=== PATIENT | female | born 1955 | race Caucasian/White ===

== ENCOUNTER → 2017-08-30 | Outpatient (CLI) | payer BC ==
--- NOTE | 2017-08-30 19:54 | CT ---
EXAMINATION TYPE: CT chest w con DATE OF EXAM: 08/30/2017 COMPARISON: NONE HISTORY: Lung mass CT DLP: 600 mGycm Automated exposure control for dose reduction was used. CONTRAST: CT scan of the chest is performed with IV Contrast, patient injected with 100 mL of Isovue 300. FINDINGS: There is a lobulated noncalcified 6 cm mass at the left perihilum. There is some encasement of the le ft upper lobe bronchus. There is encasement of the left lower lobe pulmonary artery. Thoracic aorta i s intact. There is no evidence of aneurysm or dissection. There is diffuse pulmonary emphysema. There is a low-density 1.2 cm infiltrate in the anterior right upper lobe. There is a similar infiltrate i n the lateral aspect of the right middle lobe. There is no pleural effusion. Heart size is normal. Th ere is no pericardial effusion. I see no mediastinal adenopathy. The bony thorax is intact. I see no bony destructive process. IMPRESSION: Large left hilar mass consistent with primary malignancy. Nonspecific peripheral right u pper lobe and right middle lobe small infiltrates.
== END | disposition home or self-care (01) ==
LOC: RADCTMAIN 18:40
PROVIDERS: ATTEND Internal Medicine
DX: R91.8 Other nonspecific abnormal finding of lung field (principal)
CPT/HCPCS: 71260; Q9967

== ENCOUNTER 2017-09-08 09:45 | Day surgery (SDC) | payer BC ==
[2017-09-07 12:07] VITALS: BMI 24.7
[~2017-09-08 09:45] MED LIST: LACTATED RINGERS 1,000 ML IV SCH; Pre Op ABX Message 1 EACH MISC MISCELLANE ONE
[2017-09-08 10:17] VITALS: TEMP 98.9
[2017-09-08] MEDS ORDERED: LIDOCAINE 1% 20 ML VIAL (10MG/ML) FOR IV START INTRADERMA ONE (10:28)
[2017-09-08] MEDS ORDERED: MIDAZOLAM 2 MG/2 ML VIAL IV ONE (10:30)
[2017-09-08] MEDS ORDERED: PROPOFOL 10 MG/ML 20 ML VIAL IV ONE (11:40)
[2017-09-08] MEDS ORDERED: LIDOCAINE 1% INJ 10MG/ML (20 ML MDV) ONE (11:40)
--- NOTE | 2017-09-08 12:41 | P.PCN ---
Date of Procedure: 09/08/17 Preoperative Diagnosis: Left sided Hilar mass Postoperative Diagnosis: Left-sided hilar mass Procedure(s) Performed: Bronchoscopy, flexible along with transbronchial needle aspirate, endobronchial biopsies and bronchial alveolar lavage of the left hilar mass. Anesthesia: MAC Surgeon: Michael Hatch Ground Host/Hostess #1: Yennifer Adams Estimated Blood Loss (ml): 25 Pathology: other Condition: stable Disposition: same day Operative Findings: It is a flexible bronchoscope that was done on this patient. A preop timeout was obtained and a consent was signed. The procedure including the potential complications was explained to the patient at length. This procedure was done under conscious sedation with sedative agents being administered by anesthesia the bedside. The patient was premedicated with a combination of propofol and lidocaine. After achieving adequate sedation, the flexible bronchoscope was inserted to the right nostril and was moved into the upper airway. Examination the posterior oropharynx, larynx, epiglottis, vallecula, arytenoids and the vocal cords was done. All of these upper airway structures were within normal limits and there was no abnormalities within the upper airway and vocal cords function /mobility was within normal limits. A total of 2 mL of 1% lidocaine was applied to the vocal cords and following that the bronchoscope was advanced into the upper trachea. Examination of the [id number] tree was done. There was copious amount of losing secretions throughout the patient's airways were suctioned out. The patient had a normal trachea. Examination of the right mainstem bronchus and the right upper lobe and right middle lobe and right lower lobe was within normal limits. The bronchoscope was then moved to the left lung and the left mainstem bronchus was within normal. The joe the left upper lobe and the left lower lobe bronchus was seen and was within normal limits. The bronchoscope was moved to the left upper lobe and the secondary joe the to the lingular segment and the left upper lobe segments was considerably irregular, granular looking, with several bulges endobronchially causing significant narrowing of the orifice leading into the lingular segment and the left upper lobe segment. I estimated the caliber of the airway was reduced by around 50%. As for the secondary joe itself was irregular rather than being swollen and I suspect that this area was essentially involved with cancer, endobronchially. At this point, I introduced a 21-gauge histology needle and transbronchial needle aspirate of the secondary joe was done. The pass was taken without any complications ,however, this led into some endobronchial bleeding from the puncture site. The blood was suctioned out. Following that, a forceps was introduced and endobronchial biopsies of the lingular segment and the left upper lobe segment leading into the left hilar mass was done. A total of 5-6 biopsies were obtained. After these biopsies, there was further bleeding and estimated amount of bleeding was around 20 mL. The bleeding stopped spontaneously without any intervention. At the end of the procedure a bronchioloalveolar lavage of the left upper lobe was done. A total of 60 mL of fluid was infused and 25 mL of bloody aspirate was obtained. The end of the procedure, the bronchoscope was removed after suctioning any residual blood and mucus. The patient's pulse ox remained above 85% throughout the procedure. No hemodynamic instability. No other complications. Chest x-rays to follow. Further recommended is to follow based on the results of the biopsies. Suspect malignancy/lung cancer.
[2017-09-08] MEDS ORDERED: ACETAMINOPHEN TAB 325 MG TAB PO ONE (13:04)
--- NOTE | 2017-09-08 13:19 | XR ---
EXAMINATION TYPE: XR chest 1V portable DATE OF EXAM: 09/08/2017 COMPARISON: 12/03/2013 INDICATION: Post Bronchoscopy TECHNIQUE: Single frontal view of the chest is obtained. FINDINGS: The heart size is normal. The pulmonary vasculature is normal. There is a left suprahilar mass with spiculated margins. No pneumothorax is evident post bronchoscopy . IMPRESSION: 1. Left suprahilar mass. 2. No pneumothorax post bronchoscopy.
[2017-09-08 13:44] VITALS: BP 125/81; PULSE 113; RESP 18
--- NOTE | 2017-09-08 14:29 | FL ---
EXAMINATION TYPE: FL bronchoscopy DATE OF EXAM: 09/08/2017 COMPARISON: CT chest 08/30/2017 HISTORY: Left upper lobe lung mass Fluoroscopy support supplied to the referring clinician. See dictated report from pulmonary, 32 seco nds fluoroscopy time, single intraoperative exam documents the procedure
== END 2017-09-08 13:50 | disposition home or self-care (01) ==
LOC: ORWHC2ENDO 09:45
PROVIDERS: ATTEND Internal Medicine Critical Care Medicine
DX: C34.02 Malignant neoplasm of left main bronchus (principal); J42 Unspecified chronic bronchitis; E78.00 Pure hypercholesterolemia, unspecified; M47.812 Spondylosis without myelopathy or radiculopathy, cervical region; M50.30 Other cervical disc degeneration, unspecified cervical region; J45.909 Unspecified asthma, uncomplicated; F41.1 Generalized anxiety disorder; F32.9 Major depressive disorder, single episode, unspecified; E03.9 Hypothyroidism, unspecified; I10 Essential (primary) hypertension; G43.909 Migraine, unspecified, not intractable, without status migrainosus; F17.200 Nicotine dependence, unspecified, uncomplicated; Z87.442 Personal history of urinary calculi; Z79.82 Long term (current) use of aspirin; Z79.890 Hormone replacement therapy; Z79.899 Other long term (current) drug therapy; Z79.891 Long term (current) use of opiate analgesic; Z88.1 Allergy status to other antibiotic agents; Z88.8 Allergy status to other drugs, medicaments and biological substances; Z91.012 Allergy to eggs; Z91.040 Latex allergy status
CPT/HCPCS: 88108; 88305; 88173; 88342; 88341; 71045; 31629; 31625; 31624; J2250; J2001; J2704; 31628; 31633

== ENCOUNTER → 2017-09-18 | Outpatient (CLI) | payer BC ==
--- NOTE | 2017-09-20 09:13 | PE ---
EXAMINATION TYPE: PET CT fusion skull to thigh DATE OF EXAM: 09/18/2017 COMPARISON: Chest CT August 30, 2017. HISTORY: Lung Mass. Initial staging study. Positive biopsy September 08, 2017. TECHNIQUE: Following the intravenous administration of 14.798 mCi of F-18 FDG, whole body images are performed from the skull base to the midthigh. Images are reviewed on the computer in the coronal, axial, and sagittal planes. Reconstructed rotating images are created on independent workstation and reviewed on the computer. A noncontrast CT is performed in conjunction with the PET scan. SCAN: Initial scan FINDINGS: SKULL BASE AND NECK: No suspicious hypermetabolic uptake is seen CHEST, MEDIASTINUM, AND HILAR REGION: Moderate underlying emphysematous change is redemonstrated. There is redemonstration of spiculated left suprahilar mass measuring approximately 7.0 x 5.5 cm axia l image 76, this mass abuts the fissure and appears to invade the mediastinum encroaching upon left p ulmonary artery and significantly narrowing left upper lobe bronchus, max SUV is 23.06. Inferior to this there is triangular shaped area of abnormal hypermetabolic uptake in the anterior in ferior aspect left upper lobe abutting fissure measuring 4.5 x 2.8 cm, max SUV is 7.14. There is redemonstration of spiculated nodules or nodular consolidations in the right lung measuring 1.2 x 0.9 cm axial image 78 and more irregular nodular consolidation measuring roughly 9 x 5 mm right middle lobe axial image 95 without abnormal hypermetabolic uptake ABDOMEN AND PELVIS: No suspicious hypermetabolic uptake is present. No adrenal masses are seen. Some right-sided bowel uptake is believed within normal limits OSSEOUS STRUCTURES: No suspicious hypermetabolic uptake is seen. OTHER CT: Anterior fusion plate lower cervical spine is noted. Coronary artery calcification is present which is noted marker for coronary artery disease. Slightly elevated left hemidiaphragm is seen. Gallbladder has distended margins. Moderate atherosclerotic change of aorta. There are some diverticula in the sigmoid colon. There is facet arthropathy lower lumbar spine. IMPRESSION: Multifocal left hypermetabolic uptake without mediastinal or right-sided hypermetabolic o r metastatic malignancy. TNM STAGING T3 or T4(media invasion?), N0, M0 AJCC STAGING IIB or IIIA
== END | disposition home or self-care (01) ==
LOC: RADPETMAIN 11:49
PROVIDERS: ATTEND Internal Medicine
DX: R91.8 Other nonspecific abnormal finding of lung field (principal)
CPT/HCPCS: 78815; A9552

== ENCOUNTER 2017-09-30 09:40 | Day surgery (SDC) | payer BC ==
[2017-09-27 16:01] VITALS: BMI 24.1
--- NOTE | 2017-09-30 07:49 | P.GSHP ---
History of Present Illness H&P Date: 09/30/17 CHIEF COMPLAINT: Lung cancer HISTORY OF PRESENT ILLNESS: The patient is a 61-year-old female diagnosed with lung cancer. She needs a Mediport placement for chemotherapy. PAST MEDICAL HISTORY: See list PAST SURGICAL HISTORY: See list CURRENT MEDICATIONS: See list. ALLERGIES: See list. SOCIAL HISTORY: See list. FAMILY HISTORY: Noncontributory. REVIEW OF ORGAN SYSTEMS: CONSTITUTIONAL: No fevers or chills PHYSICAL EXAMINATION: Vital signs: Stable GENERAL: Well developed and in no acute distress. Pleasant. HEENT: No sclera icterus. Extraocular movements grossly intact. Moist buccal mucosa. Head is atraumatic, normocephalic. Hears conversational speech. No nasal drainage. NECK: Supple without lymphadenopathy. CHEST: Non-labored respirations and equal bilateral excursions. CARDIOVASCULAR: Regular rate and rhythm. Palpable 2+ radial pulses. ABDOMEN: Nontender. MUSCULOSKELETAL: No clubbing, cyanosis or edema. NEUROLOGIC: No focal or lateralizing signs. PSYCH: Appropriate affect. Alert and oriented to person, place and time. ASSESSMENT: 1. Lung cancer. 2. Need for chemotherapeutic access. PLAN: 1. Agree with Port-A-Cath placement. Past Medical History Past Medical History: Asthma, Cancer, Hyperlipidemia, Hypertension, Neurologic Disorder, Thyroid Disorder Additional Past Medical History / Comment(s): HX MIGRAINE, HX KIDNEY STONES, newly dx. lung cancer History of Any Multi-Drug Resistant Organisms: None Reported Past Surgical History: Adenoidectomy, Hysterectomy, Orthopedic Surgery, Tonsillectomy Additional Past Surgical History / Comment(s): LEFT ELBOW, LEFT CARPAL TUNNEL, EPIDURAL PAIN SHOTS, Anterior Cervical Decomp. and fusion c5-6,c6-7 Past Anesthesia/Blood Transfusion Reactions: No Reported Reaction Smoking Status: Current every day smoker - Past Family History Mother Family Medical History: Hyperlipidemia Father Additional Family Medical History / Comment(s): of ALS Medications and Allergies Home Medications Medication Instructions Recorded Confirmed Type ALPRAZolam [ALPRAZolam] 0.25 mg PO HS 12/20/13 09/27/17 History Albuterol Inhaler [Ventolin Hfa 2 puff INHALATION Q6H PRN 12/20/13 09/27/17 History Inhaler] Aspirin 81 mg PO DAILY 12/20/13 09/27/17 History Atenolol [Atenolol] 50 mg PO HS 12/20/13 09/27/17 History DULoxetine HCL [Cymbalta] 30 mg PO QAM 12/20/13 09/27/17 History Fenofibric Acid (Choline) 135 mg PO DAILY 12/20/13 09/27/17 History [Fenofibric Acid] Levothyroxine Sodium [Synthroid] 50 mcg PO DAILY 12/20/13 09/27/17 History Rosuvastatin Calcium [Crestor] 60 mg PO DAILY 12/20/13 09/27/17 History Varenicline [Chantix Starter Pack] 0.5 mg PO DAILY 09/27/17 09/27/17 History Allergies Allergy/AdvReac Type Severity Reaction Status Date / Time cephalexin monohydrate Allergy Rash/Hives Verified 09/27/17 15:47 [From Keflex] Egg Derived Allergy Anaphylaxis Verified 09/27/17 15:47 latex Allergy Rash/Hives Verified 09/27/17 15:47 simvastatin AdvReac Unknown Verified 09/27/17 15:47
[~2017-09-30 09:40] MED LIST changes: +DEXAMETHASONE SOD PHOSPHATE 10 MG/ML 1 ML VIAL IV ONE; +HYDROmorphone 0.5 MG/0.5 ML SYRINGE IVP PRN; +ONDANSETRON 4 MG/2 ML VIAL IVP ONE; -Pre Op ABX Message 1 EACH MISC MISCELLANE ONE; +ceFAZolin IN SWFI 2 GM/20 ML SYRINGE IVP STA
[2017-09-30 10:07] VITALS: RESP 16; TEMP 98
[2017-09-30] MEDS ORDERED: SCOPOLAMINE 1.5MG/72HR PATCH TRANSDERM ONE (10:28)
[2017-09-30] MEDS ORDERED: ceFAZolin IN SWFI 2 GM/20 ML SYRINGE IVP ONE (10:29)
[2017-09-30] MEDS ORDERED: BUPIVACAIN-EPI 0.25%-1:200,000 30 ML VIAL SQ ONE ×2 (11:00→11:42)
[2017-09-30] MEDS ORDERED: HEPARIN SODIUM,PORCINE 100 UNIT/ML 5 ML VIAL IV ONE ×3 (11:01→13:04)
[2017-09-30] MEDS ORDERED: SODIUM CHLORIDE 0.9% 500 ML with HEPARIN SODIUM,PORCINE 5,000 UNIT IV ONE ×6 (11:02)
[2017-09-30] MEDS ORDERED: MIDAZOLAM 2 MG/2 ML VIAL ONE (12:21)
[2017-09-30] MEDS ORDERED: fentaNYL (PF) 50 MCG/ML 2 ML AMP ONE (12:21)
[2017-09-30] MEDS ORDERED: PROPOFOL 10 MG/ML 20 ML VIAL IV ONE (12:21)
--- NOTE | 2017-09-30 13:13 | P.PCN ---
Date of Procedure: 09/30/17 Description of Procedure: SURGEON: ARAM ISIDRO MD SHEET WRITER: None. PREOPERATIVE DIAGNOSES: 1. Lung cancer 2. Need for chemotherapeutic access. 3. Chronic obstructive pulmonary disease 4. Tobacco abuse 5. Hyperlipidemia. 6. Hypertensive heart disease 7. Hypothyroidism. 8. Anxiety POSTOPERATIVE DIAGNOSES: 1. Lung cancer 2. Need for chemotherapeutic access. 3. Chronic obstructive pulmonary disease 4. Tobacco abuse 5. Hyperlipidemia. 6. Hypertensive heart disease 7. Hypothyroidism. 8. Anxiety PROCEDURES PERFORMED: 1. Ultrasound guided central venous access of the right internal jugular venous vein. 2. Fluoroscopic guidance for central venous access right internal jugular vein 1 seconds. 3. Placement of right internal jugular power port 6 [place] by [employer]. ANESTHESIA: IV sedation with local. ESTIMATED BLOOD LOSS: 5 mL. SPECIMENS REMOVED: None. COMPLICATIONS: None. INDICATIONS: The patient is a 61-year-old female recently diagnosed with lung cancer. She presents for chemotherapeutic access. Benefits and risks of surgical intervention were described including bleeding, infection, mechanical problems with the port. Informed consent was obtained. DESCRIPTION OR PROCEDURE: Patient was brought into the operating room, laid in supine position. After adequate IV sedation, the chest and right neck were prepped and draped in a standard sterile fashion including the shoulder with ChloraPrep. Timeout protocol was confirmed with the surgical team regarding the patient's name, procedure to be performed including preoperative medications for which she received IV antibiotics. Bilateral SCDs were placed. An ultrasound was used to capture views of the right internal jugular vein including right carotid artery, which was patent and without thrombus along its course. The right IJ was then localized using anesthetic for the skin. A 16 [place] needle was used to access the IJ. A guidewire was advanced into the IJ with dark nonpulsatile venous blood. Two fingerbreadths distal to the clavicle, on the lateral third, a transverse 1.5 to 2 cm incision was deepened into the skin after localizing the skin. A pocket was created for the port. The port on the back table was flushed with heparinized saline and then attached to the catheter tubing. An adapter was fastened to the actual port site over the tubing. The port easily had fit snug into the pocket. A subcutaneous tunneler was placed along the open end of the tubing and brought out through the separate stab incision. Fluoroscopic guidance confirmed no kinking along the tubing and the port site. Next, the J-wire was exchanged for a catheter sheath for which the tubing was cut to 20 cm and then advanced through the catheter sheath. The Peel-away sheath was then removed and the tubing was secured at the junction of the superior vena cava as well as the right atrium. The tubing was found to be crossed however functional. This was all done under fluoroscopic guidance under 1 seconds. Easy pullback as well as return and aspiration was obtained of the port site. The skin incision was closed using layers using 3-0 Vicryl for the subcu followed by 4-0 Monocryl in a running subcuticular fashion. At the stick site this was also reapproximated using 4-0 Monocryl. The incisions were covered with Optifoam, The skin was cleansed and Exofin liquid glu was applied. A total of 20 mL of local anesthetic was placed. At the end of the procedure, needle, sponge, and instrument count was verified correct by surgical sales representative. Heparin lock of 5 mL was placed. The patient was awoken and pain free and taken to the second stage postanesthesia care unit. The patient tolerated the procedure well. FINDINGS: 1. No thrombus encountered along the right carotid artery or internal jugular vein. 2. Access of the right internal jugular vein under ultrasound guidance. 3. Fluoroscopy of 1 seconds. Plan - Discharge Summary New Discharge Prescriptions: No Action Fenofibric Acid (Choline) [Fenofibric Acid] 135 mg PO DAILY Rosuvastatin Calcium [Crestor] 60 mg PO DAILY Levothyroxine Sodium [Synthroid] 50 mcg PO DAILY Atenolol [Atenolol] 50 mg PO HS ALPRAZolam [ALPRAZolam] 0.25 mg PO HS DULoxetine HCL [Cymbalta] 30 mg PO QAM Aspirin 81 mg PO DAILY Albuterol Inhaler [Ventolin Hfa Inhaler] 2 puff INHALATION Q6H PRN PRN Reason: asthma Varenicline [Chantix Starter Pack] 0.5 mg PO DAILY Discharge Medication List ALPRAZolam [ALPRAZolam] 0.25 mg PO HS 12/20/13 [History] Albuterol Inhaler [Ventolin Hfa Inhaler] 2 puff INHALATION Q6H PRN 12/20/13 [ History] Aspirin 81 mg PO DAILY 12/20/13 [History] Atenolol [Atenolol] 50 mg PO HS 12/20/13 [History] DULoxetine HCL [Cymbalta] 30 mg PO QAM 12/20/13 [History] Fenofibric Acid (Choline) [Fenofibric Acid] 135 mg PO DAILY 12/20/13 [History] Levothyroxine Sodium [Synthroid] 50 mcg PO DAILY 12/20/13 [History] Rosuvastatin Calcium [Crestor] 60 mg PO DAILY 12/20/13 [History] Varenicline [Chantix Starter Pack] 0.5 mg PO DAILY 09/27/17 [History] Patient Instructions/Handouts: Scopolamine (Absorbed through the skin)
--- NOTE | 2017-09-30 13:27 | FL ---
EXAMINATION TYPE: FL guided central line placemt DATE OF EXAM: 09/30/2017 CLINICAL HISTORY: Right-sided Mediport placement. TECHNIQUE: Fluoroscopy. COMPARISON: None. FINDINGS/IMPRESSION: Fluoroscopic guidance was provided during procedure performed by Dr. Rivera. A total of 1 seconds of fluoroscopic time was utilized during the procedure and 1 spot images was a cquired during intraoperative placement of a right-sided Mediport. There is also partial visualizatio n of a cervical fusion device.
[2017-09-30 14:04] VITALS: BP 113/72; PULSE 100
--- NOTE | 2017-09-30 14:17 | XR ---
EXAMINATION TYPE: XR chest 1V confirm line [facility] DATE OF EXAM: 09/30/2017 COMPARISON: 09/08/2017 HISTORY: Line placement TECHNIQUE: Single frontal view of the chest is obtained. FINDINGS: The heart size is normal. The pulmonary vasculature is normal. There is a left suprahilar mass with spiculated margins. No pneumothorax. Mediport catheter seen with the tip overlying the SVC. IMPRESSION: 1. No pneumothorax post-Mediport insertion.
== END 2017-09-30 14:29 | disposition home or self-care (01) ==
LOC: OR 09:40
PROVIDERS: ATTEND Surgery Plastic and Reconstructive Surgery
DX: C34.12 Malignant neoplasm of upper lobe, left bronchus or lung (principal); I10 Essential (primary) hypertension; E78.5 Hyperlipidemia, unspecified; E03.9 Hypothyroidism, unspecified; J44.9 Chronic obstructive pulmonary disease, unspecified; F41.9 Anxiety disorder, unspecified; I11.9 Hypertensive heart disease without heart failure; F17.210 Nicotine dependence, cigarettes, uncomplicated; Z79.899 Other long term (current) drug therapy; Z88.8 Allergy status to other drugs, medicaments and biological substances; Z91.012 Allergy to eggs; Z91.040 Latex allergy status
CPT/HCPCS: 77001; 36561; 76937; C1788; J2250; J1644; J1642; J1100; J2405; J3010; J2704

== ENCOUNTER → 2017-10-15 | Outpatient (CLI) | payer BC ==
--- NOTE | 2017-10-15 13:11 | XR ---
EXAMINATION TYPE: XR chest 2V DATE OF EXAM: 10/15/2017 COMPARISON: Prior chest x-ray 09/30/2017 HISTORY: Lung carcinoma TECHNIQUE: Frontal and lateral views of the chest are obtained. FINDINGS: Findings are similar to previous exam. Left upper lobe lung mass, lingula consolidation ag ain noted. Distal tip of the MediPort in the region of the confluence of the innominate and right sub clavian veins. Right-sided lung nodules not well seen possibly due to rotation. IMPRESSION: Findings compatible with patient's history of lung carcinoma, possible postobstructive a telectasis..
== END | disposition home or self-care (01) ==
LOC: RADXRMAIN 11:05
PROVIDERS: ATTEND Nurse Practitioner Adult Health
DX: C34.12 Malignant neoplasm of upper lobe, left bronchus or lung (principal); I10 Essential (primary) hypertension; E78.5 Hyperlipidemia, unspecified; E03.9 Hypothyroidism, unspecified
CPT/HCPCS: 71046

== ENCOUNTER → 2017-10-15 | Outpatient (CLI) | payer BC ==
--- NOTE | 2017-10-17 21:57 | MR ---
EXAMINATION TYPE: MR brain wo/w con DATE OF EXAM: 10/15/2017 COMPARISON: Correlation PET/CT 09/18/2017 and MRI brain 05/14/2015 HISTORY: 61-year-old female Lung cancer TECHNIQUE: Multiplanar, multisequence images of the brain and brainstem were acquired before and aft er administration of 6 mL IV Gadavist. Diffusion weighted imaging is performed. FINDINGS: No evidence for acute infarction, hemorrhage, mass, mass effect, midline shift, herniation, effacemen t of basal cisterns, or extra-axial fluid collection. The ventricles and sulci are age-appropriate. Major intracranial flow voids are intact. T2/FLAIR weighted sequences show mild scattered burden of bright white matter change in the subcortic al regions of both cerebral hemispheres, left greater than right, unchanged from 2016. Midline structures demonstrate normal morphology. The craniocervical junction is normal. Post contrast images demonstrate no evidence of pathologic enhancement. Dural venous sinuses are pat ent. Mild mucosal thickening ethmoid air cells. Globes are intact. Small mucosal retention cyst left sphen oid sinus. IMPRESSION: No acute intracranial abnormally seen. No evidence for brain metastases. Similar mild scattered burde n of chronic small vessel ischemic disease.
== END | disposition home or self-care (01) ==
LOC: RADMRIMAIN 12:53
PROVIDERS: ATTEND Radiology Radiation Oncology
DX: I67.82 Cerebral ischemia (principal); C34.12 Malignant neoplasm of upper lobe, left bronchus or lung
CPT/HCPCS: 70553; A9581

== ENCOUNTER → 2017-12-18 | Outpatient (CLI) | payer BC ==
--- NOTE | 2017-12-19 13:19 | PE ---
EXAMINATION TYPE: PET CT fusion skull to thigh DATE OF EXAM: 12/18/2017 COMPARISON: CT chest 08/30/2017 Prior PET/CT: 09/18/2017 HISTORY: Lung cancer TECHNIQUE: Following the intravenous administration of 13.94 mCi of F-18 FDG, whole body images are performed from the skull base to the midthigh. Images are reviewed on the computer in the coronal, a xial, and sagittal planes. Reconstructed rotating images are created on independent workstation and reviewed on the computer. A localization and attenuation correction CT is performed in conjunction with the PET scan. DLP: 340.19 mGycm SCAN: Subsequent Blood glucose: 129 mg/dL Average Mediastinum SUV: 1.22 Average Liver SUV: 2.0 cm FINDINGS: NECK: No abnormal uptake THORAX: Left perihilar mass has an SUV value of 10-12 compatible with neoplasm. PET image 86. No susp icious uptake within the mediastinum is evident. Left infrahilar region, such as series 3 image 95, h as milder uptake measuring 4.3 SUV. Remainder of the chest appears clear. ABDOMEN: No abnormal uptake PELVIS: No abnormal uptake. There appears to be normal radiotracer within the distal right ureter OSSEOUS STRUCTURES: No abnormal uptake LOCALIZATION CT: Left suprahilar mass measures 3.6 x 3.6 cm. Series 3 image 84. No suspicious hilar a denopathy is evident. The ascending thoracic aorta at the level of the main pulmonary artery is 3.4 c m. Main pulmonary artery indications 2.7 cm. Mild coronary artery calcification is present. COMPARISON: Previous mass was larger measuring 5.6 x 4.4 cm right a previous area of pneumonitis with in the right middle lobe at 2 separate locations is again evident. Metastatic disease is not excluded abnormal uptake on PET scan is not identified. (SUV values 0.3 and 0.4) IMPRESSION: 1. Diminished size and diminished SUV value of the left hilar neoplasm. 2. No suspicious metabolic activity to suggest metastatic disease. 3. Right middle lobe pneumonitis changes appears similar without hypermetabolic activity to previous exam.
== END ==
LOC: RADPETMAIN 07:57
PROVIDERS: ATTEND Internal Medicine Hematology & Oncology
DX: C34.12 Malignant neoplasm of upper lobe, left bronchus or lung (principal); J18.9 Pneumonia, unspecified organism
CPT/HCPCS: 78815; A9552

== ENCOUNTER → 2018-01-13 | Outpatient (CLI) | payer BC ==
--- NOTE | 2018-01-13 11:36 | CT ---
EXAMINATION TYPE: CT chest wo con DATE OF EXAM: 01/13/2018 COMPARISON: Chest CT 08/30/2017 HISTORY: Cough, lung CA CT DLP: 509.7 mGycm. Automated Exposure Control for Dose Reduction was Utilized. TECHNIQUE: CT scan of the thorax is performed without IV contrast. Limited scanning performed in sup ine and prone positions through the lungs with high-resolution algorithm. FINDINGS: Lack of contrast, limited exam could limit sensitivity. LUNGS: Centrilobular emphysematous changes predominate in the upper lobes. Scattered groundglass subc entimeter nodularity noted within the lungs. Large left hilar mass measures approximately 5.2 cm in A P dimension on limited scanning slightly diminished compared to previous exam. No pleural or pericard ial effusion. MEDIASTINUM: Lack of IV contrast is noted to limit evaluation for mediastinal and especially hilar ad enopathy. There are no definitive greater than 1 cm hilar or mediastinal lymph nodes. Coronary arter y calcification present. No cardiomegaly or pericardial effusion is seen. OTHER: Postop changes noted to the cervical spine. Bones otherwise within normal limits. No evident a drenal mass. There is a port in the right pectoral region, the catheter extends into the jugular vein is not seen within the superior vena cava. IMPRESSION: Findings compatible with bronchogenic carcinoma. Emphysema. Indeterminate scattered nodul arity is less conspicuous than on prior CT. Additional findings above.
== END | disposition home or self-care (01) ==
LOC: RADCTMAIN 09:32
PROVIDERS: ATTEND Internal Medicine Hematology & Oncology
DX: J43.2 Centrilobular emphysema (principal); R91.8 Other nonspecific abnormal finding of lung field; I25.10 Atherosclerotic heart disease of native coronary artery without angina pectoris; R59.0 Localized enlarged lymph nodes; C34.12 Malignant neoplasm of upper lobe, left bronchus or lung
CPT/HCPCS: 71250

== ENCOUNTER → 2018-02-07 | Outpatient (CLI) | payer BC ==
--- NOTE | 2018-02-08 08:04 | XR ---
EXAMINATION TYPE: XR chest 2V DATE OF EXAM: 02/07/2018 COMPARISON: 10/15/2017 HISTORY: Left lung cancer. Mediport placement. TECHNIQUE: Frontal and lateral views of the chest are obtained. FINDINGS: There is radiographic improvement in the density and size of the left perihilar known pulm onary neoplasm. Left lower lung atelectasis and slight left hemidiaphragm elevation are unchanged. Re mainder the lungs are clear. No pneumothorax or pleural effusion. Right-sided Mediport is unchanged i n position terminating in the superior vena cava. Cervical fusion device is noted. IMPRESSION: Decrease density in size of the known left perihilar neoplasm. Subsegmental left basilar atelectasis. No new focal consolidation.
== END | disposition home or self-care (01) ==
LOC: RADXRMAIN 17:32
PROVIDERS: ATTEND Nurse Practitioner Adult Health
DX: C34.12 Malignant neoplasm of upper lobe, left bronchus or lung (principal); J98.11 Atelectasis; I10 Essential (primary) hypertension; E78.5 Hyperlipidemia, unspecified; E03.9 Hypothyroidism, unspecified
CPT/HCPCS: 71046

== ENCOUNTER → 2018-04-08 | Outpatient (CLI) | payer BC ==
[2018-04-08 11:27] LABS: Blood Urea Nitrogen 19 mg/dL (7-17)
--- NOTE | 2018-04-08 14:01 | CT ---
EXAMINATION TYPE: CT chest w con DATE OF EXAM: 04/08/2018 COMPARISON: PET CT December 18, [address] September 18, 2017 HISTORY: Lung cancer follow up. CT DLP: 583 mGycm. Automated Exposure Control for Dose Reduction was Utilized. TECHNIQUE: CT scan of the thorax is performed following with IV Contrast, patient injected with 100 mL of Isovue M300. FINDINGS: LUNGS: Spiculated mass left suprahilar region is difficult to accurately measure due to irregular mar gins and close proximity to adjacent left pulmonary artery. It is felt diminished in size from most r ecent PET/CT measuring 2.8 x 2.2 cm axial image 18 there is surrounding groundglass opacity with reti cular opacity also extending to the periphery of the lung likely reflecting edema and/or less likely infiltrate. There is new small left pleural effusion identified. Small amount of pleural fluid latera l left lung is also seen coronal image 49. There is background mild to moderate underlying emphysemat ous change most prominent in the upper lungs. Right lung remains clear. Slightly elevated left hemidi aphragm is redemonstrated. MEDIASTINUM: There are no greater than 1 cm hilar or mediastinal lymph nodes. New small to moderate-s ized pericardial effusion is seen measuring up to 13 mm in thickness. No cardiomegaly is present. OTHER: There is redemonstration of right internal jugular Mediport catheter terminating near junction of internal jugular and brachiocephalic veins short of the SVC similar to prior. IMPRESSION: 1. Improving left suprahilar neoplasm. New small left pleural effusion and surrounding left lung niall a and/or less likely infiltrate noted. No new masses or adenopathy. 2. Note is made of stable appearing right internal jugular Mediport catheter with tip short of SVC.
== END | disposition home or self-care (01) ==
LOC: RADPROMAIN 10:25
PROVIDERS: ATTEND Internal Medicine Hematology & Oncology
DX: C34.12 Malignant neoplasm of upper lobe, left bronchus or lung (principal); J90 Pleural effusion, not elsewhere classified; J81.1 Chronic pulmonary edema; Z95.828 Presence of other vascular implants and grafts
CPT/HCPCS: 82565; 84520; 71260; 36415; Q9967

== ENCOUNTER → 2018-07-26 | Outpatient (CLI) | payer BC ==
[2018-07-26 08:46] LABS: Blood Urea Nitrogen 24 mg/dL (7-17)
--- NOTE | 2018-07-26 10:31 | CT ---
EXAMINATION TYPE: CT chest w con DATE OF EXAM: 07/26/2018 COMPARISON: 04/08/2018 and PET/CT dated 12/18/2017 HISTORY: Follow up to lung CA CT DLP: 404.7 mGycm. Automated Exposure Control for Dose Reduction was Utilized. TECHNIQUE: CT scan of the thorax is performed following with IV Contrast, patient injected with 100 mL of Isovue 300. FINDINGS: LUNGS/MEDIASTINUM: There is marked decrease in size of the left-sided pleural effusion with only a sm all loculated component persisting along the posterior left upper lobe. This is contiguous with pleur al parenchymal scarring and surrounding atelectasis. The primary left hilar neoplasm when measured in a similar location appears decrease in size measuring approximately 2.2 x 1.7 cm and previously cole uring approximately 2.8 x 2.2 cm. There remains left hilar peribronchial soft tissue thickening. The pericardial effusion has markedly decreased in size with only trace anterior right sided component re maining. The coronary calcifications are seen. No discrete mediastinal adenopathy as evident by size criteria. Very small hiatal hernia seen in the inferior mediastinum. There is moderate underlying pulmonary emphysema and bandlike scarring along the left interlobar fiss ure. Bilateral pulmonary nodules (3 in the left and 7 on the right) are stable from the prior and sub sequent 4 mm. OTHER: There is mild degree hepatic steatosis, limiting evaluation for hepatic masses. However there are subtle areas of enhancement and the inferior margin of segment 8 and segment 5 in a subcapsular l ocation as well as more subtle hypoattenuation in segment IVb as marked on the images. Mild multileve l degenerative changes of the spine are present. Right-sided Mediport is again seen. IMPRESSION: 1. Continued response to treatment with decrease in size of the primary left hilar mass, nearly resol paulino left pleural effusion, nearly resolved pericardial effusion, stable sub-4 mm bilateral pulmonary nodules, stable left post radiation change, and no new mediastinal adenopathy. 2. There is mild degree hepatic steatosis that somewhat limits evaluation for underlying hepatic mass es. Small foci of arterial enhancement may represent portal venous shunt and more hypoattenuated adalid on near the gallbladder fossa could represent more focal fatty infiltration however these findings co uld be further evaluated with MRI liver to exclude early metastasis.
== END | disposition home or self-care (01) ==
LOC: RADCTMAIN 08:10
PROVIDERS: ATTEND Internal Medicine Hematology & Oncology
DX: Z03.89 Encounter for observation for other suspected diseases and conditions ruled out (principal); J90 Pleural effusion, not elsewhere classified; I31.3 Pericardial effusion (noninflammatory); R91.8 Other nonspecific abnormal finding of lung field; K76.0 Fatty (change of) liver, not elsewhere classified; C34.12 Malignant neoplasm of upper lobe, left bronchus or lung; Z88.1 Allergy status to other antibiotic agents
CPT/HCPCS: 82565; 84520; 71260; 36415; Q9967

== ENCOUNTER → 2018-08-08 | Outpatient (CLI) | payer BC ==
--- NOTE | 2018-08-08 16:50 | NM ---
EXAMINATION TYPE: NM bone scan whole body DATE OF EXAM: 08/08/2018 COMPARISON: Correlation PET/CT 12/30/2017 HISTORY: 62-year-old female with bone pain, history of lung cancer. Technique: Delayed whole-body scanning was performed following the injection of 23.9 mCi Tc 99m MDP. Anterior and posterior whole body Images acquired 3 hours post injection. FINDINGS: No suspicious accumulation of tracer activity within the axial or appendicular skeleton to suggest os seous metastatic disease. There are some degenerative tracer activity at the right knee. IMPRESSION: No scintigraphic evidence for osseous metastatic disease.
== END | disposition home or self-care (01) ==
LOC: RADNMMAIN 09:52
PROVIDERS: ATTEND Internal Medicine Hematology & Oncology
DX: M84.88 Other disorders of continuity of bone, other site (principal); C34.12 Malignant neoplasm of upper lobe, left bronchus or lung
CPT/HCPCS: 78306; A9503

== ENCOUNTER → 2018-10-11 | Outpatient (CLI) | payer BC ==
--- NOTE | 2018-10-11 21:49 | CT ---
EXAMINATION TYPE: CT chest w con DATE OF EXAM: 10/11/2018 COMPARISON: 07/26/2018 and 04/08/2018 HISTORY: 62-year-old female f/u lung ca TECHNIQUE: Contiguous axial scanning of the chest after the administration of 100 mL of Isovue 300. Coronal/sagittal reconstructions performed. CT DLP: 765mGycm. Automatic exposure control utilized for a dose reduction. FINDINGS: Heart normal size with stable mild pericardial effusion. Aorta normal caliber with mild atherosclerotic arch calcifications and conventional arch vessel branc gwendolyn anatomy. Right anterior chest wall injection port with stable catheter tip in the right brachiocephalic vein. No thoracic lymphadenopathy by CT size criteria. There is moderate centrilobular emphysema. Scattered 4 mm and smaller pulmonary nodules are unchanged . Left suprahilar soft tissue is unchanged from recent prior and decreased from 04/08/2018. Patchy grou ndglass extends throughout the left upper mid lung at this level. Bandlike atelectasis or scarring al dario the major fissure. The interval is patchy peribronchovascular and subpleural groundglass posterior left lower lobe, refe rred to axial images 22, 28, and 29. No pleural effusion. Stable focal hypodensity along the gallbladder fossa and some areas along the buck hepatis likely fo everardo fatty infiltration. Hilar splenules. Bones: Mild endplate spondylosis mid to lower thoracic spine. ACDF hardware. IMPRESSION: 1. Stable mild left suprahilar soft tissue at the site of treated disease. Groundglass throughout the left lung limited to this level compatible with post radiation therapy change also unchanged from and overall decreased from 04/08/2018. 2. New patchy peribronchovascular subpleural groundglass extending posteriorly in the left lower lobe . Correlate for interstitial pneumonitis such TOOLROOM CLERK, additional evolving post radiation therapy change, or pneumonia. Attention on follow-up. 3. COPD with moderate emphysema. Scattered 4 mm and smaller pulmonary nodules are unchanged. 4. Stable right anterior chest wall injection port tip in the right brachiocephalic vein.
== END | disposition home or self-care (01) ==
LOC: RADCTMAIN 14:06
PROVIDERS: ATTEND Internal Medicine Critical Care Medicine
DX: J43.9 Emphysema, unspecified (principal); R91.8 Other nonspecific abnormal finding of lung field; C34.90 Malignant neoplasm of unspecified part of unspecified bronchus or lung; Z88.1 Allergy status to other antibiotic agents; Z88.8 Allergy status to other drugs, medicaments and biological substances
CPT/HCPCS: 71260; Q9967

== ENCOUNTER 2019-02-26 08:45 | Inpatient (IN) | payer BC ==
[2019-02-26] MEDS ORDERED: SODIUM CHLORIDE 0.9% 1,000 ML IV STA (09:11)
[2019-02-26] MEDS ORDERED: IPRATROPIUM-ALBUTEROL 3 ML NEB INHALATION STA ×2 (09:11→11:09)
[2019-02-26] MEDS ORDERED: methylPREDNISolone SOD SUCCI 125 MG/2 ML VIAL IV STA (09:11)
[2019-02-26] MEDS: SODIUM CHLORIDE 0.9% 1,000 ML IV STA ×2 (09:13→11:00)
--- NOTE | 2019-02-26 09:15 | ED ---
SOB HPI - General Source: patient, RN notes reviewed, old records reviewed Mode of arrival: ambulatory Limitations: no limitations <Francisca Forde - Last Filed: 02/26/19 12:46> <Izaiah Escobar - Last Filed: 02/26/19 13:14> - General Chief Complaint: Shortness of Breath Stated Complaint: SOB Time Seen by Provider: 02/26/19 08:55 - History of Present Illness Initial Comments: Patient is a 63-year-old female with history of lung cancer, with a senior product marketing manager Dr. Hatch and her oncologist is Dr. Sales. She presents today with worsening cough congestion and shortness of breath over the past 3 days. She does report some blood-tinged mucus and yellow-green sputum. She reports that she's been having night sweats, low-grade fevers. She's been taking Motrin Tylenol for pain. She reports that she has persistent pain length substernal pain with coughing lately has been more brought her entire chest. Patient states that she's had no nausea or vomiting or abdominal pain. (Francisca Forde) - Related Data Home Medications Medication Instructions Recorded Confirmed ALPRAZolam 0.25 mg PO HS 12/20/13 11/17/17 Albuterol Inhaler [Ventolin Hfa 2 puff INHALATION Q6H PRN 12/20/13 11/17/17 Inhaler] Aspirin 81 mg PO DAILY 12/20/13 11/17/17 Atenolol 50 mg PO HS 12/20/13 11/17/17 DULoxetine HCL [Cymbalta] 30 mg PO QAM 12/20/13 11/17/17 Fenofibric Acid (Choline) 135 mg PO DAILY 12/20/13 11/17/17 [Fenofibric Acid] Levothyroxine Sodium [Synthroid] 50 mcg PO DAILY 12/20/13 11/17/17 Rosuvastatin Calcium [Crestor] 60 mg PO DAILY 12/20/13 11/17/17 Varenicline [Chantix Starter Pack] 0.5 mg PO DAILY 09/27/17 11/17/17 Famotidine [Pepcid] 20 mg PO DAILY 10/20/17 11/17/17 HYDROcodone/APAP 5-325MG [[place] 1 tab PO Q6HR PRN 11/17/17 11/17/17 5-325] Allergies Allergy/AdvReac Type Severity Reaction Status Date / Time cephalexin monohydrate Allergy Rash/Hives Verified 02/26/19 08:52 [From Keflex] Egg Derived Allergy Anaphylaxis Verified 02/26/19 08:52 latex Allergy Rash/Hives Verified 02/26/19 08:52 simvastatin AdvReac Unknown Verified 02/26/19 08:52 Review of Systems ROS Other: All systems not noted in ROS Statement are negative. <Lorrie Fordeily - Last Filed: 02/26/19 12:46> ROS Other: All systems not noted in ROS Statement are negative. <Izaiah Escobar - Last Filed: 02/26/19 13:14> ROS Statement: Those systems with pertinent positive or pertinent negative responses have been documented in the HPI. Past Medical History Past Medical History: Asthma, Cancer, Hyperlipidemia, Hypertension, Neurologic Disorder, Thyroid Disorder Additional Past Medical History / Comment(s): HX MIGRAINE, HX KIDNEY STONES, newly dx. lung cancer History of Any Multi-Drug Resistant Organisms: None Reported Past Surgical History: Adenoidectomy, Hysterectomy, Orthopedic Surgery, Tonsillectomy Additional Past Surgical History / Comment(s): LEFT ELBOW, LEFT CARPAL TUNNEL, EPIDURAL PAIN SHOTS, Anterior Cervical Decomp. and fusion c5-6,c6-7 Past Anesthesia/Blood Transfusion Reactions: No Reported Reaction Past Psychological History: Anxiety, Depression Smoking Status: Former smoker Past Alcohol Use History: None Reported Past Drug Use History: None Reported - Past Family History Mother Family Medical History: Hyperlipidemia Father Additional Family Medical History / Comment(s): of ALS <Lorrie Fordeily - Last Filed: 02/26/19 12:46> General Exam Limitations: no limitations General appearance: alert, in no apparent distress Head exam: Present: atraumatic, normocephalic, normal inspection Eye exam: Present: normal appearance, PERRL, EOMI. Absent: scleral icterus, co njunctival injection, periorbital swelling ENT exam: Present: normal exam Neck exam: Present: normal inspection. Absent: tenderness, meningismus, lym phadenopathy Respiratory exam: Present: wheezes (Patient has some wheezing noted bilaterally.). Absent: normal lung sounds bilaterally, respiratory distress, rales, rhonchi, stridor Cardiovascular Exam: Present: regular rate, normal rhythm, normal heart sounds. Absent: systolic murmur, diastolic murmur, rubs, gallop, clicks GI/Abdominal exam: Present: soft, normal bowel sounds. Absent: distended, tenderness, guarding, rebound, rigid Extremities exam: Present: normal inspection, full ROM, normal capillary refill. Absent: tenderness, pedal edema, joint swelling, calf tenderness Back exam: Present: normal inspection Neurological exam: Present: alert, oriented X3, CN II-XII intact <Francisca Forde - Last Filed: 02/26/19 12:46> - General Exam Comments Initial Comments: 63-year-old female. Alert and oriented 3. No significant distress. (Francisca Forde) Course <Izaiah Escobar - Last Filed: 02/26/19 13:14> Vital Signs 02/26/19 02/26/19 02/26/19 08:46 09:22 09:28 Temperature 97.8 F Pulse Rate 102 H 100 Respiratory 18 20 Rate Blood Pressure 137/65 O2 Sat by Pulse 97 Oximetry 02/26/19 02/26/19 02/26/19 09:33 11:05 11:19 Temperature Pulse Rate 100 81 85 Respiratory 16 Rate Blood Pressure 120/80 O2 Sat by Pulse 97 Oximetry 02/26/19 11:41 Temperature Pulse Rate 86 Respiratory Rate Blood Pressure O2 Sat by Pulse Oximetry - Reevaluation(s) Reevaluation #1: 02/26/19 13:13 PA supervision: I proceeded [id number] evaluation the patient she presents with 3 days of shortness of breath he progressively worse with exertional dyspnea low-grade fevers and exertional dyspnea. She was also noted have relatively low magnesium levels. I did discuss case with her and her family as well as with Dr. Alvarez the patient will be admitted with consultation to Dr. Hatch, Dr. Blanton is covering today. (Izaiah Escobar) Medical Decision Making - Lab Data Result diagrams: 02/26/19 09:15 02/26/19 09:15 - Radiology Data Radiology results: report reviewed <Francisca Forde - Last Filed: 02/26/19 12:46> - Lab Data Result diagrams: 02/26/19 09:15 02/26/19 09:15 <Izaiah Escobar - Last Filed: 02/26/19 13:14> - Medical Decision Making Patient is a 63-year-old female with history of lung cancer. She presents with worsening shortness of breath cough congestion worsening over the past 3 days. Vital signs have been stable. She did have wheezing noted on exam. Given breathing treatments continued to have wheezing and given subsequent treatments. Blood work was reviewed rectally unremarkable. Troponin and BNP are normal. Due to history of lung cancer proceeded with a computed tomography scan to rule out PE. There is no evidence of pulmonary embolism, there is concern for patchy infiltrate in the lung which could be early pneumonia. Patient was given IV Levaquin with history of ALLERGY to Keflex. Patient had blood culture obtained. We'll admit the Patient this time with consults the patient's senior product marketing manager. (Francisca Forde) - Lab Data Lab Results 02/26/19 02/26/19 02/26/19 Range/Units 09:15 09:15 09:15 WBC 6.5 (3.8-10.6) k/uL RBC 4.59 (3.80-5.40) m/uL Hgb 14.2 (11.4-16.0) gm/dL Hct 41.9 (34.0-46.0) % MCV 91.4 (80.0-100.0) fL MCH 30.9 (25.0-35.0) pg MCHC 33.8 (31.0-37.0) g/dL RDW 13.1 (11.5-15.5) % Plt Count 279 (150-450) k/uL Neutrophils % 77 % Lymphocytes % 8 % Monocytes % 6 % Eosinophils % 3 % Basophils % 3 % Neutrophils # 5.0 (1.3-7.7) k/uL Lymphocytes # 0.5 L (1.0-4.8) k/uL Monocytes # 0.4 (0-1.0) k/uL Eosinophils # 0.2 (0-0.7) k/uL Basophils # 0.2 (0-0.2) k/uL PT (9.0-12.0) sec INR (<1.2) APTT (22.0-30.0) sec Sodium 139 (137-145) mmol/L Potassium 4.7 (3.5-5.1) mmol/L Chloride 104 (98-107) mmol/L Carbon Dioxide 22 (22-30) mmol/L Anion Gap 13 mmol/L BUN 17 (7-17) mg/dL Creatinine 0.46 L (0.52-1.04) mg/dL Est GFR (CKD-EPI)AfAm >90 (>60 ml/min/1.73 sqM) Est GFR (CKD-EPI)NonAf >90 (>60 ml/min/1.73 sqM) Glucose 311 H (74-99) mg/dL Plasma Lactic Acid Joel (0.7-2.0) mmol/L Calcium 10.2 (8.4-10.2) mg/dL Magnesium 1.6 (1.6-2.3) mg/dL Total Bilirubin 0.6 (0.2-1.3) mg/dL AST 32 (14-36) U/L ALT 26 (9-52) U/L Alkaline Phosphatase 47 (38-126) U/L Troponin I (0.000-0.034) ng/mL NT-Pro-B Natriuret Pep 185 pg/mL Total Protein 8.5 H (6.3-8.2) g/dL Albumin 4.6 (3.5-5.0) g/dL 02/26/19 02/26/19 02/26/19 Range/Units 09:15 09:15 09:15 WBC (3.8-10.6) k/uL RBC (3.80-5.40) m/uL Hgb (11.4-16.0) gm/dL Hct (34.0-46.0) % MCV (80.0-100.0) fL MCH (25.0-35.0) pg MCHC (31.0-37.0) g/dL RDW (11.5-15.5) % Plt Count (150-450) k/uL Neutrophils % % Lymphocytes % % Monocytes % % Eosinophils % % Basophils % % Neutrophils # (1.3-7.7) k/uL Lymphocytes # (1.0-4.8) k/uL Monocytes # (0-1.0) k/uL Eosinophils # (0-0.7) k/uL Basophils # (0-0.2) k/uL PT 10.2 (9.0-12.0) sec INR 0.9 (<1.2) APTT 22.5 (22.0-30.0) sec Sodium (137-145) mmol/L Potassium (3.5-5.1) mmol/L Chloride (98-107) mmol/L Carbon Dioxide (22-30) mmol/L Anion Gap mmol/L BUN (7-17) mg/dL Creatinine (0.52-1.04) mg/dL Est GFR (CKD-EPI)AfAm (>60 ml/min/1.73 sqM) Est GFR (CKD-EPI)NonAf (>60 ml/min/1.73 sqM) Glucose (74-99) mg/dL Plasma Lactic Acid Joel 1.8 (0.7-2.0) mmol/L Calcium (8.4-10.2) mg/dL Magnesium (1.6-2.3) mg/dL Total Bilirubin (0.2-1.3) mg/dL AST (14-36) U/L ALT (9-52) U/L Alkaline Phosphatase (38-126) U/L Troponin I <0.012 (0.000-0.034) ng/mL NT-Pro-B Natriuret Pep pg/mL Total Protein (6.3-8.2) g/dL Albumin (3.5-5.0) g/dL - Radiology Data EKG shows normal sinus rhythm normal EKG noted. Ventricular rate 92 bpm. Intervals 144 ms. She jewish is 72 ms. QT QTc is 360/445 ms. No evidence of ST elevation or T-wave inversions. S x-ray shows cardiomegaly. Decreased prominence of the patient's left perihilar neoplasm. Computed tomography scan is negative for PE. Is positive for small pericardial effusion. She diffuse ground glass opacity in upper lobes bilaterally may represent alveolitis or early consolidation. Cannot exclude heart failure. Read by Dr. Boone. (Francisca Forde) Disposition Is patient prescribed a controlled substance at d/c from ED?: No Time of Disposition: 12:48 <Francisca Forde - Last Filed: 02/26/19 12:46> <Izaiah Escobar - Last Filed: 02/26/19 13:14> Clinical Impression: COPD exacerbation, Hilar mass Disposition: ADMITTED IP TO THIS HOSP Condition: Stable
[2019-02-26 09:44] LABS: Basophils # (A) 0.2 k/uL (0-0.2); Basophils % (A) 3 %; Eosinophils # (A) 0.2 k/uL (0-0.7); Eosinophils % (A) 3 %; HCT 41.9 % (34.0-46.0); HGB 14.2 gm/dL (11.4-16.0); Lymphocytes # (A) 0.5 k/uL (1.0-4.8); Lymphocytes % (A) 8 %; MCH 30.9 pg (25.0-35.0); MCHC 33.8 g/dL (31.0-37.0); MCV 91.4 fL (80.0-100.0); Mean Platelet Volume 7.5; Monocytes # (A) 0.4 k/uL (0-1.0); Monocytes % (A) 6 %; Neutrophils % (A) 77 %; Platelet Count 279 k/uL (150-450); RBC 4.59 m/uL (3.80-5.40); RDW 13.1 % (11.5-15.5); WBC 6.5 k/uL (3.8-10.6)
[2019-02-26 10:15] LABS: African American GFR (CKD) >90 (>60 ml/min/1.73 sqM); Albumin 4.6 g/dL (3.5-5.0); Anion Gap 13 mmol/L; Blood Urea Nitrogen 17 mg/dL (7-17); Calcium 10.2 mg/dL (8.4-10.2); Carbon Dioxide 22 mmol/L (22-30); Chloride 104 mmol/L (98-107); Glucose 311 mg/dL (74-99); Non-African American GFR(CKD) >90 (>60 ml/min/1.73 sqM); Sodium 139 mmol/L (137-145); Total Bilirubin 0.6 mg/dL (0.2-1.3); Total Protein 8.5 g/dL (6.3-8.2)
[2019-02-26 10:19] LABS: ALT 26 U/L (9-52); AST 32 U/L (14-36); Alkaline Phosphatase 47 U/L (38-126); Potassium 4.7 mmol/L (3.5-5.1)
[2019-02-26 10:20] LABS: Magnesium 1.6 mg/dL (1.6-2.3)
--- NOTE | 2019-02-26 10:28 | XR ---
EXAMINATION TYPE: XR chest 2V DATE OF EXAM: 02/26/2019 HISTORY: difficulty breathing. REFERENCE: Previous study dated 02/07/2018. FINDINGS: There has been a previous ACDF of the lower cervical spine. There is a MediPort in place vi a a right internal jugular approach. Its tip is in the superior vena cava. The heart is enlarged. The patient's left perihilar neoplasm is less clearly evident at this time. Pl eural spaces are clear. IMPRESSION: 1. CARDIOMEGALY. 2. DECREASED PROMINENCE OF THE PATIENT'S LEFT PERIHILAR NEOPLASM.
[2019-02-26 10:39] LABS: INR 0.9 (<1.2); Partial Thromboplastin Time 22.5 sec (22.0-30.0); Prothrombin Time 10.2 sec (9.0-12.0)
--- NOTE | 2019-02-26 12:09 | CT ---
EXAMINATION TYPE: CT chest angio for PE DATE OF EXAM: 02/26/2019 COMPARISON: None. HISTORY: Lung CA, cough, SOB CT DLP: 347.9 mGycm Automated exposure control for dose reduction was used. CONTRAST: CT Chest for pulmonary embolism performed with with IV Contrast, patient injected with 74 mL of Isovu e 370. FINDINGS: There is a MediPort implanted in the right side of the chest. There is diffuse and patchy g roundglass opacity in the upper lobes bilaterally worse in the superior segment of the left lower lob e. This may represent alveolitis or early consolidation. Congestive heart failure could look similar. There is no significant axillary internal mammary, mediastinal or hilar adenopathy. There is no evidence of pulmonary embolus. The aorta is normal in caliber without evidence of dissection. The heart is not enlarged. There is a 7.8 mm pericardial effusion. No pleural fluid is seen. Visualized portions of the upper abdomen are normal. There is mild hypertrophic spondylosis in the dorsal spine. There is been a previous ACDF in the lowe r cervical spine. IMPRESSION: 1. THIS EXAMINATION IS NEGATIVE FOR PULMONARY EMBOLUS. 2. THIS EXAMINATION IS POSITIVE FOR A SMALL PERICARDIAL EFFUSION. 3. PATCHY, DIFFUSE GROUNDGLASS OPACITY IN THE UPPER LOBES BILATERALLY MAY REPRESENT ALVEOLITIS OR EAR LY CONSOLIDATION. I COULD NOT EXCLUDE MILD HEART FAILURE.
[2019-02-26] MEDS ORDERED: LEVOFLOXACIN 750MG-D5W PMX 750 MG in DEXTROSE/WATER 1 150ML.BAG IVPB STA (12:12)
[2019-02-26] MEDS ORDERED: IPRATROPIUM-ALBUTEROL 3 ML NEB INHALATION PRN (12:49)
[2019-02-26] MEDS ORDERED: ACETAMINOPHEN TAB 325 MG TAB PO PRN (14:50)
[2019-02-26] MEDS ORDERED: IBUPROFEN 800 MG TAB PO PRN (15:39)
[2019-02-26] MEDS ORDERED: ACETAMINOPHEN TAB 500 MG TAB PO PRN (15:39)
[2019-02-26] MEDS ORDERED: ALBUTEROL NEBULIZED 2.5 MG/3 ML INHALATION PRN (15:39)
[2019-02-26] MEDS ORDERED: ALPRAZolam 0.25 MG TAB PO PRN (15:39)
[2019-02-26 17:11] LABS: Glucose,Whole Blood 362 mg/dL (75-99)
[2019-02-26] MEDS: INSULIN ASPART (NovoLOG) 100 UNIT/ML VIAL SQ SCH ×2 (17:16→20:38)
[2019-02-26] MEDS: methylPREDNISolone SOD SUCCI 125 MG/2 ML VIAL IV SCH (17:16)
[2019-02-26] MEDS ORDERED: LEVOTHYROXINE 100 MCG TAB PO SCH (17:30)
[2019-02-26] MEDS ORDERED: PROPRANOLOL LA 60 MG CAP.SA.24H PO SCH (17:30)
[2019-02-26] MEDS ORDERED: FENOFIBRATE 160 MG TAB PO SCH (17:30)
[2019-02-26] MEDS ORDERED: INSULIN ASPART (NovoLOG) 100 UNIT/ML VIAL SQ ONE ×2 (17:47→20:00)
[2019-02-26] MEDS: HEPARIN SODIUM,PORCINE 5,000 UNIT/ML 1 ML VIAL SQ SCH (20:20)
[2019-02-26 20:40] LABS: Glucose,Whole Blood 393 mg/dL (75-99)
[2019-02-26] MEDS ORDERED: traZODone HCL 50 MG TAB PO SCH (21:00)
[2019-02-27] MEDS: guaiFENesin-Coden 100-10MG/5ML 10 ML CUP PO PRN ×2 (00:14→10:22)
[2019-02-27] MEDS: methylPREDNISolone SOD SUCCI 125 MG/2 ML VIAL IV SCH ×3 (00:15→12:28)
[2019-02-27 01:49] VITALS: RESP 18
[2019-02-27 07:03] LABS: Glucose,Whole Blood 318 mg/dL (75-99)
[2019-02-27] MEDS ORDERED: INSULIN ASPART (NovoLOG) 100 UNIT/ML VIAL SQ ONE ×2 (07:55→12:08)
[2019-02-27] MEDS: INSULIN ASPART (NovoLOG) 100 UNIT/ML VIAL SQ SCH ×2 (07:58→12:29)
[2019-02-27] MEDS: HEPARIN SODIUM,PORCINE 5,000 UNIT/ML 1 ML VIAL SQ SCH (07:59)
[2019-02-27 08:26] VITALS: BP 137/73; TEMP 98
[2019-02-27] MEDS ORDERED: ASPIRIN 81 MG PO SCH (09:00)
[2019-02-27] MEDS ORDERED: FAMOTIDINE 20 MG TAB PO SCH (09:00)
[2019-02-27] MEDS ORDERED: DULoxetine HCL 60 MG CAPSULE.DR PO SCH (09:00)
[2019-02-27] MEDS ORDERED: ATORVASTATIN 80 MG TAB PO SCH (09:00)
[2019-02-27 09:16] VITALS: PULSE 80
--- NOTE | 2019-02-27 10:58 | CONS ---
CONSULTATION PULMONARY/CRITICAL CARE CONSULTATION: DATE OF CONSULTATION: February 27, 2019 This is a 63-year-old female who presented to the emergency room on February 26. She came in with complaints of shortness of breath and cough. She does have history of non- small cell lung cancer. She was treated medically with chemotherapy and then radiation therapy. She had 7 rounds of chemotherapy and 34 radiation treatments. Subsequent to that, she underwent immunotherapy with Keytruda. She sees Dr. Hatch, my partner, for her lungs and also Dr. Sales as the oncologist. Her radiation therapist is Dr. Perkins. Anyway, she comes into the hospital complaining of increasing cough, congestion and shortness of breath 3 days prior to admission. She was coughing up some blood tinged mucus and yellow green phlegm. She also had been having some night sweats and low-grade fevers. She took Motrin and Tylenol. She also was using her nebulizer machine more frequently. She was evaluated in the emergency room and admitted with the diagnosis of COPD exacerbation and possible pneumonia. Currently, she is feeling much better. She feels like her lungs have improved dramatically. She asked whether or not she could go home. I told it was up to the primary, but from the pulmonary standpoint, if she was feeling better, she could be discharged home. She should be discharged home on some prednisone and some antibiotics. The prednisone could be 40 mg of prednisone a day for 4 days, reducing the dose by 10 mg every 4th day. A short course of antibiotics would be reasonable as well. HOME MEDICATIONS: Her home medications are reviewed. She is on Xanax, albuterol inhaler, aspirin, atenolol, Cymbalta, fenofibric acid, Synthroid, Crestor, and Chantix starter pack, Pepcid, and [place]. ALLERGIES: Allergies include KEFLEX, EGGS, LATEX, and SIMVASTATIN. MEDICAL HISTORY: Her medical history includes COPD/asthma, non-small cell lung cancer, status post chemoradiation as mentioned above, as well as immunotherapy, hyperlipidemia, hypertension and hypothyroidism. Other medical problems include kidney stones and migraine cephalgia. SURGICAL HISTORY: Surgical history includes adenoidectomy, hysterectomy, orthopedic surgery, tonsillectomy, surgery on her left elbow, left carpal tunnel release, epidural pain shots, anterior cervical decompression and fusion as well as bronchoscopy and biopsy. SOCIAL HISTORY: Positive for previous tobacco use. She denies any alcohol or illicit drug use. FAMILY HISTORY: Positive for a mother with hyperlipidemia and a father who is from Dee Dee Gehrig disease. REVIEW OF SYSTEMS: CONSTITUTIONAL: Fever, night sweats. NEUROLOGIC: Negative. HEENT: Negative. CARDIOVASCULAR: Negative. PULMONARY: Shortness of breath, chest congestion, cough, wheezing, phlegm production. GI: Negative. : Negative. RHEUMATOLOGIC: Negative. IMMUNOLOGIC: Negative. ENDOCRINOLOGIC: Negative. DERMATOLOGIC: Negative. PHYSICAL EXAMINATION: VITAL SIGNS: Current vital signs are reviewed. Temperature is 98, heart rate 80, respiratory rate 18, blood pressure 137/73, mean 94, room air saturation 94%. GENERAL: Appears in no acute distress. HEENT: Examination is grossly unremarkable. Mucous membranes are moist. No supplemental oxygen noted. NECK: Supple. Full range of motion. No adenopathy, thyromegaly or neck vein distention. CARDIOVASCULAR: Examination reveals regular rhythm and rate. Heart rate 80 beats per minute. S1, S2 normal. No S3, S4, or murmur. LUNGS: Reveal some expiratory rhonchi and wheezes. Breath sounds are diminished throughout. There is prolongation on forced maneuver. No crackles. ABDOMEN: Soft. Bowel sounds are heard. EXTREMITIES: Are intact. No cyanosis, clubbing, or significant edema. SKIN: Without rash. NEUROLOGIC: Examination is brief but nonfocal. Chest x-ray shows cardiomegaly and decreased prominence of the patient's left perihilar mass/cancer. A CT scan of the chest shows some patchy upper lobe ground-glass opacities consistent with pneumonitis/alveolitis. There is no evidence of pulmonary embolism. LAB DATA: Lab data is reviewed. White count 6.5, hemoglobin 14.2, hematocrit 41.9, platelet count 279,000. PT, INR, PTT were all normal. Sodium, potassium, chloride, CO2 normal. Anion gap normal. BUN and creatinine were 17 and 0.46. The rest of the labs look pretty good. MEDICATIONS: Current medications are reviewed. They appear to be appropriate. ASSESSMENT: 1. Chronic obstructive pulmonary disease exacerbation complicated by purulent tracheobronchitis and possible upper lobe bronchopneumonia/pneumonitis/alveolitis. 2. Non-small cell lung cancer, status post 7 rounds of chemotherapy, 34 rounds of radiation therapy and subsequent immunotherapy with Keytruda. 3. History of chronic obstructive pulmonary disease with chronic obstructive pulmonary disease exacerbation. 4. History of hyperlipidemia. 5. History of hypertension. 6. Hypothyroidism. 7. Migraine cephalgia. 8. History of kidney stones. 9. Previous history of tobacco use. PLAN: The patient is doing well. Actually she would like to be discharged home. From our perspective, she could be discharged home. She should be discharged home on a prednisone burst and taper as noted above, as well as a short course of oral antibiotics. She should follow up with her primary doctor as well as with my partner. Additional recommendations and suggestions are forthcoming. Prognosis is guarded. She should resume her normal home medications. We will continue to follow. MMODL / IJN: [id number] /
[2019-02-27 11:40] LABS: Glucose,Whole Blood 324 mg/dL (75-99)
[2019-02-27] MEDS ORDERED: metFORMIN 500 MG TAB PO STA (12:07)
--- NOTE | 2019-02-27 13:30 | P.HPIM ---
History of Present Illness H&P Date: 02/27/19 Chief Complaint: Difficulty breathing HISTORY AND PHYSICAL AND DISCHARGE SUMMARY: This is a 63-year-old female patient of Drs. Corrales, Mamie and Henrry with past medical history significant for non-small cell lung cancer diagnosed in August 2016 status post chemotherapy and radiation therapy as well as immunotherapy, COPD, hypertension, hyperlipidemia, hypothyroidism, kidney stones, migraine headaches. Patient complains of a cough for the past 3-4 days. She denies any sick contacts, no fevers. She does not use oxygen or CPAP at home. She quit smoking 1-1/2 years ago. Patient came into [facility] emergency center for evaluation and found to be afebrile, pulse ox 97% on room air. CBC was unremarkable, electrolytes within normal limits, creatinine 0.46, blood sugar 311. Patient denies history of diabetes. ProBNP 185, lactic acid 1.8, troponin negative. Chest x-ray revealed cardiomegaly, decreased prominence of the patient's left perihilar neoplasm. CAT scan of the chest was negative for pulmonary embolism with concern for small pericardial effusion, patchy opacities. Upper lobes bilaterally may represent alveolitis or early consolidation. Patient was started on IV Levaquin and [facility] Patient has been seen in consultation by Dr. Pulido and cleared for discharge home with plan for tapering steroid and antibiotic. Patient is anxious to be discharged home today. Patient was given a prescription for Robitussin with codeine and patient completed opioid start talking form. Map score was 080. Review of Systems Constitutional: Denies anorexia, Denies chills, Denies fatigue, Denies fever, Denies lethargy, Denies malaise, Denies poor appetite, Denies weakness, Denies weight loss Eyes: denies blurred vision, denies pain Ears, nose, mouth and throat: Denies dysphagia, Denies headache, Denies nasal congestion, Denies nasal discharge, Denies sore throat, Denies vertigo Cardiovascular: Denies chest pain (Right lateral lower ribs), Denies decreased e xercise tolerance, Denies dyspnea on exertion, Denies edema, Denies leg edema, Denies lightheadedness, Denies shortness of breath, Denies syncope Respiratory: Reports cough, Reports dyspnea, Reports respiratory infections, Reports wheezing, Denies excessive sputum, Denies hemoptysis Gastrointestinal: Denies abdominal pain, Denies diarrhea, Denies loss of appetite, Denies nausea, Denies vomiting Genitourinary: Denies dysuria, Denies hematuria, Denies urgency, Denies urinary frequency Musculoskeletal: Denies frequent falls, Denies gait dysfunction, Denies muscle weakness, Denies myalgias Integumentary: Denies pruritus, Denies rash, Denies unusual bruising, Denies wounds Neurological: Denies change in mentation, Denies change in speech, Denies numbness, Denies weakness Psychiatric: Denies anxiety, Denies depression Endocrine: Denies fatigue, Denies weight change Past Medical History Past Medical History: Asthma, Cancer, Hyperlipidemia, Hypertension, Neurologic Disorder, Thyroid Disorder Additional Past Medical History / Comment(s): HX MIGRAINE, HX KIDNEY STONES, non-small cell lung cancer diagnosed in August 2016 status post chemotherapy and radiation therapy as well as immunotherapy History of Any Multi-Drug Resistant Organisms: None Reported Past Surgical History: Adenoidectomy, Hysterectomy, Orthopedic Surgery, Tonsillectomy Additional Past Surgical History / Comment(s): LEFT ELBOW, LEFT CARPAL TUNNEL, EPIDURAL PAIN SHOTS, Anterior Cervical Decomp. and fusion c5-6,c6-7 Past Anesthesia/Blood Transfusion Reactions: No Reported Reaction Past Psychological History: Anxiety, Depression Smoking Status: Former smoker Past Alcohol Use History: None Reported Additional Past Alcohol Use History / Comment(s): Patient quit smoking 1-1/2 years ago, no illicit drug use, no alcohol use. Patient lives at home with her . Past Drug Use History: None Reported - Past Family History Mother Family Medical History: Hyperlipidemia Additional Family Medical History / Comment(s): Mother is alive with history of Alzheimer's disease and hyperlipidemia. Father Additional Family Medical History / Comment(s): Father at age 68 from ALS. Brother(s) Additional Family Medical History / Comment(s): Patient has 1 brother and 1 sister with no major medical problems. Patient has 3 daughters and one has history of asthma. Patient does not have any sons. Medications and Allergies Home Medications Medication Instructions Recorded Confirmed Type ALPRAZolam 0.25 mg PO BID PRN 12/20/13 02/26/19 History Albuterol Inhaler [Ventolin Hfa 2 puff INHALATION RT-Q6H PRN 12/20/13 02/26/19 History Inhaler] Aspirin 81 mg PO DAILY 12/20/13 02/26/19 History Fenofibric Acid (Choline) 135 mg PO AC-SUPPER 12/20/13 02/26/19 History [Fenofibric Acid] Rosuvastatin Calcium [Crestor] 40 mg PO DAILY 12/20/13 02/26/19 History Acetaminophen Tab [Tylenol] 1,000 mg PO Q6HR PRN 02/26/19 02/26/19 History DULoxetine HCL [Cymbalta] 60 mg PO DAILY 02/26/19 02/26/19 History Levothyroxine Sodium [Synthroid] 100 mcg PO AC-SUPPER 02/26/19 02/26/19 History Propranolol HCl [Inderal LA] 60 mg PO AC-SUPPER 02/26/19 02/26/19 History traZODone HCL 50 mg PO HS 02/26/19 02/26/19 History Famotidine [Pepcid] 20 mg PO DAILY tab 02/27/19 Rx Levofloxacin [Levaquin] 500 mg PO DAILY #7 tab 02/27/19 Rx guaiFENesin-Coden 100-10MG/5ML 10 ml PO Q6H PRN #120 ml 02/27/19 Rx [Robitussin AC] metFORMIN HCL [Glucophage] 500 mg PO BID #60 tab 02/27/19 Rx predniSONE 0 mg PO DIRECTED #30 tab 02/27/19 Rx Allergies Allergy/AdvReac Type Severity Reaction Status Date / Time cephalexin monohydrate Allergy Rash/Hives Verified 02/26/19 13:25 [From Keflex] Egg Derived Allergy Anaphylaxis Verified 02/26/19 13:25 latex Allergy Rash/Hives Verified 02/26/19 13:25 simvastatin AdvReac Unknown Verified 02/26/19 13:25 Physical Exam Vitals: Vital Signs Temp Pulse Pulse Resp BP BP Pulse Ox 02/27/19 09:24 80 02/27/19 09:14 80 02/27/19 07:25 18 02/27/19 07:00 98.0 F 96 18 137/73 94 L 02/27/19 01:46 97.6 F 90 18 124/76 94 L 02/26/19 18:58 98.2 F 112 H 15 107/71 95 02/26/19 16:00 20 02/26/19 14:39 98.0 F 116 H 20 144/87 95 02/26/19 14:33 20 02/26/19 13:34 81 16 125/76 97 02/26/19 11:41 86 02/26/19 11:19 85 Intake and Output 02/26/19 02/27/19 02/27/19 22:59 06:59 14:59 Intake Total 1160 580 Balance 1160 580 Intake: Oral 1160 580 Other: Voiding Method Toilet # Voids 1 2 Gen: This is a 63-year-old female. Patient is sitting on the edge of the bed and appears to be comfortable and in no acute distress. HEENT: Head is atraumatic, normocephalic. Pupils equal, round. Sclerae is anicteric. NECK: Supple. No JVD. No lymphadenopathy. No thyromegaly. LUNGS: Few scattered expiratory wheeze. No intercostal retractions. HEART: Regular rate and rhythm. No murmur. ABDOMEN: Soft. Bowel sounds are present. No masses. No tenderness. EXTREMITIES: No pedal edema. No calf tenderness. NEUROLOGICAL: Patient is awake, alert and oriented x3. Cranial nerves 2 through 12 are grossly intact. Results CBC & Chem 7: 02/26/19 09:15 02/26/19 09:15 Labs: Abnormal Lab Results - Last 24 Hours (Table) 02/26/19 02/26/19 02/27/19 Range/Units 17:03 20:29 06:55 POC Glucose (mg/dL) 362 H 393 H 318 H (75-99) mg/dL Thrombosis Risk Factor Assmnt - Choose All That Apply Each Factor Represents 1 point: Obesity (BMI >25) Each Risk Factor Represents 2 Points: Age 61-74 years, Malignancy Thrombosis Risk Factor Assessment Total Risk Factor Score: 5 Thrombosis Risk Factor Assessment Level: High Risk Assessment and Plan Plan: 1. Mild acute exacerbation of COPD with acute purulent tracheobronchitis and possible upper lobe bronchopneumonia or alveolitis. Patient has been seen by Dr. Us and cleared for discharge home. Patient started on oral prednisone for home and antibiotic. 2. History of non-small cell lung cancer status post chemotherapy, radiation and immunotherapy, stable. 3. Hypertension. 4. Hyperlipidemia. 5. Hypothyroidism. 6. New diagnosis of diabetes mellitus type 2. Patient started on metformin. 7. Migraine headache. Patient will be admitted to the hospital for a minimum of 1 night stay. Discharge plan: Home Discharge Medication List ALPRAZolam 0.25 mg PO BID PRN 12/20/13 [History] Albuterol Inhaler [Ventolin Hfa Inhaler] 2 puff INHALATION RT-Q6H PRN 12/20/13 [History] Aspirin 81 mg PO DAILY 12/20/13 [History] Fenofibric Acid (Choline) [Fenofibric Acid] 135 mg PO AC-SUPPER 12/20/13 [History] Rosuvastatin Calcium [Crestor] 40 mg PO DAILY 12/20/13 [History] Acetaminophen Tab [Tylenol] 1,000 mg PO Q6HR PRN 02/26/19 [History] DULoxetine HCL [Cymbalta] 60 mg PO DAILY 02/26/19 [History] Levothyroxine Sodium [Synthroid] 100 mcg PO AC-SUPPER 02/26/19 [History] Propranolol HCl [Inderal LA] 60 mg PO AC-SUPPER 02/26/19 [History] traZODone HCL 50 mg PO HS 02/26/19 [History] Famotidine [Pepcid] 20 mg PO DAILY tab 02/27/19 [Rx] Levofloxacin [Levaquin] 500 mg PO DAILY #7 tab 02/27/19 [Rx] guaiFENesin-Coden 100-10MG/5ML [Robitussin AC] 10 ml PO Q6H PRN #120 ml 02/27/19 [Rx] metFORMIN HCL [Glucophage] 500 mg PO BID #60 tab 02/27/19 [Rx] predniSONE 0 mg PO DIRECTED #30 tab 02/27/19 [Rx] Impression and plan of care have been directed as dictated by the signing physician. Maggie Fierro nurse practitioner acting as scribe for signing physician.
== END 2019-02-27 14:00 | disposition home or self-care (01) | DRG 190 ==
LOC: EC 08:45 → 4SSUR 12:50
PROVIDERS: ADMIT Internal Medicine Geriatric Medicine; ATTEND Internal Medicine Geriatric Medicine
DX: J44.0 Chronic obstructive pulmonary disease with (acute) lower respiratory infection (principal); J18.0 Bronchopneumonia, unspecified organism; J44.1 Chronic obstructive pulmonary disease with (acute) exacerbation; J20.9 Acute bronchitis, unspecified; E11.9 Type 2 diabetes mellitus without complications; I11.9 Hypertensive heart disease without heart failure; F32.9 Major depressive disorder, single episode, unspecified; F41.9 Anxiety disorder, unspecified; E78.5 Hyperlipidemia, unspecified; E03.9 Hypothyroidism, unspecified; G43.909 Migraine, unspecified, not intractable, without status migrainosus; Z85.118 Personal history of other malignant neoplasm of bronchus and lung; Z92.21 Personal history of antineoplastic chemotherapy; Z92.3 Personal history of irradiation; Z79.82 Long term (current) use of aspirin; Z79.890 Hormone replacement therapy; Z79.899 Other long term (current) drug therapy; Z87.442 Personal history of urinary calculi; Z87.891 Personal history of nicotine dependence; Z90.710 Acquired absence of both cervix and uterus; Z98.890 Other specified postprocedural states; Z98.1 Arthrodesis status; Z88.8 Allergy status to other drugs, medicaments and biological substances; Z88.1 Allergy status to other antibiotic agents; Z91.012 Allergy to eggs; Z91.040 Latex allergy status; Z83.49 Family history of other endocrine, nutritional and metabolic diseases; Z82.0 Family history of epilepsy and other diseases of the nervous system; Z82.5 Family history of asthma and other chronic lower respiratory diseases
CPT/HCPCS: 36415; 71046; 71275; 80053; 83605; 83735; 83880; 84484; 85025; 85610; 85730; 87040; 93005; 94640; 96361; 96365; 96375; 99285

== ENCOUNTER → 2019-03-13 | Outpatient (CLI) | payer BC ==
--- NOTE | 2019-03-14 10:42 | ECHOF ---
Referral Reason:I31.3 Precardial effusion MEASUREMENTS -------- HEIGHT: 157.5 cm WEIGHT: 72.6 kg BP: RVIDd: 2.9 cm (< 3.3) IVSd: 1.2 cm (0.6 - 1.1) LVIDd: 3.0 cm (3.9 - 5.3) LVPWd: 1.5 cm (0.6 - 1.1) IVSs: 1.5 cm LVIDs: 2.6 cm LVPWs: 1.2 cm LA Diam: 3.6 cm (2.7 - 3.8) Ao Diam: 2.4 cm (2.0 - 3.7) LA Diam: 2.7 cm (2.7 - 3.8) MV EXCURSION: 12.685 mm (> 18.000) MV EF SLOPE: 45 mm/s (70 - 150) EPSS: 0.3 cm MV E Jenaro: 0.39 m/s MV DecT: 221 ms MV A Jenaro: 0.84 m/s MV E/A Ratio: 0.46 AR PHT: 310 ms RAP: 5.00 mmHg RVSP: 19.19 mmHg FINDINGS -------- Sinus rhythm. Pt has Lung CA: Radiation to chest area. The left ventricular size is normal. Overall left ventricular systolic function is normal with, an EF between 55 - 60 %. The right ventricle is normal in size. The left atrial size is normal. The right atrial size is normal. There is mild aortic valve sclerosis. There is [id number]-ng-shrnzphi aortic regurgitation. Mild mitral annular calcification present. Mild mitral regurgitation is present. Mild tricuspid regurgitation present. Right ventricular systolic pressure is normal at < 35 mmHg. There is no evidence of pulmonary hypertension. There is no pulmonic regurgitation present. The aortic root size is normal. There is no pericardial effusion. CONCLUSIONS -------- 1. Sinus rhythm. 2. Pt has Lung CA: Radiation to chest area. 3. The left ventricular size is normal. 4. Overall left ventricular systolic function is normal with, an EF between 55 - 60 %. 5. The right ventricle is normal in size. 6. The left atrial size is normal. 7. The right atrial size is normal. 8. There is mild aortic valve sclerosis. 9. There is tisg-so-cneyifpi aortic regurgitation. 10. Mild mitral annular calcification present. 11. Mild mitral regurgitation is present. 12. Mild tricuspid regurgitation present. 13. Right ventricular systolic pressure is normal at < 35 mmHg. 14. There is no evidence of pulmonary hypertension. 15. There is no pulmonic regurgitation present. 16. The aortic root size is normal. 17. There is no pericardial effusion. AMMONIA OPERATOR: Mary Sahu RDCS
== END ==
LOC: RADECHMAIN 10:58
PROVIDERS: ATTEND Internal Medicine Geriatric Medicine
DX: I08.3 Combined rheumatic disorders of mitral, aortic and tricuspid valves (principal); C34.90 Malignant neoplasm of unspecified part of unspecified bronchus or lung; Z92.3 Personal history of irradiation
CPT/HCPCS: 93306

== ENCOUNTER → 2019-05-06 | Outpatient (CLI) | payer BC | END | disposition home or self-care (01) | LOC: RADPETMAIN 08:51 | PROVIDERS: ATTEND Internal Medicine Hematology & Oncology | DX: Z53.9 Procedure and treatment not carried out, unspecified reason (principal) ==

== ENCOUNTER → 2019-05-12 | Outpatient (CLI) | payer BC ==
--- NOTE | 2019-05-15 01:13 | PE ---
EXAMINATION TYPE: PET CT fusion skull to thigh DATE OF EXAM: 05/12/2019 CLINICAL HISTORY: 63-year-old female restaging left lung cancer diagnosed in August 2017. Status post ch emoradiation in 2019. TECHNIQUE: Following the intravenous administration of 11.34 mCi of F-18 FDG, whole body images are performed from the skull base to the midthigh. Images are reviewed on the computer in the coronal, axial, and sagittal planes. Reconstructed rotating images are created on independent workstation and reviewed on the computer. A localization and attenuation correction CT is performed in conjunction with the PET scan. Glucose level: 157 mg/dL Injection site: Right hand COMPARISON: 02/26/2019, 10/11/2018, 07/26/2018, 12/18/2017 FINDINGS: PET: A prominent 1.0 cm right submandibular space lymph node shows no significant FDG uptake, likely react kael/post inflammatory. This can be followed clinically. Otherwise, no cervical lymphadenopathy. Small pericardial effusion shows no discrete FDG uptake and measures 7 mm thick, increased in size fr om 02/26/2019. Redemonstrated patchy and irregular left hilar opacity encasing left hilar vessels and bronchi. Addit ional areas of groundglass, stranding, and distortion within the left midlung parenchyma is unchanged . Subcarinal soft tissues seen on 02/26/2019 appears to have decreased in the interval. No discrete FDG uptake in these regions. Focus of intense uptake along the ventricular septum is indeterminate. 4 mm subpleural pulmonary nodule posterior right upper lung remains unchanged from recent prior but i s new from 12/18/2017 and can be monitored on future exams. No discrete FDG uptake. Area of hypodensity centrally along the liver measures up to 2.5 cm. This was present to varying degr ees on more recent prior exams and has a somewhat geographic appearance without FDG uptake, likely fo everardo fat. New from 12/18/2017. Physiologic FDG uptake within the abdomen and pelvis. ATTENUATION CORRECTION CT: Paranasal sinuses and mastoid air cells well pneumatized. There seems to be some periodontal disease left mandible. Retropharyngeal course right ICA. Right anterior chest wall injection port with catheter tip in the lower right internal jugular vein. Heart normal size. Aorta normal caliber with conventional branching anatomy. Mild to moderate atheros clerotic arch calcifications. Gallbladder mildly hydropic and 4.2 cm wide likely due to fasting state. No dilated small bowel, free fluid, or free air. Hilar splenules. Moderate atherosclerotic calcifications abdominal aorta with fu siform dilatation infrarenal portion and 2.4 cm. No aneurysm or significant ectasia. Scattered mild-t o-moderate stool. Sigmoid diverticulosis. No abnormal fluid collection seen in the pelvis. Bladder nondistended. Uterus surgically absent. No p elvic lymphadenopathy. Bones: ACDF hardware. Mild endplate spondylosis thoracic spine. No osseous destructive process seen. IMPRESSION: 1. Stable mild soft tissue encasement left hilar structures with irregular patchy density, groundglas s, and areas of parenchymal distortion left midlung compatible with site of treated disease and postt reatment change. Subcarinal soft tissue has decreased from 02/26/2019. No abnormal FDG uptake in thes e regions to suggest residual or recurrent disease. 2. A nonspecific small pericardial effusion measuring 7 mm thick has increased slightly from 02/27/20 19. This shows no FDG uptake. 3. A 4 mm posterior right midlung pulmonary nodule is stable from recent priors but still noted to be new from 12/18/2017. Continued surveillance recommended. 4. A prominent 1 cm right submandibular space lymph node is new from 12/18/2017 but shows no discrete F DG uptake, likely reactive/post inflammatory. This can be followed clinically. 5. A 2.5 cm lobulated area of hypodensity centrally in the liver was present to some degree on recent priors but is new from 12/18/2017. The lack of FDG uptake suggests a benign etiology such as focal fat or a cyst. Attention on follow-up. 6. Focus of intense uptake along the interventricular septum may be physiologic. A solitary intracard iac metastasis is considered highly unlikely. Attention on follow-up. 7. Sigmoid diverticulosis.
== END | disposition home or self-care (01) ==
LOC: RADPETMAIN 11:49
PROVIDERS: ATTEND Internal Medicine Hematology & Oncology
DX: K57.30 Diverticulosis of large intestine without perforation or abscess without bleeding (principal); I31.3 Pericardial effusion (noninflammatory); K76.89 Other specified diseases of liver; J98.4 Other disorders of lung; C34.12 Malignant neoplasm of upper lobe, left bronchus or lung
CPT/HCPCS: 78815; A9552

== ENCOUNTER → 2019-10-19 | Outpatient (CLI) | payer BC ==
--- NOTE | 2019-10-19 12:29 | CT ---
EXAMINATION TYPE: CT chest w con DATE OF EXAM: 10/19/2019 COMPARISON: 10/11/18 HISTORY: Follow up lung cancer. CT DLP: 616 mGycm Automated exposure control for dose reduction was used. CONTRAST: CT scan of the chest is performed with IV Contrast, patient injected with 100 mL of Isovue 300. FINDINGS: LUNGS: There is persistent patchy and irregular left hilar opacity with left hilar soft tissue measur ing 2 cm versus 2 cm previously. Fibrotic changes are seen within the left upper lung. Pleural-based nodule is stable right lower lobe posteriorly image 23 measures 4 mm versus 4 mm. Groundglass nodules left lower lobe have improved in the interval and may have reflected infiltrate previously. Small re sidual groundglass nodule is noted measuring 6 mm image 39. MEDIASTINUM: No evidence for mediastinal adenopathy. There is a chronic pericardial thickening and sm all pericardial effusion. The heart is not enlarged. Thoracic aorta is of normal caliber. UPPER ABDOMEN: Thyromegaly with underlying hepatic steatosis. OTHER: No additional significant abnormality is seen. IMPRESSION: 1. Persistent patchy and irregular left hilar opacity with underlying volume loss and fibrotic change s. A few scattered pleural-based nodules noted as well remaining stable. Findings are likely related to postsurgical change and/or radiation therapy changes. 2. Persistent noted groundglass areas of nodularity left lower lobe have improved.
== END | disposition home or self-care (01) ==
LOC: RADCTMAIN 09:28
PROVIDERS: ATTEND Internal Medicine Hematology & Oncology
DX: C34.12 Malignant neoplasm of upper lobe, left bronchus or lung (principal); Z91.012 Allergy to eggs; Z91.040 Latex allergy status; Z88.1 Allergy status to other antibiotic agents
CPT/HCPCS: 71260; Q9967

== ENCOUNTER 2019-11-10 05:43 | Day surgery (SDC) | payer BC ==
[2019-11-07 11:05] VITALS: BMI 29.2
--- NOTE | 2019-11-09 20:50 | P.GSHP ---
History of Present Illness H&P Date: 11/10/19 CHIEF COMPLAINT: Lung cancer. HISTORY OF PRESENT ILLNESS: The patient is a 64-year-old female diagnosed with lung cancer. She had a Mediport placement. She presents for Port-A-Cath removal upon completion of her chemotherapy. PAST MEDICAL HISTORY: See list and reviewed PAST SURGICAL HISTORY: See list and reviewed CURRENT MEDICATIONS: See list and reviewed ALLERGIES: See list and reviewed SOCIAL HISTORY: See list and reviewed FAMILY HISTORY: Noncontributory. REVIEW OF ORGAN SYSTEMS: CONSTITUTIONAL: Denies any fever or chills. Denies recent weight loss or weight gain. HEENT: Denies any trouble with vision, hearing or nosebleeds. No difficulty swallowing. BREASTS: Please see above. PHYSICAL EXAMINATION: Vital signs: Stable GENERAL: Well developed female and in no acute distress. Pleasant. HEENT: No sclera icterus. Extraocular movements grossly intact. Moist buccal mucosa. Head is atraumatic, normocephalic. Hears conversational speech. No nasal drainage. NECK: Supple without lymphadenopathy. No JV distention. CHEST: Non-labored respirations and equal bilateral excursions. CARDIOVASCULAR: Palpable 2+ radial pulses. ABDOMEN: Nontender. MUSCULOSKELETAL: No clubbing, cyanosis or edema. NEUROLOGIC: No focal or lateralizing signs. PSYCH: Appropriate affect. Alert and oriented to person, place and time. ASSESSMENT: 1. Lung cancer. 2. Need for chemotherapeutic access. PLAN: 1. Agree with Port-A-Cath removal Past Medical History Past Medical History: Asthma, Cancer, Hyperlipidemia, Hypertension, Neurologic Disorder, Pneumonia, Thyroid Disorder Additional Past Medical History / Comment(s): HX MIGRAINE, HX KIDNEY STONES, non-small cell lung cancer diagnosed in August 2016 status post chemotherapy and radiation therapy as well as immunotherapy, states "40% use of lungs" History of Any Multi-Drug Resistant Organisms: None Reported Past Surgical History: Adenoidectomy, Hysterectomy, Orthopedic Surgery, Tonsillectomy Additional Past Surgical History / Comment(s): LEFT ELBOW, LEFT CARPAL TUNNEL, EPIDURAL PAIN SHOTS, Anterior Cervical Decomp. and fusion c5-6,c6-7 Past Anesthesia/Blood Transfusion Reactions: No Reported Reaction Smoking Status: Former smoker - Past Family History Mother Family Medical History: Hyperlipidemia Additional Family Medical History / Comment(s): Mother is alive with history of Alzheimer's disease and hyperlipidemia. Father Additional Family Medical History / Comment(s): Father at age 68 from ALS. Brother(s) Additional Family Medical History / Comment(s): Patient has 1 brother and 1 sister with no major medical problems. Patient has 3 daughters and one has history of asthma. Patient does not have any sons. Medications and Allergies Home Medications Medication Instructions Recorded Confirmed Type ALPRAZolam 0.25 mg PO BID PRN 12/20/13 11/07/19 History Albuterol Inhaler (Mhu) [Ventolin 2 puff INHALATION RT-Q6H PRN 12/20/13 11/07/19 History Hfa Inhaler (Mhu)] Aspirin 81 mg PO DAILY 12/20/13 11/07/19 History Rosuvastatin Calcium [Crestor] 40 mg PO DAILY 12/20/13 11/07/19 History Acetaminophen Tab [Tylenol] 1,000 mg PO Q6HR PRN 02/26/19 11/07/19 History DULoxetine HCL [Cymbalta] 60 mg PO DAILY 02/26/19 11/07/19 History Levothyroxine Sodium [Synthroid] 100 mcg PO AC-SUPPER 02/26/19 11/07/19 History Propranolol HCl [Inderal LA] 60 mg PO AC-SUPPER 02/26/19 11/07/19 History traZODone HCL 50 mg PO HS 02/26/19 11/07/19 History Famotidine [Pepcid] 20 mg PO DAILY PRN 11/07/19 11/07/19 History Fenofibric Acid (Choline) 135 mg PO AC-SUPPER 11/07/19 11/07/19 History [Fenofibric Acid] Allergies Allergy/AdvReac Type Severity Reaction Status Date / Time cephalexin monohydrate Allergy Rash/Hives Verified 11/07/19 10:40 [From Keflex] Egg Derived Allergy Anaphylaxis Verified 11/07/19 10:40 latex Allergy Rash/Hives Verified 11/07/19 10:40 simvastatin AdvReac muscle Verified 11/07/19 10:40 cramps
[2019-11-10] MEDS ORDERED: LEVOFLOXACIN 750MG-D5W PMX 750 MG in DEXTROSE/WATER 1 150ML.BAG IVPB STA (05:51)
[2019-11-10] MEDS ORDERED: HYDROmorphone 0.5 MG/0.5 ML SYRINGE IVP PRN (05:51)
[2019-11-10] MEDS ORDERED: LIDOCAINE 1% (10MG/ML) FOR IV START INTRADERMA PRN (05:51)
[2019-11-10] MEDS ORDERED: LACTATED RINGERS 1,000 ML IV SCH (05:51)
[2019-11-10] MEDS ORDERED: CLINDAMYCIN 900 MG in DEXTROSE 5% IN WATER 50 ML IVPB ONE ×2 (06:00)
[2019-11-10 06:06] VITALS: TEMP 97.8
[2019-11-10] MEDS ORDERED: LACTATED RINGERS 1,000 ML IV ONE (06:15)
[2019-11-10] MEDS ORDERED: ONDANSETRON 4 MG/2 ML VIAL IVP ONE (06:16)
[2019-11-10] MEDS ORDERED: DEXAMETHASONE SOD PHOS (MDV) 100 MG/10 ML VIAL IVP ONE (06:16)
[2019-11-10] MEDS ORDERED: ONDANSETRON 4 MG/2 ML VIAL ONE (06:38)
[2019-11-10] MEDS ORDERED: MIDAZOLAM 2 MG/2 ML VIAL ONE (06:58)
[2019-11-10] MEDS ORDERED: fentaNYL (PF) 50 MCG/ML 2 ML AMP ONE (06:58)
[2019-11-10] MEDS ORDERED: KETAMINE 10 MG/ML 20 ML VIAL ONE (06:58)
[2019-11-10] MEDS ORDERED: LIDOCAINE 1% INJ 10MG/ML (20 ML MDV) ONE (06:58)
[2019-11-10] MEDS ORDERED: PROPOFOL 10 MG/ML 20 ML VIAL IV ONE (06:58)
[2019-11-10] MEDS ORDERED: BUPIVACAINE (PF) 0.5% 30 ML VIAL SQ ONE (07:00)
--- NOTE | 2019-11-10 07:40 | P.OP ---
Date of Procedure: 11/10/19 Description of Procedure: SURGEON: JESSI RIVERA MD ROOFING LABORER: None. PREOPERATIVE DIAGNOSIS: 1. Lung cancer 2. Chemotherapeutic venous access. POSTOPERATIVE DIAGNOSIS: 1. Lung cancer 2. Chemotherapeutic venous access. OPERATION: Removal of right internal jugular vein Port-A-Cath. ANESTHESIA: MAC with 30 mL local ESTIMATED BLOOD LOSS: 5 mL SPECIMENS REMOVED: Port-A-Cath COMPLICATIONS: None. INDICATIONS: The patient is a 64-year-old female who completed chemotherapy for lung cancer. She now has elected for removal. Benefits and risks were described. Informed consent was obtained. DESCRIPTION OF PROCEDURE: Patient was brought to the operating room, laid in supine position. After IV sedation the chest wall on the left side was prepped and draped in standard sterile fashion. Prior to incision, a timeout protocol was confirmed with surgical team regarding the patient's name including procedures to be performed. As this was a clean case, no further antibiotics were required. Additionally, early ambulation was encouraged for DVT prophylaxis. Attention was brought to the area of the port site, whereby a total of 30 mL of local was infiltrated into the skin for a field block. A #15 blade was used to incise along the previous cicatrix. Electro- Bovie cautery was used to control for hemostasis. Adhesions were lysed around the Mediport. The port was extracted without sequelae. Pressure for 2 minutes was placed along the internal jugular vein. Hemostasis was checked along the pocket of the Port-A-Cath site. The wound was closed in layers using 3-0 Vicryl for the deep subcutaneous tissues followed by 4-0 Monocryl in a running subcuticular fashion. Dermabond was applied to the skin. Once dried a 4 x 4 Optifoam was applied. At the end of the procedure needle, sponge and instrument counts were verified correct by the sheet metal technician. The patient had tolerated the procedure well and was taken to postanesthesia care in stable condition. FINDINGS: 1. Unremarkable Port-a-cath extraction. Plan - Discharge Summary Discharge Rx Participant: No New Discharge Prescriptions: New Acetaminophen Tab [Tylenol Tab] 1,000 mg PO Q6HR PRN #30 tablet PRN Reason: Pain Continue Rosuvastatin Calcium [Crestor] 40 mg PO DAILY ALPRAZolam 0.25 mg PO BID PRN PRN Reason: Anxiety Aspirin 81 mg PO DAILY Albuterol Inhaler (Mhu) [Ventolin Hfa Inhaler (Mhu)] 2 puff INHALATION RT-Q6H PRN PRN Reason: asthma traZODone HCL 50 mg PO HS Levothyroxine Sodium [Synthroid] 100 mcg PO AC-SUPPER Acetaminophen Tab [Tylenol] 1,000 mg PO Q6HR PRN PRN Reason: Pain DULoxetine HCL [Cymbalta] 60 mg PO DAILY Propranolol HCl [Inderal LA] 60 mg PO AC-SUPPER Famotidine [Pepcid] 20 mg PO DAILY PRN PRN Reason: Heartburn Fenofibric Acid (Choline) [Fenofibric Acid] 135 mg PO AC-SUPPER Discharge Medication List ALPRAZolam 0.25 mg PO BID PRN 12/20/13 [History] Albuterol Inhaler (Mhu) [Ventolin Hfa Inhaler (Mhu)] 2 puff INHALATION RT-Q6H PRN 12/20/13 [History] Aspirin 81 mg PO DAILY 12/20/13 [History] Rosuvastatin Calcium [Crestor] 40 mg PO DAILY 12/20/13 [History] Acetaminophen Tab [Tylenol] 1,000 mg PO Q6HR PRN 02/26/19 [History] DULoxetine HCL [Cymbalta] 60 mg PO DAILY 02/26/19 [History] Levothyroxine Sodium [Synthroid] 100 mcg PO AC-SUPPER 02/26/19 [History] Propranolol HCl [Inderal LA] 60 mg PO AC-SUPPER 02/26/19 [History] traZODone HCL 50 mg PO HS 02/26/19 [History] Famotidine [Pepcid] 20 mg PO DAILY PRN 11/07/19 [History] Fenofibric Acid (Choline) [Fenofibric Acid] 135 mg PO AC-SUPPER 11/07/19 [Hi story] Acetaminophen Tab [Tylenol Tab] 1,000 mg PO Q6HR PRN #30 tablet 11/10/19 [Rx] Follow up Appointment(s)/Referral(s): Jessi Rivera MD [STAFF PHYSICIAN] - As Needed Patient Instructions/Handouts: *Surgery [facility] - (Anesthesia) Endoscopy Discharge Instructions, Implanted Venous Access Port (GEN), Central Line Removal (DC) Activity/Diet/Wound Care/Special Instructions: May shower. No bathtub soaks for 2 weeks until Nov 23. Remove dressing Nov 12. Sleep on elevated pillows at least 3 for 3 days. Bruising is normal and subsides in 2 weeks. Take Tylenol or Motrin regularly for 24 hrs for pain, if needed. Use ice along incision to decrease swelling. Discharge Disposition: HOME SELF-CARE
[2019-11-10 07:47] VITALS: BP 111/67; PULSE 89; RESP 17
== END 2019-11-10 08:15 | disposition home or self-care (01) ==
LOC: OR 05:43
PROVIDERS: ATTEND Surgery Plastic and Reconstructive Surgery
DX: Z45.2 Encounter for adjustment and management of vascular access device (principal); C34.90 Malignant neoplasm of unspecified part of unspecified bronchus or lung; Z92.21 Personal history of antineoplastic chemotherapy; J45.909 Unspecified asthma, uncomplicated; E78.5 Hyperlipidemia, unspecified; I10 Essential (primary) hypertension; Z87.01 Personal history of pneumonia (recurrent); E07.9 Disorder of thyroid, unspecified; J43.9 Emphysema, unspecified; Z90.710 Acquired absence of both cervix and uterus; Z98.890 Other specified postprocedural states; G43.909 Migraine, unspecified, not intractable, without status migrainosus; Z87.442 Personal history of urinary calculi; Z92.3 Personal history of irradiation; Z98.1 Arthrodesis status; Z83.438 Family history of other disorder of lipoprotein metabolism and other lipidemia; Z82.0 Family history of epilepsy and other diseases of the nervous system; Z82.69 Family history of other diseases of the musculoskeletal system and connective tissue; Z87.891 Personal history of nicotine dependence; Z82.5 Family history of asthma and other chronic lower respiratory diseases; Z79.890 Hormone replacement therapy; Z79.899 Other long term (current) drug therapy; Z79.82 Long term (current) use of aspirin; Z88.8 Allergy status to other drugs, medicaments and biological substances; Z88.1 Allergy status to other antibiotic agents; Z91.012 Allergy to eggs; Z91.040 Latex allergy status
CPT/HCPCS: 36589; J2250; J2405; J2001; J3010; J1100; J2704

== ENCOUNTER → 2020-05-16 | Outpatient (CLI) | payer BC ==
--- NOTE | 2020-05-16 11:24 | CT ---
EXAMINATION TYPE: CT chest w con DATE OF EXAM: 05/16/2020 COMPARISON: Chest CT October 19, [address] older [address] PET CT May 12, 2019 and older studies. HISTORY: Lung cancer CT DLP: 484.6 mGycm. Automated Exposure Control for Dose Reduction was Utilized. TECHNIQUE: CT scan of the thorax is performed following with IV Contrast, patient injected with 100 mL of Isovue 300. FINDINGS: LUNGS: Background mild to moderate underlying emphysematous change redemonstrated. Persistent irregul ar left hilar soft tissue and bronchial narrowing felt to reflect treated neoplasm axial image 28 not significantly changed from most recent CT or PET/CT. There is however new worsening maintained retic ulated nodule or nodular consolidation superior to this measuring roughly 2.2 x 1.3 cm in the medial left upper lobe axial image 21. There is additional cyuk-fe-bkbrheeu linear scarring left upper lung redemonstrated and stable. There is enlarging 8 x 8 mm subpleural posterior right lower lobe nodule image 28. Of more concern is new 3.6 x 3.1 cm medial right upper lobe mass on axial image 22. No pleural effusion or pneumothorax seen bilaterally. MEDIASTINUM: There are no new greater than 1 cm mediastinal lymph nodes. Small pericardial effusion i s stable. Mild cardiomegaly redemonstrated. Enlarged right and left pulmonary arteries, CT findings consistent with underlying pulmonary artery hypertension. OTHER: Few small splenules redemonstrated. Liver remains low dense consistent with diffuse fatty infi ltration. There is postsurgical change in the lower cervical spine redemonstrated. IMPRESSION: Interval neoplastic progression with enlarging superior posterior right lower lobe subple ural nodule and new 3.6 cm right upper lobe mass. Possible recurrent malignancy left suprahilar regio n also. Consider repeat PET CT to confirm.
== END | disposition home or self-care (01) ==
LOC: RADCTMAIN 10:22
PROVIDERS: ATTEND Internal Medicine Hematology & Oncology
DX: R91.1 Solitary pulmonary nodule (principal); C34.12 Malignant neoplasm of upper lobe, left bronchus or lung; Z88.1 Allergy status to other antibiotic agents; Z91.040 Latex allergy status; Z91.012 Allergy to eggs
CPT/HCPCS: 71260; Q9967

== ENCOUNTER → 2020-05-21 | Outpatient (CLI) | payer BC ==
[~2020-05-21] MED LIST changes: -DEXAMETHASONE SOD PHOSPHATE 10 MG/ML 1 ML VIAL IV ONE; -HYDROmorphone 0.5 MG/0.5 ML SYRINGE IVP PRN; -LACTATED RINGERS 1,000 ML IV SCH; -ONDANSETRON 4 MG/2 ML VIAL IVP ONE; +REGADENOSON 0.4 MG/5 ML SYRINGE IV PRN; -ceFAZolin IN SWFI 2 GM/20 ML SYRINGE IVP STA
--- NOTE | 2020-05-21 11:27 | NM ---
EXAMINATION TYPE: NM stress lexiscan cardiolite DATE OF EXAM: 05/21/2020 COMPARISON: Chest CT from 5 days ago HISTORY: ST elevation. History of tobacco use and hypercholesterolemia along with hypertension. Famil y history of heart attack. History of COPD and asthma. TECHNIQUE: After the intravenous administration of 9.6 mCi Tc 99m Sestamibi - Cardiolite resting SPE CT images acquired 45 minutes post injection. The patient received 0.4mg Lexiscan, 24.7 mCi Tc 99m Sestamibi - Stress images obtained [address] injection FINDINGS: Review of stress and rest SPECT images demonstrates an area of diminished uptake on stress versus res t images involving the anterior wall greatest in the basilar to mid levels. Areas suspicious for old infarct. Along the anterolateral portion on short axis and horizontal long axis there is diminished uptake basilar to mid segment worrisome for areas of acute ischemia. Gated analysis shows overall est imated left ventricular ejection fraction of 74 %. IMPRESSION: Old infarct anterior wall suspected. Area of acute ischemia anterolateral aspect mid to b asilar segment cannot be excluded. Consider further investigation with direct catheter angiogram base d on clinical correlation. A Yellow level critical message alert has been initiated for Daniel Corrales MD via the [employer] Critical Results System on 05/21/2020 11:25 AM. This message alert has been sent to Daniel Corrales MD via the preferences provided by the clinician for the receipt of Radiology Critical Findings. Message ID [id number].
--- NOTE | 2020-05-21 14:39 | EST ---
EXERCISE STRESS AGE: 64 SEX: Female HT: 5'2" WT: 167 lbs. PROTOCOL: Lexiscan Cardiolite STAGE: N/A DURATION OF EXERCISE: N/A HEART RATE REST: 86 BLOOD PRESSURE REST: 119/72 MAXIMUM HEART RATE ACHIEVED: 111 MAXIMUM BLOOD PRESSURE: 125/65 85% MPHR: 134 100% MPHR: 158 METS: N/A INDICATIONS: ST elevation CLINICAL INFORMATION: Baseline rhythm is sinus mechanism, rate of 86, normal axis and intervals, early repolarization changes. Baseline blood pressure 119/72 mmHg. Patient received injection of Lexiscan. Electrocardiograph monitoring revealed no evidence of diagnostic ischemic ST deviation. Cardiolite was injected per protocol. CONCLUSION: 1. Nondiagnostic electrocardiograph stress testing. 2. Nuclear images will be reported separately. MMODL / IJN: [id number] /
== END | disposition home or self-care (01) ==
LOC: RADNMMAIN 07:53
PROVIDERS: ATTEND Internal Medicine
DX: R94.31 Abnormal electrocardiogram [ECG] [EKG] (principal)
CPT/HCPCS: 93017; 78452; A9500; J2785

== ENCOUNTER → 2020-05-31 | Outpatient (CLI) | payer BC ==
--- NOTE | 2020-06-04 06:40 | PE ---
EXAMINATION TYPE: PET CT fusion skull to thigh DATE OF EXAM: 05/31/2020 COMPARISON: Chest CT May 16, 2020 and older studies. PET/CT May 12, 2019 and older studies. HISTORY: Lung cancer progress study. Originally diagnosed in 2018 left lung, treated with chemother apy and radiation treatment through 2019. TECHNIQUE: Following the intravenous administration of 12.61 mCi of F-18 FDG, whole body images are performed from the skull base to the midthigh. Images are reviewed on the computer in the coronal, a xial, and sagittal planes. Reconstructed rotating images are created on independent workstation and reviewed on the computer. A localization and attenuation correction CT is performed in conjunction with the PET scan. Blood glucose level equals 200. SCAN: Subsequent Scan FINDINGS: SKULL BASE AND NECK: No new areas of abnormal hypermetabolic uptake. CHEST, MEDIASTINUM, AND HILAR REGION: Redemonstration of background moderate underlying emphysematous change. Corresponding to most recent CT there is suspicious 3.9 x 2.9 cm right upper lobe mass axial image 82 with hypermetabolic uptake inferiorly axial image 84, max SUV is 5.09. Stable irregular left hilar soft tissue and bronchial narrowing without hypermetabolic uptake consist ent with treated neoplasm. Superior to this irregular soft tissue centrally does not show abnormal hy permetabolic uptake to suggest active neoplastic recurrence near axial image 79. Stable 8 mm posterior right mid lung pulmonary nodule axial image 88 is a metabolic. ABDOMEN AND PELVIS: Normal excretion is present. No adrenal masses. No areas of abnormal hypermetabol ic uptake. OSSEOUS STRUCTURES: No areas of abnormal hypermetabolic uptake. OTHER CT: Stable prominent right submandibular lymph node ametabolic axial image 48. Stable small per icardial effusion. Redemonstration of enlarged pulmonary arteries consistent with underlying pulmonar y hypertension. Mild to moderate coronary artery calcification redemonstrated. Sigmoid colonic diverticula. Surgical change cervical thoracic spine redemonstrated. Uterus surgicall y absent. IMPRESSION: Recurrent or new hypermetabolic neoplasm right upper lung is strongly suspected with post obstructive atelectatic change.
== END | disposition home or self-care (01) ==
LOC: RADPETMAIN 14:49
PROVIDERS: ATTEND Internal Medicine Hematology & Oncology
DX: C34.12 Malignant neoplasm of upper lobe, left bronchus or lung (principal); Z92.21 Personal history of antineoplastic chemotherapy
CPT/HCPCS: 78815; A9552

== ENCOUNTER 2020-06-12 10:46 | Day surgery (SDC) | payer BC ==
[2020-06-07 13:32] VITALS: BMI 30.9
[~2020-06-12 10:46] MED LIST changes: +ALBUTEROL NEB (CONC) 2.5 MG/0.5 ML INHALATION ONE; +LACTATED RINGERS 1,000 ML IV SCH; +LIDOCAINE 1% (10MG/ML) FOR IV START INTRADERMA PRN; +LIDOCAINE 2% (PF) 20 MG/ML 5 ML VIAL INHALATION ONE; +LIDOCAINE VISCOUS 300 MG/15 ML CUP MUCOUS MEM ONE; -REGADENOSON 0.4 MG/5 ML SYRINGE IV PRN; +SODIUM CHLORIDE 0.9% 1,000 ML IV SCH
[2020-06-12] MEDS ORDERED: fentaNYL (PF) 50 MCG/ML 2 ML AMP ONE (13:41)
[2020-06-12] MEDS ORDERED: LIDOCAINE 1% INJ 10MG/ML (20 ML MDV) ONE (13:41)
[2020-06-12] MEDS ORDERED: NEOSTIGMINE 1 MG/ML 10 ML VIAL ONE (13:41)
[2020-06-12] MEDS ORDERED: GLYCOPYRROLATE 0.2 MG/ML 2 ML VIAL ONE (13:41)
[2020-06-12] MEDS ORDERED: PROPOFOL 10 MG/ML 20 ML VIAL IV ONE (13:41)
[2020-06-12] MEDS ORDERED: LACTATED RINGERS 1,000 ML IV ONE (13:49)
--- NOTE | 2020-06-12 14:25 | P.PCN ---
Date of Procedure: 06/12/20 Preoperative Diagnosis: Right upper lobe mass Postoperative Diagnosis: Right upper lobe mass Procedure(s) Performed: Flexible bronchoscopy navigational bronchoscopy Transbronchial biopsy of the right upper lobe mass on the navigational guidance Transbronchial needle aspirate of the right upper lobe mass under navigational guidance Transbronchial brushing of the right upper lobe mass under navigational guidance Anesthesia: SHRUTHI Surgeon: Michael Hatch Estimated Blood Loss (ml): 0 Pathology: other Condition: stable Disposition: same day Operative Findings: Patient is known to have a non-small cell lung cancer. The patient was treated with a combination of chemoradiation therapy and immunotherapy. Most recent PET scan showed a right upper lobe mass and the bronchoscopy was indicated. Navigational bronchoscopy was done on the medication guidance. The patient was brought in to the preop holding area where the appropriate V pads were applied to the chest and following that the patient was sent for a computed tomography scan of the chest for navigational and planning purposes. The CAT scan images uploaded into the system and left lower lobe pulmonary nodule was identified and was managed appropriately. All of this information was transferred into a [employer] a nd then uploaded into the [employer] navigational tower. The patient was intubated by the usual fashion by [employer] MECH[employer]IC. The patient was intubated by [employer] MECH[employer]IC with a #8 endotracheal tube. After securing the airway, the flexible bronchoscope was introduced into the lower trachea and airways inspection was done. The visualized airways including the trachea distally, joe, bilateral mainstem bronchi, right upper lobe bronchus, bronchus, right middle lobe bronchus, right lower lobe bronchus, left upper lobe bronchus and left lower lobe bronchus. The various segments and subsegments were identified. There was some atelectatic changes of a segment of the left lower lobe. No endobronchial tumors or lesions seen. Using an navigational Forceps, appropriate calibration was done using the main joe, and the secondary joe on the left as reference points. On the navigational guidance, the forceps was then directed to the left lower lobe. No endobronchial tumors was identified. The tumor was obviously external had not endobronchial. At that point, the forceps was was used to undergo a transbronchial biopsy of the right upper lobe with navigational guidance. We will also perform transbronchial needle aspirate of the right upper lobe under navigational guidance and transbronchial brushing of the right upper lobe mass was also done under navigational guidance. Appropriate samples were collected. Procedure was done without any complication. Total amount of blood loss was less than 5 mL. The patient was extubated successfully without any complications the patient was transferred recovery in stable condition.
[2020-06-12 14:44] VITALS: TEMP 97.7
[2020-06-12 15:02] VITALS: RESP 16
[2020-06-12 15:25] VITALS: BP 115/63; PULSE 74
--- NOTE | 2020-06-12 16:07 | CT ---
EXAMINATION TYPE: CT Chest yared Liu Protocol DATE OF EXAM: 06/12/2020 COMPARISON: None HISTORY: Lung nodules/mass. Navigational bronch CT DLP: 649 mGycm Automated exposure control for dose reduction was used. Contrast: None Technique: Axial images 5 mm thick sections. Reconstructed images in the coronal plane FINDINGS: There is a right suprahilar mass measuring 4.1 x 2.7 cm. Left suprahilar stranding is evident. Small spiculated density may be in the anterior left upper lung field measuring 0.5 cm. Left infrahilar air bronchograms. The present Limited CT sections are obtained through the upper abdomen which are unremarkable. The ascending thoracic aorta at the level of the main pulmonary artery is 3.6 cm. Main pulmonary bifu rcation is 2.6 cm. IMPRESSION: 1. RIGHT SUPRAHILAR MASS. 2. LEFT INFRAHILAR CONSOLIDATION WITH AIR BRONCHOGRAMS. MASS OR INFILTRATE COULD BE CONSIDERED.
--- NOTE | 2020-06-12 16:30 | XR ---
EXAMINATION TYPE: XR chest 1V portable DATE OF EXAM: 06/12/2020 Comparison: CT same day Clinical History: 64-year-old female post bronch with navigation Findings: ACDF hardware. Heart normal size atherosclerotic arch calcifications. Known right suprahilar mass and left hilar/suprahilar distortion/opacity. Some chronic appearing pleural-parenchymal opacity along t he left heart margin. No appreciable pneumothorax. Impression: 1. Known right suprahilar mass and left hilar/suprahilar volume loss and opacity. 2. No appreciable pneumothorax.
== END 2020-06-12 16:14 | disposition home health service (06) ==
LOC: ORWHC2ENDO 10:46
PROVIDERS: ATTEND Internal Medicine Critical Care Medicine
DX: R91.8 Other nonspecific abnormal finding of lung field (principal); C34.92 Malignant neoplasm of unspecified part of left bronchus or lung; E78.00 Pure hypercholesterolemia, unspecified; F41.9 Anxiety disorder, unspecified; F32.9 Major depressive disorder, single episode, unspecified; J30.9 Allergic rhinitis, unspecified; E78.5 Hyperlipidemia, unspecified; I10 Essential (primary) hypertension; K21.9 Gastro-esophageal reflux disease without esophagitis; Z87.01 Personal history of pneumonia (recurrent); Z87.09 Personal history of other diseases of the respiratory system; M47.812 Spondylosis without myelopathy or radiculopathy, cervical region; Z90.710 Acquired absence of both cervix and uterus; E03.9 Hypothyroidism, unspecified; J44.9 Chronic obstructive pulmonary disease, unspecified; Z92.21 Personal history of antineoplastic chemotherapy; Z92.3 Personal history of irradiation; Z87.891 Personal history of nicotine dependence; Z98.1 Arthrodesis status; Z98.890 Other specified postprocedural states; Z79.1 Long term (current) use of non-steroidal anti-inflammatories (NSAID); Z79.890 Hormone replacement therapy; Z79.899 Other long term (current) drug therapy; Z88.1 Allergy status to other antibiotic agents; Z88.8 Allergy status to other drugs, medicaments and biological substances; Z91.012 Allergy to eggs; Z91.040 Latex allergy status
CPT/HCPCS: 88104; 88305; 88173; 88342; 88341; 71045; 71250; 31628; 31627; J2710; J2001; J3010; J2704; 31625

== ENCOUNTER → 2020-09-02 | Outpatient (CLI) | payer BC ==
[2020-09-02 10:25] LABS: African American GFR (CKD) >90 (>60 ml/min/1.73 sqM); Blood Urea Nitrogen 22 mg/dL (7-17); Non-African American GFR(CKD) >90 (>60 ml/min/1.73 sqM)
--- NOTE | 2020-09-02 12:11 | CT ---
EXAMINATION TYPE: CT chest wo/w con DATE OF EXAM: 09/02/2020 COMPARISON: Chest CT May 16, 2020 and older CTs. Prior PET/CT May 31, 2020 and older PET CTs . HISTORY: Initially diagnosed left-sided lung cancer 2018 treated through 2019. Right-sided lung cance r diagnosed 2020 CT DLP: 763 mGycm. Automated Exposure Control for Dose Reduction was Utilized. TECHNIQUE: CT scan of the thorax is performed following without and with IV Contrast, patient inject ed with 100 mL of Isovue 300. FINDINGS: LUNGS: Background moderate underlying emphysematous change is redemonstrated. Persistent suspicious s piculated right upper lung mass measuring 4.7 x 2.3 cm axial image 16 slightly larger at least on stephanie g axis versus most recent CT. Mass fairly low-density without significant postcontrast enhancement ex tends and abuts the mediastinum adjacent to SVC similar to prior. Smaller focus of hypermetabolic upt muna was noted on most recent PET/CT posttreatment changes to the left along with medial scarlike opac ity and left-sided volume loss is redemonstrated. Slightly less prominent 6 mm posterior superior rig ht lower lung subpleural nodule image 24 noted ametabolic on most recent PET/CT. Smaller nodularity w ith linear scarring right middle lobe laterally near axial images 29 and 30 redemonstrated. Nodular o pacity medial left lung base subcentimeter side effects image 39 also stable. No new or enlarging gre ater than 5 mm nodules. Mild left basilar linear scarring redemonstrated. No pleural effusion or pneu mothorax. MEDIASTINUM: There are no new greater than 1 cm hilar or mediastinal lymph nodes. Stable soft tissue fullness left hilar region Stable small to tiny pericardial effusion is seen. No cardiomegaly. Coron rogelio artery calcification redemonstrated. OTHER: No new adrenal masses. Mild multilevel spurring. IMPRESSION: Right upper lung mass redemonstrated perhaps slightly larger in size but fairly low densi ty without suspicious enhancement. Stable posttreatment changes left lung. No new or enlarging nodule s or adenopathy noted.
== END | disposition home or self-care (01) ==
LOC: RADCTMAIN 09:41
PROVIDERS: ATTEND Radiology Radiation Oncology
DX: C34.11 Malignant neoplasm of upper lobe, right bronchus or lung (principal); C34.12 Malignant neoplasm of upper lobe, left bronchus or lung
CPT/HCPCS: 82565; 84520; 71270; 36415; Q9967

== ENCOUNTER → 2020-12-02 | Outpatient (CLI) | payer BC ==
--- NOTE | 2020-12-02 11:39 | CT ---
EXAMINATION TYPE: CT chest wo/w con DATE OF EXAM: 12/02/2020 COMPARISON: 09/02/2020, 05/16/2020, 10/19/2019 HISTORY: 65-year-old female C34.11, Malignant neoplasm of upper lobe TECHNIQUE: Contiguous axial scanning of the chest before and after the administration of 100 mL of Is ovue 300. Coronal/sagittal reconstructions performed. CT DLP: 832.8mGycm. Automatic exposure control utilized for a dose reduction. FINDINGS: The heart is normal size. Small pericardial effusion slightly increased now 9 mm thick versus 6 mm, p reviously. Mild atherosclerotic arch calcifications. Conventional arch vessel branching anatomy. No thoracic lymphadenopathy by CT size criteria. Stable distortion, volume loss, consolidation encasing the left hilum suggesting posttreatment change . Mild to moderate underlying emphysema. A few scattered pulmonary nodules are redemonstrated bilaterally. A 5 mm right midlung pulmonary nodu le, axial image 29 previously measured 4 mm. Otherwise, the other 6 mm and smaller bilateral pulmonar y nodules are unchanged. Right suprahilar mass has decreased in size currently 2.5 x 1.3 cm versus 4.5 x 2.4 cm, previously. Tiny hiatal hernia. Visualized upper abdomen shows a couple small hilar splenules. Centrally located hypodensity within the liver probably cystic change or focal fat, slightly more pronounced over the c ourse of a few prior studies. Bones: Stable scattered bone islands. IMPRESSION: 1. Stable left hilar volume loss and soft tissue encasement suggesting site of treated disease. 2. Right suprahilar mass decreased in size currently 2.5 x 1.3 cm versus 4.5 x 2.4 cm, previously. 3. Bilateral pulmonary nodules measuring up to 6 mm are unchanged. Only a single 5 mm right mid lung pulmonary nodule is minimally larger compared to 4 mm, previously. This may not be significant. Gilberto nued follow-up recommended to ensure stability.
== END | disposition home or self-care (01) ==
LOC: RADCTMAIN 10:20
PROVIDERS: ATTEND Radiology Radiation Oncology
DX: R91.1 Solitary pulmonary nodule (principal); J44.9 Chronic obstructive pulmonary disease, unspecified; C34.11 Malignant neoplasm of upper lobe, right bronchus or lung; Z92.3 Personal history of irradiation; Z90.710 Acquired absence of both cervix and uterus; F17.210 Nicotine dependence, cigarettes, uncomplicated; C34.12 Malignant neoplasm of upper lobe, left bronchus or lung
CPT/HCPCS: 71270; Q9967

== ENCOUNTER → 2021-03-10 | Outpatient (CLI) | payer BC ==
--- NOTE | 2021-03-10 12:05 | CT ---
EXAMINATION TYPE: CT chest wo/w con DATE OF EXAM: 03/10/2021 COMPARISON: 12/02/2020 HISTORY: malignant neoplasm of upper lobe, Rt bronchus or lung CT DLP: 794.10 mGycm, Automated exposure control for dose reduction was used. CONTRAST: Performed injected with 100 mL of Isovue 300. TECHNIQUE: Axial images were obtained at 5 mm thick sections. Reconstructed images are reviewed on [employer] computer in the coronal plane. FINDINGS: Perihilar increased spiculated density is present. There is peribronchial encasement of the left with narrowing of the bronchi. These findings were present previously There is a 0.9 cm nodule within the posterior right lung which has increased in size over the interva l. Previous measurement 0.6 cm. There is a 0.4 cm density within the right middle lobe, series 4 image 28. A 0.6 cm density is in the superior segment right lower lobe, series 4 image 29. There is a 0.8 cm nodule within the posterior medial left lung base. Series 4 image 39. Punctate 0.4 cm nodularity is in the posterior right lung. Series 8 image 34. These were present previously Small pericardial effusion is present. Enlarged mediastinal adenopathy is not identified. Hilar adeno viet is difficult to exclude. Some coronary artery calcification is present. The ascending aorta di ameter at the level of the main pulmonary artery is 3.5 cm. The main pulmonary artery diameter at th e bifurcation is 3.[address] sections are obtained through the upper abdomen. Abdomen is essentially unremarkable. IMPRESSIONS: 1. Perihilar lung masses on encasement of left hilar bronchi present previously. 2. Enlarging nodule posterior right mid lung. 3. Additional smaller stable appearing nodules bilateral lungs. 4. Small pericardial effusion
== END | disposition home or self-care (01) ==
LOC: RADCTMAIN 10:15
PROVIDERS: ATTEND Radiology Radiation Oncology
DX: C34.11 Malignant neoplasm of upper lobe, right bronchus or lung (principal); I31.3 Pericardial effusion (noninflammatory)
CPT/HCPCS: 71270; Q9967

== ENCOUNTER → 2021-04-10 | Outpatient (CLI) | payer BC | END | disposition home or self-care (01) | LOC: RADPETMAIN 08:34 | PROVIDERS: ATTEND Internal Medicine Hematology & Oncology | DX: Z53.9 Procedure and treatment not carried out, unspecified reason (principal) ==

== ENCOUNTER 2021-07-08 13:34 | Inpatient (IN) | payer BC ==
[2021-07-08] MEDS ORDERED: ASPIRIN 81 MG PO STA (14:05)
[2021-07-08] MEDS ORDERED: NITROGLYCERIN SL TABS 0.4 MG TAB SUBLINGUAL STA (14:12)
[2021-07-08] MEDS ORDERED: SODIUM CHLORIDE 0.9% 500 ML 500 ML IV STA (14:17)
[2021-07-08] MEDS ORDERED: MORPHINE SULFATE 4 MG/ML SYRINGE IVP STA (14:31)
[2021-07-08 14:45] LABS: Basophils % (A) 0 %; Eosinophils % (A) 0 %; HCT 48.1 % (34.0-46.0); HGB 15.7 gm/dL (11.4-16.0); Lymphocytes # (A) 0.6 k/uL (1.0-4.8); Lymphocytes % (A) 7 %; MCH 31.3 pg (25.0-35.0); MCHC 32.7 g/dL (31.0-37.0); MCV 95.8 fL (80.0-100.0); Mean Platelet Volume 8.3; Monocytes # (A) 0.2 k/uL (0-1.0); Monocytes % (A) 2 %; Neutrophils # (A) 8.1 k/uL (1.3-7.7); Neutrophils % (A) 89 %; Platelet Count 335 k/uL (150-450); RBC 5.02 m/uL (3.80-5.40); RDW 13.9 % (11.5-15.5)
[2021-07-08 15:11] LABS: ALT 34 U/L (4-34); AST 62 U/L (14-36); African American GFR (CKD) >90 (>60 ml/min/1.73 sqM); Alkaline Phosphatase 38 U/L (38-126); Anion Gap 11 mmol/L; Blood Urea Nitrogen 19 mg/dL (7-17); Calcium 9.2 mg/dL (8.4-10.2); Carbon Dioxide 19 mmol/L (22-30); Chloride 103 mmol/L (98-107); Glucose 459 mg/dL (74-99); Magnesium 1.5 mg/dL (1.6-2.3); Non-African American GFR(CKD) >90 (>60 ml/min/1.73 sqM); Sodium 133 mmol/L (137-145); Total Bilirubin 0.8 mg/dL (0.2-1.3); Total Protein 6.8 g/dL (6.3-8.2)
--- NOTE | 2021-07-08 15:23 | ED ---
General Adult HPI <Nataliya Mckeon Yahir - Last Filed: 07/08/21 23:34> - General Source: patient, family, RN notes reviewed, old records reviewed Mode of arrival: wheelchair Limitations: physical limitation <Lawrence Everett - Last Filed: 07/10/21 23:40> - General Chief complaint: Chest Pain Stated complaint: chest pain Time Seen by Provider: 07/08/21 13:44 - History of Present Illness Initial comments: Patient is a 65-year-old female who presents emergency Department complaining of shortness of breath. She is a history of cancer last underwent chemo radiation last year, COPD, fibromyalgia, hypertension, thyroid disease, asthma presents emergency Department complaining of substernal chest pain that started 2 hours ago. Was sudden in onset. She has a sharp, pressure sensation that is worse wi th movement of her upper extremities. This painful to touch as well. Denies any nausea, vomiting, abdominal pain. Denies any change in the pain. Drove herself to the hospital for evaluation. Denies any fevers, chills, cough. States she is having some mild shortness of breath on laying down. Does have history of pericardial effusion. His no other acute complaint at this time. Denies any history of blood clots. Is not on anticoagulation. (Lawrence Everett) - Related Data Home Medications Medication Instructions Recorded Confirmed Aspirin 81 mg PO DAILY 12/20/13 07/08/21 Rosuvastatin Calcium [Crestor] 40 mg PO DAILY 12/20/13 07/08/21 DULoxetine HCL [Cymbalta] 60 mg PO DAILY 02/26/19 07/08/21 Levothyroxine Sodium [Synthroid] 100 mcg PO DAILY 02/26/19 07/08/21 traZODone HCL 50 mg PO HS 02/26/19 07/08/21 Fenofibric Acid (Choline) 135 mg PO DAILY 11/07/19 07/08/21 [Fenofibric Acid] Ibuprofen [Motrin Ib] 800 mg PO Q8H PRN 06/07/20 07/08/21 Metoprolol Tartrate [Lopressor] 50 mg PO BID 06/07/20 07/08/21 ALPRAZolam [Xanax] 1 mg PO BID PRN 07/08/21 07/08/21 Acetaminophen [Tylenol] 1,000 mg PO Q4-6H PRN 07/08/21 07/08/21 Albuterol Inhaler [Ventolin Hfa 2 puff INHALATION RT-QID PRN 07/08/21 07/08/21 Inhaler] Ipratropium-Albuterol Nebulize 3 ml INHALATION RT-QID PRN 07/08/21 07/08/21 [Duoneb 0.5 mg-3 mg/3 ml Soln] Levofloxacin [Levaquin] 750 mg PO DAILY 07/08/21 07/08/21 Multivit-Min/Iron/Folic/Lutein 1 tab PO DAILY 07/08/21 07/08/21 [Centrum Silver Women Tablet] methocarbamoL [Methocarbamol] 500 mg PO BID 07/08/21 07/08/21 predniSONE See Taper PO DIRECTED 07/08/21 07/08/21 Previous Rx's Medication Instructions Recorded Ticagrelor [Brilinta] 90 mg PO BID #60 tab 07/09/21 Allergies Allergy/AdvReac Type Severity Reaction Status Date / Time cephalexin monohydrate Allergy Rash/Hives Verified 07/08/21 15:48 [From Keflex] Egg Derived Allergy Anaphylaxis Verified 07/08/21 15:48 latex Allergy Rash/Hives/throat Verified 07/08/21 15:48 swelling/diff breathing simvastatin AdvReac muscle Verified 07/08/21 15:48 cramps Review of Systems ROS Other: All systems not noted in ROS Statement are negative. <Nataliya Mckeon - Last Filed: 07/08/21 23:34> ROS Other: All systems not noted in ROS Statement are negative. <Lawrence Everett - Last Filed: 07/10/21 23:40> ROS Statement: Those systems with pertinent positive or pertinent negative responses have been documented in the HPI. Review of Systems: CONST: Denies fever EYES: Denies blurry vision ENT: Denies nasal congestion C/V: Endorses chest pain RESP: Endorses shortness of breath GI: Denies abdominal pain : Denies dysuria SKIN: Denies rash. MSK: Denies joint pain. NEURO: Denies headache (Lawrence Everett) Past Medical History Past Medical History: Asthma, Cancer, COPD, Fibromyalgia, GERD/Reflux, Hyper lipidemia, Hypertension, Pneumonia, Thyroid Disorder Additional Past Medical History / Comment(s): HX MIGRAINE, HX KIDNEY STONES, non-small cell lung cancer diagnosed in August 2016 status post chemotherapy and radiation therapy as well as immunotherapy, states "40% use of lungs", new dx cancer rt lung, "rapid heart rate" History of Any Multi-Drug Resistant Organisms: None Reported Past Surgical History: Adenoidectomy, Hysterectomy, Orthopedic Surgery, Tonsillectomy Additional Past Surgical History / Comment(s): LEFT ELBOW carpal tunnel, LEFT wrist CARPAL TUNNEL, EPIDURAL PAIN SHOTS, Anterior Cervical Decomp. and fusion c5-6,c6-7 Past Anesthesia/Blood Transfusion Reactions: Motion Sickness Past Psychological History: Anxiety, Depression Smoking Status: Former smoker Past Alcohol Use History: None Reported Past Drug Use History: None Reported - Past Family History Mother Family Medical History: No Reported History Additional Family Medical History / Comment(s): . Father Additional Family Medical History / Comment(s): Father at age 68 from ALS. Brother(s) Additional Family Medical History / Comment(s): Patient has 1 brother and 1 sister with no major medical problems. Patient has 3 daughters and one has history of asthma. Patient does not have any sons. <Lawrence Everett - Last Filed: 07/10/21 23:40> General Exam Limitations: physical limitation <Lawrence Everett - Last Filed: 07/10/21 23:40> - General Exam Comments Initial Comments: General: Appears in no acute distress. HEAD: Normal with no signs of head trauma. EYES: PERRLA, EOMI, conjunctiva normal, no discharge. ENT: Hearing grossly intact, normal oropharynx. RESPIRATORY: Clear breath sounds bilaterally. No wheezes, rales, or rhonchi. C/V: Patient is tachycardic with regular rhythm. S1 and S2 auscultated. Peripheral pulses are 2+ intact throughout. No peripheral edema. Chest pain is reproducible on palpation over the midline sternum. ABD: Abd is soft, nontender, nondistended EXT: Normal range of motion, no obvious deformity SKIN: No rashes or lesions observed on exposed skin. NEURO: Alert and Oriented 4. (Lawrence Everett) Course Vital Signs 07/08/21 07/08/21 07/08/21 13:40 14:45 15:58 Temperature 97.6 F Pulse Rate 106 H 124 H 125 H Respiratory 22 24 18 Rate Blood Pressure 178/99 137/91 148/88 O2 Sat by Pulse 96 98 97 Oximetry 07/08/21 16:09 Temperature Pulse Rate 120 H Respiratory Rate Blood Pressure 132/68 O2 Sat by Pulse Oximetry Medical Decision Making - Lab Data Result diagrams: 07/08/21 14:11 07/08/21 14:58 <Nataliya Mckeon - Last Filed: 07/08/21 23:34> - Lab Data Result diagrams: 07/10/21 08:46 07/10/21 08:46 - EKG Data -: EKG Interpreted by Me <Lawrence Everett - Last Filed: 07/10/21 23:40> - Medical Decision Making Patient care was signed out to me, patient had positive troponin and tachycardia, CTA was pending, patient chest pain free after morphine CTA with movement artifact, possible tiny PE, possible recurrence of cancer Patient with recurrent pain, repeat EKG again sinus tachycardia, no clear ST elevations, some lateral depressions, Dr Rees was paged, considering patient's ongoing pain and elevated troponin he recommended activation of the shop laborer Patient was updated on plan (Nataliya Mckeon) Based on the patient's presentation and physical exam, I'm concerned for cardiopulmonary etiology for her current symptoms. Cannot rule out PE, particularly with shortness of breath, sinus tachycardia, as well as history of cancer. We will obtain a cardiac workup including troponin, d-dimer, basic labs, chest x-ray. CT chest for PE will also be obtained. She'll be given aspirin. We will try a low dose of nitroglycerin. He'll receive a small fluid bolus. Patient was in agreement this plan. Nitroglycerin did nothing to affect the patient's chest pain. She was a given morphine which did improve the pain. Remainder the patient's laboratory studies and imaging are pending at this time. Patient was signed out to Dr. Mckeon pending workup. (Lawrence Everett) - Lab Data Lab Results 07/08/21 07/08/21 07/08/21 Range/Units 14:11 14:11 14:58 WBC 9.0 (3.8-10.6) k/uL RBC 5.02 (3.80-5.40) m/uL Hgb 15.7 (11.4-16.0) gm/dL Hct 48.1 H (34.0-46.0) % MCV 95.8 (80.0-100.0) fL MCH 31.3 (25.0-35.0) pg MCHC 32.7 (31.0-37.0) g/dL RDW 13.9 (11.5-15.5) % Plt Count 335 (150-450) k/uL MPV 8.3 Neutrophils % 89 % Lymphocytes % 7 % Monocytes % 2 % Eosinophils % 0 % Basophils % 0 % Neutrophils # 8.1 H (1.3-7.7) k/uL Lymphocytes # 0.6 L (1.0-4.8) k/uL Monocytes # 0.2 (0-1.0) k/uL Eosinophils # 0.0 (0-0.7) k/uL Basophils # 0.0 (0-0.2) k/uL PT (9.0-12.0) sec INR (<1.2) APTT (22.0-30.0) sec D-Dimer (<0.60) mg/L FEU Sodium (137-145) mmol/L Potassium (3.5-5.1) mmol/L Chloride (98-107) mmol/L Carbon Dioxide (22-30) mmol/L Anion Gap mmol/L BUN (7-17) mg/dL Creatinine (0.52-1.04) mg/dL Est GFR (CKD-EPI)AfAm (>60 ml/min/1.73 sqM) Est GFR (CKD-EPI)NonAf (>60 ml/min/1.73 sqM) Glucose (74-99) mg/dL Calcium (8.4-10.2) mg/dL Magnesium (1.6-2.3) mg/dL Total Bilirubin (0.2-1.3) mg/dL AST (14-36) U/L ALT (4-34) U/L Alkaline Phosphatase (38-126) U/L Troponin I 1.020 H* (0.000-0.034) ng/mL NT-Pro-B Natriuret Pep 138 pg/mL Total Protein (6.3-8.2) g/dL Albumin (3.5-5.0) g/dL 07/08/21 07/08/21 Range/Units 14:58 14:58 WBC (3.8-10.6) k/uL RBC (3.80-5.40) m/uL Hgb (11.4-16.0) gm/dL Hct (34.0-46.0) % MCV (80.0-100.0) fL MCH (25.0-35.0) pg MCHC (31.0-37.0) g/dL RDW (11.5-15.5) % Plt Count (150-450) k/uL MPV Neutrophils % % Lymphocytes % % Monocytes % % Eosinophils % % Basophils % % Neutrophils # (1.3-7.7) k/uL Lymphocytes # (1.0-4.8) k/uL Monocytes # (0-1.0) k/uL Eosinophils # (0-0.7) k/uL Basophils # (0-0.2) k/uL PT 11.7 (9.0-12.0) sec INR 1.1 (<1.2) APTT 21.5 L (22.0-30.0) sec D-Dimer 0.30 (<0.60) mg/L FEU Sodium 133 L (137-145) mmol/L Potassium 5.0 (3.5-5.1) mmol/L Chloride 103 (98-107) mmol/L Carbon Dioxide 19 L (22-30) mmol/L Anion Gap 11 mmol/L BUN 19 H (7-17) mg/dL Creatinine 0.51 L (0.52-1.04) mg/dL Est GFR (CKD-EPI)AfAm >90 (>60 ml/min/1.73 sqM) Est GFR (CKD-EPI)NonAf >90 (>60 ml/min/1.73 sqM) Glucose 459 H (74-99) mg/dL Calcium 9.2 (8.4-10.2) mg/dL Magnesium 1.5 L (1.6-2.3) mg/dL Total Bilirubin 0.8 (0.2-1.3) mg/dL AST 62 H (14-36) U/L ALT 34 (4-34) U/L Alkaline Phosphatase 38 (38-126) U/L Troponin I (0.000-0.034) ng/mL NT-Pro-B Natriuret Pep pg/mL Total Protein 6.8 (6.3-8.2) g/dL Albumin 4.0 (3.5-5.0) g/dL - EKG Data EKG Comments: 12-lead Electrocardiogram Interpretation Note EKG was reviewed and interpreted by myself. 12-lead ECG performed at 1348 is interpreted by me as revealing sinus tachycardia at a rate of 113 beats per minute. [place] is normal. NC interval is 136 ms, QRS duration is 65 ms, QTc is 351 ms.. There were no ST or T wave abnormalities to suggest myocardial ischemia or injury. R wave progression across the precordium was satisfactory. By my interpretation this EKG is non-diagnostic for acute ischemia. (Lawrence Everett) Disposition <Nataliya Mckeon - Last Filed: 07/08/21 23:34> <Lawrence Everett - Last Filed: 07/10/21 23:40> Clinical Impression: NSTEMI (non-ST elevated myocardial infarction), History of lung cancer Disposition: ADMITTED IP TO THIS HOSP Condition: Critical
[2021-07-08] MEDS ORDERED: HEPARIN SODIUM 1,000 UN/ML (10ML VL) IV ONE (15:26)
[2021-07-08] MEDS ORDERED: HEPARIN SODIUM 1,000 UN/ML (10ML VL) IV PRN (15:26)
[2021-07-08] MEDS ORDERED: HEPARIN SOD,PORK IN 0.45% NACL 25,000 UNIT in 0.45% NACL 1 250ML.BAG IV SCH (15:30)
--- NOTE | 2021-07-08 15:31 | XR ---
EXAMINATION TYPE: XR chest 2V DATE OF EXAM: 07/08/2021 COMPARISON: 06/12/2020 INDICATION: Chest pain TECHNIQUE: Single frontal view of the chest is obtained. FINDINGS: The heart size is normal. The pulmonary vasculature is normal. There is some nodularity in the left suprahilar region which can be compatible with patient's reporte d lung cancer. Previous left perihilar increased opacity in narrowing of bronchi is not as readily ap parent on the current exam. Mild perihilar increased lung markings are present. Some nodularity may b e at the right infrahilar region. Underlying neoplasm or metastasis are not excluded. Follow-up CTs c an be performed as clinically indicated. IMPRESSION: 1. Perihilar changes which can be compatible with neoplasm. There may be some improvement of the left perihilar region while there is mild worsening of the right perihilar region.
[2021-07-08 15:38] LABS: INR 1.1 (<1.2); Prothrombin Time 11.7 sec (9.0-12.0)
--- NOTE | 2021-07-08 15:42 | CT ---
EXAMINATION TYPE: CT chest angio for PE DATE OF EXAM: 07/08/2021 COMPARISON: CT dated 03/10/2021 HISTORY: SOB, Concern for PE. Hx COPD, asthma, lung ca. CT DLP: 470.6 mGy.cm. Automated Exposure Control for Dose Reduction was Utilized. TECHNIQUE AND CONTRAST: CTA scan of the thorax is performed with IV Contrast, patient injected with 100 mL of Isovue 370, pul monary embolism protocol. MIP Images are created on an independent workstation and reviewed. FINDINGS: Artifactual images. Tiny filling defects are seen in the left lower lobe segmental and subsegmental p ulmonary arteries, possibly artifactual however tiny pulmonary emboli cannot be excluded. Otherwise n o definite filling defect seen within the pulmonary trunk, main pulmonary arteries and remainder segm ental and proximal subsegmental arteries. Distal subsegmental arteries are suboptimally assessed. The pulmonary trunk measures 3.3 cm suggestiv e of pulmonary hypertension. No gross cardiomegaly. Scattered arterial atherosclerotic calcifications . Small pericardial fluid. No progressive lymphadenopathy by this CT scan. Severe COPD changes. 11 mm nodule in the right lower lobe superior segment compared to 7 mm previousl y. 7 mm newly seen nodule in the left lung apex, not well appreciated previously. Adjacent smaller ne wly seen pulmonary nodules. Soft tissue thickening with spiculated margin is seen in the left hilum demonstrating air bronchogram within, appreciated previously and could represent sequela of previous radiation, underlying residua l disease cannot be excluded. Similar yet milder changes are seen in the right upper lung lobe. Bilateral hilar up lifting. Expirat ory exposure. Patent trachea and main bronchi. No pleural effusions. Suspected hepatic steatosis. No aggressive bone lesion. IMPRESSION: Filling defects within the left lower lobe pulmonary arteries, possibly artifactual versus tiny embol i. No major or central pulmonary embolism. Enlarging right lower lobe superior segment nodule with newly seen left upper lobe nodules, suspiciou s for progressive disease. Other findings as detailed above.
[2021-07-08 15:45] LABS: Partial Thromboplastin Time 21.5 sec (22.0-30.0)
[2021-07-08] MEDS ORDERED: MORPHINE SULFATE 4 MG/ML SYRINGE IV PRN (16:21)
[2021-07-08] MEDS ORDERED: SODIUM CHLORIDE 0.9% 500 ML 500 ML IV ONE ×3 (16:30→17:58)
[2021-07-08] MEDS ORDERED: SODIUM CHLORIDE 0.9% 1,000 ML IV ONE (16:30)
[2021-07-08] MEDS ORDERED: LIDOCAINE 1% INJ 10MG/ML (20 ML MDV) ONE (16:31)
[2021-07-08] MEDS ORDERED: VERAPAMIL 2.5 MG/ML 2 ML AMP ONE (16:53)
[2021-07-08] MEDS ORDERED: fentaNYL (PF) 50 MCG/ML 2 ML AMP ONE (16:55)
[2021-07-08] MEDS: MIDAZOLAM 2 MG/2 ML VIAL IV ONE ×2 (16:56→17:31)
[2021-07-08] MEDS ORDERED: LIDOCAINE 1% INJ 10MG/ML (20 ML MDV) SQ ONE (16:58)
[2021-07-08] MEDS ORDERED: fentaNYL (PF) 50 MCG/ML 2 ML AMP IV ONE (16:58)
[2021-07-08] MEDS ORDERED: VERAPAMIL SYRINGE (5 MG/10 ML) INTRAARTER ONE (17:01)
[2021-07-08] MEDS ORDERED: HEPARIN SODIUM 1,000 UN/ML (10ML VL) ONE ×2 (17:04→18:23)
[2021-07-08 17:13] LABS: Glucose,Whole Blood 348 mg/dL (75-99)
[2021-07-08] MEDS ORDERED: TICAGRELOR 90 MG TAB ONE (17:18)
[2021-07-08] MEDS ORDERED: TICAGRELOR 90 MG TAB PO ONE (17:20)
[2021-07-08] MEDS ORDERED: IOPAMIDOL-370 125ML BTL INJ ONE (17:32)
[2021-07-08] MEDS: NITROGLYCERIN 1000MCG/10ML SYRINGE INTRACORON ONE ×2 (17:33→17:38)
[2021-07-08] MEDS ORDERED: IOPAMIDOL-370 100ML BTL INJ ONE (18:03)
[2021-07-08] MEDS ORDERED: ALPRAZolam 0.5 MG TAB PO PRN (18:15)
[2021-07-08 19:50] LABS: Glucose,Whole Blood 216 mg/dL (75-99)
[2021-07-08] MEDS ORDERED: RX INFO: IV CONTRAST WAS GIVEN 1 EACH MISC MISCELLANE PRN (20:05)
[2021-07-08] MEDS ORDERED: MAG HYDROX/AL HYDROX/SIMETH 30 ML CUP PO PRN (20:05)
[2021-07-08] MEDS ORDERED: ZOLPIDEM 5 MG TAB PO PRN (20:05)
[2021-07-08] MEDS ORDERED: NITROGLYCERIN SL TABS 0.4 MG TAB SUBLINGUAL PRN (20:05)
[2021-07-08] MEDS ORDERED: ATROPINE SULFATE 0.1 MG/ML 10ML SYRINGE IV PRN (20:05)
--- NOTE | 2021-07-08 20:05 | P.CRDCN ---
History of Present Illness History of present illness: HISTORY OF PRESENTING ILLNESS Patient is a pleasant 65-year-old female with history of COPD, fibromyalgia, history of pericardial effusion, hypertension, hypothyroidism, asthma, cancer with previous chemotherapy and radiation 1 year ago who presents with off and on chest pain over the prior few hours. Some of the pain was somewhat reproducible however other pain felt more like a pressure sensation and associated with some shortness breath. She was noted to be tachycardic at [address] depressions. Her chest pain was somewhat off and on however troponin resulted at 1 and was still having chest pain at the time and therefore catheterization lab was activated. CTA was performed which showed a possible filling defects within the left lower lobe pulmonary arteries however possibly artifactual with no central PE. There is also note of enlarging right lower lobe superior se gment nodule suspicious for progressive cancer. REVIEW OF SYSTEMS At the time of my exam: CONSTITUTIONAL: Denies fever or chills. CARDIOVASCULAR: +chest pain, +shortness of breath, no orthopnea, PND or palpitations. RESPIRATORY: Denies cough. GASTROINTESTINAL: Denies abdominal pain, diarrhea, constipation, nausea or vomiting. MUSCULOSKELETAL: Denies myalgias. NEUROLOGIC: Denies numbness, tingling or weakness. ENDOCRINE: Denies fatigue, weight change, polydipsia or polyurina. GENITOURINARY: Denies burning, hematuria or urgency with micturation. HEMATOLOGIC: Denies history of anemia or bleeding. PHYSICAL EXAMINATION Vital signs reviewed. CONSTITUTIONAL: No apparent distress. HEENT: Head is normocephalic. Pupils are equal, round. Sclerae anicteric. Mucous membranes of the mouth are moist. No JVD. No carotid bruit. CHEST EXAMINATION: Lungs are clear to auscultation. No chest wall tenderness is noted on palpation or with deep breathing. HEART EXAMINATION: Regular rate and rhythm. S1, S2 heard. No murmurs, gallops or rub. ABDOMEN: Soft, nontender. Positive bowel sounds. EXTREMITIES: 2+ peripheral pulses, no lower extremity edema and no calf tenderness. NEUROLOGIC EXAMINATION: Patient is awake, alert and oriented x3. ASSESSMENT 1. Non-STEMI concerning for type I mechanism 2. Hyperglycemia concerning for new onset diabetes mellitus 3. Hypertension 4. History of pericardial effusion 5. Questionable filling defects noted on CT versus artifact 6. History of cancer with concern of progressive disease noted on most recent CAT scan 7. Sinus tachycardia likely reactive PLAN Discussed with patient given ongoing chest pain and non-STEMI with EKG concerning for ischemic changes recommendations for more urgent heart catheterization and patient is agreeable. Continue aspirin, heparin, high intensity statin and heart catheterization to be performed. Check 2-D echo. Fu rther recommendations to follow. Past Medical History Past Medical History: Asthma, Cancer, COPD, Fibromyalgia, GERD/Reflux, Hyperlipidemia, Hypertension, Pneumonia, Thyroid Disorder Additional Past Medical History / Comment(s): HX MIGRAINE, HX KIDNEY STONES, non-small cell lung cancer diagnosed in August 2016 status post chemotherapy and radiation therapy as well as immunotherapy, states "40% use of lungs", new dx cancer rt lung, "rapid heart rate" History of Any Multi-Drug Resistant Organisms: None Reported Past Surgical History: Adenoidectomy, Hysterectomy, Orthopedic Surgery, Tonsillectomy Additional Past Surgical History / Comment(s): LEFT ELBOW carpal tunnel, LEFT wrist CARPAL TUNNEL, EPIDURAL PAIN SHOTS, Anterior Cervical Decomp. and fusion c5-6,c6-7 Past Anesthesia/Blood Transfusion Reactions: Motion Sickness Past Psychological History: Anxiety, Depression Smoking Status: Former smoker Past Alcohol Use History: None Reported Past Drug Use History: None Reported - Past Family History Mother Family Medical History: No Reported History Additional Family Medical History / Comment(s): . Father Additional Family Medical History / Comment(s): Father at age 68 from ALS. Brother(s) Additional Family Medical History / Comment(s): Patient has 1 brother and 1 sister with no major medical problems. Patient has 3 daughters and one has history of asthma. Patient does not have any sons. Medications and Allergies Home Medications Medication Instructions Recorded Confirmed Type Aspirin 81 mg PO DAILY 12/20/13 07/08/21 History Rosuvastatin Calcium [Crestor] 40 mg PO DAILY 12/20/13 07/08/21 History DULoxetine HCL [Cymbalta] 60 mg PO DAILY 02/26/19 07/08/21 History Levothyroxine Sodium [Synthroid] 100 mcg PO DAILY 02/26/19 07/08/21 History traZODone HCL 50 mg PO HS 02/26/19 07/08/21 History Fenofibric Acid (Choline) 135 mg PO DAILY 11/07/19 07/08/21 History [Fenofibric Acid] Ibuprofen [Motrin Ib] 800 mg PO Q8H PRN 06/07/20 07/08/21 History Metoprolol Tartrate [Lopressor] 50 mg PO BID 06/07/20 07/08/21 History ALPRAZolam [Xanax] 1 mg PO BID PRN 07/08/21 07/08/21 History Acetaminophen [Tylenol] 1,000 mg PO Q4-6H PRN 07/08/21 07/08/21 History Albuterol Inhaler [Ventolin Hfa 2 puff INHALATION RT-QID PRN 07/08/21 07/08/21 History Inhaler] Ipratropium-Albuterol Nebulize 3 ml INHALATION RT-QID PRN 07/08/21 07/08/21 History [Duoneb 0.5 mg-3 mg/3 ml Soln] Levofloxacin [Levaquin] 750 mg PO DAILY 07/08/21 07/08/21 History Multivit-Min/Iron/Folic/Lutein 1 tab PO DAILY 07/08/21 07/08/21 History [Centrum Silver Women Tablet] methocarbamoL [Methocarbamol] 500 mg PO BID 07/08/21 07/08/21 History predniSONE See Taper PO DIRECTED 07/08/21 07/08/21 History Allergies Allergy/AdvReac Type Severity Reaction Status Date / Time cephalexin monohydrate Allergy Rash/Hives Verified 07/08/21 15:48 [From Keflex] Egg Derived Allergy Anaphylaxis Verified 07/08/21 15:48 latex Allergy Rash/Hives/throat Verified 07/08/21 15:48 swelling/diff breathing simvastatin AdvReac muscle Verified 07/08/21 15:48 cramps Physical Exam Vitals: Vital Signs Temp Pulse Pulse Resp BP BP Pulse Ox 07/08/21 19:03 98.6 F 114 H 20 126/69 96 07/08/21 16:09 120 H 132/68 07/08/21 15:58 125 H 18 148/88 97 07/08/21 14:45 124 H 24 137/91 98 07/08/21 13:40 97.6 F 106 H 22 178/99 96 Intake and Output 07/08/21 07/08/21 07/08/21 06:59 14:59 22:59 Intake Total 1100 Balance 1100 Intake: IV 1100 Other: Weight 73.936 kg Results 07/08/21 14:11 07/08/21 14:58 Cardiac Enzymes 07/08/21 07/08/21 Range/Units 14:58 14:58 AST 62 H (14-36) U/L Troponin I 1.020 H* (0.000-0.034) ng/mL Coagulation 07/08/21 Range/Units 14:58 PT 11.7 (9.0-12.0) sec APTT 21.5 L (22.0-30.0) sec CBC 07/08/21 Range/Units 14:11 WBC 9.0 (3.8-10.6) k/uL RBC 5.02 (3.80-5.40) m/uL Hgb 15.7 (11.4-16.0) gm/dL Hct 48.1 H (34.0-46.0) % Plt Count 335 (150-450) k/uL Comprehensive Metabolic Panel 07/08/21 Range/Units 14:58 Sodium 133 L (137-145) mmol/L Potassium 5.0 (3.5-5.1) mmol/L Chloride 103 (98-107) mmol/L Carbon Dioxide 19 L (22-30) mmol/L BUN 19 H (7-17) mg/dL Creatinine 0.51 L (0.52-1.04) mg/dL Glucose 459 H (74-99) mg/dL Calcium 9.2 (8.4-10.2) mg/dL AST 62 H (14-36) U/L ALT 34 (4-34) U/L Alkaline Phosphatase 38 (38-126) U/L Total Protein 6.8 (6.3-8.2) g/dL Albumin 4.0 (3.5-5.0) g/dL Current Medications Generic Name Dose Route Start Last Admin Trade Name Freq PRN Reason Stop Dose Admin Albuterol/Ipratropium 3 ml 07/08/21 18:15 Ipratropium-Albuterol 3 Ml Neb INHALATION RT-QID PRN Shortness Of Breath Alprazolam 1 mg 07/08/21 19:33 Alprazolam 1 Mg Tab PO BID PRN Anxiety Aspirin 325 mg 07/09/21 09:00 Aspirin 325 Mg Tab PO DAILY [facility] Atorvastatin Calcium 80 mg 07/09/21 09:00 Atorvastatin 80 Mg Tab PO DAILY [facility] Duloxetine HCl 60 mg 07/09/21 09:00 Duloxetine Hcl 60 Mg Capsule.Dr PO DAILY [facility] Fenofibrate 160 mg 07/09/21 09:00 Fenofibrate 160 Mg Tab PO DAILY [facility] Heparin Sodium (Porcine) 0 unit 07/08/21 15:26 Heparin Sodium 1,000 Un/Ml (10ml Vl) IV PER PROTOCOL PRN Low PTT Protocol Heparin Sodium/Sodium Chloride 250 mls @ 8.872 mls/hr 07/08/21 15:30 07/08/21 19:35 25,000 unit/ Sodium Chloride IV Not Given .Q24H [facility] Protocol 12 UNITS/KG/HR Insulin Aspart 0 unit 07/08/21 21:00 Insulin Aspart (Novolog) 100 Unit/Ml Vial SQ ACHS [facility] Protocol Levofloxacin 750 mg 07/09/21 09:00 Levofloxacin 750 Mg Tab PO DAILY [facility] Protocol Levothyroxine Sodium 100 mcg 07/09/21 06:30 Levothyroxine 100 Mcg Tab PO DAILY@0630 [facility] Metoprolol Tartrate 50 mg 07/08/21 21:00 Metoprolol Tartrate 50 Mg Tab PO BID [facility] Morphine Sulfate 4 mg 07/08/21 16:21 Morphine Sulfate 4 Mg/Ml Syringe IV Q5M PRN Chest Pain Multivitamins 1 each 07/09/21 09:00 Multivitamins, Thera 1 Each Tab PO DAILY [facility] Trazodone HCl 50 mg 07/08/21 21:00 Trazodone Hcl 50 Mg Tab PO HS [facility] Intake and Output 07/08/21 07/08/21 07/08/21 06:59 14:59 22:59 Intake Total 1100 Balance 1100 Intake: IV 1100 Other: Weight 73.936 kg Patient Weight 07/09/21 06:59 Weight 73.936 kg 07/08/21 14:11 07/08/21 14:58
--- NOTE | 2021-07-08 20:16 | P.PRCINT ---
Percutaneous Coronary Int. - Percutaneous Coronary Intervention Percutaneous Coronary Intervention: PROCEDURES PERFORMED: Left heart catheterization, bilateral coronary angiography, PCI of mid LAD with a 2.75 x 12 mm Xience KATALINA, PCI of diagonal 1 with a 2.0 x 8 mm Minor KATALINA INDICATION: Non-STEMI HISTORY: Patient is a pleasant 65-year-old female with history of hypertension, hyperlipidemia, cancer who presented with chest pain and shortness breath. Patient was found to have non-STEMI and CT showed possible small PE versus artifact. EKG was concerning for ischemic changes and therefore recommendation was for urgent heart catheterization given non-STEMI and continued chest pain. By the time she presented to the catheterization lab she was actually chest pain-free. CONSENT:I have discussed the risks, benefits and alternative therapies for the above-mentioned procedure and for both sedation/analgesia as well as necessary blood product administration, if indicated, as they pertain to this patient. The patient has indicated understanding and acceptance of the risks and procedures discussed. PROCEDURE: After the risks, benefits and alternatives of the above mentioned procedure explained in detail with the patient, informed consent was obtained. Patient was taken to the catheterization lab and prepped and draped in usual fashion. 1% lidocaine was used to anesthetize the right radial artery. A 6- Chinese sheath was placed in the right radial artery using modified Seldinger technique. Left coronary angiography was performed with a 5-Chinese JL 3.5 catheter and right coronary angiography was performed with a 5-Chinese JR5 catheter in various views. A 5-Chinese FR5 catheter was inserted into the left ventricle and pressure measurements were obtained. The decision was made to perform PCI of the LAD and diagonal branch. A 6-Chinese CLS 3.5 guide was easily engage the left main. Heparin was given. A 0.014 BMW wire was advanced into the distal diagonal 1 branch as well as the distal LAD. Direct stenting was performed of the diagonal 1 branch with a 2.0 x 8 mm [place] KATALINA. Preintervention there was JAVIER 3 flow and 99% stenosis of the diagonal 1 branch and postintervention there was 0% stenosis and JAVIER-3 flow. Next a 2.5 x 8 mm balloon was used to predilate the mid LAD lesion. Next a 2.75 x 12 mm Xience KATALINA was placed in the mid LAD. This was at the trifurcation of diagonal 1 branch, a large septal branch which appeared to be a near dual LAD system. The wire was pulled and final angiograms were performed. Preintervention there was 99% mid LAD stenosis and JAVIER-3 flow and postintervention there is less than 10% stenosis with JAVIER 3 flow. There was a mild stepdown after the stents however no dissection noted and felt best treated medically. The right radial sheath was removed and a TR band was placed with hemostasis achieved. The patient tolerated the procedure well. Patient was transported back to the post catheterization holding area in stable condition. Conscious Sedation: Patient was monitored under the direct supervision of vision of myself for conscious sedation using Versed and fentanyl for a total duration of 57 minutes HEMODYNAMICS: Aorta: 144/78 LV: 142/0, LVEDP 3 SELECTIVE CORONARY ARTERIOGRAPHY: LEFT MAIN: The left main is a large caliber vessel which bifurcates into the LAD and circumflex. There is no significant stenosis. LEFT ANTERIOR DESCENDING CORONARY ARTERY: LAD is a moderate caliber vessel which stops short of the apex. There is a mid LAD 99% stenosis at the level of a small to moderate caliber diagonal 1 branch as well as a large septal branch. There is an additional 99% stenosis of a small caliber diagonal 1 branch. LEFT CIRCUMFLEX CORONARY ARTERY: Left circumflex is a moderate caliber vessel without significant stenosis. RIGHT CORONARY ARTERY: The right coronary artery is a large caliber vessel which gives off a PDA and PLV branch and is the dominant vessel. There is a proximal 60-70% RCA stenosis. The PDA and PLV are very large and appeared to supply territory to the apex. FINAL IMPRESSION: 1. CAD as described above including 99% mid LAD, 99% diagonal 1, 6070% RCA stenosis 2. S/p successful PCI of mid LAD with a 2.75 x 12 mm Xience KATALINA, PCI of diagonal 1 with a 2.0 x 8 mm [place] KATALINA 3. Low normal left sided filling pressures PLAN: 1. Aggressive risk factor modification per most recent ACC/AHA guidelines. 2. Continue dual antiplatelets with aspirin and Brillinta for 12 months. 3. Recommend ischemic evaluation of RCA with possible stress testing versus iFR/FFR.
[2021-07-08] MEDS: traZODone HCL 50 MG TAB PO SCH (20:47)
[2021-07-08] MEDS: METOPROLOL TARTRATE 50 MG TAB PO SCH (20:47)
[2021-07-08] MEDS: TICAGRELOR 90 MG TAB PO SCH (20:47)
[2021-07-08] MEDS: ALPRAZolam 1 MG TAB PO PRN (20:47)
[2021-07-08] MEDS: INSULIN DETEMIR (LEVEMIR) 100 UNIT/ML SYR SQ SCH (20:48)
[2021-07-08] MEDS: INSULIN ASPART (NovoLOG) 100 UNIT/ML VIAL SQ SCH (20:48)
[2021-07-08] MEDS: SODIUM CHLORIDE 0.9% 1,000 ML in EMPTY BAG 1 BAG IV SCH (20:49)
[2021-07-09 06:09] LABS: Glucose,Whole Blood 115 mg/dL (75-99)
[2021-07-09] MEDS: INSULIN ASPART (NovoLOG) 100 UNIT/ML VIAL SQ SCH ×4 (06:43→21:17)
[2021-07-09] MEDS: LEVOTHYROXINE 100 MCG TAB PO SCH (06:46)
[2021-07-09] MEDS ORDERED: ACETAMINOPHEN TAB 500 MG TAB PO PRN (07:38)
[2021-07-09] MEDS: IPRATROPIUM-ALBUTEROL 3 ML NEB INHALATION PRN ×4 (08:19→19:47)
[2021-07-09] MEDS: DULoxetine HCL 60 MG CAPSULE.DR PO SCH (08:46)
[2021-07-09] MEDS: MULTIVITAMINS, THERA 1 EACH TAB PO SCH (08:46)
[2021-07-09] MEDS: ALPRAZolam 1 MG TAB PO PRN ×2 (08:46→21:17)
[2021-07-09] MEDS: ASPIRIN 81 MG PO SCH (08:46)
[2021-07-09] MEDS: TICAGRELOR 90 MG TAB PO SCH ×2 (08:46→21:16)
[2021-07-09] MEDS: METOPROLOL TARTRATE 50 MG TAB PO SCH (08:46)
[2021-07-09] MEDS: FENOFIBRATE 160 MG TAB PO SCH (08:47)
[2021-07-09] MEDS: LEVOFLOXACIN 750 MG TAB PO SCH (08:47)
[2021-07-09] MEDS: ATORVASTATIN 80 MG TAB PO SCH (08:47)
[2021-07-09] MEDS ORDERED: ASPIRIN 325 MG TAB PO SCH (09:00)
[2021-07-09 10:17] LABS: Basophils % (A) 1 %; Eosinophils # (A) 0.1 k/uL (0-0.7); Eosinophils % (A) 1 %; HCT 43.8 % (34.0-46.0); HGB 14.6 gm/dL (11.4-16.0); Lymphocytes # (A) 0.8 k/uL (1.0-4.8); Lymphocytes % (A) 12 %; MCHC 33.3 g/dL (31.0-37.0); Mean Platelet Volume 7.6; Monocytes # (A) 0.3 k/uL (0-1.0); Monocytes % (A) 5 %; Neutrophils # (A) 5.2 k/uL (1.3-7.7); Neutrophils % (A) 79 %; Platelet Count 284 k/uL (150-450); RBC 4.56 m/uL (3.80-5.40); RDW 13.9 % (11.5-15.5); WBC 6.6 k/uL (3.8-10.6)
[2021-07-09 10:19] LABS: INR 1.1 (<1.2); Prothrombin Time 11.5 sec (9.0-12.0)
[2021-07-09 10:34] LABS: ALT 32 U/L (4-34); AST 66 U/L (14-36); African American GFR (CKD) >90 (>60 ml/min/1.73 sqM); Alkaline Phosphatase 38 U/L (38-126); Anion Gap 10 mmol/L; Blood Urea Nitrogen 11 mg/dL (7-17); Calcium 9.7 mg/dL (8.4-10.2); Carbon Dioxide 22 mmol/L (22-30); Chloride 102 mmol/L (98-107); Glucose 157 mg/dL (74-99); Non-African American GFR(CKD) >90 (>60 ml/min/1.73 sqM); Potassium 3.6 mmol/L (3.5-5.1); Sodium 134 mmol/L (137-145); Total Bilirubin 0.6 mg/dL (0.2-1.3); Total Protein 6.7 g/dL (6.3-8.2)
[2021-07-09 11:32] VITALS: BMI 29.8
[2021-07-09 11:55] LABS: Glucose,Whole Blood 158 mg/dL (75-99)
[2021-07-09] MEDS ORDERED: methocarbamoL 500 MG TAB PO PRN (12:18)
--- NOTE | 2021-07-09 14:18 | P.PN ---
Subjective Progress Note Date: 07/09/21 HISTORY OF PRESENT ILLNESS: Patient is a pleasant 65-year-old female with history of COPD, fibromyalgia, history of pericardial effusion, hypertension, hypothyroidism, asthma, cancer with previous chemotherapy and radiation 1 year ago who presents with off and on chest pain over the prior few hours. Some of the pain was somewhat reproducible however other pain felt more like a pressure sensation and associated with some shortness breath. She was noted to be tachycardic at [address] depressions. Her chest pain was somewhat off and on however troponin resulted at 1 and was still having chest pain at the time and therefore catheterization lab was activated. CTA was performed which showed a possible filling defects within the left lower lobe pulmonary arteries however possibly artifactual with no central PE. There is also note of enlarging right lower lobe superior segment nodule suspicious for progressive cancer. 07/09/2021 Patient is status post cardiac catheterization with PCI of the mid LAD and PCI of diagonal 1. Patient also has a 60-70% lesion of the RCA. Patient examined this morning at the bedside. Patient denies chest pain or pressure. She reports some mild shortness of breath but states it is chronic and at her baseline. Vital signs are stable. Heart rates in the low 100s. PHYSICAL EXAM: VITAL SIGNS: Reviewed. GENERAL: Well-developed in no acute distress. NECK: Supple. No JVD or thyromegaly LUNGS: Respirations even and unlabored. Lungs essentially clear to auscultation bilaterally. HEART: Regular rate and rhythm. S1 and S2 heard. EXTREMITIES: Normal range of motion. No clubbing or cyanosis. Peripheral pulses intact. No lower extremity edema. Right radial cath site with pulse present ASSESSMENT: 1. Non-STEMI, s/p cardiac cath with PCI as described above 2. Hyperglycemia concerning for new onset diabetes mellitus 3. Hypertension 4. History of pericardial effusion 5. Questionable filling defects noted on CT versus artifact 6. History of cancer with concern of progressive disease noted on most recent CAT scan 7. Sinus tachycardia likely reactive PLAN: Continue current cardiac medications Increase metoprolol to 75mg BID Continue telemetry monitoring Obtain 2-D echo to assess cardiac structure and function Further recommendations pending patient's course Nurse practitioner note has been reviewed by physician. Signing provider agrees with the documented findings, assessment, and plan of care. Objective - Vital Signs Vital signs: Vital Signs Temp 98.2 F 07/09/21 11:06 Pulse 102 H 07/09/21 12:06 Resp 20 07/09/21 11:06 BP 118/83 07/09/21 11:06 Pulse Ox 95 07/09/21 11:06 Intake & Output 07/08/21 07/09/21 07/09/21 18:59 06:59 18:59 Intake Total 1100 765 Balance 1100 765 Weight 73.936 kg 73.936 kg 73.936 kg Intake: IV 1100 Intake, IV Titration 250 Amount Sodium Chloride 0.9% 1, 250 000 ml In Empty Bag 1 bag @ 1 ML/KG/HR 73.936 mls/ hr IV .[id number] [facility] Rx#: [id number] Oral 515 Other: Voiding Method Toilet # Voids 2 - Labs CBC & Chem 7: 07/09/21 09:24 07/09/21 09:24 Labs: Abnormal Lab Results - Last 24 Hours (Table) 07/08/21 07/08/21 07/08/21 Range/Units 14:11 14:58 14:58 Hct 48.1 H (34.0-46.0) % Neutrophils # 8.1 H (1.3-7.7) k/uL Lymphocytes # 0.6 L (1.0-4.8) k/uL APTT (22.0-30.0) sec Sodium 133 L (137-145) mmol/L Carbon Dioxide 19 L (22-30) mmol/L BUN 19 H (7-17) mg/dL Creatinine 0.51 L (0.52-1.04) mg/dL Glucose 459 H (74-99) mg/dL POC Glucose (mg/dL) (75-99) mg/dL Magnesium 1.5 L (1.6-2.3) mg/dL AST 62 H (14-36) U/L Troponin I 1.020 H* (0.000-0.034) ng/mL 07/08/21 07/08/21 07/08/21 Range/Units 14:58 17:04 19:49 Hct (34.0-46.0) % Neutrophils # (1.3-7.7) k/uL Lymphocytes # (1.0-4.8) k/uL APTT 21.5 L (22.0-30.0) sec Sodium (137-145) mmol/L Carbon Dioxide (22-30) mmol/L BUN (7-17) mg/dL Creatinine (0.52-1.04) mg/dL Glucose (74-99) mg/dL POC Glucose (mg/dL) 348 H 216 H (75-99) mg/dL Magnesium (1.6-2.3) mg/dL AST (14-36) U/L Troponin I (0.000-0.034) ng/mL 07/09/21 07/09/21 07/09/21 Range/Units 06:08 09:24 09:24 Hct (34.0-46.0) % Neutrophils # (1.3-7.7) k/uL Lymphocytes # 0.8 L (1.0-4.8) k/uL APTT (22.0-30.0) sec Sodium 134 L (137-145) mmol/L Carbon Dioxide (22-30) mmol/L BUN (7-17) mg/dL Creatinine 0.47 L (0.52-1.04) mg/dL Glucose 157 H (74-99) mg/dL POC Glucose (mg/dL) 115 H (75-99) mg/dL Magnesium (1.6-2.3) mg/dL AST 66 H (14-36) U/L Troponin I (0.000-0.034) ng/mL 07/09/21 Range/Units 11:53 Hct (34.0-46.0) % Neutrophils # (1.3-7.7) k/uL Lymphocytes # (1.0-4.8) k/uL APTT (22.0-30.0) sec Sodium (137-145) mmol/L Carbon Dioxide (22-30) mmol/L BUN (7-17) mg/dL Creatinine (0.52-1.04) mg/dL Glucose (74-99) mg/dL POC Glucose (mg/dL) 158 H (75-99) mg/dL Magnesium (1.6-2.3) mg/dL AST (14-36) U/L Troponin I (0.000-0.034) ng/mL
--- NOTE | 2021-07-09 14:43 | P.PN ---
Subjective Progress Note Date: 07/09/21 HISTORY OF PRESENT ILLNESS: This is a 65-year-old white female with a previous medical history significant for hypertension and hypertensive cardio vascular disease, hyperlipidemia, history of chronic tobacco use and dependence she had smoked about a pack every day for 30 years and she quit in 2018, she was diagnosed as having left upper lobe non-small cell lung cancer after she was found to have a mass on the chest x-ray back in 2018 followed by a PET scan and bronchoscopy with biopsy that showed moderately differentiated adenocarcinoma, she was started chemoradiation therapy with Dr. Sales, and she was on Infinzi, followed by [facility] for a year and recently did have some radiation therapy, and had a PET scan that did show recurrence of her disease, patient was seen in the office about a week ago complaining of increased coughing and increased shortness of breath, she was placed on a Z-Ralph and Medrol Dosepak however she did not do well I saw in the office few days ago and she was complaining of increased pain in the back of her neck associated with bilateral arm pain associated with increased shortness of breath, at that time the patient was advised to go to the ER for e valuation if she is not better however she preferred to have an oral antibiotic as well as longer steroid and she was placed on prednisone burst and taper and she was placed on Levaquin 750 mg orally once every day for 5 days along with DuoNeb nebulization 4 times every day, patient went home, and today developed to have a significant left-sided chest pain radiating to the neck associated with significant shortness of breath and palpitation she ended up coming to the emergency department with her she was found to have a sinus tachycardia and an EKG with a heart rate is 140, her troponin came back positive at 1, her blood glucose level was about 440 suggestive of diabetes mellitus type 2 new onset her 12-lead EKG did show evidence of ST depression, because of her symptoms she was taken to the cardiac cath tech and the patient was found to have a significant coronary artery disease with the 99% stenosis of the LAD and the both diagonal 1 and diagonal 2 VESSELS were stented RCA was about 70% stenosis, it was thought that the patient will be admitted to the hospital and she will have another left heart catheterization and she will have an FFR for evaluation of the RCA. Patient was admitted to telemetry unit, she is sitting up in bed in no apparent distress, she is currently on Brilinta 90 mg orally twice every day along with baby aspirin 81 mg once every day, she was also restarted back on her simvastatin 40 mg orally once every day, echocardiogram was pending at the time of dictation. 07/09: Patient underwent heart catheterization yesterday with Dr. Rees finding 99% stenosis in the mid LAD, 99% in the diagonal one, 60-70% in the RCA. Patient subsequently underwent successful PCI of the mid LAD and PCI of the diagonal 1. She has been started on aspirin 81 mg, Lipitor 80 mg daily, Lopressor increased to 75 mg twice daily, Brilinta 90 mg twice daily. Echocardiogram is pending. Repeat CBC is unremarkable. Sodium 134, creatinine 0.47. Capillary blood glucose running between 115 and 216, 158 this morning. Hemoglobin A1c is 8.4. AST 66. Patient denies having any chest pain, no lightheadedness or dizziness, mild shortness of breath. REVIEW OF SYSTEMS: Constitutional: No documented fever, no chills, no night sweats. positive for weight change. Positive for weakness, fatigue no lethargy. No daytime sleepiness. HEENT: No headache. No blurred vision or double vision, no loss of vision. No loss of Hearing, no ringing in the ears, no dizziness. No nasal drainage or congestion. No epistaxis. No sore throat. Lungs: Positive for shortness of breath, positive for cough, minimal sputum production. positive for wheezing. Reports dyspnea with activity. Cardiovascular: positive for chest pain-improved, no lower extremity edema. positive for palpitations. positive for paroxysmal nocturnal dyspnea. positive for orthopnea. No lightheadedness or dizziness. No syncopal episodes. Abdominal: Reports abdominal pain. No nausea, vomiting. No diarrhea. No constipation. No bloody or tarry stools reports loss of appetite. Genitourinary: No dysuria, increased frequency, urgency. No urinary retention. Musculoskeletal: No myalgias. No muscle weakness, no gait dysfunction, no frequent falls. No back pain. No neck pain. Integumentary: No wounds, no lesions. No rash or pruritus. No unusual bruising. No change in hair or nails. Neurologic: No aphasia. No facial droop. No change in mentation. No head injury. No headache. No paralysis. No paresthesia. Psychiatric: No depression. positive for anxiety. No mood swings. Endocrine: No abnormal blood sugars. No weight change. PHYSICAL EXAMINATION: General: 65-year-old female sitting up in bed in no acute distress. HEENT: Head is atraumatic, normocephalic, pupils were equal round reactive to light and recommendation, extraocular muscle movement were intact, sclera nonicteric, conjunctivae were pale, mucous membranes of the mouth are somewhat dry. Neck: Supple, no JVP, normal carotid upstroke bilaterally, no lymphadenopathy. Chest: Decreased breath sounds at the bases, few rhonchi minimal expiratory wheezes , no chest wall tenderness, no intercostal retractions. Heart: First heart sound is normal, second heart sounds normal there is systolic ejection murmur 2/6 located in the left sternal border. Abdomen: Soft, nontender, nondistended, positive bowel sounds, no hepatosplenomegaly. Extremities: There is no edema no calf tenderness DP +2 bilaterally. Neurologic examination: Patient is awake alert and oriented X 3, cranial nerves II-12 appear grossly intact, muscle power were 5 out of 5 in upper extremities and 5 out of 5 in bilateral lower extremities, deep tendon reflexes normal bilaterally. ASSESSMENT AND PLAN: 1. Non-ST elevation [place]. Post left heart catheterization with PCI of the LAD, diagonal one, diagonal 2, and moderate disease of the RCA. Continue patient on aspirin 81 mg once every day, continue Brilinta 90 mg orally twice every day, continue atorvastatin 80 mg orally once every day, echocardiogram report pending, continue to monitor the patient very closely, cardiology consultation appreciated. 2. Sinus tachycardia likely related to significant coronary artery disease. Continue patient on metoprolol 75 mg orally twice every day. 3. New onset diabetes mellitus type 2. Start the patient on Levemir 14 units a t bedtime along with a sliding scale insulin, patient will need to be started on Jardiance 10 mg orally once every day. 4. Hypertension and hypertensive cardiovascular disease. Continue metoprolol 75 mg orally twice every day. 5. Hyperlipidemia. Continue patient on atorvastatin 80 mg orally once every day. 6. Hypothyroidism. Continue Synthroid 100 g orally once every day. 7. History of degenerative disc disease of the cervical spine status post fusion. Continue patient on Robaxin 500 mg orally twice every day. Continue patient on morphine as needed. 8. Anxiety disorder. Continue patient on Xanax 1 mg orally twice every day. 9. Fibromyalgia/depressive disorder. Continue patient on Cymbalta 60 minute gram orally twice every day per 10. COPD. Start the patient on DuoNeb 3 mg nebulization 4 times every day, continue Levaquin 750 mg orally once every day. 11. Non-small cell lung cancer with moderately differentiated adenocarcinoma status post chemoradiation therapy. under the care of Dr. Sales 12. DVT prophylaxis. Patient will be placed on heparin 5000 units subcutaneously every 12 hours for 13. GI prophylaxis. Start the patient on PPI . 14. Admit to inpatient. Estimated length of stay 2 midnights for 15. Patient's full code per DISCHARGE PLAN Home without home care in the next 24-48 hours. Impression and plan of care have been directed as dictated by the signing physician. Maggie Fierro nurse practitioner acting as scribe for signing phys ician. Objective - Vital Signs Vital signs: Vital Signs Temp 98.2 F 07/09/21 11:06 Pulse 102 H 07/09/21 12:06 Resp 20 07/09/21 11:06 BP 118/83 07/09/21 11:06 Pulse Ox 95 07/09/21 11:06 Intake & Output 07/08/21 07/09/21 07/09/21 18:59 06:59 18:59 Intake Total 1100 765 Balance 1100 765 Weight 73.936 kg 73.936 kg 73.936 kg Intake: IV 1100 Intake, IV Titration 250 Amount Sodium Chloride 0.9% 1, 250 000 ml In Empty Bag 1 bag @ 1 ML/KG/HR 73.936 mls/ hr IV .[id number] [facility] Rx#: [id number] Oral 515 Other: Voiding Method Toilet # Voids 2 - Labs CBC & Chem 7: 07/10/21 08:46 07/10/21 08:46 Labs: Abnormal Lab Results - Last 24 Hours (Table) 07/08/21 07/08/21 07/08/21 Range/Units 14:11 14:58 14:58 Hct 48.1 H (34.0-46.0) % Neutrophils # 8.1 H (1.3-7.7) k/uL Lymphocytes # 0.6 L (1.0-4.8) k/uL APTT (22.0-30.0) sec Sodium 133 L (137-145) mmol/L Carbon Dioxide 19 L (22-30) mmol/L BUN 19 H (7-17) mg/dL Creatinine 0.51 L (0.52-1.04) mg/dL Glucose 459 H (74-99) mg/dL POC Glucose (mg/dL) (75-99) mg/dL Hemoglobin A1c (0.0-6.0) % Magnesium 1.5 L (1.6-2.3) mg/dL AST 62 H (14-36) U/L Troponin I 1.020 H* (0.000-0.034) ng/mL 07/08/21 07/08/21 07/08/21 Range/Units 14:58 17:04 19:49 Hct (34.0-46.0) % Neutrophils # (1.3-7.7) k/uL Lymphocytes # (1.0-4.8) k/uL APTT 21.5 L (22.0-30.0) sec Sodium (137-145) mmol/L Carbon Dioxide (22-30) mmol/L BUN (7-17) mg/dL Creatinine (0.52-1.04) mg/dL Glucose (74-99) mg/dL POC Glucose (mg/dL) 348 H 216 H (75-99) mg/dL Hemoglobin A1c (0.0-6.0) % Magnesium (1.6-2.3) mg/dL AST (14-36) U/L Troponin I (0.000-0.034) ng/mL 07/09/21 07/09/21 07/09/21 Range/Units 06:08 09:24 09:24 Hct (34.0-46.0) % Neutrophils # (1.3-7.7) k/uL Lymphocytes # 0.8 L (1.0-4.8) k/uL APTT (22.0-30.0) sec Sodium 134 L (137-145) mmol/L Carbon Dioxide (22-30) mmol/L BUN (7-17) mg/dL Creatinine 0.47 L (0.52-1.04) mg/dL Glucose 157 H (74-99) mg/dL POC Glucose (mg/dL) 115 H (75-99) mg/dL Hemoglobin A1c (0.0-6.0) % Magnesium (1.6-2.3) mg/dL AST 66 H (14-36) U/L Troponin I (0.000-0.034) ng/mL 07/09/21 07/09/21 Range/Units 09:24 11:53 Hct (34.0-46.0) % Neutrophils # (1.3-7.7) k/uL Lymphocytes # (1.0-4.8) k/uL APTT (22.0-30.0) sec Sodium (137-145) mmol/L Carbon Dioxide (22-30) mmol/L BUN (7-17) mg/dL Creatinine (0.52-1.04) mg/dL Glucose (74-99) mg/dL POC Glucose (mg/dL) 158 H (75-99) mg/dL Hemoglobin A1c 8.4 H (0.0-6.0) % Magnesium (1.6-2.3) mg/dL AST (14-36) U/L Troponin I (0.000-0.034) ng/mL
[2021-07-09] MEDS: SODIUM CHLORIDE 0.9% 1,000 ML in EMPTY BAG 1 BAG IV SCH (16:16)
[2021-07-09 16:48] LABS: Glucose,Whole Blood 213 mg/dL (75-99)
--- NOTE | 2021-07-09 18:31 | P.HPIM ---
History of Present Illness H&P Date: 07/08/21 Chief Complaint: NSTEMI HISTORY OF PRESENT ILLNESS: This is a 65-year-old white female with a previous medical history significant for hypertension and hypertensive cardio vascular disease, hyperlipidemia, history of chronic tobacco use and dependence she had smoked about a pack every day for 30 years and she quit in 2018, she was diagnosed as having left upper lobe non-small cell lung cancer after she was found to have a mass on the chest x-ray back in 2018 followed by a PET scan and bronchoscopy with biopsy that showed moderately differentiated adenocarcinoma, she was started chemoradiation therapy with Dr. Sales, and she was on Infinzi, followed by [facility] for a year and recently did have some radiation therapy, and had a PET scan that did show recurrence of her disease, patient was seen in the office about a week ago complaining of increased coughing and increased shortness of breath, she was placed on a Z-Ralph and Medrol Dosepak however she did not do well I saw in the office few days ago and she was complaining of increased pain in the back of her neck associated with bilateral arm pain associated with increased shortness of breath, at that time the patient was advised to go to the ER for evaluation if she is not better however she preferred to have an oral antibiotic as well as longer steroid and she was placed on prednisone burst and taper and she was placed on Levaquin 750 mg orally once every day for 5 days along with DuoNeb nebulization 4 times every day, patient went home, and today developed to have a significant left-sided chest pain radiating to the neck associated with significant shortness of breath and palpitation she ended up coming to the emergency department with her she was found to have a sinus tachycardia and an EKG with a heart rate is 140, her troponin came back positive at 1, her blood glucose level was about 440 suggestive of diabetes mellitus type 2 new onset her 12-lead EKG did show evidence of ST depression, because of her symptoms she was taken to the cardiac cath rn and the patient was found to have a significant coronary artery disease with the 99% stenosis of the LAD and the both diagonal 1 and diagonal 2 VESSELS were stented RCA was about 70% stenosis, it was thought that the patient will be admitted to the hospital and she will have another left heart catheterization and she will have an FFR for evaluation of the RCA. Patient was admitted to telemetry unit, she is sitting up in bed in no apparent distress, she is currently on Brilinta 90 mg orally twice every day along with baby aspirin 81 mg once every day, she was also restarted back on her simvastatin 40 mg orally once every day, echocardiogram was pending at the time of dictation. REVIEW OF SYSTEMS: Constitutional: No documented fever, no chills, no night sweats. positive for weight change. Positive for weakness, fatigue no lethargy. No daytime sleepiness. HEENT: No headache. No blurred vision or double vision, no loss of vision. No loss of Hearing, no ringing in the ears, no dizziness. No nasal drainage or congestion. No epistaxis. No sore throat. Lungs: Positive for shortness of breath, positive for cough, minimal sputum production. positive for wheezing. Reports dyspnea with activity. Cardiovascular: positive for chest pain, no lower extremity edema. positive for palpitations. positive for paroxysmal nocturnal dyspnea. positive for orthopnea. No lightheadedness or dizziness. No syncopal episodes. Abdominal: Reports abdominal pain. No nausea, vomiting. No diarrhea. No con stipation. No bloody or tarry stools reports loss of appetite. Genitourinary: No dysuria, increased frequency, urgency. No urinary retention. Musculoskeletal: No myalgias. No muscle weakness, no gait dysfunction, no frequent falls. No back pain. No neck pain. Integumentary: No wounds, no lesions. No rash or pruritus. No unusual bruising. No change in hair or nails. Neurologic: No aphasia. No facial droop. No change in mentation. No head injury. No headache. No paralysis. No paresthesia. Psychiatric: No depression. positive for anxiety. No mood swings. Endocrine: No abnormal blood sugars. No weight change. PAST MEDICAL HISTORY: Hypertension and hypertensive cardiovascular disease. Hyperlipidemia. New-onset diabetes mellitus type 2. Non-small cell lung cancer status post chemo relation therapy. Anxiety disorder. Depressive disorder. Degenerative disc disease of the cervical spine. Hypothyroidism COPD. PAST SURGICAL HISTORY: Partial hysterectomy 1983. Left carpal tunnel release 2009 Cervical spine fusion 2013 Tennis elbow 2009. Port a catheter placement Bronchoscopy with biopsy. SOCIAL HISTORY: patient smoked about a pack every day for about 30 years and that she quit in 2018 , she denies any alcohol ingestion, no drug use or abuse. FAMILY HISTORY: father at age 72 from [place] Gehrig disease mother is alive patient has one brother one sister and she has 3 daughters one of them with hypogammaglobulinemia. PHYSICAL EXAMINATION: General: 65-year-old female sitting up in bed in minimal distress. HEENT: Head is atraumatic, normocephalic, pupils were equal round reactive to light and recommendation, extraocular muscle movement were intact, sclera nonicteric, conjunctivae were pale, mucous membranes of the mouth are somewhat dry. Neck: Supple, no JVP, normal carotid upstroke bilaterally, no lymphadenopathy. Chest: Decreased breath sounds at the bases, few rhonchi minimal expiratory wheezes , no chest wall tenderness, no intercostal retractions. Heart: First heart sound is normal, second heart sounds normal there is systolic ejection murmur 2/6 located in the left sternal border. Abdomen: Soft, nontender, nondistended, positive bowel sounds, no hepatosplenomegaly. Extremities: There is no edema no calf tenderness DP +2 bilaterally. Neurologic examination: Patient is awake alert and oriented X 3, cranial nerves II-12 appear grossly intact, muscle power were 5 out of 5 in upper extremities and 5 out of 5 in bilateral lower extremities, deep tendon reflexes normal bilaterally. ASSESSMENT AND PLAN: 1. Non-ST elevation [place]. Post left heart catheterization with PCI of the LAD, diagonal one, diagonal 2, and moderate disease of the RCA. Continue patient on aspirin 81 mg once every day, continue Brilinta 90 mg orally twice every day, continue atorvastatin 80 mg orally once every day, echocardiogram was done still pending at the time of dictation, continue to monitor the patient very closely, repeat EKG the next 24 hours, cardiology consultation appreciated. 2. Sinus tachycardia likely related to significant coronary artery disease. Continue patient on metoprolol 75 mg orally twice every day. 3. New onset diabetes mellitus type 2. Start the patient on Levemir 14 units at bedtime along with a sliding scale insulin, patient will need to be started on Jardiance 10 mg orally once every day. 4. Hypertension and hypertensive cardiovascular disease. Continue metoprolol 75 mg orally twice every day. 5. Hyperlipidemia. Continue patient on atorvastatin 80 mg orally once every day. 6. Hypothyroidism. Continue Synthroid 100 g orally once every day. 7. History of degenerative disc disease of the cervical spine status post fusion. Continue patient on Robaxin 500 mg orally twice every day. Continue patient on morphine as needed. 8. Anxiety disorder. Continue patient on Xanax 1 mg orally twice every day. 9. Fibromyalgia/depressive disorder. Continue patient on Cymbalta 60 minute gram orally twice every day per 10. COPD. Start the patient on DuoNeb 3 mg nebulization 4 times every day, continue Levaquin 750 mg orally once every day. 11. Non-small cell lung cancer with moderately differentiated adenocarcinoma status post chemoradiation therapy. under the care of Dr. Sales 12. DVT prophylaxis. Patient will be placed on heparin 5000 units subcutaneously every 12 hours for 13. GI prophylaxis. Start the patient on PPI . 14. Admit to inpatient. Estimated length of stay 2 midnights for 15. Patient's full code per Past Medical History Past Medical History: Asthma, Cancer, COPD, Fibromyalgia, GERD/Reflux, Hyperlipi demia, Hypertension, Pneumonia, Thyroid Disorder Additional Past Medical History / Comment(s): HX MIGRAINE, HX KIDNEY STONES, non-small cell lung cancer diagnosed in August 2016 status post chemotherapy and radiation therapy as well as immunotherapy, states "40% use of lungs", new dx cancer rt lung, "rapid heart rate" History of Any Multi-Drug Resistant Organisms: None Reported Past Surgical History: Adenoidectomy, Hysterectomy, Orthopedic Surgery, Tonsillectomy Additional Past Surgical History / Comment(s): LEFT ELBOW carpal tunnel, LEFT wrist CARPAL TUNNEL, EPIDURAL PAIN SHOTS, Anterior Cervical Decomp. and fusion c5-6,c6-7 Past Anesthesia/Blood Transfusion Reactions: Motion Sickness Past Psychological History: Anxiety, Depression Smoking Status: Former smoker Past Alcohol Use History: None Reported Past Drug Use History: None Reported - Past Family History Mother Family Medical History: No Reported History Additional Family Medical History / Comment(s): . Father Additional Family Medical History / Comment(s): Father at age 68 from ALS. Brother(s) Additional Family Medical History / Comment(s): Patient has 1 brother and 1 sister with no major medical problems. Patient has 3 daughters and one has history of asthma. Patient does not have any sons. Medications and Allergies Home Medications Medication Instructions Recorded Confirmed Type Aspirin 81 mg PO DAILY 12/20/13 07/08/21 History Rosuvastatin Calcium [Crestor] 40 mg PO DAILY 12/20/13 07/08/21 History DULoxetine HCL [Cymbalta] 60 mg PO DAILY 02/26/19 07/08/21 History Levothyroxine Sodium [Synthroid] 100 mcg PO DAILY 02/26/19 07/08/21 History traZODone HCL 50 mg PO HS 02/26/19 07/08/21 History Fenofibric Acid (Choline) 135 mg PO DAILY 11/07/19 07/08/21 History [Fenofibric Acid] Ibuprofen [Motrin Ib] 800 mg PO Q8H PRN 06/07/20 07/08/21 History Metoprolol Tartrate [Lopressor] 50 mg PO BID 06/07/20 07/08/21 History ALPRAZolam [Xanax] 1 mg PO BID PRN 07/08/21 07/08/21 History Acetaminophen [Tylenol] 1,000 mg PO Q4-6H PRN 07/08/21 07/08/21 History Albuterol Inhaler [Ventolin Hfa 2 puff INHALATION RT-QID PRN 07/08/21 07/08/21 History Inhaler] Ipratropium-Albuterol Nebulize 3 ml INHALATION RT-QID PRN 07/08/21 07/08/21 History [Duoneb 0.5 mg-3 mg/3 ml Soln] Levofloxacin [Levaquin] 750 mg PO DAILY 07/08/21 07/08/21 History Multivit-Min/Iron/Folic/Lutein 1 tab PO DAILY 07/08/21 07/08/21 History [Centrum Silver Women Tablet] methocarbamoL [Methocarbamol] 500 mg PO BID 07/08/21 07/08/21 History predniSONE See Taper PO DIRECTED 07/08/21 07/08/21 History Ticagrelor [Brilinta] 90 mg PO BID #60 tab 07/09/21 Rx Allergies Allergy/AdvReac Type Severity Reaction Status Date / Time cephalexin monohydrate Allergy Rash/Hives Verified 07/08/21 15:48 [From Keflex] Egg Derived Allergy Anaphylaxis Verified 07/08/21 15:48 latex Allergy Rash/Hives/throat Verified 07/08/21 15:48 swelling/diff breathing simvastatin AdvReac muscle Verified 07/08/21 15:48 cramps Physical Exam Vitals: Vital Signs Temp Pulse Pulse Resp BP BP Pulse Ox 07/08/21 19:03 98.6 F 114 H 20 126/69 96 07/08/21 16:09 120 H 132/68 07/08/21 15:58 125 H 18 148/88 97 07/08/21 14:45 124 H 24 137/91 98 07/08/21 13:40 97.6 F 106 H 22 178/99 96 Intake and Output 07/08/21 07/08/21 07/08/21 06:59 14:59 22:59 Intake Total 1100 Balance 1100 Intake: IV 1100 Other: Weight 73.936 kg Results CBC & Chem 7: 07/09/21 09:24 07/09/21 09:24 Labs: Abnormal Lab Results - Last 24 Hours (Table) 07/08/21 07/08/21 07/08/21 Range/Units 14:11 14:58 14:58 Hct 48.1 H (34.0-46.0) % Neutrophils # 8.1 H (1.3-7.7) k/uL Lymphocytes # 0.6 L (1.0-4.8) k/uL APTT (22.0-30.0) sec Sodium 133 L (137-145) mmol/L Carbon Dioxide 19 L (22-30) mmol/L BUN 19 H (7-17) mg/dL Creatinine 0.51 L (0.52-1.04) mg/dL Glucose 459 H (74-99) mg/dL POC Glucose (mg/dL) (75-99) mg/dL Magnesium 1.5 L (1.6-2.3) mg/dL AST 62 H (14-36) U/L Troponin I 1.020 H* (0.000-0.034) ng/mL 07/08/21 07/08/21 07/08/21 Range/Units 14:58 17:04 19:49 Hct (34.0-46.0) % Neutrophils # (1.3-7.7) k/uL Lymphocytes # (1.0-4.8) k/uL APTT 21.5 L (22.0-30.0) sec Sodium (137-145) mmol/L Carbon Dioxide (22-30) mmol/L BUN (7-17) mg/dL Creatinine (0.52-1.04) mg/dL Glucose (74-99) mg/dL POC Glucose (mg/dL) 348 H 216 H (75-99) mg/dL Magnesium (1.6-2.3) mg/dL AST (14-36) U/L Troponin I (0.000-0.034) ng/mL
--- NOTE | 2021-07-09 19:39 | ECHOF ---
Referral Reason:LV function MEASUREMENTS -------- HEIGHT: 157.5 cm WEIGHT: 73.9 kg BP: RVIDd: 2.3 cm (< 3.3) IVSd: 1.0 cm (0.6 - 1.1) LVIDd: 3.9 cm (3.9 - 5.3) LVPWd: 1.5 cm (0.6 - 1.1) IVSs: 1.3 cm LVIDs: 3.4 cm LVPWs: 1.3 cm LA Diam: 2.9 cm (2.7 - 3.8) Ao Diam: 3.1 cm (2.0 - 3.7) AV Cusp: 1.9 cm (1.5 - 2.6) MV EXCURSION: 12.148 mm (> 18.000) MV EF SLOPE: 117 mm/s (70 - 150) EPSS: 0.3 cm MV E Jenaro: 0.56 m/s MV DecT: 243 ms MV A Jenaro: 1.03 m/s MV E/A Ratio: 0.54 AR PHT: 301 ms FINDINGS -------- Resting tachycardia (HR>100bpm). This was a technically adequate study. The left ventricular size is normal. There is mild concentric left ventricular hypertrophy. Overa ll left ventricular systolic function is low-normal with, an EF between 50 - 55 %. The right ventricle is normal in size. The left atrial size is normal. The right atrial size is normal. There is mild aortic valve sclerosis. There is mild aortic regurgitation. Mild mitral regurgitation is present. Mild tricuspid regurgitation present. Right ventricular systolic pressure is normal at < 35 mmHg. The pulmonic valve was not well visualized. There is a small, generalized pericardial effusion present. CONCLUSIONS -------- 1. The left ventricular size is normal. 2. There is mild concentric left ventricular hypertrophy. 3. Overall left ventricular systolic function is low-normal with, an EF between 50 - 55 %. 4. The right ventricle is normal in size. 5. The left atrial size is normal. 6. The right atrial size is normal. 7. There is mild aortic valve sclerosis. 8. There is mild aortic regurgitation. 9. Mild mitral regurgitation is present. 10. Mild tricuspid regurgitation present. 11. The pulmonic valve was not well visualized. 12. There is a small, generalized pericardial effusion present. SHOPFITTER: Mary Sahu RDCS
[2021-07-09 20:23] LABS: Glucose,Whole Blood 212 mg/dL (75-99)
[2021-07-09] MEDS: HEPARIN SODIUM,PORCINE/PF 5,000 UNIT/0.5 ML SYRINGE SQ SCH (21:06)
[2021-07-09] MEDS: METOPROLOL TARTRATE 25 MG TAB PO SCH (21:16)
[2021-07-09] MEDS: traZODone HCL 50 MG TAB PO SCH (21:16)
[2021-07-09] MEDS: INSULIN DETEMIR (LEVEMIR) 100 UNIT/ML SYR SQ SCH (21:17)
[2021-07-09] MEDS: MORPHINE SULFATE 2 MG/ML SYRINGE IVP PRN (21:17)
[2021-07-09 21:18] LABS: Chol/HDL Ratio 3.84 Ratio
[2021-07-10] MEDS: SODIUM CHLORIDE 0.9% 1,000 ML in EMPTY BAG 1 BAG IV SCH ×3 (00:30→23:11)
[2021-07-10 06:05] LABS: Glucose,Whole Blood 162 mg/dL (75-99)
[2021-07-10] MEDS: INSULIN ASPART (NovoLOG) 100 UNIT/ML VIAL SQ SCH ×4 (06:34→20:38)
[2021-07-10] MEDS: LEVOTHYROXINE 100 MCG TAB PO SCH (06:34)
[2021-07-10] MEDS: IPRATROPIUM-ALBUTEROL 3 ML NEB INHALATION PRN ×3 (08:30→16:42)
[2021-07-10] MEDS: LEVOFLOXACIN 750 MG TAB PO SCH (09:03)
[2021-07-10] MEDS: METOPROLOL TARTRATE 25 MG TAB PO SCH ×2 (09:03→20:37)
[2021-07-10] MEDS: ASPIRIN 81 MG PO SCH (09:03)
[2021-07-10] MEDS: DULoxetine HCL 60 MG CAPSULE.DR PO SCH (09:03)
[2021-07-10] MEDS: TICAGRELOR 90 MG TAB PO SCH ×2 (09:03→20:37)
[2021-07-10] MEDS: ATORVASTATIN 80 MG TAB PO SCH (09:03)
[2021-07-10] MEDS: MULTIVITAMINS, THERA 1 EACH TAB PO SCH (09:04)
[2021-07-10] MEDS: HEPARIN SODIUM,PORCINE/PF 5,000 UNIT/0.5 ML SYRINGE SQ SCH ×3 (09:04→22:55)
[2021-07-10] MEDS: FENOFIBRATE 160 MG TAB PO SCH (09:04)
[2021-07-10] MEDS: ALPRAZolam 1 MG TAB PO PRN (09:06)
[2021-07-10 09:28] LABS: Basophils # (A) 0.1 k/uL (0-0.2); Basophils % (A) 1 %; Eosinophils # (A) 0.1 k/uL (0-0.7); Eosinophils % (A) 2 %; Lymphocytes # (A) 0.9 k/uL (1.0-4.8); Lymphocytes % (A) 11 %; MCH 30.7 pg (25.0-35.0); MCHC 32.6 g/dL (31.0-37.0); MCV 94.2 fL (80.0-100.0); Monocytes # (A) 0.5 k/uL (0-1.0); Monocytes % (A) 5 %; Neutrophils # (A) 6.8 k/uL (1.3-7.7); Neutrophils % (A) 81 %; Platelet Count 266 k/uL (150-450); RBC 4.56 m/uL (3.80-5.40); RDW 13.4 % (11.5-15.5); WBC 8.5 k/uL (3.8-10.6)
[2021-07-10 09:58] LABS: ALT 30 U/L (4-34); AST 42 U/L (14-36); African American GFR (CKD) >90 (>60 ml/min/1.73 sqM); Albumin 3.9 g/dL (3.5-5.0); Alkaline Phosphatase 31 U/L (38-126); Anion Gap 10 mmol/L; Blood Urea Nitrogen 15 mg/dL (7-17); Calcium 9.5 mg/dL (8.4-10.2); Carbon Dioxide 20 mmol/L (22-30); Chloride 103 mmol/L (98-107); Glucose 237 mg/dL (74-99); Non-African American GFR(CKD) >90 (>60 ml/min/1.73 sqM); Potassium 4.1 mmol/L (3.5-5.1); Sodium 133 mmol/L (137-145); Total Bilirubin 0.6 mg/dL (0.2-1.3); Total Protein 6.5 g/dL (6.3-8.2)
[2021-07-10 12:07] LABS: Glucose,Whole Blood 186 mg/dL (75-99)
[2021-07-10] MEDS ORDERED: ALPRAZolam 0.25 MG TAB PO PRN (13:30)
[2021-07-10] MEDS ORDERED: NITROGLYCERIN SL TABS 0.4 MG TAB SUBLINGUAL PRN (13:30)
--- NOTE | 2021-07-10 13:32 | P.PN ---
Subjective Progress Note Date: 07/10/21 HISTORY OF PRESENT ILLNESS: Patient is a pleasant 65-year-old female with history of COPD, fibromyalgia, history of pericardial effusion, hypertension, hypothyroidism, asthma, cancer with previous chemotherapy and radiation 1 year ago who presents with off and on chest pain over the prior few hours. Some of the pain was somewhat reproducible however other pain felt more like a pressure sensation and associated with some shortness breath. She was noted to be tachycardic at [address] depressions. Her chest pain was somewhat off and on however troponin resulted at 1 and was still having chest pain at the time and therefore catheterization lab was activated. CTA was performed which showed a possible filling defects within the left lower lobe pulmonary arteries however possibly artifactual with no central PE. There is also note of enlarging right lower lobe superior segment nodule suspicious for progressive cancer. 07/09/2021 Patient is status post cardiac catheterization with PCI of the mid LAD and PCI of diagonal 1. Patient also has a 60-70% lesion of the RCA. Patient examined this morning at the bedside. Patient denies chest pain or pressure. She reports some mild shortness of breath but states it is chronic and at her baseline. Vital signs are stable. Heart rates in the low 100s. 07/10/2021 Patient examined this morning at the bedside. She denies chest pain or pressure. Denies SOB. Vital signs are stable. Echocardiogram completed revealed ejection fraction 50-55%, mild aortic regurgitation, mild mitral regurgitation, mild tricuspid regurgitation. PHYSICAL EXAM: VITAL SIGNS: Reviewed. GENERAL: Well-developed in no acute distress. NECK: Supple. No JVD or thyromegaly LUNGS: Respirations even and unlabored. Lungs essentially clear to auscultation bilaterally. HEART: Regular rate and rhythm. S1 and S2 heard. EXTREMITIES: Normal range of motion. No clubbing or cyanosis. Peripheral pulses intact. No lower extremity edema. Right radial cath site with pulse present ASSESSMENT: 1. Non-STEMI, s/p cardiac cath with PCI as described above 2. Hyperglycemia concerning for new onset diabetes mellitus 3. Hypertension 4. History of pericardial effusion 5. Questionable filling defects noted on CT versus artifact 6. History of cancer with concern of progressive disease noted on most recent CAT scan 7. Sinus tachycardia likely reactive PLAN: Continue current cardiac medications Continue telemetry monitoring Patient to undergo heart cath tomorrow with IFr of RCA NPO at midnight Further recommendations pending patient's course Nurse practitioner note has been reviewed by physician. Signing provider agrees with the documented findings, assessment, and plan of care. Objective - Vital Signs Vital signs: Vital Signs Temp 98.1 F 07/10/21 08:58 Pulse 99 07/10/21 12:24 Resp 18 07/10/21 12:24 BP 103/70 07/10/21 12:24 Pulse Ox 94 L 07/10/21 12:24 Intake & Output 07/09/21 07/10/21 07/10/21 18:59 06:59 18:59 Intake Total 1645 118 Balance 1645 118 Weight 73.936 kg Intake: Intake, IV Titration 250 Amount Sodium Chloride 0.9% 1, 250 000 ml In Empty Bag 1 bag @ 1 ML/KG/HR 73.936 mls/ hr IV .[id number] [facility] Rx#: [id number] Oral 1395 118 Other: Voiding Method Toilet Toilet # Voids 1 - Labs CBC & Chem 7: 07/10/21 08:46 07/10/21 08:46 Labs: Abnormal Lab Results - Last 24 Hours (Table) 07/09/21 07/09/21 07/09/21 Range/Units 09:24 09:24 16:45 Lymphocytes # (1.0-4.8) k/uL Sodium (137-145) mmol/L Carbon Dioxide (22-30) mmol/L Creatinine (0.52-1.04) mg/dL Glucose (74-99) mg/dL POC Glucose (mg/dL) 213 H (75-99) mg/dL Hemoglobin A1c 8.4 H (0.0-6.0) % AST (14-36) U/L Alkaline Phosphatase (38-126) U/L Triglycerides 494.00 H (0.00-149.00) mg/dL 07/09/21 07/10/21 07/10/21 Range/Units 20:22 06:03 08:46 Lymphocytes # 0.9 L (1.0-4.8) k/uL Sodium (137-145) mmol/L Carbon Dioxide (22-30) mmol/L Creatinine (0.52-1.04) mg/dL Glucose (74-99) mg/dL POC Glucose (mg/dL) 212 H 162 H (75-99) mg/dL Hemoglobin A1c (0.0-6.0) % AST (14-36) U/L Alkaline Phosphatase (38-126) U/L Triglycerides (0.00-149.00) mg/dL 07/10/21 07/10/21 Range/Units 08:46 11:58 Lymphocytes # (1.0-4.8) k/uL Sodium 133 L (137-145) mmol/L Carbon Dioxide 20 L (22-30) mmol/L Creatinine 0.46 L (0.52-1.04) mg/dL Glucose 237 H (74-99) mg/dL POC Glucose (mg/dL) 186 H (75-99) mg/dL Hemoglobin A1c (0.0-6.0) % AST 42 H (14-36) U/L Alkaline Phosphatase 31 L (38-126) U/L Triglycerides (0.00-149.00) mg/dL
--- NOTE | 2021-07-10 13:53 | P.PN ---
Subjective Progress Note Date: 07/10/21 HISTORY OF PRESENT ILLNESS: This is a 65-year-old white female with a previous medical history significant for hypertension and hypertensive cardio vascular disease, hyperlipidemia, history of chronic tobacco use and dependence she had smoked about a pack every day for 30 years and she quit in 2018, she was diagnosed as having left upper lobe non-small cell lung cancer after she was found to have a mass on the chest x-ray back in 2018 followed by a PET scan and bronchoscopy with biopsy that showed moderately differentiated adenocarcinoma, she was started chemoradiation therapy with Dr. Sales, and she was on Infinzi, followed by [facility] for a year and recently did have some radiation therapy, and had a PET scan that did show recurrence of her disease, patient was seen in the office about a week ago complaining of increased coughing and increased shortness of breath, she was placed on a Z-Ralph and Medrol Dosepak however she did not do well I saw in the office few days ago and she was complaining of increased pain in the back of her neck associated with bilateral arm pain associated with increased shortness of breath, at that time the patient was advised to go to the ER for e valuation if she is not better however she preferred to have an oral antibiotic as well as longer steroid and she was placed on prednisone burst and taper and she was placed on Levaquin 750 mg orally once every day for 5 days along with DuoNeb nebulization 4 times every day, patient went home, and today developed to have a significant left-sided chest pain radiating to the neck associated with significant shortness of breath and palpitation she ended up coming to the emergency department with her she was found to have a sinus tachycardia and an EKG with a heart rate is 140, her troponin came back positive at 1, her blood glucose level was about 440 suggestive of diabetes mellitus type 2 new onset her 12-lead EKG did show evidence of ST depression, because of her symptoms she was taken to the salvage laborer and the patient was found to have a significant coronary artery disease with the 99% stenosis of the LAD and the both diagonal 1 and diagonal 2 VESSELS were stented RCA was about 70% stenosis, it was thought that the patient will be admitted to the hospital and she will have another left heart catheterization and she will have an FFR for evaluation of the RCA. Patient was admitted to telemetry unit, she is sitting up in bed in no apparent distress, she is currently on Brilinta 90 mg orally twice every day along with baby aspirin 81 mg once every day, she was also restarted back on her simvastatin 40 mg orally once every day, echocardiogram was pending at the time of dictation. 07/09: Patient underwent heart catheterization yesterday with Dr. Rees finding 99% stenosis in the mid LAD, 99% in the diagonal one, 60-70% in the RCA. Patient subsequently underwent successful PCI of the mid LAD and PCI of the diagonal 1. She has been started on aspirin 81 mg, Lipitor 80 mg daily, Lopressor increased to 75 mg twice daily, Brilinta 90 mg twice daily. Echocardiogram is pending. Repeat CBC is unremarkable. Sodium 134, creatinine 0.47. Capillary blood glucose running between 115 and 216, 158 this morning. Hemoglobin A1c is 8.4. AST 66. Patient denies having any chest pain, no lightheadedness or dizziness, mild shortness of breath. 07/10: Patient is seen today on the cardiac stepdown unit. She denies having any chest pain. She states she does have some shortness of breath with activity. She has been afebrile, heart rate 99, blood pressure 103/70, pulse ox 94% on room air. Repeat blood work reveals CBC within normal limits. Creatinine 0.46. Capillary blood glucose running between 162 and 212. Cardiology is following and planning for iFR of RCA tomorrow. Echocardiogram reveals EF of 50-55% with mild concentric left hypertrophy, mild aortic valve sclerosis, mild aortic regurgitation, mild mitral regurgitation, mild tricuspid regurgitation. REVIEW OF SYSTEMS: Constitutional: No documented fever, no chills, no night sweats. positive for weight change. Positive for weakness, fatigue no lethargy. No daytime sleepiness. HEENT: No headache. No blurred vision or double vision, no loss of vision. No loss of Hearing, no ringing in the ears, no dizziness. No nasal drainage or congestion. No epistaxis. No sore throat. Lungs: Positive for shortness of breath, positive for cough, minimal sputum production. positive for wheezing. Reports dyspnea with activity. Cardiovascular: no chest pain-improved, no lower extremity edema. positive for palpitations. positive for paroxysmal nocturnal dyspnea. positive for orthopnea. No lightheadedness or dizziness. No syncopal episodes. Abdominal: Denies abdominal pain. No nausea, vomiting. No diarrhea. No constipation. No bloody or tarry stools reports loss of appetite. Genitourinary: No dysuria, increased frequency, urgency. No urinary retention. Musculoskeletal: No myalgias. No muscle weakness, no gait dysfunction, no frequent falls. No back pain. No neck pain. Integumentary: No wounds, no lesions. No rash or pruritus. No unusual bruising. No change in hair or nails. Neurologic: No aphasia. No facial droop. No change in mentation. No head injury. No headache. No paralysis. No paresthesia. Psychiatric: No depression. positive for anxiety. No mood swings. Endocrine: No abnormal blood sugars. No weight change. PHYSICAL EXAMINATION: General: 65-year-old female sitting up in bed in no acute distress. HEENT: Head is atraumatic, normocephalic, pupils were equal round, sclera nonicteric, conjunctivae were pale, mucous membranes of the mouth are somewhat dry. Neck: Supple, no JVP, normal carotid upstroke bilaterally, no lymphadenopathy. Chest: Decreased breath sounds at the bases, few rhonchi minimal expiratory wheezes , no chest wall tenderness, no intercostal retractions. Heart: First heart sound is normal, second heart sounds normal there is systolic ejection murmur 2/6 located in the left sternal border. Abdomen: Soft, nontender, nondistended, positive bowel sounds, no hepatosplenomegaly. Extremities: There is no edema no calf tenderness DP +2 bilaterally. Neurologic examination: Patient is awake alert and oriented X 3, cranial nerves II-12 appear grossly intact, muscle power were 5 out of 5 in upper extremities and 5 out of 5 in bilateral lower extremities, deep tendon reflexes normal bilaterally. ASSESSMENT AND PLAN: 1. Non-ST elevation VT. Post left heart catheterization with PCI of the LAD, diagonal one, diagonal 2, and moderate disease of the RCA. Continue patient on aspirin 81 mg once every day, continue Brilinta 90 mg orally twice every day, continue atorvastatin 80 mg orally once every day, echocardiogram report pending, continue to monitor the patient very closely, cardiology consultation appreciated. iFR of the RCA tomorrow. 2. Sinus tachycardia likely related to significant coronary artery disease. Continue patient on metoprolol 75 mg orally twice every day. 3. New onset diabetes mellitus type 2. Start the patient on Levemir 14 units at bedtime along with a sliding scale insulin, patient will need to be started on Jardiance 10 mg orally once every day. 4. Hypertension and hypertensive cardiovascular disease. Continue metoprolol 75 mg orally twice every day. 5. Hyperlipidemia. Continue patient on atorvastatin 80 mg orally once every day. 6. Hypothyroidism. Continue Synthroid 100 g orally once every day. 7. History of degenerative disc disease of the cervical spine status post fusion. Continue patient on Robaxin 500 mg orally twice every day. Continue patient on morphine as needed. 8. Anxiety disorder. Continue patient on Xanax 1 mg orally twice every day. 9. Fibromyalgia/depressive disorder. Continue patient on Cymbalta 60 minute gram orally twice every day per 10. COPD. Start the patient on DuoNeb 3 mg nebulization 4 times every day, c ontinue Levaquin 750 mg orally once every day. 11. Non-small cell lung cancer with moderately differentiated adenocarcinoma status post chemoradiation therapy. under the care of Dr. Sales 12. DVT prophylaxis. Patient will be placed on heparin 5000 units subcutaneously every 12 hours for 13. GI prophylaxis. Start the patient on PPI . 14. Admit to inpatient. Estimated length of stay 2 midnights for 15. Patient's full code per DISCHARGE PLAN Home without home care in the next 24-48 hours. Impression and plan of care have been directed as dictated by the signing physician. Maggie Fierro nurse practitioner acting as scribe for signing physician. Objective - Vital Signs Vital signs: Vital Signs Temp 98.1 F 07/10/21 08:58 Pulse 99 07/10/21 12:24 Resp 18 07/10/21 12:24 BP 103/70 07/10/21 12:24 Pulse Ox 94 L 07/10/21 12:24 Intake & Output 07/09/21 07/10/21 07/10/21 18:59 06:59 18:59 Intake Total 1645 118 Balance 1645 118 Weight 73.936 kg Intake: Intake, IV Titration 250 Amount Sodium Chloride 0.9% 1, 250 000 ml In Empty Bag 1 bag @ 1 ML/KG/HR 73.936 mls/ hr IV .[id number] [facility] Rx#: [id number] Oral 1395 118 Other: Voiding Method Toilet Toilet # Voids 1 - Labs CBC & Chem 7: 07/10/21 08:46 07/10/21 08:46 Labs: Abnormal Lab Results - Last 24 Hours (Table) 07/09/21 07/09/21 07/09/21 Range/Units 09:24 09:24 16:45 Lymphocytes # (1.0-4.8) k/uL Sodium (137-145) mmol/L Carbon Dioxide (22-30) mmol/L Creatinine (0.52-1.04) mg/dL Glucose (74-99) mg/dL POC Glucose (mg/dL) 213 H (75-99) mg/dL Hemoglobin A1c 8.4 H (0.0-6.0) % AST (14-36) U/L Alkaline Phosphatase (38-126) U/L Triglycerides 494.00 H (0.00-149.00) mg/dL 07/09/21 07/10/21 07/10/21 Range/Units 20:22 06:03 08:46 Lymphocytes # 0.9 L (1.0-4.8) k/uL Sodium (137-145) mmol/L Carbon Dioxide (22-30) mmol/L Creatinine (0.52-1.04) mg/dL Glucose (74-99) mg/dL POC Glucose (mg/dL) 212 H 162 H (75-99) mg/dL Hemoglobin A1c (0.0-6.0) % AST (14-36) U/L Alkaline Phosphatase (38-126) U/L Triglycerides (0.00-149.00) mg/dL 07/10/21 07/10/21 Range/Units 08:46 11:58 Lymphocytes # (1.0-4.8) k/uL Sodium 133 L (137-145) mmol/L Carbon Dioxide 20 L (22-30) mmol/L Creatinine 0.46 L (0.52-1.04) mg/dL Glucose 237 H (74-99) mg/dL POC Glucose (mg/dL) 186 H (75-99) mg/dL Hemoglobin A1c (0.0-6.0) % AST 42 H (14-36) U/L Alkaline Phosphatase 31 L (38-126) U/L Triglycerides (0.00-149.00) mg/dL
[2021-07-10] MEDS: HYDROcodone/APAP 5-325MG 1 EACH TAB PO PRN (14:36)
[2021-07-10 17:09] LABS: Glucose,Whole Blood 213 mg/dL (75-99)
[2021-07-10 19:59] LABS: Glucose,Whole Blood 291 mg/dL (75-99)
[2021-07-10] MEDS ORDERED: INSULIN ASPART (NovoLOG) 100 UNIT/ML VIAL SQ ONE (20:29)
[2021-07-10] MEDS: traZODone HCL 50 MG TAB PO SCH (20:37)
[2021-07-10] MEDS: INSULIN DETEMIR (LEVEMIR) 100 UNIT/ML SYR SQ SCH (20:38)
[2021-07-10] MEDS: ALPRAZolam 0.5 MG TAB PO PRN (20:42)
[2021-07-10] MEDS: MORPHINE SULFATE 2 MG/ML SYRINGE IVP PRN (21:02)
[2021-07-11] MEDS: SODIUM CHLORIDE 0.9% 1,000 ML in EMPTY BAG 1 BAG IV SCH (04:12)
[2021-07-11] MEDS ORDERED: ATORVASTATIN 80 MG TAB PO ONE (05:00)
[2021-07-11] MEDS ORDERED: ASPIRIN 325 MG TAB PO ONE (05:00)
[2021-07-11 05:32] LABS: Glucose,Whole Blood 217 mg/dL (75-99)
[2021-07-11] MEDS: DULoxetine HCL 60 MG CAPSULE.DR PO SCH (05:53)
[2021-07-11] MEDS: TICAGRELOR 90 MG TAB PO SCH ×2 (05:53→20:39)
[2021-07-11] MEDS: FENOFIBRATE 160 MG TAB PO SCH (05:53)
[2021-07-11] MEDS: MULTIVITAMINS, THERA 1 EACH TAB PO SCH (05:53)
[2021-07-11] MEDS: ALPRAZolam 0.5 MG TAB PO PRN (05:53)
[2021-07-11] MEDS: LEVOTHYROXINE 100 MCG TAB PO SCH (05:53)
[2021-07-11] MEDS: METOPROLOL TARTRATE 25 MG TAB PO SCH ×2 (05:53→20:39)
[2021-07-11] MEDS: LEVOFLOXACIN 750 MG TAB PO SCH (05:53)
[2021-07-11 06:06] LABS: Glucose,Whole Blood 230 mg/dL (75-99)
[2021-07-11] MEDS: INSULIN ASPART (NovoLOG) 100 UNIT/ML VIAL SQ SCH ×6 (06:27→20:40)
[2021-07-11] MEDS ORDERED: HEPARIN SODIUM,PORCINE 10,000 UNIT in SODIUM CHLORIDE 0.9% 1,000 ML IRRIGATION PRN (07:00)
[2021-07-11] MEDS ORDERED: HEPARIN SODIUM,PORCINE 2,500 UNIT in SODIUM CHLORIDE 0.9% 250 ML IRRIGATION PRN (07:00)
[2021-07-11] MEDS ORDERED: LIDOCAINE 1% INJ 10MG/ML (20 ML MDV) ONE (07:18)
[2021-07-11] MEDS ORDERED: VERAPAMIL 2.5 MG/ML 2 ML AMP ONE (07:18)
[2021-07-11] MEDS ORDERED: HEPARIN SODIUM 1,000 UN/ML (10ML VL) ONE (07:47)
[2021-07-11] MEDS ORDERED: fentaNYL (PF) 50 MCG/ML 2 ML AMP ONE (07:47)
[2021-07-11] MEDS ORDERED: IV FLUID CONTINUATION 400 ML IV ONE ×2 (07:57)
[2021-07-11] MEDS ORDERED: MIDAZOLAM 2 MG/2 ML VIAL IV ONE ×2 (08:03→08:04)
[2021-07-11] MEDS ORDERED: fentaNYL (PF) 50 MCG/ML 2 ML AMP IV ONE (08:03)
[2021-07-11] MEDS ORDERED: LIDOCAINE 1% INJ 10MG/ML (20 ML MDV) SQ ONE (08:04)
[2021-07-11] MEDS ORDERED: VERAPAMIL SYRINGE (5 MG/10 ML) INTRAARTER ONE (08:05)
[2021-07-11] MEDS: HEPARIN SODIUM 1,000 UN/ML (10ML VL) IV ONE ×3 (08:06→08:19)
[2021-07-11] MEDS ORDERED: IOPAMIDOL-370 125ML BTL INJ ONE (08:20)
[2021-07-11] MEDS: ASPIRIN 81 MG PO SCH (08:57)
[2021-07-11] MEDS: ATORVASTATIN 80 MG TAB PO SCH (08:57)
[2021-07-11] MEDS: HEPARIN SODIUM,PORCINE/PF 5,000 UNIT/0.5 ML SYRINGE SQ SCH ×2 (08:57→20:42)
[2021-07-11] MEDS: IPRATROPIUM-ALBUTEROL 3 ML NEB INHALATION PRN ×3 (09:48→15:37)
[2021-07-11] MEDS: HYDROcodone/APAP 5-325MG 1 EACH TAB PO PRN (10:28)
[2021-07-11 11:59] LABS: Glucose,Whole Blood 181 mg/dL (75-99)
[2021-07-11 16:14] LABS: Glucose,Whole Blood 234 mg/dL (75-99)
--- NOTE | 2021-07-11 17:38 | P.CARDCATH ---
Description of Procedure: PROCEDURES PERFORMED: Left heart catheterization, bilateral coronary angiography, iFR RCA INDICATION: Non-STEMI HISTORY: Patient is a pleasant 65-year-old female with history of hypertension, hyperlipidemia, cancer who presented with chest pain and shortness breath. Patient was found to have non-STEMI and therefore underwent PCI to LAD and diagonal branch earlier in admission. There was a 60-70% RCA lesion with recommendations for iFR RCA. CONSENT:I have discussed the risks, benefits and alternative therapies for the above-mentioned procedure and for both sedation/analgesia as well as necessary blood product administration, if indicated, as they pertain to this patient. The patient has indicated understanding and acceptance of the risks and procedures discussed. PROCEDURE: After the risks, benefits and alternatives of the above mentioned procedure explained in detail with the patient, informed consent was obtained. Patient was taken to the catheterization lab and prepped and draped in usual fashion. 1% lidocaine was used to anesthetize the right radial artery. A 6- Ukrainian sheath was placed in the right radial artery using modified Seldinger technique. Left coronary angiography was performed with a 5-Ukrainian JL 3.5 catheter. A 5-Ukrainian FL3.5 catheter was inserted into the left ventricle and pressure measurements were obtained. The decision was made to perform iFR of the RCA. A 6-Ukrainian AL 0.75 guide was easily engaged the RCA. Heparin was given. A 0.014 pressure wire was advanced into the proximal RCA and normalized. The iFR wire was then positioned approximately 2cm distal to the proximal RCA lesion and iFR was performed which was normal at 0.97. The right radial sheath was removed and a TR band was placed with hemostasis achieved. The patient tolerated the procedure well. Patient was transported back to the post catheterization holding area in stable condition. Conscious Sedation: Patient was monitored under the direct supervision of vision of myself for conscious sedation using Versed and fentanyl for a total duration of 19 minutes HEMODYNAMICS: Aorta: 141/72 LV: 142/2, LVEDP 11 SELECTIVE CORONARY ARTERIOGRAPHY: LEFT MAIN: The left main is a large caliber vessel which bifurcates into the LAD and circumflex. There is no significant stenosis. LEFT ANTERIOR DESCENDING CORONARY ARTERY: LAD is a moderate caliber vessel which stops short of the apex. There is a mid LAD stent at the level of a small to moderate caliber diagonal 1 branch as well as a large septal branch which is patent. There is a small caliber diagonal 1 branch stent which is patent and otherwise mild luminal irregularities. LEFT CIRCUMFLEX CORONARY ARTERY: Left circumflex is a moderate caliber vessel without significant stenosis. RIGHT CORONARY ARTERY: The right coronary artery is a large caliber vessel which gives off a PDA and PLV branch and is the dominant vessel. There is a proximal 60-70% RCA stenosis. The PDA and PLV are very large and appeared to supply territory to the apex. FINAL IMPRESSION: 1. CAD as described above including 60-70% RCA stenosis, iFR normal at 0.97 and patent LAD and diagonal stents 2. Normal left sided filling pressures PLAN: 1. Aggressive risk factor modification per most recent ACC/AHA guidelines. 2. Continue medical therapy for RCA lesion given normal iFR.
[2021-07-11 19:56] LABS: Glucose,Whole Blood 171 mg/dL (75-99)
[2021-07-11] MEDS: traZODone HCL 50 MG TAB PO SCH (20:39)
[2021-07-11] MEDS ORDERED: INSULIN DETEMIR (LEVEMIR) 100 UNIT/ML SYR SQ SCH (21:00)
[2021-07-12 06:05] LABS: Glucose,Whole Blood 178 mg/dL (75-99)
[2021-07-12 06:21] VITALS: RESP 18
[2021-07-12] MEDS: LEVOTHYROXINE 100 MCG TAB PO SCH (06:57)
[2021-07-12] MEDS: INSULIN ASPART (NovoLOG) 100 UNIT/ML VIAL SQ SCH ×6 (06:57→18:25)
[2021-07-12] MEDS: SODIUM CHLORIDE 0.9% 1,000 ML in EMPTY BAG 1 BAG IV SCH ×3 (08:10→08:18)
[2021-07-12] MEDS: ASPIRIN 81 MG PO SCH (08:13)
[2021-07-12] MEDS: METOPROLOL TARTRATE 25 MG TAB PO SCH (08:13)
[2021-07-12] MEDS: MULTIVITAMINS, THERA 1 EACH TAB PO SCH (08:13)
[2021-07-12] MEDS: TICAGRELOR 90 MG TAB PO SCH (08:13)
[2021-07-12] MEDS: LEVOFLOXACIN 750 MG TAB PO SCH (08:14)
[2021-07-12] MEDS: DULoxetine HCL 60 MG CAPSULE.DR PO SCH (08:14)
[2021-07-12] MEDS: ATORVASTATIN 80 MG TAB PO SCH (08:14)
[2021-07-12] MEDS: FENOFIBRATE 160 MG TAB PO SCH (08:14)
[2021-07-12] MEDS: HEPARIN SODIUM,PORCINE/PF 5,000 UNIT/0.5 ML SYRINGE SQ SCH (08:14)
[2021-07-12] MEDS: IPRATROPIUM-ALBUTEROL 3 ML NEB INHALATION PRN ×2 (08:15→11:00)
[2021-07-12 09:18] LABS: ALT 35 U/L (4-34); AST 46 U/L (14-36); African American GFR (CKD) >90 (>60 ml/min/1.73 sqM); Albumin 4.4 g/dL (3.5-5.0); Alkaline Phosphatase 37 U/L (38-126); Anion Gap 11 mmol/L; Blood Urea Nitrogen 13 mg/dL (7-17); Calcium 10.3 mg/dL (8.4-10.2); Carbon Dioxide 19 mmol/L (22-30); Chloride 105 mmol/L (98-107); Glucose 154 mg/dL (74-99); HCT 45.6 % (34.0-46.0); HGB 14.8 gm/dL (11.4-16.0); MCH 31.1 pg (25.0-35.0); MCHC 32.4 g/dL (31.0-37.0); Non-African American GFR(CKD) >90 (>60 ml/min/1.73 sqM); Platelet Count 337 k/uL (150-450); Potassium 4.5 mmol/L (3.5-5.1); RBC 4.75 m/uL (3.80-5.40); RDW 13.9 % (11.5-15.5); Sodium 135 mmol/L (137-145); Total Bilirubin 0.9 mg/dL (0.2-1.3); Total Protein 7.5 g/dL (6.3-8.2); WBC 8.7 k/uL (3.8-10.6)
[2021-07-12 11:40] LABS: Glucose,Whole Blood 134 mg/dL (75-99)
[2021-07-12 13:07] VITALS: TEMP 98.2
[2021-07-12] MEDS: IPRATROPIUM-ALBUTEROL 3 ML NEB INHALATION SCH ×2 (16:03)
[2021-07-12 16:18] VITALS: BP 110/72; PULSE 110
[2021-07-12 16:41] LABS: Glucose,Whole Blood 169 mg/dL (75-99)
--- NOTE | 2021-07-12 17:02 | P.PN ---
Subjective HISTORY OF PRESENT ILLNESS: Patient is a pleasant 65-year-old female with history of COPD, fibromyalgia, history of pericardial effusion, hypertension, hypothyroidism, asthma, cancer with previous chemotherapy and radiation 1 year ago who presents with off and on chest pain over the prior few hours. Some of the pain was somewhat reproducible however other pain felt more like a pressure sensation and associated with some shortness breath. She was noted to be tachycardic at [address] depressions. Her chest pain was somewhat off and on however troponin resulted at 1 and was still having chest pain at the time and therefore catheterization lab was activated. CTA was performed which showed a possible filling defects within the left lower lobe pulmonary arteries however possibly artifactual with no central PE. There is also note of enlarging right lower lobe superior segment nodule suspicious for progressive cancer. 07/09/2021 Patient is status post cardiac catheterization with PCI of the mid LAD and PCI of diagonal 1. Patient also has a 60-70% lesion of the RCA. Patient examined this morning at the bedside. Patient denies chest pain or pressure. She reports some mild shortness of breath but states it is chronic and at her baseline. Vital signs are stable. Heart rates in the low 100s. 07/10/2021 Patient examined this morning at the bedside. She denies chest pain or pressure. Denies SOB. Vital signs are stable. Echocardiogram completed revealed ejection fraction 50-55%, mild aortic regurgitation, mild mitral regurgitation, mild tricuspid regurgitation. 07/12 Patient seen and examined. Patient underwent left heart catheterization yesterday with patent stents and iFR of the RCA was noted to be normal. Patient did have some numbness and tingling of her right hand after the procedure however this has slowly improved. Appears related to TR band and patient with normal right radial pulse and normal capillary refill. PHYSICAL EXAM: VITAL SIGNS: Reviewed. GENERAL: Well-developed in no acute distress. NECK: Supple. No JVD or thyromegaly LUNGS: Respirations even and unlabored. Lungs essentially clear to auscultation bilaterally. HEART: Regular rate and rhythm. S1 and S2 heard. EXTREMITIES: Normal range of motion. No clubbing or cyanosis. Peripheral pulses intact. No lower extremity edema. Right radial cath site with pulse present ASSESSMENT: 1. Non-STEMI, s/p cardiac cath with PCI as described above 2. Hyperglycemia concerning for new onset diabetes mellitus 3. Hypertension 4. History of pericardial effusion 5. Questionable filling defects noted on CT versus artifact 6. History of cancer with concern of progressive disease noted on most recent CAT scan 7. Sinus tachycardia likely reactive PLAN: Stable for discharge home from a cardiology standpoint on dual antiplatelets and current medical regimen. Follow-up in office in 1 week. Objective - Vital Signs Vital signs: Vital Signs Temp 98.2 F 07/12/21 16:00 Pulse 100 07/12/21 16:14 Resp 18 07/12/21 16:00 BP 110/72 07/12/21 16:00 Pulse Ox 92 L 07/12/21 16:00 Intake & Output 07/11/21 07/12/21 07/12/21 18:59 06:59 18:59 Intake Total 740 1120 Output Total 0 Balance 740 1120 Intake: IV 200 20 Invasive Line 2 20 Oral 540 1100 Output: Urine 0 Stool 0 Urine/Stool Mix 0 Emesis 0 Other: Voiding Method Toilet Toilet # Voids 3 0 # Bowel Movements 0 - Labs CBC & Chem 7: 07/12/21 08:39 07/12/21 08:39 Labs: Abnormal Lab Results - Last 24 Hours (Table) 07/11/21 07/12/21 07/12/21 Range/Units 19:55 06:01 08:39 Sodium 135 L (137-145) mmol/L Carbon Dioxide 19 L (22-30) mmol/L Creatinine 0.51 L (0.52-1.04) mg/dL Glucose 154 H (74-99) mg/dL POC Glucose (mg/dL) 171 H 178 H (75-99) mg/dL Calcium 10.3 H (8.4-10.2) mg/dL AST 46 H (14-36) U/L ALT 35 H (4-34) U/L Alkaline Phosphatase 37 L (38-126) U/L 07/12/21 07/12/21 Range/Units 11:38 16:39 Sodium (137-145) mmol/L Carbon Dioxide (22-30) mmol/L Creatinine (0.52-1.04) mg/dL Glucose (74-99) mg/dL POC Glucose (mg/dL) 134 H 169 H (75-99) mg/dL Calcium (8.4-10.2) mg/dL AST (14-36) U/L ALT (4-34) U/L Alkaline Phosphatase (38-126) U/L
--- NOTE | 2021-07-14 14:49 | P.PN ---
Subjective Progress Note Date: 07/11/21 HISTORY OF PRESENT ILLNESS: This is a 65-year-old white female with a previous medical history significant for hypertension and hypertensive cardio vascular disease, hyperlipidemia, history of chronic tobacco use and dependence she had smoked about a pack every day for 30 years and she quit in 2018, she was diagnosed as having left upper lobe non-small cell lung cancer after she was found to have a mass on the chest x-ray back in 2018 followed by a PET scan and bronchoscopy with biopsy that showed moderately differentiated adenocarcinoma, she was started chemoradiation therapy with Dr. Sales, and she was on Infinzi, followed by [facility] for a year and recently did have some radiation therapy, and had a PET scan that did show recurrence of her disease, patient was seen in the office about a week ago complaining of increased coughing and increased shortness of breath, she was placed on a Z-Raplh and Medrol Dosepak however she did not do well I saw in the office few days ago and she was complaining of increased pain in the back of her neck associated with bilateral arm pain associated with increased shortness of breath, at that time the patient was advised to go to the ER for e valuation if she is not better however she preferred to have an oral antibiotic as well as longer steroid and she was placed on prednisone burst and taper and she was placed on Levaquin 750 mg orally once every day for 5 days along with DuoNeb nebulization 4 times every day, patient went home, and today developed to have a significant left-sided chest pain radiating to the neck associated with significant shortness of breath and palpitation she ended up coming to the emergency department with her she was found to have a sinus tachycardia and an EKG with a heart rate is 140, her troponin came back positive at 1, her blood glucose level was about 440 suggestive of diabetes mellitus type 2 new onset her 12-lead EKG did show evidence of ST depression, because of her symptoms she was taken to the cath lab manager and the patient was found to have a significant coronary artery disease with the 99% stenosis of the LAD and the both diagonal 1 and diagonal 2 VESSELS were stented RCA was about 70% stenosis, it was thought that the patient will be admitted to the hospital and she will have another left heart catheterization and she will have an FFR for evaluation of the RCA. Patient was admitted to telemetry unit, she is sitting up in bed in no apparent distress, she is currently on Brilinta 90 mg orally twice every day along with baby aspirin 81 mg once every day, she was also restarted back on her simvastatin 40 mg orally once every day, echocardiogram was pending at the time of dictation. 07/09: Patient underwent heart catheterization yesterday with Dr. Rees finding 99% stenosis in the mid LAD, 99% in the diagonal one, 60-70% in the RCA. Patient subsequently underwent successful PCI of the mid LAD and PCI of the diagonal 1. She has been started on aspirin 81 mg, Lipitor 80 mg daily, Lopressor increased to 75 mg twice daily, Brilinta 90 mg twice daily. Echocardiogram is pending. Repeat CBC is unremarkable. Sodium 134, creatinine 0.47. Capillary blood glucose running between 115 and 216, 158 this morning. Hemoglobin A1c is 8.4. AST 66. Patient denies having any chest pain, no lightheadedness or dizziness, mild shortness of breath. 07/10: Patient is seen today on the cardiac stepdown unit. She denies having any chest pain. She states she does have some shortness of breath with activity. She has been afebrile, heart rate 99, blood pressure 103/70, pulse ox 94% on room air. Repeat blood work reveals CBC within normal limits. Creatinine 0.46. Capillary blood glucose running between 162 and 212. Cardiology is following and planning for iFR of RCA tomorrow. Echocardiogram reveals EF of 50-55% with mild concentric left hypertrophy, mild aortic valve sclerosis, mild aortic regurgitation, mild mitral regurgitation, mild tricuspid regurgitation. 07/11: Patient has been afebrile, heart rate in the 70s to 90s, blood pressure 91/54, pulse ox 96% on room air. Capillary blood glucose running between 181 and 230. Discussed diabetes management with the patient. She is very resistant to doing insulin herself. Eventually she agreed to try over the next 24 hours Levemir and Humalog with a 10 and nursing will teach her how to administer and manage. Plan to monitor overnight and plan for discharge tomorrow. REVIEW OF SYSTEMS: Constitutional: No documented fever, no chills, no night sweats. positive for weight change. Positive for weakness, fatigue no lethargy. No daytime sleepiness. HEENT: No headache. No blurred vision or double vision, no loss of vision. No loss of Hearing, no ringing in the ears, no dizziness. No nasal drainage or congestion. No epistaxis. No sore throat. Lungs: Positive for shortness of breath, positive for cough, minimal sputum production. positive for wheezing. Reports dyspnea with activity. Cardiovascular: no chest pain-improved, no lower extremity edema. positive for palpitations. positive for paroxysmal nocturnal dyspnea. positive for orthopnea. No lightheadedness or dizziness. No syncopal episodes. Abdominal: Denies abdominal pain. No nausea, vomiting. No diarrhea. No consti pation. No bloody or tarry stools reports loss of appetite. Genitourinary: No dysuria, increased frequency, urgency. No urinary retention. Musculoskeletal: No myalgias. No muscle weakness, no gait dysfunction, no frequent falls. No back pain. No neck pain. Integumentary: No wounds, no lesions. No rash or pruritus. No unusual bruising. No change in hair or nails. Neurologic: No aphasia. No facial droop. No change in mentation. No head injury. No headache. No paralysis. No paresthesia. Psychiatric: No depression. positive for anxiety. No mood swings. Endocrine: No abnormal blood sugars. No weight change. PHYSICAL EXAMINATION: General: 65-year-old female sitting up in bed in no acute distress. HEENT: Head is atraumatic, normocephalic, pupils were equal round, sclera nonicteric, conjunctivae were pale, mucous membranes of the mouth are somewhat dry. Neck: Supple, no JVP, normal carotid upstroke bilaterally, no lymphadenopathy. Chest: Decreased breath sounds at the bases, few rhonchi minimal expiratory wheezes , no chest wall tenderness, no intercostal retractions. Heart: First heart sound is normal, second heart sounds normal there is systolic ejection murmur 2/6 located in the left sternal border. Abdomen: Soft, nontender, nondistended, positive bowel sounds, no hepatosplenomegaly. Extremities: There is no edema no calf tenderness DP +2 bilaterally. Neurologic examination: Patient is awake alert and oriented X 3, cranial nerves II-12 appear grossly intact, muscle power were 5 out of 5 in upper extremities and 5 out of 5 in bilateral lower extremities, deep tendon reflexes normal bilaterally. ASSESSMENT AND PLAN: 1. Non-ST elevation [place]. Post left heart catheterization with PCI of the LAD, diagonal one, diagonal 2, and moderate disease of the RCA. Continue patient on aspirin 81 mg once every day, continue Brilinta 90 mg orally twice every day, continue atorvastatin 80 mg orally once every day, echocardiogram report pending, continue to monitor the patient very closely, cardiology consultation appreciated. iFR of the RCA tomorrow. 2. Sinus tachycardia likely related to significant coronary artery disease. Continue patient on metoprolol 75 mg orally twice every day. 3. New onset diabetes mellitus type 2. Start the patient on Levemir 14 units at bedtime along with a sliding scale insulin, patient will need to be started on Jardiance 10 mg orally once every day. Nursing will educate patient on insulin administration. 4. Hypertension and hypertensive cardiovascular disease. Continue metoprolol 75 mg orally twice every day. 5. Hyperlipidemia. Continue patient on atorvastatin 80 mg orally once every day. 6. Hypothyroidism. Continue Synthroid 100 g orally once every day. 7. History of degenerative disc disease of the cervical spine status post fusion. Continue patient on Robaxin 500 mg orally twice every day. Continue patient on morphine as needed. 8. Anxiety disorder. Continue patient on Xanax 1 mg orally twice every day. 9. Fibromyalgia/depressive disorder. Continue patient on Cymbalta 60 minute gram orally twice every day per 10. COPD. Start the patient on DuoNeb 3 mg nebulization 4 times every day, continue Levaquin 750 mg orally once every day. 11. Non-small cell lung cancer with moderately differentiated adenocarcinoma status post chemoradiation therapy. under the care of Dr. Sales 12. DVT prophylaxis. Patient will be placed on heparin 5000 units subcutaneously every 12 hours for 13. GI prophylaxis. Start the patient on PPI . Patient's full code DISCHARGE PLAN Home without home care in the next 24 hours. Impression and plan of care have been directed as dictated by the signing physician. Maggie Fierro nurse practitioner acting as scribe for signing ph ysician. Objective - Vital Signs Vital signs: Vital Signs Temp 97.9 F 07/11/21 08:47 Pulse 99 07/11/21 12:23 Resp 18 07/11/21 12:23 BP 91/54 07/11/21 12:23 Pulse Ox 96 07/11/21 12:23 Intake & Output 07/10/21 07/11/21 07/11/21 18:59 06:59 18:59 Intake Total 596 200 Balance 596 200 Weight 74.9 kg Intake: IV 200 Oral 596 Other: Voiding Method Toilet Toilet # Voids 2 1 - Labs CBC & Chem 7: 07/12/21 08:39 07/12/21 08:39 Labs: Abnormal Lab Results - Last 24 Hours (Table) 07/10/21 07/10/21 07/11/21 Range/Units 16:41 19:58 05:23 POC Glucose (mg/dL) 213 H 291 H 217 H (75-99) mg/dL 07/11/21 07/11/21 Range/Units 06:05 11:49 POC Glucose (mg/dL) 230 H 181 H (75-99) mg/dL
--- NOTE | 2021-07-14 14:53 | P.DS ---
Providers Date of admission: 07/08/21 16:21 Expected date of discharge: 07/12/21 Attending physician: Daniel Corrales Consults: 07/08/21 16:21 Consult Physician Urgent Consulting Provider: Tevin Rees Consult Reason/Comments: ACS Do you want consulting provider notified?: Already Contacted 07/08/21 20:06 Consult Physician Routine Consulting Provider: [facility] Consult Reason/Comments: Post Interventional patient Do you want consulting provider notified?: Already Contacted Primary care physician: Daniel Corrales Hospital Course: HISTORY OF PRESENT ILLNESS: This is a 65-year-old white female with a previous medical history significant for hypertension and hypertensive cardio vascular disease, hyperlipidemia, history of chronic tobacco use and dependence she had smoked about a pack every day for 30 years and she quit in 2018, she was diagnosed as having left upper lobe non-small cell lung cancer after she was found to have a mass on the chest x-ray back in 2018 followed by a PET scan and bronchoscopy with biopsy that showed moderately differentiated adenocarcinoma, she was started chemoradiation therapy with Dr. Sales, and she was on Infinzi, followed by [facility] for a year and recently did have some radiation therapy, and had a PET scan that did show recurrence of her disease, patient was seen in the office about a week ago complaining of increased coughing and increased shortness of breath, she was placed on a Z-Ralph and Medrol Dosepak however she did not do well I saw in the office few days ago and she was complaining of increased pain in the back of her neck associated with bilateral arm pain associated with increased shortness of breath, at that time the patient was advised to go to the ER for evaluation if she is not better however she preferred to have an oral antibiotic as well as longer steroid and she was placed on prednisone burst and taper and she was placed on Levaquin 750 mg orally once every day for 5 days along with DuoNeb nebulization 4 times every day, patient went home, and today developed to have a significant left-sided chest pain radiating to the neck associated with significant shortness of breath and palpitation she ended up coming to the emergency department with her she was found to have a sinus tachycardia and an EKG with a heart rate is 140, her troponin came back positive at 1, her blood glucose level was about 440 suggestive of diabetes mellitus type 2 new onset her 12-lead EKG did show evidence of ST depression, because of her symptoms she was taken to the cardiac cath lab technologist and the patient was found to have a significant coronary artery disease with the 99% stenosis of the LAD and the both diagonal 1 and diagonal 2 VESSELS were stented RCA was about 70% stenosis, it was thought that the patient will be admitted to the hospital and she will have another left heart catheterization and she will have an FFR for evaluation of the RCA. Patient was admitted to telemetry unit, she is sitting up in bed in no apparent distress, she is currently on Brilinta 90 mg orally twice every day along with baby aspirin 81 mg once every day, she was also restarted back on her simvastatin 40 mg orally once every day, echocardiogram was pending at the time of dictation. 07/09: Patient underwent heart catheterization yesterday with Dr. Rees finding 99% stenosis in the mid LAD, 99% in the diagonal one, 60-70% in the RCA. Patient subsequently underwent successful PCI of the mid LAD and PCI of the diagonal 1. She has been started on aspirin 81 mg, Lipitor 80 mg daily, Lopressor increased to 75 mg twice daily, Brilinta 90 mg twice daily. Echocardiogram is pending. Repeat CBC is unremarkable. Sodium 134, creatinine 0.47. Capillary blood glucose running between 115 and 216, 158 this morning. Hemoglobin A1c is 8.4. AST 66. Patient denies having any chest pain, no lightheadedness or dizziness, mild shortness of breath. 07/10: Patient is seen today on the cardiac stepdown unit. She denies having any chest pain. She states she does have some shortness of breath with activity. She has been afebrile, heart rate 99, blood pressure 103/70, pulse ox 94% on room air. Repeat blood work reveals CBC within normal limits. Creatinine 0.46. Capillary blood glucose running between 162 and 212. Cardiology is following and planning for iFR of RCA tomorrow. Echocardiogram reveals EF of 50-55% with mild concentric left hypertrophy, mild aortic valve sclerosis, mild aortic regurgitation, mild mitral regurgitation, mild tricuspid regurgitation. 07/11: Patient has been afebrile, heart rate in the 70s to 90s, blood pressure 91/54, pulse ox 96% on room air. Capillary blood glucose running between 181 and 230. Discussed diabetes management with the patient. She is very resistant to doing insulin herself. Eventually she agreed to try over the next 24 hours Levemir and Humalog with a 10 and nursing will teach her how to administer and manage. Plan to monitor overnight and plan for discharge tomorrow. 07/12: Cardiology has cleared the patient for discharge with plan to follow-up in the office in one week. Blood sugars over the past 24 hours running between 130 478. Patient will be discharged home on Levemir pen and NovoLog pen with follow-up in the office in the next week. DISCHARGE DIAGNOSES 1. Non-ST elevation [place]. Post left heart catheterization with PCI of the LAD, diagonal one, diagonal 2, and moderate disease of the RCA. iFR of the RCA normal. 2. Sinus tachycardia likely related to significant coronary artery disease. 3. New onset diabetes mellitus type 2. A1C 8.4. 4. Hypertension and hypertensive cardiovascular disease. 5. Hyperlipidemia. 6. Hypothyroidism. 7. History of degenerative disc disease of the cervical spine status post fusion. 8. Generalized anxiety disorder. 9. Fibromyalgia/depressive disorder. 10. COPD. 11. Non-small cell lung cancer with moderately differentiated adenocarcinoma status post chemoradiation therapy under the care of Dr. Sales DISCHARGE PLAN Home without home care Greater than 35 minutes was utilized and coordinating patient's discharge. Impression and plan of care have been directed as dictated by the signing physician. Maggie Fierro nurse practitioner acting as scribe for signing physician. Patient Condition at Discharge: Good Plan - Discharge Summary Discharge Rx Participant: No New Discharge Prescriptions: New Ticagrelor [Brilinta] 90 mg PO BID #60 tab Insulin Detemir [Levemir Flextouch Pen] 18 units SQ HS #3 pen Pen Needle, Diabetic [Pen Needle] 1 needle SQ DIRECTED 30 Days #120 needle Metoprolol Tartrate [Lopressor] 75 mg PO BID #60 tab Insulin Lispro [humaLOG Kwikpen] 7 unit SQ AC-TID #5 pen Continue Rosuvastatin Calcium [Crestor] 40 mg PO DAILY Aspirin 81 mg PO DAILY traZODone HCL 50 mg PO HS Levothyroxine Sodium [Synthroid] 100 mcg PO DAILY DULoxetine HCL [Cymbalta] 60 mg PO DAILY Fenofibric Acid (Choline) [Fenofibric Acid] 135 mg PO DAILY Ibuprofen [Motrin Ib] 800 mg PO Q8H PRN PRN Reason: Pain Or Fever > 100.5 predniSONE See Taper PO DIRECTED Acetaminophen [Tylenol] 1,000 mg PO Q4-6H PRN PRN Reason: Pain Or Fever > 100.5 Ipratropium-Albuterol Nebulize [Duoneb 0.5 mg-3 mg/3 ml Soln] 3 ml INHALATION RT-QID PRN PRN Reason: Shortness Of Breath ALPRAZolam [Xanax] 1 mg PO BID PRN PRN Reason: Anxiety Multivit-Min/Iron/Folic/Lutein [Centrum Silver Women Tablet] 1 tab PO DAILY methocarbamoL [Methocarbamol] 500 mg PO BID Albuterol Inhaler [Ventolin Hfa Inhaler] 2 puff INHALATION RT-QID PRN PRN Reason: Shortness Of Breath Discontinued Metoprolol Tartrate [Lopressor] 50 mg PO BID Levofloxacin [Levaquin] 750 mg PO DAILY Discharge Medication List Aspirin 81 mg PO DAILY 12/20/13 [History] Rosuvastatin Calcium [Crestor] 40 mg PO DAILY 12/20/13 [History] DULoxetine HCL [Cymbalta] 60 mg PO DAILY 02/26/19 [History] Levothyroxine Sodium [Synthroid] 100 mcg PO DAILY 02/26/19 [History] traZODone HCL 50 mg PO HS 02/26/19 [History] Fenofibric Acid (Choline) [Fenofibric Acid] 135 mg PO DAILY 11/07/19 [History] Ibuprofen [Motrin Ib] 800 mg PO Q8H PRN 06/07/20 [History] ALPRAZolam [Xanax] 1 mg PO BID PRN 07/08/21 [History] Acetaminophen [Tylenol] 1,000 mg PO Q4-6H PRN 07/08/21 [History] Albuterol Inhaler [Ventolin Hfa Inhaler] 2 puff INHALATION RT-QID PRN 07/08/21 [History] Ipratropium-Albuterol Nebulize [Duoneb 0.5 mg-3 mg/3 ml Soln] 3 ml INHALATION RT-QID PRN 07/08/21 [History] Multivit-Min/Iron/Folic/Lutein [Centrum Silver Women Tablet] 1 tab PO DAILY 07/08/21 [History] methocarbamoL [Methocarbamol] 500 mg PO BID 07/08/21 [History] predniSONE See Taper PO DIRECTED 07/08/21 [History] Ticagrelor [Brilinta] 90 mg PO BID #60 tab 07/09/21 [Rx] Insulin Detemir [Levemir Flextouch Pen] 18 units SQ HS #3 pen 07/12/21 [Rx] Insulin Lispro [humaLOG Kwikpen] 7 unit SQ AC-TID #5 pen 07/12/21 [Rx] Metoprolol Tartrate [Lopressor] 75 mg PO BID #60 tab 07/12/21 [Rx] Pen Needle, Diabetic [Pen Needle] 1 needle SQ DIRECTED 30 Days #120 needle 07/12/21 [Rx] Follow up Appointment(s)/Referral(s): Daniel Corrales MD [Primary Care Provider] - 1-2 days Tevin Rees DO [STAFF PHYSICIAN] - 1 Week Patient Instructions/Handouts: Heart Attack (DC), Heart Healthy Diet (ED), Hypoglycemia in a Person with Diabetes (ED), Type 2 Diabetes in Adults: New Diagnosis (DC), How to Give an Insulin Injection (GEN), Basic Carbohydrate Counting (DC), Basic Carbohydrate Counting (GEN), Insulin Pens (ED), Diabetes and Your Mouth (GEN), Hypertension and Diabetes (ED), What to Do if Your Blood Sugar is Low (ED), Diabetes and Nutrition (ED), Diabetes and Exercise (ED), Type 2 Diabetes Management for Adults (ED) Discharge Disposition: HOME WITH HOME HEALTH SERVICES
== END 2021-07-12 19:10 | disposition home health service (06) | DRG 247 ==
LOC: EC 13:34 → 3SCARD 16:21
PROVIDERS: ADMIT Internal Medicine; ATTEND Internal Medicine
PROC: 027135Z Dilation of Coronary Artery, Two Arteries with Two Drug-eluting Intraluminal Devices, Percutaneous Approach (ICD-10-PCS; principal; 2021-07-08 16:27)
PROC: 4A023N7 Measurement of Cardiac Sampling and Pressure, Left Heart, Percutaneous Approach (ICD-10-PCS; 2021-07-08 16:27)
PROC: B2111ZZ Fluoroscopy of Multiple Coronary Arteries using Low Osmolar Contrast (ICD-10-PCS; 2021-07-08 16:27)
DX: I21.4 Non-ST elevation (NSTEMI) myocardial infarction (principal); C34.90 Malignant neoplasm of unspecified part of unspecified bronchus or lung; E03.9 Hypothyroidism, unspecified; E78.5 Hyperlipidemia, unspecified; F32.A Depression, unspecified; F41.1 Generalized anxiety disorder; I11.9 Hypertensive heart disease without heart failure; I25.10 Atherosclerotic heart disease of native coronary artery without angina pectoris; J44.9 Chronic obstructive pulmonary disease, unspecified; Z20.822 Contact with and (suspected) exposure to COVID-19; M79.7 Fibromyalgia; Z79.02 Long term (current) use of antithrombotics/antiplatelets; Z79.82 Long term (current) use of aspirin; Z79.890 Hormone replacement therapy; Z79.899 Other long term (current) drug therapy; Z82.5 Family history of asthma and other chronic lower respiratory diseases; Z92.21 Personal history of antineoplastic chemotherapy; Z92.3 Personal history of irradiation; Z87.442 Personal history of urinary calculi; Z87.891 Personal history of nicotine dependence; Z90.711 Acquired absence of uterus with remaining cervical stump; Z98.1 Arthrodesis status; E11.65 Type 2 diabetes mellitus with hyperglycemia; R00.0 Tachycardia, unspecified
CPT/HCPCS: 36415; 71046; 71275; 80053; 80061; 83036; 83721; 83735; 83880; 84484; 85025; 85027; 85379; 85610; 85730; 87635; 93005; 93306; 93458; 94640; 94760; 96374; 99285

== ENCOUNTER → 2021-08-05 | Outpatient (CLI) | payer BC ==
--- NOTE | 2021-08-05 19:49 | CT ---
EXAMINATION TYPE: CT brain wo con CT DLP: 980.8 mGycm, Automated exposure control for dose reduction was used. DATE OF EXAM: 08/05/2021 5:34 PM COMPARISON: Nuclear medicine PET scan 04/18/2021. MR brain 05/14/2015 CLINICAL INDICATION:Female, 65 years old with history of R29.898, Right arm numbness and weakness pos t heart catheterization. Patient states they went through her right arm for the cath. Hx of lung canc er. TECHNIQUE: Brain: Multiple axial CT images of the brain were obtained without IV contrast. FINDINGS: Brain: Extra-axial spaces: No abnormal extra-axial fluid collections. Ventricular system: Within normal limits Cerebral parenchyma: No acute intraparenchymal hemorrhage or mass effect. The haywood-white junction is well differentiated. Scattered hypoattenuating areas are seen within the white matter. Cerebellum: Unremarkable. Mass effect: No evidence of midline shift. Intracranial vasculature: Atherosclerotic calcifications of the intracranial vessels. Soft tissues: Normal. Calvarium/osseous structures: No depressed skull fracture. Paranasal sinuses and mastoid air cells: Mild scattered paranasal sinus disease. Visualized orbits: Orbital contents are intact. IMPRESSION: 1. No acute intracranial process. 2. Nonspecific white matter changes, likely secondary to chronic small vessel ischemic disease.
== END | disposition home or self-care (01) ==
LOC: RADCTMAIN 17:11
PROVIDERS: ATTEND Internal Medicine
DX: R29.898 Other symptoms and signs involving the musculoskeletal system (principal)
CPT/HCPCS: 70450

== ENCOUNTER → 2021-08-15 | Outpatient (CLI) | payer BC ==
--- NOTE | 2021-08-18 05:58 | PE ---
EXAMINATION TYPE: PET CT fusion skull to thigh DATE OF EXAM: 08/15/2021 COMPARISON: Prior PET/CT April 18, 2021 and older studies HISTORY: Lung cancer originally diagnosed 2018 TECHNIQUE: Following the intravenous administration of 10.55 mCi of F-18 FDG, whole body images are performed from the skull base to the midthigh. Images are reviewed on the computer in the coronal, a xial, and sagittal planes. Reconstructed rotating images are created on independent workstation and reviewed on the computer. A localization and attenuation correction CT is performed in conjunction with the PET scan. Blood glucose level equals 137 SCAN: Subsequent Scan FINDINGS: SKULL BASE AND NECK: No new areas of abnormal hypermetabolic uptake. CHEST, MEDIASTINUM, AND HILAR REGION: Redemonstration of background moderate underlying emphysematous change. Interval enlargement of the subcentimeter posterior superior right lower lobe nodule now harvey suring 1.2 x 0.9 cm series 3 image 68 with increasing hypermetabolic uptake, max SUV is 5.7 on curren t study. Persistent irregular consolidation right suprahilar level extending anteriorly and left hilar level w ith air bronchograms consistent with posttreatment change. No new abnormal hypermetabolic uptake. There is enlarging but ametabolic 8mm central right lower lobe nodule axial image 81 which should be followed. No additional new areas of abnormal hypermetabolic uptake. ABDOMEN AND PELVIS: Normal excretion is redemonstrated. No new adrenal masses. No new areas of abnorm al hypermetabolic uptake. OSSEOUS STRUCTURES: No new areas of abnormal hypermetabolic uptake. OTHER CT: Stable prominent but benign-appearing right submandibular lymph node . Small to borderline moderate size pericardial effusion is stable. Redemonstration of enlarged pulmonary arteries consiste nt with underlying pulmonary artery hypertension. Mild to moderate coronary artery calcification rede monstrated. Sigmoid colonic diverticula redemonstrated. Surgical change cervical thoracic spine redemonstrated. U terus surgically absent. IMPRESSION: Recurrent neoplasm suspected as there is enlarging more hypervascular right lung posterio r nodule identified on this study.
== END | disposition home or self-care (01) ==
LOC: RADXRMAIN 08:22
PROVIDERS: ATTEND Internal Medicine Hematology & Oncology
DX: C34.12 Malignant neoplasm of upper lobe, left bronchus or lung (principal)
CPT/HCPCS: 78815; A9552

== ENCOUNTER → 2021-11-21 | Outpatient (CLI) | payer BC ==
[2021-11-21 11:49] LABS: African American GFR (CKD) >90 (>60 ml/min/1.73 sqM); Blood Urea Nitrogen 22 mg/dL (7-17); Non-African American GFR(CKD) >90 (>60 ml/min/1.73 sqM)
--- NOTE | 2021-11-21 12:47 | CT ---
EXAMINATION TYPE: CT chest w con DATE OF EXAM: 11/21/2021 COMPARISON: 03/10/2021, PET/CT 08/15/2021 HISTORY: f/u lung ca CT DLP: 300.2 mGycm, Automated exposure control for dose reduction was used. CONTRAST: Performed injected with 70cc mL of Isovue 300. TECHNIQUE: Axial images were obtained at 5 mm thick sections. Reconstructed images are reviewed on [employer] computer in the coronal plane. FINDINGS: Portion of the thyroid visualized is normal. There is a 0.5 cm density with a central hypodensity is nonspecific. Metastatic disease and infiltrat e could be considered at the posterior left apex. Series 4 image 10. There is a 1.0 cm spiculated nodule in the posterior right lung. Series 4 image 13. There is a new 0.5 cm nodule in the posterior right lung, series 4 image 24. There is a irregular nodule within the anterior left upper lung field measuring 0.9 cm. Series 4 imag e 15. There is a 0.4 cm irregular nodule along the lateral right mid lung. Series 4 image 24. Perihilar consolidation with air bronchograms are present. Underlying neoplasm should be considered. There is less well-defined consolidation with the right infrahilar region. These areas were present p reviously. Previous 9 mm nodule posterior right mid lung not identified on the current study. No enlarged mediastinal or hilar adenopathy is evident. The ascending aorta diameter at the level o f the main pulmonary artery is 3.4 cm. The main pulmonary artery diameter at the bifurcation is 3.2 cm. Moderate pericardial effusion is present. Limited CT sections are obtained through the upper abdomen. Abdomen is essentially unremarkable. IMPRESSIONS: 1. Perihilar consolidations. Stable from comparison. 2. Moderate pericardial effusion, increased from prior exam. 3. There appear to be developing spiculated irregular subcentimeter nodules bilaterally.
== END | disposition home or self-care (01) ==
LOC: RADCTMAIN 10:46
PROVIDERS: ATTEND Radiology Radiation Oncology
DX: C34.31 Malignant neoplasm of lower lobe, right bronchus or lung (principal); C34.12 Malignant neoplasm of upper lobe, left bronchus or lung; C34.11 Malignant neoplasm of upper lobe, right bronchus or lung; J44.9 Chronic obstructive pulmonary disease, unspecified; F17.210 Nicotine dependence, cigarettes, uncomplicated; Z92.3 Personal history of irradiation
CPT/HCPCS: 82565; 84520; 71260; 36415; Q9967

== ENCOUNTER → 2021-12-26 | Outpatient (CLI) | payer BC ==
--- NOTE | 2021-12-29 14:43 | PE ---
Nuclear medicine PET CT HISTORY: C 34.12, left lung cancer, subsequent Patient received 8.2 mCi F-18 FDG intravenously and delayed scanning was performed from the skull bas e to the mid thighs. A localization and attenuation correction CT scan was performed. Correlation prior nuclear medicine PET CT 08/15/2021. Average mediastinal uptake SUV 2.5, average liver uptake SUV 3.2 Chest and neck: There is no cervical or supraclavicular adenopathy. No mediastinal or axillary uptake or adenopathy. There is a pericardial effusion. Abnormal soft tissue in the left hilar region with f ine loss again noted, there is right upper lobe strand-like soft tissue similar to prior exam. No ass ociated uptake however. There is a small nodule in the right upper lobe posteriorly similar to prior exam measuring only 8 mm in size but with associated mild uptake, SUV 2.6. ABDOMEN: There is no evident liver uptake. No retroperitoneal adenopathy or adrenal mass. There is no ascites. Uptake within the bowel is likely physiologic. No pelvic adenopathy. Diverticular change is noted especially in the sigmoid colon. Osseous structures show no suspicious uptake. IMPRESSION: Indeterminate pulmonary nodule right upper lobe, similar to prior exam but subcentimeter in size
== END | disposition home or self-care (01) ==
LOC: RADXRMAIN 10:18
PROVIDERS: ATTEND Internal Medicine Hematology & Oncology
DX: C34.12 Malignant neoplasm of upper lobe, left bronchus or lung (principal)
CPT/HCPCS: 78815; A9552

== ENCOUNTER → 2022-04-27 | Outpatient (CLI) | payer BC ==
[2022-04-27 10:27] LABS: African American GFR (CKD) >90 (>60 ml/min/1.73 sqM); Blood Urea Nitrogen 23 mg/dL (7-17); Non-African American GFR(CKD) >90 (>60 ml/min/1.73 sqM)
--- NOTE | 2022-04-27 16:03 | CT ---
EXAMINATION TYPE: CT chest w con DATE OF EXAM: 04/27/2022 COMPARISON: 11/21/2021 HISTORY: h/o lung CA CT DLP: 68.1 mGycm, Automated exposure control for dose reduction was used. CONTRAST: Performed injected with 70 mL of Isovue 300. TECHNIQUE: Axial images were obtained at 5 mm thick sections. Reconstructed images are reviewed on [employer] computer in the coronal plane. Some limitation is present due to beam hardening artifact FINDINGS: Portion of the thyroid visualized is normal. There is an irregular mass in the superior medial right apex measuring 3.1 x 2.9 cm on the current ex amination. Previous measurement 3.1 x 2.2 cm. Paralleling the aortic arch is irregular spiculated mas s measuring 4.7 x 2.3 cm. Previous measurement 4.5 x 2.2 cm. Additional nodularity is present including the anterior left upper lung field measuring 0.7 cm, previ ous measurement 0.9 cm. A 0.4 cm nodule in the posterior right mid lung, series 6 image 24 present pr eviously. There is a 0.4 cm density in the right mid lung. Series 6 image 28, present previously. New nodule is slight anterior this measuring 0.6 cm. Series 6 image 17. Some increased density is wit hin the anterior medial left lung measuring 1.9 x 2.5 cm. Atelectasis could be considered. Mass is wi thin the differential. This is new. No enlarged mediastinal or hilar adenopathy is evident. The ascending aorta diameter at the level o f the main pulmonary artery is 3.5 cm. The main pulmonary artery diameter at the bifurcation is 3.[address] sections are obtained through the upper abdomen. Abdomen is essentially unremarkable. IMPRESSIONS: 1. Slight enlargement of an irregular mass superior medial right apex. 2. Spiculated mass adjacent to the aortic arch appears similar to comparison. 3. Additional irregular nodularities discussed above are largely stable. A new nodule however is malcolm cent measuring 0.6 cm.
== END | disposition home or self-care (01) ==
LOC: RADCTMAIN 09:31
PROVIDERS: ATTEND Internal Medicine Hematology & Oncology
DX: C34.12 Malignant neoplasm of upper lobe, left bronchus or lung (principal); R91.8 Other nonspecific abnormal finding of lung field; Q25.49 Other congenital malformations of aorta; I25.10 Atherosclerotic heart disease of native coronary artery without angina pectoris; E03.9 Hypothyroidism, unspecified; Z71.3 Dietary counseling and surveillance
CPT/HCPCS: 82565; 84520; 71260; 36415; Q9967

== ENCOUNTER 2022-09-23 08:23 | Inpatient (IN) | payer BC ==
[2022-09-23] MEDS ORDERED: ASPIRIN 81 MG PO STA (08:36)
--- NOTE | 2022-09-23 08:46 | ED ---
General Adult HPI - General Chief complaint: Recheck/Abnormal Lab/Rx Stated complaint: Abnormal Labs sent by Dr Time Seen by Provider: 09/23/22 08:30 Source: patient, RN notes reviewed Mode of arrival: ambulatory Limitations: no limitations - History of Present Illness Initial comments: 66-year-old female presents emergency Department with chief complaint of abnormal labs. Patient states she went to her PCP yesterday for routine physical told PCP that she had some chest comfort 4 days ago and some arm pain bilaterally. Patient states his symptoms have resolved. - Related Data Home Medications Medication Instructions Recorded Confirmed Aspirin 81 mg PO DAILY 12/20/13 07/08/21 Rosuvastatin Calcium [Crestor] 40 mg PO DAILY 12/20/13 07/08/21 DULoxetine HCL [Cymbalta] 60 mg PO DAILY 02/26/19 07/08/21 Levothyroxine Sodium [Synthroid] 100 mcg PO DAILY 02/26/19 07/08/21 traZODone HCL 50 mg PO HS 02/26/19 07/08/21 Fenofibric Acid (Choline) 135 mg PO DAILY 11/07/19 07/08/21 [Fenofibric Acid] Albuterol Inhaler [Ventolin Hfa 2 puff INHALATION RT-QID PRN 07/08/21 07/08/21 Inhaler] ALPRAZolam [Xanax] 0.25 mg PO HS 09/23/22 09/23/22 Dapagliflozin Propanediol [Farxiga] 10 mg PO DAILY 09/23/22 09/23/22 Fluticasone/Umeclidin/Vilanter 1 puff INHALATION RT-DAILY 09/23/22 09/23/22 [Trelegy Ellipta 100-62.5-25] Metoprolol Tartrate [Lopressor] 75 mg PO BID 09/23/22 09/23/22 Allergies Allergy/AdvReac Type Severity Reaction Status Date / Time cephalexin monohydrate Allergy Rash/Hives Verified 09/23/22 10:32 [From Keflex] Egg Derived Allergy Anaphylaxis Verified 09/23/22 10:32 latex Allergy Rash/Hives/throat Verified 09/23/22 10:32 swelling/diff breathing simvastatin AdvReac muscle Verified 09/23/22 10:32 cramps Review of Systems ROS Statement: Those systems with pertinent positive or pertinent negative responses have been documented in the HPI. ROS Other: All systems not noted in ROS Statement are negative. Past Medical History Past Medical History: Asthma, Cancer, COPD, Fibromyalgia, GERD/Reflux, Hyperlipidemia, Hypertension, Pneumonia, Thyroid Disorder Additional Past Medical History / Comment(s): HX MIGRAINE, HX KIDNEY STONES, non-small cell lung cancer diagnosed in August 2016 status post chemotherapy and radiation therapy as well as immunotherapy, states "40% use of lungs", new dx cancer rt lung, "rapid heart rate" History of Any Multi-Drug Resistant Organisms: None Reported Past Surgical History: Adenoidectomy, Hysterectomy, Orthopedic Surgery, Tonsillectomy Additional Past Surgical History / Comment(s): LEFT ELBOW carpal tunnel, LEFT wrist CARPAL TUNNEL, EPIDURAL PAIN SHOTS, Anterior Cervical Decomp. and fusion c5-6,c6-7 Past Anesthesia/Blood Transfusion Reactions: Motion Sickness Past Psychological History: Anxiety, Depression Smoking Status: Former smoker Past Alcohol Use History: None Reported Past Drug Use History: None Reported - Past Family History Mother Family Medical History: No Reported History Additional Family Medical History / Comment(s): . Father Additional Family Medical History / Comment(s): Father at age 68 from ALS. Brother(s) Additional Family Medical History / Comment(s): Patient has 1 brother and 1 sister with no major medical problems. Patient has 3 daughters and one has hi story of asthma. Patient does not have any sons. General Exam Limitations: no limitations General appearance: alert, in no apparent distress Head exam: Present: atraumatic, normocephalic, normal inspection Eye exam: Present: normal appearance, PERRL, EOMI. Absent: scleral icterus, c onjunctival injection, periorbital swelling Neck exam: Present: normal inspection, full ROM. Absent: tenderness, meningismus, lymphadenopathy Respiratory exam: Present: normal lung sounds bilaterally. Absent: respiratory distress, wheezes, rales, rhonchi, stridor Cardiovascular Exam: Present: regular rate, normal rhythm, normal heart sounds. Absent: systolic murmur, diastolic murmur, rubs, gallop, clicks Neurological exam: Present: alert Course Vital Signs 09/23/22 09/23/22 08:25 10:52 Temperature 97.7 F Pulse Rate 65 71 Respiratory 20 18 Rate Blood Pressure 122/68 126/75 O2 Sat by Pulse 99 98 Oximetry - Reevaluation(s) Reevaluation #1: 09/23/22 09:[address] Watkins immediately after evaluation EKG Dr. Watkins did come down and evaluate the patient recommend the patient is to be started on heparin no immediate intervention. EKG Findings - EKG Comments: EKG Findings:: EKG performed at 8:38 rate of 65 NH 160 QRS 77 QT/QTC 384/[address] elevation in leads 2 and lead 3 there is mild reciprocal changes inverted T wave in aVL from prior EKG - EKG Results: EKG: interpreted by [facility]AND Medical Decision Making - Medical Decision Making Was pt. sent in by a medical professional or institution (, PA, PERSONAL DEVELOPMENT EDUCATOR, urgent care, hospital, or half-way...) When possible be specific @ -PCP Did you speak to anyone other than the patient for history (EMS, parent, family, police, friend...)? What history was obtained from this source @ -[No] Did you review nursing and triage notes (agree or disagree)? Why? @ -[I reviewed and agree with nursing and triage notes] Were old charts reviewed (outside hosp., previous admission, EMS record, old EKG, old radiological studies, urgent care reports/EKG's, half-way records)? Report findings @ -[No old charts were reviewed] Differential Diagnosis (chest pain, altered mental status, abdominal pain women, abdominal pain men, vaginal bleeding, weakness, fever, dyspnea, syncope, headache, dizziness, GI bleed, back pain, seizure, CVA, palpatations, mental health, musculoskeletal)? @ -[nDifferential Chest Pain: Stable Angina, Unstable Angina, STEMI, NSTEMI Aortic Dissection, Pneumothorax, Musculoskeletal, Esophageal Spasm GERD, Cholecystitis, Pancreatitis, Zoster, this is not meant to be an all-inclusive list. ble] EKG interpreted by me (3pts min.). @ -[As above] X-rays interpreted by me (1pt min.). @ -[Chest x-ray shows increasing perihilar mass] CT interpreted by me (1pt min.). @ -[None done] U/S interpreted by me (1pt. min.). @ -[None done] What testing was considered but not performed or refused? (CT, X-rays, U/S, labs)? Why? @ -[None] What meds were considered but not given or refused? Why? @ -[None] Did you discuss the management of the patient with other professionals (dillon alonzo i.e. , PA, PERSONAL DEVELOPMENT EDUCATOR, lab, RT, psych nurse, social welfare clerk, feather separator, teacher, armored vehicle officer, bilingual patient support caseworker)? Give summary @ -[I discussed the case with Dr. Watkins registered radiologic technologist who came and evaluated the patient recommend patient to be started on heparin, restart all her medications I did discuss case with her PCP Dr. Walker who accepted admission for cardiology evaluation and cardiac cath] Was smoking cessation discussed for >3mins.? @ -[No] Was critical care preformed (if so, how long)? @ -[35 minutes of critical care] Were there social determinants of health that impacted care today? How? (Homelessness, low income, unemployed, alcoholism, drug addiction, transportation, low edu. Level, literacy, decrease access to med. care, mcc, rehab)? @ -[No] Was there de-escalation of care discussed even if they declined (Discuss DNR or withdrawal of care, Hospice)? DNR status @ -[No] What co-morbidities impacted this encounter? (DM, HTN, Smoking, COPD, CAD, Cancer, CVA, ARF, Chemo, Hep., AIDS, mental health diagnosis, sleep apnea, morbid obesity)? @ -[CAD, lung cancer, COPD] Was patient admitted / discharged? Hospital course, mention meds given and route, prescriptions, significant lab abnormalities, going to OR and other pertinent info. @ -[Admitted patient has NSTEMI patient was started on heparin, aspirin, Proventil patient was evaluated by cardiology to have repeat troponins ordered,] Undiagnosed new problem with uncertain prognosis? @ -[No] Drug Therapy requiring intensive monitoring for toxicity (Heparin, Nitro, Insulin, Cardizem)? @ -[Upper and] Were any procedures done? @ -[No] Diagnosis/symptom? @ -[NSTEMI] Acute, or Chronic, or Acute on Chronic? @ -Acute Uncomplicated (without systemic symptoms) or Complicated (systemic symptoms)? @ -Complicated Side effects of treatment? @ -[No] Exacerbation, Progression, or Severe Exacerbation? @ -[No] Poses a threat to life or bodily function? How? (Chest pain, [place], [place], pneumonia, PE, COPD, DKA, ARF, appy, cholecystitis, CVA, Diverticulitis, Homicidal, Suicid al, threat to staff... and all critical care pts) @ -[Yes patient at risk for cardiac arrest] - Lab Data Result diagrams: 09/23/22 08:50 09/23/22 08:30 Lab Results 09/23/22 09/23/22 09/23/22 Range/Units 08:30 08:30 08:30 WBC (3.8-10.6) k/uL RBC (3.80-5.40) m/uL Hgb (11.4-16.0) gm/dL Hct (34.0-46.0) % MCV (80.0-100.0) fL MCH (25.0-35.0) pg MCHC (31.0-37.0) g/dL RDW (11.5-15.5) % Plt Count (150-450) k/uL MPV Neutrophils % % Lymphocytes % % Monocytes % % Eosinophils % % Basophils % % Neutrophils # (1.3-7.7) k/uL Lymphocytes # (1.0-4.8) k/uL Monocytes # (0-1.0) k/uL Eosinophils # (0-0.7) k/uL Basophils # (0-0.2) k/uL PT 11.0 (9.0-12.0) sec INR 1.1 (<1.2) APTT 19.4 L (22.0-30.0) sec Sodium 139 (137-145) mmol/L Potassium 4.9 (3.5-5.1) mmol/L Chloride 105 (98-107) mmol/L Carbon Dioxide 22 (22-30) mmol/L Anion Gap 12 mmol/L BUN 15 (7-17) mg/dL Creatinine 0.48 L (0.52-1.04) mg/dL Est GFR (CKD-EPI)AfAm >90 (>60 ml/min/1.73 sqM) Est GFR (CKD-EPI)NonAf >90 (>60 ml/min/1.73 sqM) Glucose 150 H (74-99) mg/dL Calcium 10.2 (8.4-10.2) mg/dL Magnesium 1.8 (1.6-2.3) mg/dL Total Bilirubin 0.6 (0.2-1.3) mg/dL AST 36 (14-36) U/L ALT 32 (4-34) U/L Alkaline Phosphatase 37 L (38-126) U/L Troponin I 0.060 H* (0.000-0.034) ng/mL NT-Pro-B Natriuret Pep pg/mL Total Protein 7.7 (6.3-8.2) g/dL Albumin 4.6 (3.5-5.0) g/dL 09/23/22 09/23/22 Range/Units 08:50 08:50 WBC 6.3 (3.8-10.6) k/uL RBC 5.48 H (3.80-5.40) m/uL Hgb 15.4 (11.4-16.0) gm/dL Hct 46.9 H (34.0-46.0) % MCV 85.6 (80.0-100.0) fL MCH 28.1 (25.0-35.0) pg MCHC 32.8 (31.0-37.0) g/dL RDW 15.1 (11.5-15.5) % Plt Count 211 (150-450) k/uL MPV 9.4 Neutrophils % 76 % Lymphocytes % 14 % Monocytes % 6 % Eosinophils % 3 % Basophils % 1 % Neutrophils # 4.8 (1.3-7.7) k/uL Lymphocytes # 0.9 L (1.0-4.8) k/uL Monocytes # 0.4 (0-1.0) k/uL Eosinophils # 0.2 (0-0.7) k/uL Basophils # 0.0 (0-0.2) k/uL PT (9.0-12.0) sec INR (<1.2) APTT (22.0-30.0) sec Sodium (137-145) mmol/L Potassium (3.5-5.1) mmol/L Chloride (98-107) mmol/L Carbon Dioxide (22-30) mmol/L Anion Gap mmol/L BUN (7-17) mg/dL Creatinine (0.52-1.04) mg/dL Est GFR (CKD-EPI)AfAm (>60 ml/min/1.73 sqM) Est GFR (CKD-EPI)NonAf (>60 ml/min/1.73 sqM) Glucose (74-99) mg/dL Calcium (8.4-10.2) mg/dL Magnesium (1.6-2.3) mg/dL Total Bilirubin (0.2-1.3) mg/dL AST (14-36) U/L ALT (4-34) U/L Alkaline Phosphatase (38-126) U/L Troponin I (0.000-0.034) ng/mL NT-Pro-B Natriuret Pep 135 pg/mL Total Protein (6.3-8.2) g/dL Albumin (3.5-5.0) g/dL Critical Care Time Critical Care Time: Yes Total Critical Care Time: 35 Disposition Clinical Impression: NSTEMI (non-ST elevated myocardial infarction) Disposition: ADMITTED IP TO THIS [facility] Condition: Fair Referrals: Daniel Corrales MD [Primary Care Provider] - 1-2 days Time of Disposition: 10:01
[2022-09-23] MEDS ORDERED: HEPARIN SODIUM 1,000 UN/ML (10ML VL) IV ONE (08:48)
[2022-09-23] MEDS ORDERED: HEPARIN SODIUM 1,000 UN/ML (10ML VL) IV PRN (08:49)
[2022-09-23] MEDS ORDERED: HEPARIN SOD,PORK IN 0.45% NACL 25,000 UNIT in 0.45% NACL 1 250ML.BAG IV SCH (09:00)
--- NOTE | 2022-09-23 09:04 | XR ---
EXAMINATION TYPE: XR chest 1V portable DATE OF EXAM: 09/23/2022 COMPARISON: 07/08/2021 INDICATION: Chest pain, history of lung cancer TECHNIQUE: Single frontal view of the chest is obtained. FINDINGS: The heart size is mildly prominent. The pulmonary vasculature is normal. Left suprahilar increased density is present. Configuration is changed somewhat from comparison. Stab le stranding in the right suprahilar region. IMPRESSION: 1. Increasing left perihilar density. 2. Stable right perihilar appearance
[2022-09-23 09:06] LABS: Basophils % (A) 1 %; Eosinophils # (A) 0.2 k/uL (0-0.7); Eosinophils % (A) 3 %; HCT 46.9 % (34.0-46.0); HGB 15.4 gm/dL (11.4-16.0); Lymphocytes # (A) 0.9 k/uL (1.0-4.8); Lymphocytes % (A) 14 %; MCH 28.1 pg (25.0-35.0); MCHC 32.8 g/dL (31.0-37.0); MCV 85.6 fL (80.0-100.0); Mean Platelet Volume 9.4; Monocytes # (A) 0.4 k/uL (0-1.0); Monocytes % (A) 6 %; Neutrophils # (A) 4.8 k/uL (1.3-7.7); Neutrophils % (A) 76 %; Platelet Count 211 k/uL (150-450); RBC 5.48 m/uL (3.80-5.40); RDW 15.1 % (11.5-15.5); WBC 6.3 k/uL (3.8-10.6)
[2022-09-23] MEDS ORDERED: ALBUTEROL NEBULIZED 2.5 MG/3 ML INHALATION PRN (09:15)
[2022-09-23] MEDS ORDERED: IPRATROPIUM-ALBUTEROL 3 ML NEB INHALATION PRN (09:15)
[2022-09-23] MEDS ORDERED: ALPRAZolam 0.5 MG TAB PO PRN ×2 (09:15→10:28)
[2022-09-23 09:19] LABS: INR 1.1 (<1.2)
[2022-09-23 09:25] LABS: Partial Thromboplastin Time 19.4 sec (22.0-30.0)
[2022-09-23 09:33] LABS: ALT 32 U/L (4-34); AST 36 U/L (14-36); African American GFR (CKD) >90 (>60 ml/min/1.73 sqM); Albumin 4.6 g/dL (3.5-5.0); Alkaline Phosphatase 37 U/L (38-126); Anion Gap 12 mmol/L; Blood Urea Nitrogen 15 mg/dL (7-17); Calcium 10.2 mg/dL (8.4-10.2); Carbon Dioxide 22 mmol/L (22-30); Chloride 105 mmol/L (98-107); Glucose 150 mg/dL (74-99); Magnesium 1.8 mg/dL (1.6-2.3); Non-African American GFR(CKD) >90 (>60 ml/min/1.73 sqM); Potassium 4.9 mmol/L (3.5-5.1); Sodium 139 mmol/L (137-145); Total Bilirubin 0.6 mg/dL (0.2-1.3); Total Protein 7.7 g/dL (6.3-8.2)
[2022-09-23] MEDS ORDERED: NITROGLYCERIN SL TABS 0.4 MG TAB SUBLINGUAL PRN ×2 (10:21→10:28)
[2022-09-23] MEDS ORDERED: ALPRAZolam 0.25 MG TAB PO PRN (10:28)
[2022-09-23] MEDS ORDERED: ATORVASTATIN 80 MG TAB PO STA (10:28)
[2022-09-23] MEDS ORDERED: ASPIRIN 325 MG TAB PO STA (10:28)
--- NOTE | 2022-09-23 11:53 | CONS ---
CONSULTATION HISTORY OF PRESENT ILLNESS: This is a 66-year-old lady, who has been admitted to the hospital through the emergency room. This lady apparently has known CAD, underwent stenting of LAD and diagonal performed in june 2021. Subsequently, a month later, because of a 60% to 70% RCA lesion, Dr. Rees performed a cardiac cath an IFR which was normal. She has been doing well. She went to see her primary care physician Dr. Corrales yesterday and mentioned that 4 days ago she had a bout of chest pain. The quality of the pain was atypical; however, he performed a blood test including troponin, which was elevated at 0.114 and then promptly asked her to come to the hospital. She has no chest pain. She is resting comfortably at the time of my evaluation; her last episode of chest pain was 4 days ago; troponin was elevated to 0.114. She has no symptoms, resting comfortably, hemodynamically stable. PAST MEDICAL HISTORY: 1. CAD with PCI of the diagonal with a 2.0 caliber Minor stent and PCI of mid LAD with a 2.75 caliber Xience stent. 2. Hypertension. 3. Hyperlipidemia. 4. Type 2 diabetes, under good control. MEDICATIONS: Medications at home include: 1. Metoprolol. 2. Albuterol inhaler. 3. Crestor 40 mg. 4. Aspirin 81 mg daily. 5. She also takes Brilinta 90 mg b.i.d. PHYSICAL EXAMINATION: VITAL SIGNS: Blood pressure is 128/70, pulse rate 70 per minute and regular. HEENT: Unremarkable. Fundus was not examined by me. NECK: Supple. No JVD. I do not hear a carotid bruit. HEART: Reveals S1 and S2 heard normally. No rub, murmur, or gallop. LUNGS: Clear. ABDOMEN: Soft, nontender. EXTREMITIES: Lower extremities reveal normal pulses. No edema. CENTRAL NERVOUS SYSTEM: Normal. EKG revealed sinus mechanism with a [address]-segment elevation in leads II, III, and aVF. Low voltage pattern is noted. IMPRESSION: 1. Subacute non-ST elevation myocardial infarction with elevated troponin. 2. History of coronary artery disease with prior PCI of LAD and diagonal. 3. Hypertension. 4. Diabetes. 5. Hyperlipidemia. RECOMMENDATIONS: I am recommending that we could resume her home medications and also put her on IV heparin. Dr. Rees will perform the cardiac cath. The patient is aware of the rationale, risks, benefits, and options and wishes to proceed. MMODL / IJN: [id number] /
[2022-09-23 11:57] LABS: Glucose,Whole Blood 142 mg/dL (70-110)
--- NOTE | 2022-09-23 12:15 | P.HPIM ---
History of Present Illness H&P Date: 09/23/22 HISTORY OF PRESENT ILLNESS This is a 66-year-old female with past medical history of diabetes mellitus insulin requiring hypertension with hypertensive cardiovascular disease, hyperlipidemia, hypothyroidism, COPD, generalized anxiety disorder, non-small cell lung cancer diagnosed in August 2016 status post chemotherapy, radiation and immunotherapy, history of non-ST elevated NE 06/2021, remote history of tobacco use and dependence. Patient had a cardiac catheterization in June 2021 in the setting of a non-ST NE with Dr. Rees that revealed CAD at 60-70% RCA stenosis,iFR normal at 0.97 and patent LAD and diagonal stents. At that time medical therapy was recommended. Patient was seen in the office on 09/22 and had complained of chest pain, lab work was done which revealed an elevated troponin of 0.114. Patient was contacted, and she was advised to go to the hospital for further evaluation. WBC 6.3, hemoglobin 15.4, platelet 211. INR 1. Electrolytes normal. Creatinine 0.48. Troponin 0.060. ProBNP 135. Liver function tests normal. Magnesium 1.8. Chest x-ray reveals increasing left perihilar density. Stable right perihilar appearance. Patient has been seen by cardiology and scheduled for cardiac catheterization today. REVIEW OF SYSTEMS Constitutional: No fever, no chills, no night sweats. No weight change. No weakness, fatigue or lethargy. No daytime sleepiness. EENT: No headache. No blurred vision or double vision, no loss of vision. No loss of Hearing, no ringing in the ears, no dizziness. No nasal drainage or congestion. No epistaxis. No sore throat. Lungs: No shortness of breath, cough, no sputum production. No wheezing. Cardiovascular: No chest pain, no lower extremity edema. No palpitations. No paroxysmal nocturnal dyspnea. No orthopnea. No lightheadedness or dizziness. No syncopal episodes. Abdominal: No abdominal pain. No nausea, vomiting. No diarrhea. No constipation. No bloody or tarry stools. No loss of appetite. Genitourinary: No dysuria, increased frequency, urgency. No urinary retention. Musculoskeletal: No myalgias. No muscle weakness, no gait dysfunction, no frequent falls. No back pain. No neck pain. Integumentary: No wounds, no lesions. No rash or pruritus. No unusual bruising. No change in hair or nails. Neurologic: No aphasia. No facial droop. No change in mentation. No head injury. No headache. No paralysis. No paresthesia. Psychiatric: No depression. No anxiety. No mood swings. Endocrine: No abnormal blood sugars. No weight change. No excessive sweating or thirst. No cold intolerance. MEDICAL HISTORY Diabetes mellitus insulin requiring Hypertension with hypertensive cardiovascular disease Hyperlipidemia Hypothyroidism COPD Generalized anxiety disorder Non-small cell lung cancer diagnosed in August 2016 status post chemotherapy and radiation therapy and immunotherapy Coronary arthrosclerosis SURGICAL HISTORY Hysterectomy partial in 1983 Left hand carpal tunnel 2010 Cervical spine fusion 2013 Tennis elbow 2009 [place] SOCIAL HISTORY Patient was a smoker of 1/2-1 packs per day starting at age 23 and quit at age 62. She utilizes CBD oil sublingual daily, no illicit drug use, no alcohol use. FAMILY HISTORY Father at 72 from Dee Dee Gehrig's disease. Mother is alive. Patient has one brother, one sister and 3 daughters with no major medical problems.. PHYSICAL EXAMINATION Gen: This is a 66-year-old female. Patient is resting on the ER stretcher and appears to be comfortable and in no acute distress. HEENT: Head is atraumatic, normocephalic, pupils were equal round reactive to light and recommendation, extraocular muscle movement were intact, sclera nonicteric, conjunctivae were pale, mucous membranes of the mouth are somewhat dry. Neck: Supple, no JVP, normal carotid upstroke bilaterally, no lymphadenopathy. Chest: Decreased breath sounds at the bases, few rhonchi minimal expiratory wheezes , no chest wall tenderness, no intercostal retractions. Heart: First heart sound is normal, second heart sounds normal there is systolic ejection murmur 2/6 located in the left sternal border. Abdomen: Soft, nontender, nondistended, positive bowel sounds, no hepatosplenomegaly. Extremities: There is no edema no calf tenderness DP +2 bilaterally. Neurologic examination: Patient is awake alert and oriented X 3, cranial nerves II-12 appear grossly intact, muscle power were 5 out of 5 in upper extremities and 5 out of 5 in bilateral lower extremities, deep tendon reflexes normal bilaterally. ASSESSMENT AND PLAN 1. Non-ST elevated NE. Consult with cardiology appreciated. Patient is scheduled for cardiac catheterization. Continue patient on aspirin 81 mg daily, atorvastatin 80 mg daily, heparin drip, Lopressor 75 mg twice daily, Nitrostat as needed, Brilinta 90 mg twice daily. 2. Diabetes mellitus2 insulin requiring. Continue patient on Levemir 18 units at bedtime, NovoLog 7 units with meals and NovoLog scale as needed, Farxiga 10 mg daily. 3. Hyperlipidemia. Continue atorvastatin 80 mg daily. 4. Hypothyroidism. Continue levothyroxine 100 g daily. 5. Hypertension with hypertensive cardiovascular disease. Continue Lopressor 75 mg twice daily 6. Hypothyroidism. Continue Synthroid 100 g orally once every day. 7. History of degenerative disc disease of the cervical spine status post fusion. Continue patient on Robaxin 500 mg orally twice every day. 8. Generalized anxiety disorder. Continue patient on Xanax 1 mg orally twice every day as needed. 9. Fibromyalgia/depressive disorder. Continue patient on Cymbalta 60 mg orally daily. 10. COPD. continue patient on DuoNeb 3 mg nebulization 4 times every day as needed. 11. Non-small cell lung cancer with moderately differentiated adenocarcinoma status post chemoradiation, radiation and immunotherapy under the care of Dr. Sales 12. DVT prophylaxis. Patient will be placed on heparin 5000 units subcutaneously every 12 hours for 13. GI prophylaxis. Start the patient on PPI . Patient will be admitted to the hospital for a minimum of 2 night stay. DISCHARGE PLAN Return home. Impression and plan of care have been directed as dictated by the signing physician. Maggie Fierro nurse practitioner acting as scribe for signing physician. Past Medical History Past Medical History: Asthma, Cancer, COPD, Fibromyalgia, GERD/Reflux, Hyperlipidemia, Hypertension, Pneumonia, Thyroid Disorder Additional Past Medical History / Comment(s): HX MIGRAINE, HX KIDNEY STONES, non-small cell lung cancer diagnosed in August 2016 status post chemotherapy and radiation therapy as well as immunotherapy, states "40% use of lungs", new dx cancer rt lung, "rapid heart rate" History of Any Multi-Drug Resistant Organisms: None Reported Past Surgical History: Adenoidectomy, Hysterectomy, Orthopedic Surgery, Tonsillectomy Additional Past Surgical History / Comment(s): LEFT ELBOW carpal tunnel, LEFT wrist CARPAL TUNNEL, EPIDURAL PAIN SHOTS, Anterior Cervical Decomp. and fusion c5-6,c6-7 Past Anesthesia/Blood Transfusion Reactions: Motion Sickness Past Psychological History: Anxiety, Depression Smoking Status: Former smoker Past Alcohol Use History: None Reported Past Drug Use History: None Reported - Past Family History Mother Family Medical History: No Reported History Additional Family Medical History / Comment(s): . Father Additional Family Medical History / Comment(s): Father at age 68 from ALS. Brother(s) Additional Family Medical History / Comment(s): Patient has 1 brother and 1 sister with no major medical problems. Patient has 3 daughters and one has history of asthma. Patient does not have any sons. Medications and Allergies Home Medications Medication Instructions Recorded Confirmed Type Aspirin 81 mg PO DAILY 12/20/13 09/23/22 History Rosuvastatin Calcium [Crestor] 40 mg PO HS 12/20/13 09/23/22 History DULoxetine HCL [Cymbalta] 60 mg PO DAILY 02/26/19 09/23/22 History Levothyroxine Sodium [Synthroid] 100 mcg PO DAILY 02/26/19 09/23/22 History traZODone HCL 50 mg PO HS 02/26/19 09/23/22 History Fenofibric Acid (Choline) 135 mg PO HS 11/07/19 09/23/22 History [Fenofibric Acid] Albuterol Inhaler [Ventolin Hfa 2 puff INHALATION RT-QID PRN 07/08/21 09/23/22 History Inhaler] ALPRAZolam [Xanax] 0.25 mg PO HS 09/23/22 09/23/22 History Dapagliflozin Propanediol [Farxiga] 10 mg PO DAILY 09/23/22 09/23/22 History Fluticasone/Umeclidin/Vilanter 1 puff INHALATION RT-DAILY 09/23/22 09/23/22 History [Trelegy Ellipta 100-62.5-25] Metoprolol Tartrate [Lopressor] 75 mg PO BID 09/23/22 09/23/22 History Allergies Allergy/AdvReac Type Severity Reaction Status Date / Time cephalexin monohydrate Allergy Rash/Hives Verified 09/23/22 10:32 [From Keflex] Egg Derived Allergy Anaphylaxis Verified 09/23/22 10:32 latex Allergy Rash/Hives/throat Verified 09/23/22 10:32 swelling/diff breathing simvastatin AdvReac muscle Verified 09/23/22 10:32 cramps Physical Exam Vitals: Vital Signs Temp Pulse Resp BP Pulse Ox 09/23/22 10:52 71 18 126/75 98 09/23/22 08:25 97.7 F 65 20 122/68 99 Intake and Output 09/22/22 09/23/22 09/23/22 22:59 06:59 14:59 Other: Weight 62.596 kg Results CBC & Chem 7: 09/23/22 08:50 09/23/22 08:30 Labs: Abnormal Lab Results - Last 24 Hours (Table) 09/23/22 09/23/22 09/23/22 Range/Units 08:30 08:30 08:30 RBC (3.80-5.40) m/uL Hct (34.0-46.0) % Lymphocytes # (1.0-4.8) k/uL APTT 19.4 L (22.0-30.0) sec Creatinine 0.48 L (0.52-1.04) mg/dL Glucose 150 H (74-99) mg/dL Alkaline Phosphatase 37 L (38-126) U/L Troponin I 0.060 H* (0.000-0.034) ng/mL 09/23/22 Range/Units 08:50 RBC 5.48 H (3.80-5.40) m/uL Hct 46.9 H (34.0-46.0) % Lymphocytes # 0.9 L (1.0-4.8) k/uL APTT (22.0-30.0) sec Creatinine (0.52-1.04) mg/dL Glucose (74-99) mg/dL Alkaline Phosphatase (38-126) U/L Troponin I (0.000-0.034) ng/mL
[2022-09-23] MEDS: INSULIN ASPART (NovoLOG) 100 UNIT/ML VIAL SQ SCH ×2 (13:46→18:03)
[2022-09-23] MEDS: SODIUM CHLORIDE 0.9% 1,000 ML in EMPTY BAG 1 BAG IV SCH (15:31)
[2022-09-23] MEDS ORDERED: VERAPAMIL 2.5 MG/ML 2 ML AMP ONE (16:05)
[2022-09-23] MEDS ORDERED: fentaNYL (PF) 50 MCG/ML 2 ML AMP ONE (16:14)
[2022-09-23] MEDS ORDERED: LIDOCAINE 1% INJ 10MG/ML (5 ML VIAL-PF) SQ ONE (16:25)
[2022-09-23] MEDS ORDERED: VERAPAMIL SYRINGE (5 MG/10 ML) INTRAARTER ONE (16:26)
[2022-09-23] MEDS ORDERED: IV FLUID CONTINUATION 1,000 ML IV ONE (16:28)
[2022-09-23] MEDS: HEPARIN SODIUM 1,000 UN/ML (10ML VL) IV ONE ×3 (16:28→16:53)
[2022-09-23] MEDS ORDERED: MIDAZOLAM 2 MG/2 ML VIAL IV ONE (16:28)
[2022-09-23] MEDS ORDERED: fentaNYL (PF) 50 MCG/1 ML VIAL IV ONE (16:28)
[2022-09-23] MEDS ORDERED: PRASUGREL 10 MG TAB ONE (16:37)
[2022-09-23] MEDS ORDERED: PRASUGREL 10 MG TAB PO ONE (16:39)
[2022-09-23] MEDS ORDERED: IOPAMIDOL-370 100ML BTL INJ ONE (16:54)
[2022-09-23] MEDS ORDERED: ZOLPIDEM 5 MG TAB PO PRN (16:56)
[2022-09-23] MEDS ORDERED: ATROPINE SULFATE 0.1 MG/ML 10ML SYRINGE IV PRN (16:56)
[2022-09-23] MEDS ORDERED: RX INFO: IV CONTRAST WAS GIVEN 1 EACH MISC MISCELLANE PRN (16:56)
[2022-09-23] MEDS ORDERED: MAG HYDROX/AL HYDROX/SIMETH 30 ML CUP PO PRN (16:56)
[2022-09-23] MEDS ORDERED: SODIUM CHLORIDE 0.9% 1,000 ML in EMPTY BAG 1 BAG IV SCH (17:00)
[2022-09-23 17:31] LABS: Glucose,Whole Blood 93 mg/dL (70-110)
[2022-09-23] MEDS ORDERED: ACETAMINOPHEN TAB 325 MG TAB PO PRN ×2 (17:43→17:47)
[2022-09-23 20:12] LABS: Glucose,Whole Blood 100 mg/dL (70-110)
[2022-09-23 21:00] VITALS: TEMP 97.9
[2022-09-23] MEDS ORDERED: traZODone HCL 50 MG TAB PO SCH (21:00)
[2022-09-23] MEDS ORDERED: INSULIN DETEMIR (LEVEMIR) 100 UNIT/ML SYR SQ SCH (21:00)
[2022-09-23] MEDS ORDERED: TICAGRELOR 90 MG TAB PO SCH (21:00)
--- NOTE | 2022-09-23 21:09 | P.PRCINT ---
Percutaneous Coronary Int. - Percutaneous Coronary Intervention Percutaneous Coronary Intervention: PROCEDURES PERFORMED: Left heart catheterization, bilateral coronary angiography, PCI proximal RCA with a 4.0 x 15 mm Xience KATALINA, post dilated with a 4.0 NC balloon, IVUS RCA INDICATION: Non-STEMI CONSENT:I have discussed the risks, benefits and alternative therapies for the above-mentioned procedure and for both sedation/analgesia as well as necessary blood product administration, if indicated, as they pertain to this patient. The patient has indicated understanding and acceptance of the risks and procedures discussed. PROCEDURE: After the risks, benefits and alternatives of the above mentioned procedure explained in detail with the patient, informed consent was obtained. Patient was taken to the catheterization lab and prepped and draped in usual fashion. 1% lidocaine was used to anesthetize the left radial artery given some previous pain from right radial approach. A 6-Micronesian sheath was placed in the left radial artery using modified Seldinger technique. Left coronary angiography was performed with a 5-Micronesian JL 3.5 catheter and right coronary angiography was performed with a 6-Micronesian AR2 catheter in various views. There was dampening of the catheter as it engaged the lesion. A 6-Micronesian AR2 catheter was inserted into the left ventricle and pressure measurements were obtained. The decision was made to perform PCI of the RCA. Heparin was given. A 6Fr AR2 guide was used to engage the RCA. A 0.014 BMW wire was placed in the distal RCA. Predilation was performed with a 3.0 NC balloon. IVUS was performed which showed reference vessel 4.0mm. Next a 4.0 x 15mm Xience KATALINA was deployed in the proximal RCA. The stent was post dilated with a 4.0 NC balloon. IVUS was performed which showed adequate expansion and < 10% stenosis. Final angiograms were performed. Preintervention there was 80% proximal RCA stenosis and JAVIER 3 flow and post intervention there was < 10% stenosis and JAVIER 3 flow. The right radial sheath was removed and a TR band was placed with hemostasis achieved. The patient tolerated the procedure well. Patient was transported back to the post catheterization holding area in stable condition. Conscious Sedation: Patient was monitored under the direct supervision of myself for conscious sedation using Versed and fentanyl for a total duration of 31 minutes HEMODYNAMICS: Ao: 144/91 LV: 139/5, LVEDP 13 SELECTIVE CORONARY ARTERIOGRAPHY: LEFT MAIN: The left main is a large caliber vessel which bifurcates into the LAD and circumflex. There is no significant stenosis. LEFT ANTERIOR DESCENDING CORONARY ARTERY: LAD is a large caliber vessel. There is a patent mid LAD stent and mild ostial diagonal 40% stenosis and otherwise mild luminal irregularities. The LAD does not reach the apex. There is a moderate caliber septal branch which has a branch which nearly reaches the apex. LEFT CIRCUMFLEX CORONARY ARTERY: Left circumflex is a moderate caliber vessel without significant stenosis. RIGHT CORONARY ARTERY: The right coronary artery is a large caliber vessel which gives off a PDA and PLV branch and is the dominant vessel. There is a proximal RCA 80% stenosis and otherwise mild luminal irregularities. FINAL IMPRESSION: 1. CAD as described above including 80% proximal RCA, patent mid LAD stent, 40% ostial diagonal stenosis 2. S/p PCI proximal RCA with a 4.0 x 15 mm Xience KATALINA, post dilated with a 4.0 NC balloon 3. Normal left sided filling pressures PLAN: 1. Aggressive risk factor modification per most recent ACC/AHA guidelines. 2. Continue dual antiplatelets with aspirin and Effient for 12 months.
[2022-09-23] MEDS: METOPROLOL TARTRATE 25 MG TAB PO SCH (21:16)
[2022-09-24] MEDS: methocarbamoL 500 MG TAB PO SCH ×2 (01:36→08:29)
[2022-09-24 06:10] LABS: Glucose,Whole Blood 135 mg/dL (70-110)
[2022-09-24] MEDS: SODIUM CHLORIDE 0.9% 1,000 ML in EMPTY BAG 1 BAG IV SCH (06:20)
[2022-09-24] MEDS: INSULIN ASPART (NovoLOG) 100 UNIT/ML VIAL SQ SCH ×2 (06:25→12:16)
[2022-09-24] MEDS ORDERED: LEVOTHYROXINE 100 MCG TAB PO SCH (06:30)
[2022-09-24] MEDS ORDERED: HEPARIN SODIUM,PORCINE 2,500 UNIT in SODIUM CHLORIDE 0.9% 250 ML IRRIGATION PRN (07:00)
[2022-09-24] MEDS ORDERED: HEPARIN SODIUM,PORCINE 10,000 UNIT in SODIUM CHLORIDE 0.9% 1,000 ML IRRIGATION PRN (07:00)
[2022-09-24] MEDS ORDERED: PANTOPRAZOLE 40 MG TABLET PO SCH (07:30)
[2022-09-24] MEDS: METOPROLOL TARTRATE 25 MG TAB PO SCH (08:28)
[2022-09-24 08:34] VITALS: PULSE 65; RESP 16
[2022-09-24] MEDS ORDERED: ASPIRIN 325 MG TAB PO SCH (09:00)
[2022-09-24] MEDS ORDERED: PRASUGREL 10 MG TAB PO SCH (09:00)
[2022-09-24] MEDS ORDERED: ASPIRIN 81 MG PO SCH (09:00)
[2022-09-24] MEDS ORDERED: ATORVASTATIN 80 MG TAB PO SCH (09:00)
[2022-09-24] MEDS ORDERED: DULoxetine HCL 60 MG CAPSULE.DR PO SCH (09:00)
[2022-09-24 10:54] LABS: Chol/HDL Ratio 3.54 Ratio; LDL Cholesterol,Calculated 83.6 mg/dL (0.0-131.0)
[2022-09-24 11:55] VITALS: BMI 25.2
[2022-09-24 11:58] LABS: Glucose,Whole Blood 138 mg/dL (70-110)
--- NOTE | 2022-09-24 13:01 | P.DS ---
Providers Date of admission: 09/23/22 10:33 Expected date of discharge: 09/24/22 Attending physician: Daniel Corrales Consults: 09/23/22 09:33 Consult Physician Urgent Consulting Provider: Michael Evans Consult Reason/Comments: elevated troponin Do you want consulting provider notified?: Already Contacted 09/23/22 16:56 Consult Physician Routine Consulting Provider: Michael Evans Consult Reason/Comments: Post Interventional Patient Do you want consulting provider notified?: Already Contacted Primary care physician: Daniel Corrales Hospital Course: HISTORY OF PRESENT ILLNESS This is a 66-year-old female with past medical history of diabetes mellitus insulin requiring hypertension with hypertensive cardiovascular disease, hyperlipidemia, hypothyroidism, COPD, generalized anxiety disorder, non-small cell lung cancer diagnosed in August 2016 status post chemotherapy, radiation and immunotherapy, history of non-ST elevated IN 06/2021, remote history of tobacco use and dependence. Patient had a cardiac catheterization in June 2021 in the setting of a non-ST IN with Dr. Rees that revealed CAD at 60-70% RCA stenosis,iFR normal at 0.97 and patent LAD and diagonal stents. At that time medical therapy was recommended. Patient was seen in the office on 09/22 and had complained of chest pain, lab work was done which revealed an elevated troponin of 0.114. Patient was contacted, and she was advised to go to the hospital for further evaluation. WBC 6.3, hemoglobin 15.4, platelet 211. INR 1. Electrolytes normal. Creatinine 0.48. Troponin 0.060. ProBNP 135. Liver function tests normal. Magnesium 1.8. Chest x-ray reveals increasing left perihilar density. Stable right perihilar appearance. Patient has been seen by cardiology and scheduled for cardiac catheterization today. 09/24: Yesterday, patient underwent cardiac catheterization with Dr. Rees which revealed 80% proximal RCA, patent mid LAD stent, 40% ostial diagonal stenosis. Patient underwent PCI of the proximal RCA with stent and balloon. She has been seen by cardiology this morning and is cleared for discharge home today. The blood glucose running between 93 and 135. Patient has been afebrile, heart rate in the 60s, blood pressure 112/68, pulse ox 97% on room air. Patient is unable to tolerate atorvastatin and will be discharged on Crestor. Also updated patient's home medication is metformin was not included in she can resume this on Wednesday. Patient will be discharged home today in stable condition. DISCHARGE DIAGNOSES 1. Non-ST elevated IN. 2. Diabetes mellitus2 insulin requiring. 3. Hyperlipidemia. 4. Hypothyroidism. 5. Hypertension with hypertensive cardiovascular disease. 6. Hypothyroidism. 7. History of degenerative disc disease of the cervical spine status post fusion. 8. Generalized anxiety disorder. 9. Fibromyalgia/depressive disorder. 10. COPD. 11. Non-small cell lung cancer with moderately differentiated adenocarcinoma status post chemoradiation, radiation and immunotherapy under the care of Dr. Sales DISCHARGE PLAN Return home. Greater than 35 minutes was utilized and coordinating patient's discharge. Impression and plan of care have been directed as dictated by the signing physician. Maggie Fierro nurse practitioner acting as scribe for signing physician. Patient Condition at Discharge: Good Plan - Discharge Summary Discharge Rx Participant: Yes New Discharge Prescriptions: New Prasugrel [Effient] 10 mg PO DAILY #90 tab Rosuvastatin Calcium [Crestor] 40 mg PO DAILY #1 tablet metFORMIN HCL ER [Glucophage XR] 500 mg PO DAILY #1 tab Semaglutide [Rybelsus] 3 mg PO DAILY #30 tab Ezetimibe [Zetia] 10 mg PO DAILY #30 tab Continue Aspirin 81 mg PO DAILY traZODone HCL 50 mg PO HS Levothyroxine Sodium [Synthroid] 100 mcg PO DAILY DULoxetine HCL [Cymbalta] 60 mg PO DAILY Fenofibric Acid (Choline) [Fenofibric Acid] 135 mg PO HS ALPRAZolam [Xanax] 0.25 mg PO HS Fluticasone/Umeclidin/Vilanter [Trelegy Ellipta 100-62.5-25] 1 puff INHALATION RT-DAILY Dapagliflozin Propanediol [Farxiga] 10 mg PO DAILY Albuterol Inhaler [Ventolin Hfa Inhaler] 2 puff INHALATION RT-QID PRN PRN Reason: Shortness Of Breath Metoprolol Tartrate [Lopressor] 75 mg PO BID Discontinued Rosuvastatin Calcium [Crestor] 40 mg PO HS Discharge Medication List Aspirin 81 mg PO DAILY 12/20/13 [History] DULoxetine HCL [Cymbalta] 60 mg PO DAILY 02/26/19 [History] Levothyroxine Sodium [Synthroid] 100 mcg PO DAILY 02/26/19 [History] traZODone HCL 50 mg PO HS 02/26/19 [History] Fenofibric Acid (Choline) [Fenofibric Acid] 135 mg PO HS 11/07/19 [History] Albuterol Inhaler [Ventolin Hfa Inhaler] 2 puff INHALATION RT-QID PRN 07/08/21 [History] ALPRAZolam [Xanax] 0.25 mg PO HS 09/23/22 [History] Dapagliflozin Propanediol [Farxiga] 10 mg PO DAILY 09/23/22 [History] Fluticasone/Umeclidin/Vilanter [Trelegy Ellipta 100-62.5-25] 1 puff INHALATION RT-DAILY 09/23/22 [History] Metoprolol Tartrate [Lopressor] 75 mg PO BID 09/23/22 [History] Ezetimibe [Zetia] 10 mg PO DAILY #30 tab 09/24/22 [Rx] Prasugrel [Effient] 10 mg PO DAILY #90 tab 09/24/22 [Rx] Rosuvastatin Calcium [Crestor] 40 mg PO DAILY #1 tablet 09/24/22 [Rx] Semaglutide [Rybelsus] 3 mg PO DAILY #30 tab 09/24/22 [Rx] metFORMIN HCL ER [Glucophage XR] 500 mg PO DAILY #1 tab 09/24/22 [Rx] Follow up Appointment(s)/Referral(s): Daniel Corrales MD [Primary Care Provider] - 1 Week Tevin Rees DO [STAFF PHYSICIAN] - 1 Week Discharge Disposition: HOME SELF-CARE
[2022-09-24 14:28] VITALS: BP 94/56
--- NOTE | 2022-09-24 21:52 | PN ---
PROGRESS NOTE SUBJECTIVE: Ms. Cristobal presented with [id number] TN yesterday, had a catheterization by Dr. Rees from left radial approach. Site is clean and dry with good pulse. Catheterization revealed a significant proximal RCA addressed by stenting, good result, doing well. No symptoms. Vital are stable. EKG is unremarkable. Laboratory data are good. The patient can be discharged today, and she will follow up with Dr. Rees in 1 week. OBJECTIVE: VITAL SIGNS: Stable. HEENT: No JVD. HEART: S1 and S2 heard normally. LUNGS: Clear. ABDOMEN: Unremarkable. LOWER EXTREMITIES: Unremarkable. UPPER EXTREMITIES: Left radial site is clean and dry with a good pulse. PLAN: The patient can be discharged today. MMODL / IJN: [id number] /
== END 2022-09-24 14:33 | disposition home or self-care (01) | DRG 247 ==
LOC: EC 08:23 → 3SCARD 10:33
PROVIDERS: ADMIT Internal Medicine; ATTEND Internal Medicine
PROC: B240ZZ3 Ultrasonography of Single Coronary Artery, Intravascular (ICD-10-PCS; 2022-09-23)
PROC: B2151ZZ Fluoroscopy of Left Heart using Low Osmolar Contrast (ICD-10-PCS; 2022-09-23)
PROC: 027034Z Dilation of Coronary Artery, One Artery with Drug-eluting Intraluminal Device, Percutaneous Approach (ICD-10-PCS; principal; 2022-09-23 12:10)
PROC: 4A023N7 Measurement of Cardiac Sampling and Pressure, Left Heart, Percutaneous Approach (ICD-10-PCS; 2022-09-23 12:10)
PROC: B2111ZZ Fluoroscopy of Multiple Coronary Arteries using Low Osmolar Contrast (ICD-10-PCS; 2022-09-23 12:10)
DX: I21.4 Non-ST elevation (NSTEMI) myocardial infarction (principal); C34.91 Malignant neoplasm of unspecified part of right bronchus or lung; I11.9 Hypertensive heart disease without heart failure; J44.9 Chronic obstructive pulmonary disease, unspecified; E03.9 Hypothyroidism, unspecified; F32.A Depression, unspecified; E78.5 Hyperlipidemia, unspecified; F41.1 Generalized anxiety disorder; M79.7 Fibromyalgia; I25.119 Atherosclerotic heart disease of native coronary artery with unspecified angina pectoris; I25.2 Old myocardial infarction; Z98.1 Arthrodesis status; Z79.899 Other long term (current) drug therapy; Z79.890 Hormone replacement therapy; Z79.82 Long term (current) use of aspirin; Z79.84 Long term (current) use of oral hypoglycemic drugs; Z79.51 Long term (current) use of inhaled steroids; Z91.040 Latex allergy status; Z88.8 Allergy status to other drugs, medicaments and biological substances; Z91.012 Allergy to eggs; Z88.1 Allergy status to other antibiotic agents; Z92.21 Personal history of antineoplastic chemotherapy; Z92.3 Personal history of irradiation; Z85.118 Personal history of other malignant neoplasm of bronchus and lung; Z87.891 Personal history of nicotine dependence
CPT/HCPCS: 36415; 71045; 80053; 80061; 83735; 83880; 84484; 85025; 85610; 85730; 92978; 93005; 93458; 94760; 96374; 99291

== ENCOUNTER → 2022-10-09 | Outpatient (CLI) | payer BC ==
--- NOTE | 2022-10-12 09:55 | PE ---
EXAMINATION TYPE: PET CT fusion skull to thigh DATE OF EXAM: 10/09/2022 COMPARISON: CT chest 04/27/2022 Prior PET/CT: 12/26/2021 HISTORY: Lung cancer TECHNIQUE: Following the intravenous administration of 12.14 mCi of F-18 FDG, whole body images are performed from the skull base to the midthigh. Images are reviewed on the computer in the coronal, a xial, and sagittal planes. Reconstructed rotating images are created on independent workstation and reviewed on the computer. A localization and attenuation correction CT is performed in conjunction with the PET scan. DLP: 400.53 mGycm SCAN: Subsequent Blood glucose: 106 mg/dL Average Mediastinum SUV: 1.49 Average Liver SUV: 2.32 FINDINGS: NECK: No abnormal uptake THORAX: There is mild uptake within the suprahilar densities bilaterally. SUV on the right is 1.36. SUV on the left is 1.7. There are several nodules present. 1. Right upper lobe. Series 3 image 57. SUV 0.49. 2. Right mid lung on 0.2 cm. Series 3 image 76. SUV 0.64 3. Posterior small nodule right mid lung. Series 3 image 79. 4. Anterolateral right lung density. Series 3 image 82. SUV 0.42 5. Posterior medial left lung base. Series 3 image 138 ABDOMEN: No abnormal uptake PELVIS: No abnormal uptake OSSEOUS STRUCTURES: No abnormal uptake LOCALIZATION CT: Several scattered lung nodules as well as suprahilar masses discussed above. There i s a moderate pericardial effusion COMPARISON: CT findings appear stable from comparison. IMPRESSION: 1. Intermediate uptake within areas of suprahilar density. Findings appears similar in comparison sug gesting a more nonaggressive process. Continue monitoring recommended 2. Additional lung nodules with low radiotracer uptake suggesting nonaggressive process. 3. Moderate pericardial effusion.
== END | disposition home or self-care (01) ==
LOC: RADPETMAIN 14:26
PROVIDERS: ATTEND Internal Medicine Hematology & Oncology
DX: C34.12 Malignant neoplasm of upper lobe, left bronchus or lung (principal); J90 Pleural effusion, not elsewhere classified; J98.4 Other disorders of lung
CPT/HCPCS: 78815; A9552

== ENCOUNTER → 2023-03-10 | Outpatient (CLI) | payer MEDICARE, BC ==
[2023-03-10 10:32] LABS: African American GFR (CKD) >90 (>60 ml/min/1.73 sqM); Blood Urea Nitrogen 16 mg/dL (7-17); Non-African American GFR(CKD) >90 (>60 ml/min/1.73 sqM)
--- NOTE | 2023-03-10 11:24 | CT ---
EXAMINATION TYPE: CT chest w con DATE OF EXAM: 03/10/2023 COMPARISON: 04/27/2022. HISTORY: lung cancer CT DLP: 685 mGycm Automated exposure control for dose reduction was used. TECHNIQUE: CT scan of the chest is performed with IV Contrast, patient injected with 100 mL of Isovue 300. MIP Images are created on CT scanner and reviewed. 3D reconstructed images are created on an independent workstation and reviewed. FINDINGS: Mediastinum and Nicole: Soft tissue density within the perihilar regions bilaterally likely corresponds to some posttreatment radiation changes and is unchanged since the previous examination. Pleural and Pericardial spaces: There is a small pericardial effusion. No pleural effusions are seen. Upper Abdomen: The visualized upper abdomen is unremarkable. Cardiovascular: There is moderate vascular calcification throughout the thoracic aorta without eviden ce of aneurysmal dilation or dissection. Pulmonary Artery: There are no central pulmonary arterial abnormalities. The examination was not per formed to evaluate for pulmonary embolism. Lung Parenchyma and Airways: Parenchyma changes in the right upper lobe appears similar to the previo us examination may relate to prior treatment changes. Nodular density within the left upper lobe curr ently measures 2.2 cm in diameter and previously measured 1.8 cm in diameter on the prior PET/CT for comparison. This complaints represent some evolution of treatment changes, however and be considered in this would be better evaluated with a PET CT. Scattered emphysematous changes are noted. There are nodular density within the right middle lobe is unchanged. Right lower lobe nodule measuring 1.1 cm in diameter is similar in size to the more recent examination from 10/09/2022, however increased since 04/27/2022. Bones: No fracture or aggressive osseous lesion. IMPRESSION: 1. Increased size of a nodular density within the left upper lobe described above. This could potenti ally represent enlarging malignancy or recurrent disease. 2. Additional nodule within the superior segment of the right lower lobe is very similar to the most recent previous examination, however increase in size over time and sent increasing disease. These fi ndings would be better evaluated with a PET/CT. 3. Additional findings compatible with treatment changes. 4. Small pericardial effusion.
== END | disposition home or self-care (01) ==
LOC: RADCTMAIN 09:52
PROVIDERS: ATTEND Internal Medicine Hematology & Oncology
DX: C34.12 Malignant neoplasm of upper lobe, left bronchus or lung (principal); I31.39 Other pericardial effusion (noninflammatory); J98.4 Other disorders of lung; I25.10 Atherosclerotic heart disease of native coronary artery without angina pectoris; E03.9 Hypothyroidism, unspecified; Z71.3 Dietary counseling and surveillance
CPT/HCPCS: 82565; 84520; 71260; 36415; Q9967

== ENCOUNTER → 2023-07-16 | Outpatient (CLI) | payer MEDICARE, BC ==
--- NOTE | 2023-07-17 08:22 | MR ---
EXAMINATION TYPE: MR brain wo/w con DATE OF EXAM: 07/16/2023 12:18 PM COMPARISON: NONE HISTORY: Lung cancer CONTRAST: Patient received 7 mL intravenous Gadobutrol gadolinium contrast. Multiplanar and multispin-echo imaging of the brain was performed . Pre and post contrast enhanced i mages are obtained. The ventricles, basal cisterns and sulci overlying the cerebral convexities are mildly enlarged. There is evidence of mild periventricular white matter ischemic demyelination. Remote deep white matter insults are also noted. No acute edema is seen on diffusion weighted imaging. There is no evidence for midline shift or mass effect. Acute intracranial hemorrhage or extra-axial collection is not evident. No enhancing lesions are seen. The paranasal sinuses and mastoid air cells are well-aerated. IMPRESSION: Age-related atrophic and chronic small vessel ischemic change. No acute intracranial process at this time. No enhancing lesions are seen.
== END | disposition home or self-care (01) ==
LOC: RADMRIMAIN 09:51
PROVIDERS: ATTEND Internal Medicine Hematology & Oncology
DX: I67.82 Cerebral ischemia (principal); C34.12 Malignant neoplasm of upper lobe, left bronchus or lung; G31.1 Senile degeneration of brain, not elsewhere classified
CPT/HCPCS: 70553; A9585

== ENCOUNTER → 2023-08-12 | Outpatient (CLI) | payer MEDICARE, BC ==
[2023-08-12 10:26] LABS: African American GFR (CKD) >90 (>60 ml/min/1.73 sqM); Blood Urea Nitrogen 20 mg/dL (7-17); Non-African American GFR(CKD) >90 (>60 ml/min/1.73 sqM)
--- NOTE | 2023-08-12 11:33 | CT ---
EXAMINATION TYPE: CT chest w con CT DLP: 626 mGycm, Automated exposure control for dose reduction was used. DATE OF EXAM: 08/12/2023 11:21 AM COMPARISON: CT 03/10/2023, PET 10/09/2022 CLINICAL INDICATION:Female, 67 years old with history of C34 .12 LUNG CA; PHH, lung ca TECHNIQUE: Multiple axial images were obtained through the chest. Sagittal and coronal reformats were created for review. Contrast used:100 mL of Isovue 300 with IV Contrast (None if empty) Oral contrast used: (None if empty) FINDINGS: LUNGS/ PLEURA: * Areas of abnormal parenchymal within the right upper lobe measuring up to 33 x 15 mm previously me asuring 25 x 16 mm on 03/10/2023 on axial imaging may be mildly increased in soft tissue density. * More superiorly above this region is a nodule that appears larger measuring 10 mm, previously 7 mm series 3 image 8. * Left upper lung nodule measuring slightly larger along the anterior aspect measuring 17 x 16 mm pr eviously 11 x 11 mm. Increased soft tissue along the left perihilar region is felt to be grossly vero lar. * Right lower lobe superior segment increasing size of pulmonary nodule now measuring 16 mm previous ly 12 mm on 10/09/2022 * Smaller pulmonary nodule right lower lobe measuring 5 mm they be fractionally larger. Series 4 sunil ge 22. AIRWAY: Patent and unremarkable. HEART: There is small pericardial effusion. The heart is within normal limits for size. Mild coronary artery atherosclerosis. MEDIASTINUM: No enlarged lymph nodes visualized in the mediastinum. VASCULATURE: No aortic aneurysm. MUSCULOSKELETAL: No acute osseous abnormalities partially visualized fixation hardware in the cervica l spine appears intact. SOFT TISSUES/LYMPH NODES: Right paratracheal lymph node isr thoracic Inlet measuring 7 mm in short ax is is unchanged. LOWER NECK: No significant findings. UPPER ABDOMEN: No significant findings. IMPRESSION: 1. Increasing size of right upper lung apex nodule and right lower lobe superior segment nodules con cerning for progression of disease. There remains abnormal parenchyma within the bilateral upper lung s which may be mildly increased in soft tissue compared to prior on 10/09/2022 and 03/10/2023. No enla rging lymph nodes in the mediastinum visualized. 2. Small pericardial effusion.
== END | disposition home or self-care (01) ==
LOC: RADCTMAIN 09:48
PROVIDERS: ATTEND Internal Medicine Hematology & Oncology
DX: I31.39 Other pericardial effusion (noninflammatory) (principal); R91.8 Other nonspecific abnormal finding of lung field; C34.12 Malignant neoplasm of upper lobe, left bronchus or lung; I25.10 Atherosclerotic heart disease of native coronary artery without angina pectoris; E03.9 Hypothyroidism, unspecified; Z71.3 Dietary counseling and surveillance
CPT/HCPCS: 82565; 84520; 71260; 36415; Q9967

== ENCOUNTER 2023-09-17 08:10 | Emergency (ER) | payer MEDICARE, BC ==
--- NOTE | 2023-09-17 08:57 | ED ---
General Adult HPI - General Chief complaint: Upper Respiratory Infection Stated complaint: SOB Source: patient, RN notes reviewed, old records reviewed Mode of arrival: ambulatory Limitations: no limitations - History of Present Illness Initial comments: This is a 67-year-old female who presents to the emergency department with a past medical history significant for lung cancer, coronary artery disease, high blood pressure, and diabetes. Patient comes in today because yesterday she started becoming more short of breath than normal and started feeling achy all over. Patient states she has felt warm and cold but has not taken her temperature. Patient denies any chest pain. Patient denies any back pain. Patient denies any abdominal pain patient has nausea vomit diarrhea. - Related Data Home Medications Medication Instructions Recorded Confirmed Aspirin 81 mg PO DAILY 12/20/13 09/17/23 DULoxetine HCL [Cymbalta] 60 mg PO DAILY 02/26/19 09/17/23 Levothyroxine Sodium [Synthroid] 100 mcg PO DAILY 02/26/19 09/17/23 traZODone HCL 50 mg PO HS 02/26/19 09/17/23 Fenofibric Acid (Choline) 135 mg PO HS 11/07/19 09/17/23 [Fenofibric Acid] Albuterol Inhaler [Ventolin Hfa 2 puff INHALATION RT-QID PRN 07/08/21 09/17/23 Inhaler] ALPRAZolam [Xanax] 0.25 mg PO HS 09/23/22 09/17/23 Dapagliflozin Propanediol [Farxiga] 10 mg PO DAILY 09/23/22 09/17/23 Fluticasone/Umeclidin/Vilanter 1 puff INHALATION RT-DAILY 09/23/22 09/17/23 [Trelegy Ellipta 100-62.5-25] atenoloL [Tenormin] 50 mg PO BID 09/17/23 09/17/23 metFORMIN HCL ER [Glucophage XR] 500 mg PO W/SUPPER 09/17/23 09/17/23 Previous Rx's Medication Instructions Recorded Ezetimibe [Zetia] 10 mg PO DAILY #30 tab 09/24/22 Prasugrel [Effient] 10 mg PO DAILY #90 tab 09/24/22 Rosuvastatin Calcium [Crestor] 40 mg PO DAILY #1 tablet 06/15/23 Semaglutide [Rybelsus] 3 mg PO DAILY #30 tab 09/24/22 Azithromycin [Zithromax Tri-Ralph (3 500 mg PO DAILY 3 Days #3 tab 09/17/23 tabs)] Allergies Allergy/AdvReac Type Severity Reaction Status Date / Time cephalexin monohydrate Allergy Rash/Hives Verified 09/17/23 09:46 [From Keflex] Egg Derived Allergy Anaphylaxis Verified 09/17/23 09:46 latex Allergy Rash/Hives/throat Verified 09/17/23 09:46 swelling/diff breathing simvastatin AdvReac muscle Verified 09/17/23 09:46 cramps Review of Systems ROS Statement: Those systems with pertinent positive or pertinent negative responses have been documented in the HPI. ROS Other: All systems not noted in ROS Statement are negative. Past Medical History Past Medical History: Asthma, Cancer, COPD, Fibromyalgia, GERD/Reflux, Hyperlipidemia, Hypertension, Pneumonia, Thyroid Disorder Additional Past Medical History / Comment(s): HX MIGRAINE, HX KIDNEY STONES, non-small cell lung cancer diagnosed in August 2016 status post chemotherapy and radiation therapy as well as immunotherapy, states "40% use of lungs", new dx cancer rt lung, "rapid heart rate" History of Any Multi-Drug Resistant Organisms: None Reported Past Surgical History: Adenoidectomy, Hysterectomy, Orthopedic Surgery, Tonsillectomy Additional Past Surgical History / Comment(s): LEFT ELBOW carpal tunnel, LEFT wrist CARPAL TUNNEL, EPIDURAL PAIN SHOTS, Anterior Cervical Decomp. and fusion c5-6,c6-7 Past Anesthesia/Blood Transfusion Reactions: Motion Sickness Past Psychological History: Anxiety, Depression Smoking Status: Former smoker Past Alcohol Use History: None Reported Past Drug Use History: None Reported - Past Family History Mother Family Medical History: No Reported History Additional Family Medical History / Comment(s): . Father Additional Family Medical History / Comment(s): Father at age 68 from ALS. Brother(s) Additional Family Medical History / Comment(s): Patient has 1 brother and 1 si ster with no major medical problems. Patient has 3 daughters and one has history of asthma. Patient does not have any sons. General Exam - General Exam Comments Initial Comments: GENERAL: Patient is well-developed and well-nourished. Patient is nontoxic and well- hydrated and is in mild distress. ENT: Neck is soft and supple. No significant lymphadenopathy is noted. Oropharynx is clear. Moist mucous membranes. Neck has full range of motion without eliciting any pain. EYES: The sclera were anicteric and conjunctiva were pink and moist. Extraocular movements were intact and pupils were equal round and reactive to light. Eyelids were unremarkable. PULMONARY: Unlabored respirations. Good breath sounds bilaterally. No audible rales rhonchi or wheezing was noted. CARDIOVASCULAR: There is a regular rate and rhythm without any murmurs gallops or rubs. ABDOMEN: Soft and nontender with normal bowel sounds. SKIN: Skin is clear with no lesions or rashes and otherwise unremarkable. NEUROLOGIC: Patient is alert and oriented x3. Cranial nerves II through XII are grossly intact. Motor and sensory are also intact. Normal speech, volume and content. Symmetrical smile. MUSCULOSKELETAL: Normal extremities with adequate strength and full range of motion. No lower extremity swelling or edema. No calf tenderness. LYMPHATICS: No significant lymphadenopathy is noted PSYCHIATRIC: Normal psychiatric evaluation. Limitations: no limitations Course Vital Signs 09/17/23 09/17/23 09/17/23 08:15 08:22 08:49 Temperature 100 F H Pulse Rate 92 Respiratory 20 18 Rate Blood Pressure 97/62 O2 Sat by Pulse 94 L 92 L Oximetry 09/17/23 09/17/23 09/17/23 08:50 08:54 09:00 Temperature Pulse Rate 90 Respiratory 22 Rate Blood Pressure 91/56 O2 Sat by Pulse 91 L 96 96 Oximetry 09/17/23 09:10 Temperature Pulse Rate Respiratory Rate Blood Pressure 101/62 O2 Sat by Pulse 96 Oximetry Medical Decision Making - Medical Decision Making EKG is interpreted by myself but EKG shows sinus rhythm at 90 bpm parable 169 QRS of 77 QT interval 337 QTc is 385. Patient's EKG shows no ST segment ovation or depression. Patient does have Q waves in inferior leads Was pt. sent in by a medical professional or institution (, PA, REEL REPAIRER, urgent care, hospital, or skilled nursing...) When possible be specific @ -No Did you speak to anyone other than the patient for history (EMS, parent, family, police, friend...)? What history was obtained from this source @ -No Did you review nursing and triage notes (agree or disagree)? Why? @ -I reviewed and agree with nursing and triage notes Were old charts reviewed (outside hosp., previous admission, EMS record, old EKG, old radiological studies, urgent care reports/EKG's, skilled nursing records)? Report findings @ -No old charts were reviewed Differential Diagnosis (chest pain, altered mental status, abdominal pain women, abdominal pain men, vaginal bleeding, weakness, fever, dyspnea, syncope, headache, dizziness, GI bleed, back pain, seizure, CVA, palpatations, mental health, musculoskeletal)? @ -Upper respiratory infection, bronchitis, pneumonia, PE, this is not an all- inclusive list EKG interpreted by me (3pts min.). @ -As above X-rays interpreted by me (1pt min.). @ -Chest x-ray shows a right upper lobe mass CT interpreted by me (1pt min.). @ -CT scan shows right upper lobe mass that is unchanged but there are some new nodules. U/S interpreted by me (1pt. min.). @ -None done What testing was considered but not performed or refused? (CT, X-rays, U/S, labs)? Why? @ -None What meds were considered but not given or refused? Why? @ -None Did you discuss the management of the patient with other professionals (professionals i.e. , PA, REEL REPAIRER, lab, RT, psych nurse, social media campaign manager, screedman/laborer, teacher, chief program officer, telephonic case manager)? Give summary @ -No Was smoking cessation discussed for >3mins.? @ -No Was critical care preformed (if so, how long)? @ -No Were there social determinants of health that impacted care today? How? (Homelessness, low income, unemployed, alcoholism, drug addiction, transportation, low edu. Level, literacy, decrease access to med. care, assisted, rehab)? @ -No Was there de-escalation of care discussed even if they declined (Discuss DNR or withdrawal of care, Hospice)? DNR status @ -No What co-morbidities impacted this encounter? (DM, HTN, Smoking, COPD, CAD, Cancer, CVA, ARF, Chemo, Hep., AIDS, mental health diagnosis, sleep apnea, morbid obesity)? @ -None Was patient admitted / discharged? Hospital course, mention meds given and route, prescriptions, significant lab abnormalities, going to OR and other pertinent info. @ -Patient has an elevated white count secondary to the cancer patient will get some antibiotics and will go home on antibiotics. Undiagnosed new problem with uncertain prognosis? @ -No Drug Therapy requiring intensive monitoring for toxicity (Heparin, Nitro, Insulin, Cardizem)? @ -No Were any procedures done? @ -No Diagnosis/symptom? @ -Pneumonia Acute, or Chronic, or Acute on Chronic? @ -Acute Uncomplicated (without systemic symptoms) or Complicated (systemic symptoms)? @ -Complicated Side effects of treatment? @ -No Exacerbation, Progression, or Severe Exacerbation? @ -No Poses a threat to life or bodily function? How? (Chest pain, [place], [place], pneumonia, PE, COPD, DKA, ARF, appy, cholecystitis, CVA, Diverticulitis, Homicidal, Suicidal, threat to staff... and all critical care pts) @ -No - Lab Data Result diagrams: 09/17/23 09:10 09/17/23 09:10 Lab Results 09/17/23 09/17/23 09/17/23 Range/Units 09:10 09:10 09:10 WBC 12.5 H (3.8-10.6) k/uL RBC 5.28 (3.80-5.40) m/uL Hgb 14.6 (11.4-16.0) gm/dL Hct 46.1 H (34.0-46.0) % MCV 87.4 (80.0-100.0) fL MCH 27.7 (25.0-35.0) pg MCHC 31.8 (31.0-37.0) g/dL RDW 14.8 (11.5-15.5) % Plt Count 172 (150-450) k/uL MPV 9.4 Neutrophils % 87 % Lymphocytes % 4 % Monocytes % 6 % Eosinophils % 1 % Basophils % 0 % Neutrophils # 10.9 H (1.3-7.7) k/uL Lymphocytes # 0.5 L (1.0-4.8) k/uL Monocytes # 0.8 (0-1.0) k/uL Eosinophils # 0.1 (0-0.7) k/uL Basophils # 0.1 (0-0.2) k/uL D-Dimer 0.93 H (<0.60) mg/L FEU Sodium 136 L (137-145) mmol/L Potassium 4.8 (3.5-5.1) mmol/L Chloride 108 H (98-107) mmol/L Carbon Dioxide 21 L (22-30) mmol/L Anion Gap 7 mmol/L BUN 11 (7-17) mg/dL Creatinine 0.41 L (0.52-1.04) mg/dL Est GFR (CKD-EPI)AfAm >90 (>60 ml/min/1.73 sqM) Est GFR (CKD-EPI)NonAf >90 (>60 ml/min/1.73 sqM) Glucose 160 H (74-99) mg/dL Calcium 9.3 (8.4-10.2) mg/dL Magnesium 1.7 (1.6-2.3) mg/dL Total Bilirubin 1.1 (0.2-1.3) mg/dL AST 46 H (14-36) U/L ALT 69 H (4-34) U/L Alkaline Phosphatase 42 (38-126) U/L Troponin I (0.000-0.034) ng/mL NT-Pro-B Natriuret Pep 486 pg/mL Total Protein 6.8 (6.3-8.2) g/dL Albumin 3.9 (3.5-5.0) g/dL Influenza Type A (PCR) (Not Detectd) Influenza Type B (PCR) (Not Detectd) RSV (PCR) (Not Detectd) SARS-CoV-2 (PCR) (Not Detectd) 09/17/23 09/17/23 Range/Units 09:10 09:10 WBC (3.8-10.6) k/uL RBC (3.80-5.40) m/uL Hgb (11.4-16.0) gm/dL Hct (34.0-46.0) % MCV (80.0-100.0) fL MCH (25.0-35.0) pg MCHC (31.0-37.0) g/dL RDW (11.5-15.5) % Plt Count (150-450) k/uL MPV Neutrophils % % Lymphocytes % % Monocytes % % Eosinophils % % Basophils % % Neutrophils # (1.3-7.7) k/uL Lymphocytes # (1.0-4.8) k/uL Monocytes # (0-1.0) k/uL Eosinophils # (0-0.7) k/uL Basophils # (0-0.2) k/uL D-Dimer (<0.60) mg/L FEU Sodium (137-145) mmol/L Potassium (3.5-5.1) mmol/L Chloride (98-107) mmol/L Carbon Dioxide (22-30) mmol/L Anion Gap mmol/L BUN (7-17) mg/dL Creatinine (0.52-1.04) mg/dL Est GFR (CKD-EPI)AfAm (>60 ml/min/1.73 sqM) Est GFR (CKD-EPI)NonAf (>60 ml/min/1.73 sqM) Glucose (74-99) mg/dL Calcium (8.4-10.2) mg/dL Magnesium (1.6-2.3) mg/dL Total Bilirubin (0.2-1.3) mg/dL AST (14-36) U/L ALT (4-34) U/L Alkaline Phosphatase (38-126) U/L Troponin I <0.012 (0.000-0.034) ng/mL NT-Pro-B Natriuret Pep pg/mL Total Protein (6.3-8.2) g/dL Albumin (3.5-5.0) g/dL Influenza Type A (PCR) Not Detected (Not Detectd) Influenza Type B (PCR) Not Detected (Not Detectd) RSV (PCR) Not Detected (Not Detectd) SARS-CoV-2 (PCR) Not Detected (Not Detectd) Disposition Clinical Impression: Pneumonia Disposition: HOME SELF-CARE Condition: Good Instructions (If sedation given, give patient instructions): Bacterial Pneumonia (ED) Prescriptions: Azithromycin [Zithromax Tri-Ralph (3 tabs)] 500 mg PO DAILY 3 Days #3 tab Is patient prescribed a controlled substance at d/c from ED?: No Referrals: Daniel Corrales MD [Primary Care Provider] - 1-2 days Time of Disposition: 12:15
[2023-09-17] MEDS: IBUPROFEN 600 MG TAB PO STA (09:17)
[2023-09-17] MEDS: ACETAMINOPHEN TAB 500 MG TAB PO STA (09:17)
[2023-09-17 09:35] LABS: ALT 69 U/L (4-34); African American GFR (CKD) >90 (>60 ml/min/1.73 sqM); Albumin 3.9 g/dL (3.5-5.0); Anion Gap 7 mmol/L; Blood Urea Nitrogen 11 mg/dL (7-17); Calcium 9.3 mg/dL (8.4-10.2); Carbon Dioxide 21 mmol/L (22-30); Chloride 108 mmol/L (98-107); Glucose 160 mg/dL (74-99); Non-African American GFR(CKD) >90 (>60 ml/min/1.73 sqM); Sodium 136 mmol/L (137-145); Total Bilirubin 1.1 mg/dL (0.2-1.3); Total Protein 6.8 g/dL (6.3-8.2)
[2023-09-17 09:44] LABS: NT-Pro-B-Type Natriuretic Pept 486 pg/mL
--- NOTE | 2023-09-17 09:49 | XR ---
EXAMINATION TYPE: XR chest 2V DATE OF EXAM: 09/17/2023 9:36 AM CLINICAL INDICATION:Female, 67 years old with history of Difficulty breathing ; [facility] COMPARISON: 09/23/2022, 08/12/2023. TECHNIQUE: XR chest 2V Frontal and lateral views of the chest. FINDINGS: Lungs/Pleura: Bilateral upper lung opacities as seen on prior CT There is no evidence of pleural effu nellie, focal or pneumothorax. Pulmonary vascularity: Unremarkable. Heart/mediastinum: Cardiomediastinal silhouette is unremarkable. Musculoskeletal: No acute osseous pathology. There is fixation hardware in the lower cervical spine. Other findings: None IMPRESSION: Similar bilateral upper lung consolidation changes. Findings correlate with masslike soft tissue on C T 08/12/2023.
[2023-09-17 09:51] LABS: Basophils # (A) 0.1 k/uL (0-0.2); Basophils % (A) 0 %; Eosinophils # (A) 0.1 k/uL (0-0.7); Eosinophils % (A) 1 %; HCT 46.1 % (34.0-46.0); HGB 14.6 gm/dL (11.4-16.0); Lymphocytes # (A) 0.5 k/uL (1.0-4.8); Lymphocytes % (A) 4 %; MCH 27.7 pg (25.0-35.0); MCHC 31.8 g/dL (31.0-37.0); MCV 87.4 fL (80.0-100.0); Mean Platelet Volume 9.4; Monocytes # (A) 0.8 k/uL (0-1.0); Monocytes % (A) 6 %; Neutrophils # (A) 10.9 k/uL (1.3-7.7); Neutrophils % (A) 87 %; Platelet Count 172 k/uL (150-450); RBC 5.28 m/uL (3.80-5.40); RDW 14.8 % (11.5-15.5); WBC 12.5 k/uL (3.8-10.6)
[2023-09-17 09:54] LABS: AST 46 U/L (14-36); Alkaline Phosphatase 42 U/L (38-126); Magnesium 1.7 mg/dL (1.6-2.3); Potassium 4.8 mmol/L (3.5-5.1)
--- NOTE | 2023-09-17 11:43 | CT ---
EXAMINATION TYPE: CT chest angio for PE CT DLP: 277.4 mGycm, Automated exposure control for dose reduction was used. DATE OF EXAM: 09/17/2023 11:04 AM COMPARISON: Chest radiograph from same day. Multiple CTs of the chest with most recent on . CLINICAL INDICATION:Female, 67 years old with history of Difficulty breathing; SOB, recent diagnosis of lung CA TECHNIQUE/CONTRAST: CTA scan of the thorax is performed with IV Contrast, patient injected with 100 mL of Isovue 370, MIP images are created and reviewed these are created on a separate workstation.. FINDINGS: Pulmonary Artery: There is no evidence for a filling defect within the pulmonary vasculature to sugge st acute pulmonary embolism. The pulmonary artery is of normal size. Lungs/Pleura: 3 cm right upper lobe nodule/mass. Additional 1 cm right upper lobe nodule. Additional 2 cm spiculated nodule right lower lobe. Additional other nodules. Airway: Large airways are patent. Heart: Heart is within normal limits for size. Vasculature: No evidence of aortic aneurysm. Mediastinum: Left hilar soft tissue density representing conglomerate left hilar metastatic adenopath y versus primary tumor. Upper lobe mass measures 3.5 scan. Musculoskeletal: No acute osseous abnormalities Soft Tissues: Unremarkable. Lower neck: No significant findings. Upper Abdomen: No significant findings. IMPRESSION: 1. No evidence of pulmonary embolism. 2. Right lung 3.5 cm mass and numerous nodules. Left hilar conglomerate adenopathy Follow up recommendations for incidental pulmonary nodules, if there are any, are per Fleischmarvin?lazara Nguyen [employer] or [employer]. [email or web address]/[email or web address]
[2023-09-17] MEDS: cefTRIAXone IN SWFI 1,000 MG/10 ML SYRINGE IVP STA (12:43)
[2023-09-17 12:54] VITALS: RESP 18
[2023-09-17] MEDS: SODIUM CHLORIDE 0.9% 1,000 ML BAG IV STA (13:09)
[2023-09-17 14:02] VITALS: PULSE 82
[2023-09-17 14:18] VITALS: BP 101/57
[2023-09-17 14:19] VITALS: TEMP 98.3
== END 2023-09-17 14:19 | disposition home or self-care (01) ==
LOC: EC 08:10
DX: J18.9 Pneumonia, unspecified organism (principal); E11.9 Type 2 diabetes mellitus without complications; I10 Essential (primary) hypertension; I25.10 Atherosclerotic heart disease of native coronary artery without angina pectoris; Z88.1 Allergy status to other antibiotic agents; Z88.8 Allergy status to other drugs, medicaments and biological substances; Z91.040 Latex allergy status; Z91.012 Allergy to eggs; Z87.891 Personal history of nicotine dependence; Z79.84 Long term (current) use of oral hypoglycemic drugs; Z79.82 Long term (current) use of aspirin; Z79.899 Other long term (current) drug therapy
CPT/HCPCS: 99285; 96374; 96361; 36415; 93005; 85379; 83880; 80053; 83735; 84484; 85025; 87636; 71046; 71275; J0696; Q9967

== ENCOUNTER 2023-10-22 06:06 | Day surgery (SDC) | payer MEDICARE, BC ==
[2023-10-20 09:17] VITALS: BMI 28.0
[~2023-10-22 06:06] MED LIST changes: -ALBUTEROL NEB (CONC) 2.5 MG/0.5 ML INHALATION ONE; -LACTATED RINGERS 1,000 ML IV SCH; -LIDOCAINE 1% (10MG/ML) FOR IV START INTRADERMA PRN; -LIDOCAINE 2% (PF) 20 MG/ML 5 ML VIAL INHALATION ONE; -LIDOCAINE VISCOUS 300 MG/15 ML CUP MUCOUS MEM ONE; +Pre Op ABX Message 1 EACH MISC MISCELLANE ONE; -SODIUM CHLORIDE 0.9% 1,000 ML IV SCH
[2023-10-22] MEDS ORDERED: HYDROmorphone 0.5 MG/0.5 ML SYRINGE IVP PRN (07:00)
[2023-10-22] MEDS ORDERED: MIDAZOLAM 2 MG/2 ML VIAL IV PRN (07:00)
--- NOTE | 2023-10-22 07:04 | P.GSHP ---
History of Present Illness H&P Date: 10/22/23 CHIEF COMPLAINT: Lung cancer HISTORY OF PRESENT ILLNESS: The patient is a 67-year-old female diagnosed with recurrent lung cancer. She needs a Mediport placement for chemotherapy. PAST MEDICAL HISTORY: See list and reviewed PAST SURGICAL HISTORY: See list and reviewed CURRENT MEDICATIONS: See list and reviewed ALLERGIES: See list and reviewed SOCIAL HISTORY: See list and reviewed FAMILY HISTORY: See list and reviewed REVIEW OF ORGAN SYSTEMS: CONSTITUTIONAL: No fevers or chills RESPIRATORY: No pneumonia. No dyspnea on exertion. CARDIOVASCULAR: No recent chest pain. No history of blood clots PHYSICAL EXAMINATION: Vital signs: Stable GENERAL: Well developed and in no acute distress. Pleasant. HEENT: No sclera icterus. Extraocular movements grossly intact. Moist buccal mucosa. Head is atraumatic, normocephalic. Hears conversational speech. No nasal drainage. NECK: Supple without lymphadenopathy. No JV distention. CHEST: Non-labored respirations and equal bilateral excursions. CARDIOVASCULAR: Regular rate and rhythm. Palpable 2+ radial pulses. ABDOMEN: Nontender. MUSCULOSKELETAL: No clubbing, cyanosis or edema. NEUROLOGIC: No focal or lateralizing signs. PSYCH: Appropriate affect. Alert and oriented to person, place and time. ASSESSMENT: 1. Lung cancer 2. Need for chemotherapeutic access. PLAN: 1. Port-A-Cath placement for chemotherapy access Past Medical History Past Medical History: Asthma, Cancer, COPD, Fibromyalgia, GERD/Reflux, Hyperlipidemia, Hypertension, Myocardial Infarction (NH), Pneumonia, Thyroid Disorder Additional Past Medical History / Comment(s): HX MIGRAINE, HX KIDNEY STONES, non-small cell lung cancer diagnosed in August 2016 status post chemotherapy and radiation therapy as well as immunotherapy, states "40% use of lungs", new dx cancer rt lung, "rapid heart rate" Last Myocardial Infarction Date:: 09/2022 History of Any Multi-Drug Resistant Organisms: None Reported Past Surgical History: Adenoidectomy, Heart Catheterization With Stent, Hysterectomy, Orthopedic Surgery, Tonsillectomy Additional Past Surgical History / Comment(s): LEFT ELBOW carpal tunnel, LEFT wrist CARPAL TUNNEL, EPIDURAL PAIN SHOTS, Anterior Cervical Decomp. and fusion c5-6,c6-7, cardiac stent x3 Past Anesthesia/Blood Transfusion Reactions: Motion Sickness Date of Last Stent Placement:: 09/2022 Past Psychological History: Anxiety, Depression Smoking Status: Former smoker Past Alcohol Use History: None Reported Additional Past Alcohol Use History / Comment(s): Patient quit smoking 4 yrs ago, started smoking age 23, 1/2 -1 PPD Past Drug Use History: None Reported Additional Drug Use History / Comment(s): CBD oil daily SL - Past Family History Mother Family Medical History: No Reported History Additional Family Medical History / Comment(s): . Father Additional Family Medical History / Comment(s): Father at age 68 from ALS. Brother(s) Additional Family Medical History / Comment(s): Patient has 1 brother and 1 sister with no major medical problems. Patient has 3 daughters and one has history of asthma. Patient does not have any sons. Medications and Allergies Home Medications Medication Instructions Recorded Confirmed Type Aspirin 81 mg PO BID 12/20/13 10/20/23 History DULoxetine HCL [Cymbalta] 60 mg PO DAILY 02/26/19 10/20/23 History Levothyroxine Sodium [Synthroid] 100 mcg PO DAILY 02/26/19 10/20/23 History traZODone HCL 50 mg PO HS 02/26/19 10/20/23 History Fenofibric Acid (Choline) 135 mg PO HS 11/07/19 10/20/23 History [Fenofibric Acid] Albuterol Inhaler [Ventolin Hfa 2 puff INHALATION RT-QID PRN 07/08/21 10/20/23 History Inhaler] ALPRAZolam [Xanax] 0.25 mg PO HS 09/23/22 10/20/23 History Dapagliflozin Propanediol [Farxiga] 10 mg PO DAILY 09/23/22 10/20/23 History Fluticasone/Umeclidin/Vilanter 1 puff INHALATION RT-DAILY 09/23/22 10/20/23 History [Trelegy Ellipta 100-62.5-25] Ezetimibe [Zetia] 10 mg PO DAILY #30 tab 09/24/22 10/20/23 Rx Rosuvastatin Calcium [Crestor] 40 mg PO DAILY #1 tablet 09/24/22 10/20/23 Rx Semaglutide [Rybelsus] 3 mg PO DAILY #30 tab 09/24/22 10/20/23 Rx atenoloL [Tenormin] 50 mg PO BID 09/17/23 10/20/23 History metFORMIN HCL ER [Glucophage XR] 500 mg PO W/SUPPER 09/17/23 10/20/23 History Allergies Allergy/AdvReac Type Severity Reaction Status Date / Time cephalexin monohydrate Allergy Rash/Hives Verified 10/22/23 06:42 [From Keflex] Egg Derived Allergy Anaphylaxis Verified 10/22/23 06:42 latex Allergy Rash/Hives/throat Verified 10/22/23 06:42 swelling/diff breathing simvastatin AdvReac muscle Verified 10/22/23 06:42 cramps
[2023-10-22 07:05] LABS: Glucose,Whole Blood 154 mg/dL (70-110)
[2023-10-22] MEDS: LACTATED RINGERS 1,000 ML IV SCH (07:09)
--- NOTE | 2023-10-22 07:10 | P.HPADDEND ---
H&P Addendum H&P Addendum Date: 10/22/23 Labs reviewed with past CBC, white blood cell count abnormal. Repeat CBC pending.
[2023-10-22] MEDS: ACETAMINOPHEN TAB 500 MG TAB PO PRN (07:12)
[2023-10-22] MEDS: HEPARIN SODIUM,PORCINE 5,000 UNIT/ML 1 ML VIAL SQ PRN (07:13)
[2023-10-22] MEDS: ONDANSETRON 4 MG/2 ML VIAL IVP PRN (07:13)
[2023-10-22 07:21] LABS: Basophils # (A) 0.1 k/uL (0-0.2); Basophils % (A) 1 %; Eosinophils # (A) 0.1 k/uL (0-0.7); Eosinophils % (A) 1 %; HCT 43.1 % (34.0-46.0); HGB 13.9 gm/dL (11.4-16.0); Lymphocytes # (A) 0.6 k/uL (1.0-4.8); Lymphocytes % (A) 7 %; MCHC 32.3 g/dL (31.0-37.0); MCV 86.9 fL (80.0-100.0); Mean Platelet Volume 8.3; Monocytes # (A) 0.4 k/uL (0-1.0); Monocytes % (A) 5 %; Neutrophils % (A) 85 %; Platelet Count 237 k/uL (150-450); RBC 4.96 m/uL (3.80-5.40); RDW 15.1 % (11.5-15.5); WBC 8.3 k/uL (3.8-10.6)
[2023-10-22] MEDS ORDERED: fentaNYL (PF) 50 MCG/ML 2 ML AMP ONE (07:34)
[2023-10-22] MEDS ORDERED: MIDAZOLAM 2 MG/2 ML VIAL ONE (07:34)
[2023-10-22] MEDS ORDERED: ePHEDrine 50 MG/ML 1 ML VIAL ONE (07:34)
[2023-10-22] MEDS ORDERED: LIDOCAINE 1% INJ 10MG/ML (20 ML MDV) ONE (07:34)
[2023-10-22] MEDS ORDERED: SUCCINYLCHOLINE CHLORIDE 200 MG/10 ML VIAL IV ONE (07:34)
[2023-10-22] MEDS ORDERED: PHENYLEPHRINE-0.9% NACL SYG 1,000 MCG/10 ML SYRINGE ONE (07:34)
[2023-10-22] MEDS ORDERED: PROPOFOL 10 MG/ML 20 ML VIAL IV ONE (07:34)
[2023-10-22] MEDS: LIDOCAINE 1%-EPI 1:100,000 20 ML VIAL SQ ONE (07:39)
[2023-10-22] MEDS: ceFAZolin 1,000 MG VIAL IVPB ONE (07:39)
[2023-10-22] MEDS: LACTATED RINGERS 1,000 ML IV ONE (08:20)
--- NOTE | 2023-10-22 08:54 | P.OP ---
Date of Procedure: 10/22/23 Description of Procedure: SURGEON: JESSI RIVERA MD PREOPERATIVE DIAGNOSES: 1. Lung cancer, recurrent 2. Need for chemotherapeutic access. 3. Chronic obstructive pulmonary disease 4. Diabetes type 2, not insulin-dependent 5. Hyperlipidemia. 6. Hypertensive heart disease 7. Hypothyroidism. 8. Generalized anxiety disorder 9. Generalized depressive disorder POSTOPERATIVE DIAGNOSES: 1. Lung cancer, recurrent 2. Need for chemotherapeutic access. 3. Chronic obstructive pulmonary disease 4. Diabetes type 2, not insulin-dependent 5. Hyperlipidemia. 6. Hypertensive heart disease 7. Hypothyroidism. 8. Generalized anxiety disorder 9. Generalized depressive disorder PROCEDURES PERFORMED: 1. Ultrasound guided central venous access of the right internal jugular venous vein. 2. Fluoroscopic guidance for central venous access right internal jugular vein 1 seconds. 3. Placement of right internal jugular power port 6 Albanian by [employer]. ANESTHESIA: General with local. ESTIMATED BLOOD LOSS: 5 mL. SPECIMENS REMOVED: None. COMPLICATIONS: None. FINDINGS: 1. No thrombus encountered along the right carotid artery or internal jugular vein. 2. Access of the right internal jugular vein under ultrasound guidance. 3. Fluoroscopy of 1 seconds. INDICATIONS: The patient is a 67-year-old female recently diagnosed with recurrent lung cancer. She presents for chemotherapeutic access. Benefits and risks of surgical intervention were described including bleeding, infection, mechanical problems with the port. Informed consent was obtained. DESCRIPTION OR PROCEDURE: Patient was brought into the operating room, laid in supine position. After general anesthesia, the chest and right neck were prepped and draped in a standard sterile fashion including the shoulder with ChloraPrep. Timeout protocol was confirmed with the surgical team regarding the patient's name, procedure to be performed including preoperative medications for which she received IV antibiotics. Bilateral SCDs were placed. An ultrasound was used to capture views of the right internal jugular vein including right carotid artery, which was patent and without thrombus along its course. The right IJ was then localized using anesthetic for the skin. A 16 Albanian needle was used to access the IJ. A guidewire was advanced into the IJ with dark nonpulsatile venous blood. Two fingerbreadths distal to the clavicle, on the lateral third, a transverse 1.5 to 2 cm incision was deepened into the skin after localizing the skin. A pocket was created for the port. The port on the back table was flushed with heparinized saline and then attached to the catheter tubing. An adapter was fastened to the actual port site over the tubing. The port easily had fit snug into the pocket. A subcutaneous tunneler was placed along the open end of the tubing and brought out through the separate stab incision. Fluoroscopic guidance confirmed no kinking along the tubing and the port site. Next, the J-wire was exchanged for a catheter sheath for which the tubing was cut to 22 cm and then advanced through the catheter sheath. The Peel-away sheath was then removed and the tubing was secured at the junction of the superior vena cava as well as the right atrium. Fluoroscopy for 1 second was performed. Easy pullback as well as return and aspiration was obtained of the port site. The skin incision was closed using layers using 3-0 Vicryl for the subcu followed by 4-0 Monocryl in a running subcuticular fashion. At the stick site this was also reapproximated using 4-0 Monocryl. The incisions were covered with Optifoam, The skin was cleansed and Dermabond liquid glue was applied. A total of 20 mL of local anesthetic was placed. At the end of the procedure, needle, sponge, and instrument count was verified correct by surgical brace maker. Heparin lock of 5 mL was placed. The patient was awoken and pain free and taken to the second stage postanesthesia care unit. The patient tolerated the procedure well. Plan - Discharge Summary Discharge Rx Participant: No New Discharge Prescriptions: New Acetaminophen Tab [Tylenol Tab] 1,000 mg PO Q6HR PRN #30 tablet PRN Reason: Pain Continue Aspirin 81 mg PO BID traZODone HCL 50 mg PO HS Levothyroxine Sodium [Synthroid] 100 mcg PO DAILY DULoxetine HCL [Cymbalta] 60 mg PO DAILY Fenofibric Acid (Choline) [Fenofibric Acid] 135 mg PO HS ALPRAZolam [Xanax] 0.25 mg PO HS Fluticasone/Umeclidin/Vilanter [Trelegy Ellipta 100-62.5-25] 1 puff INHALATION RT-DAILY Dapagliflozin Propanediol [Farxiga] 10 mg PO DAILY Rosuvastatin Calcium [Crestor] 40 mg PO DAILY #1 tablet Albuterol Inhaler [Ventolin Hfa Inhaler] 2 puff INHALATION RT-QID PRN PRN Reason: Shortness Of Breath Semaglutide [Rybelsus] 3 mg PO DAILY #30 tab Ezetimibe [Zetia] 10 mg PO DAILY #30 tab atenoloL [Tenormin] 50 mg PO BID metFORMIN HCL ER [Glucophage XR] 500 mg PO W/SUPPER Discharge Medication List Aspirin 81 mg PO BID 12/20/13 [History] DULoxetine HCL [Cymbalta] 60 mg PO DAILY 02/26/19 [History] Levothyroxine Sodium [Synthroid] 100 mcg PO DAILY 02/26/19 [History] traZODone HCL 50 mg PO HS 02/26/19 [History] Fenofibric Acid (Choline) [Fenofibric Acid] 135 mg PO HS 11/07/19 [History] Albuterol Inhaler [Ventolin Hfa Inhaler] 2 puff INHALATION RT-QID PRN 07/08/21 [History] ALPRAZolam [Xanax] 0.25 mg PO HS 09/23/22 [History] Dapagliflozin Propanediol [Farxiga] 10 mg PO DAILY 09/23/22 [History] Fluticasone/Umeclidin/Vilanter [Trelegy Ellipta 100-62.5-25] 1 puff INHALATION RT-DAILY 09/23/22 [History] Ezetimibe [Zetia] 10 mg PO DAILY #30 tab 09/24/22 [Rx] Rosuvastatin Calcium [Crestor] 40 mg PO DAILY #1 tablet 09/24/22 [Rx] Semaglutide [Rybelsus] 3 mg PO DAILY #30 tab 09/24/22 [Rx] atenoloL [Tenormin] 50 mg PO BID 09/17/23 [History] metFORMIN HCL ER [Glucophage XR] 500 mg PO W/SUPPER 09/17/23 [History] Acetaminophen Tab [Tylenol Tab] 1,000 mg PO Q6HR PRN #30 tablet 10/22/23 [Rx] Follow up Appointment(s)/Referral(s): Jessi Rivera MD [STAFF PHYSICIAN] - As Needed Patient Instructions/Handouts: Implanted Venous Access Port (GEN), How to Care for Your Implanted Venous Access Port (DC) Activity/Diet/Wound Care/Special Instructions: Remove dressing on October 26. May shower. No bathtub soaks for 2 weeks, November 04 No wide motions of the right arm to prevent dislodge of your port for 3 weeks. EXPECT BRUISING AND SLEEP WITH 2 TO 3 PILLOWS. BRUISING RESOLVES IN 2 TO 3 WEEKS. Take Tylenol, Aleve or ibuprofen for pain as needed Discharge Disposition: HOME SELF-CARE
--- NOTE | 2023-10-22 08:59 | FL ---
EXAMINATION TYPE: FL guided central line placemt Intraoperative/procedural fluoroscopic services were provided. Total fluoroscopy time is 1.0 seconds with a total of 2 submitted images to PACS. Please s ee the operative/procedural note for further details. DAP: 0.748 Gycm2
[2023-10-22 09:08] VITALS: TEMP 97.6
--- NOTE | 2023-10-22 09:32 | XR ---
EXAMINATION TYPE: XR chest 1V confirm line [facility] DATE OF EXAM: 10/22/2023 COMPARISON: 09/17/2023 INDICATION: Port placement TECHNIQUE: Single frontal view of the chest is obtained. FINDINGS: The heart size is mildly prominent. A masslike areas in the left suprahilar region. This has indisti nct margins. Worsening from comparison. There is some prominence of the right perihilar region. Some density or pleural plaquing is in the right perihilar region. The pulmonary vasculature is normal. Findings are worsening over the interval. IMPRESSION: 1. Worsening increased perihilar and left suprahilar masslike density. 2. Placement of a port on the right with the tip in the superior vena cava region. No pneumothorax ev ident.
[2023-10-22 09:57] VITALS: BP 101/64; PULSE 97; RESP 97
== END 2023-10-22 10:19 | disposition home or self-care (01) ==
LOC: OR 06:06
PROVIDERS: ATTEND Surgery Plastic and Reconstructive Surgery
DX: Z45.2 Encounter for adjustment and management of vascular access device (principal); C34.90 Malignant neoplasm of unspecified part of unspecified bronchus or lung; C84.7A Anaplastic large cell lymphoma, ALK-negative, breast; J44.9 Chronic obstructive pulmonary disease, unspecified; E11.69 Type 2 diabetes mellitus with other specified complication; E78.5 Hyperlipidemia, unspecified; I11.9 Hypertensive heart disease without heart failure; E03.9 Hypothyroidism, unspecified; F41.1 Generalized anxiety disorder; F32.A Depression, unspecified; I25.10 Atherosclerotic heart disease of native coronary artery without angina pectoris; K21.9 Gastro-esophageal reflux disease without esophagitis; M79.7 Fibromyalgia; Z88.1 Allergy status to other antibiotic agents; Z91.040 Latex allergy status; Z88.8 Allergy status to other drugs, medicaments and biological substances; Z91.012 Allergy to eggs; Z87.891 Personal history of nicotine dependence; Z79.899 Other long term (current) drug therapy; Z79.890 Hormone replacement therapy; Z79.84 Long term (current) use of oral hypoglycemic drugs; Z79.82 Long term (current) use of aspirin; Z79.51 Long term (current) use of inhaled steroids
CPT/HCPCS: 85025; 77001; 36561; C1788; J2250; J0330; J1644; J2405; J0690; J2001; J3010; J1642; J2704; J2371

== ENCOUNTER → 2024-01-07 | Outpatient (CLI) | payer MEDICARE, BC ==
[2024-01-07 15:13] LABS: African American GFR (CKD) >90 (>60 ml/min/1.73 sqM); Blood Urea Nitrogen 17 mg/dL (7-17); Non-African American GFR(CKD) >90 (>60 ml/min/1.73 sqM)
--- NOTE | 2024-01-07 20:31 | CT ---
EXAMINATION TYPE: CT chest w con CT DLP: 633 mGycm, Automated exposure control for dose reduction was used. DATE OF EXAM: 01/07/2024 3:39 PM COMPARISON: 08/12/2023 CLINICAL INDICATION: Female, 68 years old with history of C34.12 MALIGNANT NEOPLASM OF UPPER LOBE, LE FT BRON; [facility], Follow up for lung cancer. priors in PACS TECHNIQUE: Multiple axial images were obtained through the chest. Sagittal and coronal reformats were created for review. Contrast used:100ml mL of Isovue 300 with IV Contrast (None if empty) Oral contrast used: (None if empty) FINDINGS: LUNGS/ PLEURA: Consolidation changes in the left lung apex have increased from prior. There may be in creased narrowing of the left upper lung but lower bronchus. Right upper lung consolidation change ap pears similar.r there is increasing nodule size in the superior segment of the right lower lung serie s 3 image 11 measuring 10 mm previously 5 mm right lower lobe nodule with spiculated margins measurin g 20 mm previously 16. AIRWAY: There is mild increase in narrowing of the left upper lung compared to prior. HEART: Size within normal limits. MEDIASTINUM: No gross evidence of adenopathy. VASCULATURE: No aortic aneurysm. Right chest wall [id number] with tip terminating in the superior vena cava. No evidence for pulmonary embolus. MUSCULOSKELETAL: No acute osseous abnormalities fixation hardware in the spine appears intact. No marsha picious osseous lesions identified SOFT TISSUES/LYMPH NODES: Unremarkable. LOWER NECK: No significant findings. UPPER ABDOMEN: Diffuse low-attenuation to the liver. IMPRESSION: 1. Increasing atelectasis left upper lung possibly due to underlying obstructive neoplastic process. Additional increase in size of left lower lobe pulmonary nodules concerning for metastatic disease. Attention on follow-up PET/CT. [facility], , 01/07/2024 8:28 PM
== END | disposition home or self-care (01) ==
LOC: RADCTMAIN 14:26
PROVIDERS: ATTEND Internal Medicine Hematology & Oncology
DX: C34.12 Malignant neoplasm of upper lobe, left bronchus or lung
CPT/HCPCS: 36415; 71260; 82565; 84520

== ENCOUNTER 2024-01-24 08:11 | Emergency (ER) | payer MEDICARE, BC ==
[2024-01-24 08:18] VITALS: TEMP 97.7
[2024-01-24 09:09] LABS: HCT 50.9 % (34.0-46.0); HGB 16.4 gm/dL (11.4-16.0); MCH 28.9 pg (25.0-35.0); MCHC 32.3 g/dL (31.0-37.0); MCV 89.6 fL (80.0-100.0); Mean Platelet Volume 9.9; RBC 5.68 m/uL (3.80-5.40); RDW 15.8 % (11.5-15.5); WBC 4.4 k/uL (3.8-10.6)
[2024-01-24] MEDS: SODIUM CHLORIDE 0.9% 1,000 ML IV STA (09:25)
[2024-01-24] MEDS: HYDROmorphone 0.5 MG/0.5 ML SYRINGE IVP STA (09:25)
--- NOTE | 2024-01-24 09:37 | ED ---
General Adult HPI - General Chief complaint: Shortness of Breath Stated complaint: SOB Time Seen by Provider: 01/24/24 08:12 Source: patient, RN notes reviewed, old records reviewed Mode of arrival: ambulatory Limitations: no limitations - History of Present Illness Initial comments: 68-year-old female presenting for evaluation of weakness, nausea, dyspnea. Patient has stage IV lung cancer and received chemotherapy 4 days prior. She has not felt well since this treatment. She does report dyspnea which she states is chronic and unchanged. She has had increased weakness and fatigue as well as nausea without vomiting. She has pain in the left posterior chest. - Related Data Home Medications Medication Instructions Recorded Confirmed DULoxetine HCL [Cymbalta] 60 mg PO DAILY 02/26/19 01/24/24 Levothyroxine Sodium [Synthroid] 100 mcg PO DAILY 02/26/19 01/24/24 traZODone HCL 50 mg PO HS 02/26/19 01/24/24 Albuterol Inhaler [Ventolin Hfa 2 puff INHALATION RT-QID PRN 07/08/21 01/24/24 Inhaler] ALPRAZolam [Xanax] 0.25 mg PO HS 09/23/22 01/24/24 Dapagliflozin Propanediol [Farxiga] 10 mg PO DAILY 09/23/22 01/24/24 Fluticasone/Umeclidin/Vilanter 1 puff INHALATION RT-DAILY 09/23/22 01/24/24 [Trelegy Ellipta 100-62.5-25] atenoloL [Tenormin] 50 mg PO BID 09/17/23 01/24/24 metFORMIN HCL ER [Glucophage XR] 500 mg PO W/SUPPER 09/17/23 01/24/24 Lidocaine-Prilocaine Cream [Emla 1 applic TOPICAL DAILY PRN 01/24/24 01/24/24 Cream 2.5%/2.5%] Multivit-Min/Iron/Folic/Lutein 1 tab PO DAILY 01/24/24 01/24/24 [Centrum Silver Women Tablet] Prasugrel [Effient] 10 mg PO DAILY 01/24/24 01/24/24 Rosuvastatin Calcium [Crestor] 40 mg PO HS 01/24/24 01/24/24 dexAMETHasone [Decadron] 16 mg PO DIRECTED 01/24/24 01/24/24 ondansetron HCL [Zofran] 8 mg PO Q6H PRN MDD 32mg 01/24/24 01/24/24 Previous Rx's Medication Instructions Recorded Semaglutide [Rybelsus] 3 mg PO DAILY #30 tab 09/24/22 HYDROcodone/APAP 5-325MG [[place] 1 tab PO Q6HR PRN #12 tab 01/24/24 5-325] Allergies Allergy/AdvReac Type Severity Reaction Status Date / Time cephalexin monohydrate Allergy Rash/Hives Verified 01/24/24 10:46 [From Keflex] Egg Derived Allergy Anaphylaxis Verified 01/24/24 10:46 latex Allergy Rash/Hives/throat Verified 01/24/24 10:46 swelling/diff breathing simvastatin AdvReac muscle Verified 01/24/24 10:46 cramps Review of Systems ROS Statement: Those systems with pertinent positive or pertinent negative responses have been documented in the HPI. ROS Other: All systems not noted in ROS Statement are negative. Past Medical History Past Medical History: Asthma, Cancer, COPD, Fibromyalgia, GERD/Reflux, Hyperlipidemia, Hypertension, Myocardial Infarction ([place]), Pneumonia, Thyroid Disorder Additional Past Medical History / Comment(s): HX MIGRAINE, HX KIDNEY STONES, non-small cell lung cancer diagnosed in August 2016 status post chemotherapy and radiation therapy as well as immunotherapy, states "40% use of lungs", new dx cancer rt lung, "rapid heart rate" Last Myocardial Infarction Date:: 09/2022 History of Any Multi-Drug Resistant Organisms: None Reported Past Surgical History: Adenoidectomy, Heart Catheterization With Stent, Hysterectomy, Orthopedic Surgery, Tonsillectomy Additional Past Surgical History / Comment(s): LEFT ELBOW carpal tunnel, LEFT wrist CARPAL TUNNEL, EPIDURAL PAIN SHOTS, Anterior Cervical Decomp. and fusion c5-6,c6-7, cardiac stent x3 Past Anesthesia/Blood Transfusion Reactions: Motion Sickness Date of Last Stent Placement:: 09/2022 Past Psychological History: Anxiety, Depression Smoking Status: Former smoker Past Alcohol Use History: None Reported Past Drug Use History: None Reported - Past Family History Mother Family Medical History: No Reported History Additional Family Medical History / Comment(s): . Father Additional Family Medical History / Comment(s): Father at age 68 from ALS. Brother(s) Additional Family Medical History / Comment(s): Patient has 1 brother and 1 sister with no major medical problems. Patient has 3 daughters and one has history of asthma. Patient does not have any sons. General Exam Limitations: no limitations General appearance: alert, in no apparent distress Head exam: Present: atraumatic, normocephalic Eye exam: Present: normal appearance ENT exam: Present: mucous membranes dry Neck exam: Present: normal inspection. Absent: tenderness, meningismus Respiratory exam: Present: wheezes. Absent: respiratory distress Cardiovascular Exam: Present: regular rate, normal rhythm GI/Abdominal exam: Present: soft. Absent: distended, tenderness, guarding Extremities exam: Present: normal inspection, normal capillary refill. Absent: pedal edema Neurological exam: Present: alert, oriented X3, CN II-XII intact. Absent: motor sensory deficit Psychiatric exam: Present: normal affect, normal mood Skin exam: Present: warm, dry, intact Course Vital Signs 01/24/24 01/24/24 01/24/24 08:15 09:49 09:58 Temperature 97.7 F Pulse Rate 89 98 98 Respiratory 22 18 18 Rate Blood Pressure 95/68 O2 Sat by Pulse 97 Oximetry 01/24/24 11:14 Temperature Pulse Rate 101 H Respiratory 16 Rate Blood Pressure 97/65 O2 Sat by Pulse 94 L Oximetry Medical Decision Making - Medical Decision Making Was pt. sent in by a medical professional or institution ([facility], [facility], urgent care, hospital, or halfway...) When possible be specific @ -No Did you speak to anyone other than the patient for history (EMS, parent, family, police, friend...)? What history was obtained from this source @ -No Did you review nursing and triage notes (agree or disagree)? Why? @ -I reviewed and agree with nursing and triage notes Were old charts reviewed (outside hosp., previous admission, EMS record, old EKG, old radiological studies, urgent care reports/EKG's, halfway records)? Report findings @ -No old charts were reviewed Differential Weakness: Hypoglycemia, shock, sepsis, hyponatremia, anemia, infection, [place], ETOH, adverse medicine reaction, overdose, stroke, this is not meant to be an all-inclusive list. EKG interpreted by me (3pts min.). @ -Sinus rhythm rate of 91 NE interval 145, QRS duration 70, QTc [address] segment elevation. X-rays interpreted by me (1pt min.). @ -Chest x-ray showing similar appearing left perihilar mass as well as right- sided consolidation no acute findings. CT interpreted by me (1pt min.). @ -None done U/S interpreted by me (1pt. min.). @ -None done What testing was considered but not performed or refused? (CT, X-rays, U/S, labs)? Why? @ -None What meds were considered but not given or refused? Why? @ -None Did you discuss the management of the patient with other professionals (professionals i.e. DrMary Jo, PA, [facility]ER, lab, RT, psych nurse, rn social work, hand former helper, teacher, executive officer, binder caser)? Give summary @ -No Was smoking cessation discussed for >3mins.? @ -No Was critical care preformed (if so, how long)? @ -No Were there social determinants of health that impacted care today? How? (Homelessness, low income, unemployed, alcoholism, drug addiction, transportation, low edu. Level, literacy, decrease access to med. care, assisted, rehab)? @ -No Was there de-escalation of care discussed even if they declined (Discuss DNR or withdrawal of care, Hospice)? DNR status @ -No What co-morbidities impacted this encounter? (DM, HTN, Smoking, COPD, CAD, Cancer, CVA, ARF, Chemo, Hep., AIDS, mental health diagnosis, sleep apnea, morbid obesity)? @ -Stage IV lung cancer, COPD Was patient admitted / discharged? Hospital course, mention meds given and route, prescriptions, significant lab abnormalities, going to OR and other pertinent info. @ -[68-year-old female presenting after chemotherapy for nausea, weakness and fatigue. Patient does appear dehydrated and has not had a good oral intake. Vital signs are stable. She has lab abnormalities consistent with chronic illness no significant derangement. Chest x-ray is stable. Patient's pain is controlled in the emergency department. I did offer admission for further hydration and pain control patient declines. She prefers discharge with return parameters. Daughter at bedside is agreeable. Undiagnosed new problem with uncertain prognosis? @ -No Drug Therapy requiring intensive monitoring for toxicity (Heparin, Nitro, Insulin, Cardizem)? @ -No Were any procedures done? @ -No Diagnosis/symptom? @Stage IV lung cancer, pain, dehydration Acute, or Chronic, or Acute on Chronic? @ -Acute on chronic Uncomplicated (without systemic symptoms) or Complicated (systemic symptoms)? @ -Default Side effects of treatment? @ -No Exacerbation, Progression, or Severe Exacerbation? @ -No Poses a threat to life or bodily function? How? (Chest pain, [place], [place], pneumonia, PE, COPD, DKA, ARF, appy, cholecystitis, CVA, Diverticulitis, Homicidal, Suicidal, threat to staff... and all critical care pts) @ -Yes, stage IV lung cancer - Lab Data Result diagrams: 01/24/24 09:04 01/24/24 09:36 Lab Results 01/24/24 01/24/24 01/24/24 Range/Units 09:04 09:04 09:04 WBC 4.4 (3.8-10.6) k/uL RBC 5.68 H (3.80-5.40) m/uL Hgb 16.4 H (11.4-16.0) gm/dL Hct 50.9 H (34.0-46.0) % MCV 89.6 (80.0-100.0) fL MCH 28.9 (25.0-35.0) pg MCHC 32.3 (31.0-37.0) g/dL RDW 15.8 H (11.5-15.5) % Plt Count 89 L (150-450) k/uL MPV 9.9 Neutrophils % (Manual) 85 % Lymphocytes % (Manual) 6 % Monocytes % (Manual) 5 % Eosinophils % (Manual) 4 % Neutrophils # (Manual) 3.74 (1.3-7.7) k/uL Lymphocytes # (Manual) 0.26 L (1.0-4.8) k/uL Monocytes # (Manual) 0.22 (0-1.0) k/uL Eosinophils # (Manual) 0.18 (0-0.7) k/uL Nucleated RBCs 0 (0-0) /100 WBC Manual Slide Review Performed PT 11.4 (10.0-12.5) sec INR 1.1 (<1.2) APTT 23.5 (22.0-30.0) sec Sodium (137-145) mmol/L Potassium (3.5-5.1) mmol/L Chloride (98-107) mmol/L Carbon Dioxide (22-30) mmol/L Anion Gap mmol/L BUN (7-17) mg/dL Creatinine (0.52-1.04) mg/dL Est GFR (CKD-EPI)AfAm (>60 ml/min/1.73 sqM) Est GFR (CKD-EPI)NonAf (>60 ml/min/1.73 sqM) Glucose (74-99) mg/dL Plasma Lactic Acid Joel 1.7 (0.7-2.0) mmol/L Calcium (8.4-10.2) mg/dL Magnesium (1.6-2.3) mg/dL Total Bilirubin (0.2-1.3) mg/dL AST (14-36) U/L ALT (4-34) U/L Alkaline Phosphatase (38-126) U/L Total Protein (6.3-8.2) g/dL Albumin (3.5-5.0) g/dL Influenza Type A (PCR) (Not Detectd) Influenza Type B (PCR) (Not Detectd) RSV (PCR) (Not Detectd) SARS-CoV-2 (PCR) (Not Detectd) 01/24/24 01/24/24 Range/Units 09:04 09:36 WBC (3.8-10.6) k/uL RBC (3.80-5.40) m/uL Hgb (11.4-16.0) gm/dL Hct (34.0-46.0) % MCV (80.0-100.0) fL MCH (25.0-35.0) pg MCHC (31.0-37.0) g/dL RDW (11.5-15.5) % Plt Count (150-450) k/uL MPV Neutrophils % (Manual) % Lymphocytes % (Manual) % Monocytes % (Manual) % Eosinophils % (Manual) % Neutrophils # (Manual) (1.3-7.7) k/uL Lymphocytes # (Manual) (1.0-4.8) k/uL Monocytes # (Manual) (0-1.0) k/uL Eosinophils # (Manual) (0-0.7) k/uL Nucleated RBCs (0-0) /100 WBC Manual Slide Review PT (10.0-12.5) sec INR (<1.2) APTT (22.0-30.0) sec Sodium 135 L (137-145) mmol/L Potassium 4.1 (3.5-5.1) mmol/L Chloride 108 H (98-107) mmol/L Carbon Dioxide 22 (22-30) mmol/L Anion Gap 5 mmol/L BUN 15 (7-17) mg/dL Creatinine 0.33 L (0.52-1.04) mg/dL Est GFR (CKD-EPI)AfAm >90 (>60 ml/min/1.73 sqM) Est GFR (CKD-EPI)NonAf >90 (>60 ml/min/1.73 sqM) Glucose 135 H (74-99) mg/dL Plasma Lactic Acid Joel (0.7-2.0) mmol/L Calcium 7.9 L (8.4-10.2) mg/dL Magnesium 1.6 (1.6-2.3) mg/dL Total Bilirubin 0.9 (0.2-1.3) mg/dL AST 36 (14-36) U/L ALT 85 H (4-34) U/L Alkaline Phosphatase 42 (38-126) U/L Total Protein 5.4 L (6.3-8.2) g/dL Albumin 3.0 L (3.5-5.0) g/dL Influenza Type A (PCR) Not Detected (Not Detectd) Influenza Type B (PCR) Not Detected (Not Detectd) RSV (PCR) Not Detected (Not Detectd) SARS-CoV-2 (PCR) Not Detected (Not Detectd) Disposition Clinical Impression: History of lung cancer, Dehydration Disposition: HOME SELF-CARE Condition: Fair Instructions (If sedation given, give patient instructions): Dehydration (ED), Chemo Induced Nausea and Vomiting (ED) Prescriptions: HYDROcodone/APAP 5-325MG [[place] 5-325] 1 tab PO Q6HR PRN #12 tab PRN Reason: Pain Is patient prescribed a controlled substance at d/c from ED?: No Referrals: Daniel Corrales MD [Primary Care Provider] - 1-2 days Time of Disposition: 11:30
[2024-01-24 09:44] LABS: INR 1.1 (<1.2); Partial Thromboplastin Time 23.5 sec (22.0-30.0); Prothrombin Time 11.4 sec (10.0-12.5)
[2024-01-24] MEDS: ALBUTEROL NEBULIZED 2.5 MG/3 ML INHALATION STA (09:49)
[2024-01-24 09:58] LABS: ALT 85 U/L (4-34); AST 36 U/L (14-36); African American GFR (CKD) >90 (>60 ml/min/1.73 sqM); Alkaline Phosphatase 42 U/L (38-126); Anion Gap 5 mmol/L; Blood Urea Nitrogen 15 mg/dL (7-17); Calcium 7.9 mg/dL (8.4-10.2); Carbon Dioxide 22 mmol/L (22-30); Chloride 108 mmol/L (98-107); Glucose 135 mg/dL (74-99); Magnesium 1.6 mg/dL (1.6-2.3); Non-African American GFR(CKD) >90 (>60 ml/min/1.73 sqM); Potassium 4.1 mmol/L (3.5-5.1); Sodium 135 mmol/L (137-145); Total Bilirubin 0.9 mg/dL (0.2-1.3); Total Protein 5.4 g/dL (6.3-8.2)
[2024-01-24 10:05] LABS: Eosinophils # (M) 0.18 k/uL (0-0.7); Lymphocytes # (M) 0.26 k/uL (1.0-4.8); Monocytes # (M) 0.22 k/uL (0-1.0); Neutrophils # (M) 3.74 k/uL (1.3-7.7); Neutrophils % (M) 85 %; Nucleated Red Blood Cells 0 /100 WBC (0-0); Total Cells Counted 100
[2024-01-24 10:06] LABS: Platelet Count 89 k/uL (150-450)
--- NOTE | 2024-01-24 11:01 | XR ---
EXAMINATION TYPE: XR chest 2V DATE OF EXAM: 01/24/2024 10:20 AM CLINICAL INDICATION: Female, 68 years old with history of difficulty breathing; H COMPARISON: Chest radiographs from 10/22/2023 TECHNIQUE: XR chest 2V Frontal view of the chest. FINDINGS: Lungs/Pleura: Similar right upper lung consolidation changes. There is no evidence of pleural effusio n, focal consolidation, or pneumothorax. Pulmonary vascularity: Unremarkable. Heart/mediastinum: Cardiomediastinal silhouette is prominent in size. Atherosclerotic calcifications are seen in the aorta. Musculoskeletal: No acute osseous pathology. There is fixation hardware in the lower cervical spine. Other findings: None Lines/Tubes: Crnehj-z-Svud projecting over the right hemithorax with distal tip at the cavoatrial junction. IMPRESSION: Stable exam from prior, No acute cardiopulmonary disease/process. [facility], , 01/24/2024 10:59 AM
[2024-01-24 11:15] VITALS: BP 97/65; PULSE 101; RESP 16
== END 2024-01-24 11:41 | disposition home or self-care (01) ==
LOC: EC 08:11
CPT/HCPCS: 36415; 71046; 80053; 83605; 83735; 85025; 85610; 85730; 87636; 93005; 94640; 96361; 96374; 99285

== ENCOUNTER → 2024-03-17 | Outpatient (CLI) | payer MEDICARE, BC ==
[2024-03-17 13:06] LABS: African American GFR (CKD) >90 (>60 ml/min/1.73 sqM); Blood Urea Nitrogen 20 mg/dL (7-17); Non-African American GFR(CKD) >90 (>60 ml/min/1.73 sqM)
--- NOTE | 2024-03-17 14:49 | CT ---
EXAMINATION TYPE: CT soft tissue neck wo/w con CT DLP: 584.6 mGycm, Automated exposure control for dose reduction was used. DATE OF EXAM: 03/17/2024 1:46 PM COMPARISON: CT chest 01/07/2024, CTA chest 09/17/2023, PET/CT 10/09/2022. CLINICAL INDICATION:Female, 68 years old with history of C34.12 LUNG CANCER; [facility], Hx of lung cancer a nd lump on lower neck TECHNIQUE: Standard enhanced CT of the neck before and after intravenous administration of 100 cc of Isovue 300. Axial sections with coronal and sagittal reformats were obtained. FINDINGS: Brain: Visualized portions are grossly unremarkable. Orbits: Unremarkable Sinuses: Minimal mucosal thickening in the inferior left maxillary sinus. The remaining visualized pa ranasal sinuses are clear. Suprahyoid Neck: The oropharynx, oral cavity, parapharyngeal and retropharyngeal spaces are clear and symmetric. The nasopharynx is unremarkable. Infrahyoid Neck: The larynx, hypopharynx, and supraglottic area are clear and symmetric. Parotid Glands: Unremarkable. Submandibular Glands: Unremarkable. Musculoskeletal: No acute osseous pathology. Postsurgical changes from anterior cervical fusion of th e cervical spine. No aggressive osseous lesion. Periodontal disease. Lymph nodes: No pathologically enlarged lymph nodes identified. Vascular structures: Visualized major arteries are patent without evidence of aneurysm. Retropharynge al course of the right internal carotid artery. Thoracic Inlet/airway: Airway is patent. Partial visualization of pericardial effusion. Right anterio r chest wall IJ Mediport catheter identified with distal tip remaining in the mid SVC. Redemonstratio n of atelectasis/consolidation within the left upper lobe with redemonstration of spiculated right [place] prahilar masslike consolidation with adjacent satellite nodularity in the apex. Soft tissues/Thyroid: Thyroid and remainder of the soft tissues are unremarkable. Other: none. IMPRESSION 1. No CT evidence for definitive metastasis within the neck. 2. Partial visualization of known right upper lung cancer with satellite nodules. Additional left upp er lobe atelectasis/consolidation is redemonstrated. 3. Partial visualization of pericardial effusion. [facility], , 03/17/2024 2:47 PM
== END | disposition home or self-care (01) ==
LOC: RADCTMAIN 12:27
PROVIDERS: ATTEND Internal Medicine Hematology & Oncology
DX: C34.12 Malignant neoplasm of upper lobe, left bronchus or lung (principal); C34.11 Malignant neoplasm of upper lobe, right bronchus or lung; I25.10 Atherosclerotic heart disease of native coronary artery without angina pectoris; E03.9 Hypothyroidism, unspecified; I31.39 Other pericardial effusion (noninflammatory); Z71.3 Dietary counseling and surveillance
CPT/HCPCS: 82565; 84520; 70492; 36415; Q9967

== ENCOUNTER 2024-05-09 16:25 | Emergency (ER) | payer MEDICARE, BC ==
--- NOTE | 2024-05-09 16:36 | ED ---
SOB HPI - General Chief Complaint: Shortness of Breath Stated Complaint: SOB Time Seen by Provider: 05/09/24 16:35 Source: patient Mode of arrival: ambulatory Limitations: no limitations - History of Present Illness Initial Comments: 68-year-old female presenting with chief complaint of cough and shortness of breath. Patient currently has lung cancer. History of COPD, hypertension, hyperlipidemia. Patient reports symptoms have been ongoing for several days. Her daughter is also sick with similar symptoms. She admits to congestion and s ore throat as well. She has had no fever. No chest pain. She has oxygen at home which she uses on occasion. No nausea vomiting or diarrhea. No abdominal pain. - Related Data Home Medications Medication Instructions Recorded Confirmed DULoxetine HCL [Cymbalta] 60 mg PO DAILY 02/26/19 01/24/24 Levothyroxine Sodium [Synthroid] 100 mcg PO DAILY 02/26/19 01/24/24 traZODone HCL 50 mg PO HS 02/26/19 01/24/24 Albuterol Inhaler [Ventolin Hfa 2 puff INHALATION RT-QID PRN 07/08/21 01/24/24 Inhaler] ALPRAZolam [Xanax] 0.25 mg PO HS 09/23/22 01/24/24 Dapagliflozin Propanediol [Farxiga] 10 mg PO DAILY 09/23/22 01/24/24 Fluticasone/Umeclidin/Vilanter 1 puff INHALATION RT-DAILY 09/23/22 01/24/24 [Trelegy Ellipta 100-62.5-25] atenoloL [Tenormin] 50 mg PO BID 09/17/23 01/24/24 metFORMIN HCL ER [Glucophage XR] 500 mg PO W/SUPPER 09/17/23 01/24/24 Lidocaine-Prilocaine Cream [Emla 1 applic TOPICAL DAILY PRN 01/24/24 01/24/24 Cream 2.5%/2.5%] Multivit-Min/Iron/Folic/Lutein 1 tab PO DAILY 01/24/24 01/24/24 [Centrum Silver Women Tablet] Prasugrel [Effient] 10 mg PO DAILY 01/24/24 01/24/24 Rosuvastatin Calcium [Crestor] 40 mg PO HS 01/24/24 01/24/24 dexAMETHasone [Decadron] 16 mg PO DIRECTED 01/24/24 01/24/24 ondansetron HCL [Zofran] 8 mg PO Q6H PRN MDD 32mg 01/24/24 01/24/24 Previous Rx's Medication Instructions Recorded Semaglutide [Rybelsus] 3 mg PO DAILY #30 tab 09/24/22 HYDROcodone/APAP 5-325MG [[place]lett 1 tab PO Q6HR PRN #12 tab 01/24/24 5-325] Nirmatrelvir/Ritonavir [Paxlovid 1 each PO BID #1 each 05/09/24 300-100 mg Dose Pack] Allergies Allergy/AdvReac Type Severity Reaction Status Date / Time cephalexin monohydrate Allergy Rash/Hives Verified 05/09/24 16:33 [From Keflex] Egg Derived Allergy Anaphylaxis Verified 05/09/24 16:33 latex Allergy Rash/Hives/throat Verified 05/09/24 16:33 swelling/diff breathing simvastatin AdvReac muscle Verified 05/09/24 16:33 cramps Review of Systems ROS Statement: Those systems with pertinent positive or pertinent negative responses have been documented in the HPI. ROS Other: All systems not noted in ROS Statement are negative. Past Medical History Past Medical History: Asthma, Cancer, COPD, Fibromyalgia, GERD/Reflux, Hyperlip idemia, Hypertension, Myocardial Infarction (SD), Pneumonia, Thyroid Disorder Additional Past Medical History / Comment(s): HX MIGRAINE, HX KIDNEY STONES, non-small cell lung cancer diagnosed in August 2016 status post chemotherapy and radiation therapy as well as immunotherapy, states "40% use of lungs", new dx cancer rt lung, "rapid heart rate" Last Myocardial Infarction Date:: 09/2022 History of Any Multi-Drug Resistant Organisms: None Reported Past Surgical History: Adenoidectomy, Heart Catheterization With Stent, Hysterectomy, Orthopedic Surgery, Tonsillectomy Additional Past Surgical History / Comment(s): LEFT ELBOW carpal tunnel, LEFT wrist CARPAL TUNNEL, EPIDURAL PAIN SHOTS, Anterior Cervical Decomp. and fusion c5-6,c6-7, cardiac stent x3 Past Anesthesia/Blood Transfusion Reactions: Motion Sickness Date of Last Stent Placement:: 09/2022 Past Psychological History: Anxiety, Depression Smoking Status: Former smoker Past Alcohol Use History: None Reported Past Drug Use History: None Reported - Past Family History Mother Family Medical History: No Reported History Additional Family Medical History / Comment(s): . Father Additional Family Medical History / Comment(s): Father at age 68 from ALS. Brother(s) Additional Family Medical History / Comment(s): Patient has 1 brother and 1 sister with no major medical problems. Patient has 3 daughters and one has hi story of asthma. Patient does not have any sons. General Exam - General Exam Comments Initial Comments: Visual Physical Exam Vital signs reviewed General: Well-appearing, nontoxic, no acute distress. Head: Normocephalic, atraumatic Eyes: PERRLA, EOMI ENT: Airway patent Chest: Nonlabored breathing Skin: No visual rash, normal skin tone Neuro: Alert and oriented 3 Musculoskeletal: No gross abnormalities Limitations: no limitations General appearance: alert, in no apparent distress Head exam: Present: atraumatic, normocephalic, normal inspection Eye exam: Present: normal appearance, EOMI Neck exam: Present: normal inspection. Absent: meningismus Respiratory exam: Present: normal lung sounds bilaterally. Absent: respiratory distress, wheezes, rales, rhonchi, stridor Cardiovascular Exam: Present: regular rate, normal rhythm, normal heart sounds. Absent: systolic murmur, diastolic murmur, rubs, gallop, clicks Neurological exam: Present: alert, oriented X3 Psychiatric exam: Present: normal affect, normal mood Skin exam: Present: warm, dry Course Vital Signs 05/09/24 05/09/24 16:31 18:47 Temperature 98.7 F 99.1 F Pulse Rate 103 H 96 Respiratory 22 21 Rate Blood Pressure 110/71 96/65 O2 Sat by Pulse 92 L 99 Oximetry Medical Decision Making - Medical Decision Making I performed the quick note portion of this visit, electronically signed Judith Fournier PA-C Was pt. sent in by a medical professional or institution (OSMAR Draper, OPTICAL LABORATORY TECHNICIAN, urgent care, hospital, or group home...) When possible be specific @ -No Did you speak to anyone other than the patient for history (EMS, parent, family, police, friend...)? What history was obtained from this source @ -Daughter Did you review nursing and triage notes (agree or disagree)? Why? @ -I reviewed and agree with nursing and triage notes Were old charts reviewed (outside hosp., previous admission, EMS record, old EKG, old radiological studies, urgent care reports/EKG's, group home records)? Report findings @ -No old charts were reviewed Differential Diagnosis (chest pain, altered mental status, abdominal pain women, abdominal pain men, vaginal bleeding, weakness, fever, dyspnea, syncope, headache, dizziness, GI bleed, back pain, seizure, CVA, palpatations, mental health, musculoskeletal)? @ -Differential includes COVID, influenza, RSV, pneumonia, bronchitis, cancer, not an all-inclusive list EKG interpreted by me (3pts min.). @ -As above X-rays interpreted by me (1pt min.). @ -Chest x-ray shows no acute pulmonary process. Right perihilar changes appear stable which can be compatible with the patient's known lung cancer CT interpreted by me (1pt min.). @ -None done U/S interpreted by me (1pt. min.). @ -None done What testing was considered but not performed or refused? (CT, X-rays, U/S, labs)? Why? @ -None What meds were considered but not given or refused? Why? @ -None Did you discuss the management of the patient with other professionals (dillon alonzo i.e. , PA, OPTICAL LABORATORY TECHNICIAN, lab, RT, psych nurse, licensed clinical social worker, director of intercollegiate athletics, teacher, ordnance officer, case technician)? Give summary @ -No Was smoking cessation discussed for >3mins.? @ -No Was critical care preformed (if so, how long)? @ -No Were there social determinants of health that impacted care today? How? (Homelessness, low income, unemployed, alcoholism, drug addiction, transportation, low edu. Level, literacy, decrease access to med. care, m[facility], rehab)? @ -No Was there de-escalation of care discussed even if they declined (Discuss DNR or withdrawal of care, Hospice)? DNR status @ -No What co-morbidities impacted this encounter? (DM, HTN, Smoking, COPD, CAD, Cancer, CVA, ARF, Chemo, Hep., AIDS, mental health diagnosis, sleep apnea, morbid obesity)? @ -Lung cancer Was patient admitted / discharged? Hospital course, mention meds given and route, prescriptions, significant lab abnormalities, going to OR and other pertinent info. @ -68-year-old female with lung cancer presenting with chief complaint of cough congestion and shortness of breath. Oxygen saturation on room air is 92%, this is consistent with the patient's baseline. Workup is initiated by triage. Patient is positive for COVID. Chest x-ray shows no new changes. Patient is later placed in a room and evaluated by myself. History and physical examination are conducted. I offered the patient admission given her history of lung cancer. Labs are ordered which require no immediate action. Patient then declines admission. States that she will not be able to sleep while in the hospital and just wants to go home and rest. Her vital signs are stable, she has oxygen at home that she wears on an as-needed basis. She is provided with strict return parameters. She is started on Paxlovid. Follow-up with PCP. Report back to ER with any new or worsening symptoms. Discussed return parameters and answered all questions. Patient conveyed verbal understanding and agreed to the plan. I discussed this case in detail with my attending Dr. Alexandre Undiagnosed new problem with uncertain prognosis? @ -No Drug Therapy requiring intensive monitoring for toxicity (Heparin, Nitro, Insulin, Cardizem)? @ -No Were any procedures done? @ -No Diagnosis/symptom? @ -COVID-19 Acute, or Chronic, or Acute on Chronic? @ -Acute Uncomplicated (without systemic symptoms) or Complicated (systemic symptoms)? @ -Uncomplicated Side effects of treatment? @ -No Exacerbation, Progression, or Severe Exacerbation? @ -No Poses a threat to life or bodily function? How? (Chest pain, USA, SD, pneumonia, PE, COPD, DKA, ARF, appy, cholecystitis, CVA, Diverticulitis, Homicidal, Suicidal, threat to staff... and all critical care pts) @ -Patient is high risk given her history of lung cancer, she was offered admission and declined. She was provided with strict return parameters - Lab Data Result diagrams: 05/09/24 18:52 05/09/24 18:52 Lab Results 05/09/24 05/09/24 05/09/24 Range/Units 16:37 18:52 18:52 WBC 4.3 (3.8-10.6) k/uL RBC 4.37 (3.80-5.40) m/uL Hgb 12.0 (11.4-16.0) gm/dL Hct 36.1 (34.0-46.0) % MCV 82.7 (80.0-100.0) fL MCH 27.5 (25.0-35.0) pg MCHC 33.3 (31.0-37.0) g/dL RDW 16.1 H (11.5-15.5) % Plt Count 308 (150-450) k/uL MPV 7.3 Neutrophils % 70 % Lymphocytes % 12 % Monocytes % 13 % Eosinophils % 1 % Basophils % 1 % Neutrophils # 3.0 (1.3-7.7) k/uL Lymphocytes # 0.5 L (1.0-4.8) k/uL Monocytes # 0.6 (0-1.0) k/uL Eosinophils # 0.0 (0-0.7) k/uL Basophils # 0.1 (0-0.2) k/uL Anisocytosis Slight Sodium 135 L (137-145) mmol/L Potassium 3.8 (3.5-5.1) mmol/L Chloride 99 (98-107) mmol/L Carbon Dioxide 27 (22-30) mmol/L Anion Gap 9 mmol/L BUN 12 (7-17) mg/dL Creatinine 0.41 L (0.52-1.04) mg/dL Est GFR (CKD-EPI)AfAm >90 (>60 ml/min/1.73 sqM) Est GFR (CKD-EPI)NonAf >90 (>60 ml/min/1.73 sqM) Glucose 151 H (74-99) mg/dL Calcium 9.2 (8.4-10.2) mg/dL Total Bilirubin 0.5 (0.2-1.3) mg/dL AST 49 H (14-36) U/L ALT 67 H (4-34) U/L Alkaline Phosphatase 38 (38-126) U/L Total Protein 6.4 (6.3-8.2) g/dL Albumin 3.4 L (3.5-5.0) g/dL Influenza Type A (PCR) Not Detected (Not Detectd) Influenza Type B (PCR) Not Detected (Not Detectd) RSV (PCR) Not Detected (Not Detectd) SARS-CoV-2 (PCR) Detected A (Not Detectd) Disposition Clinical Impression: COVID-19 Disposition: HOME SELF-CARE Condition: Fair Instructions (If sedation given, give patient instructions): COVID-19 (Coronavirus Disease 2019) (ED) Additional Instructions: Follow-up with your PCP. Report back to ER with any new or worsening symptoms, this includes but is not limited to increase shortness of breath, chest pain, pa ssing out, fever. Prescriptions: Nirmatrelvir/Ritonavir [Paxlovid 300-100 mg Dose Pack] 1 each PO BID #1 each Is patient prescribed a controlled substance at d/c from ED?: No Referrals: Daniel Corrales MD [Primary Care Provider] - 1-2 days Time of Disposition: 19:25
[2024-05-09 17:19] LABS: Influenza A Not Detected (Not Detectd); Influenza B Not Detected (Not Detectd); RSV Not Detected (Not Detectd)
--- NOTE | 2024-05-09 18:16 | XR ---
EXAMINATION TYPE: XR chest 2V DATE OF EXAM: 05/09/2024 5:24 PM COMPARISON: 01/24/2024 CLINICAL INDICATION: Female, 68 years old with history of THELMA, TECHNIQUE: XR chest 2V view(s) obtained. FINDINGS: The heart size is normal. The pulmonary vasculature is normal. Increased density in the right perihilar region appears stable. Mediastinal silhouette appears stable . Minimal left pleural effusion may be present.. IMPRESSION: 1. No acute pulmonary process. 2. Right perihilar changes appear stable which can be compatible with the patient's known lung cancer [facility], Workstation: [facility], 05/09/2024 6:13 PM
[2024-05-09 18:49] VITALS: BP 96/65; PULSE 96; RESP 21; TEMP 99.1
[2024-05-09 19:08] LABS: Anisocytosis Slight; Basophils # (A) 0.1 k/uL (0-0.2); Basophils % (A) 1 %; Eosinophils % (A) 1 %; HCT 36.1 % (34.0-46.0); Lymphocytes # (A) 0.5 k/uL (1.0-4.8); Lymphocytes % (A) 12 %; MCH 27.5 pg (25.0-35.0); MCHC 33.3 g/dL (31.0-37.0); MCV 82.7 fL (80.0-100.0); Mean Platelet Volume 7.3; Monocytes # (A) 0.6 k/uL (0-1.0); Monocytes % (A) 13 %; Neutrophils % (A) 70 %; Platelet Count 308 k/uL (150-450); RBC 4.37 m/uL (3.80-5.40); RDW 16.1 % (11.5-15.5); WBC 4.3 k/uL (3.8-10.6)
[2024-05-09] MEDS: DEXAMETHASONE SOD PHOSPHATE 10 MG/ML 1 ML VIAL IM STA (19:16)
[2024-05-09] MEDS: SODIUM CHLORIDE 0.9% 500 ML 500 ML IV ONE (19:18)
[2024-05-09] MEDS: DEXAMETHASONE SOD PHOSPHATE 10 MG/ML 1 ML VIAL IV STA (19:18)
[2024-05-09 19:26] LABS: ALT 67 U/L (4-34); AST 49 U/L (14-36); African American GFR (CKD) >90 (>60 ml/min/1.73 sqM); Albumin 3.4 g/dL (3.5-5.0); Alkaline Phosphatase 38 U/L (38-126); Anion Gap 9 mmol/L; Blood Urea Nitrogen 12 mg/dL (7-17); Calcium 9.2 mg/dL (8.4-10.2); Carbon Dioxide 27 mmol/L (22-30); Chloride 99 mmol/L (98-107); Glucose 151 mg/dL (74-99); Non-African American GFR(CKD) >90 (>60 ml/min/1.73 sqM); Potassium 3.8 mmol/L (3.5-5.1); Sodium 135 mmol/L (137-145); Total Bilirubin 0.5 mg/dL (0.2-1.3); Total Protein 6.4 g/dL (6.3-8.2)
== END 2024-05-09 19:54 | disposition home or self-care (01) ==
LOC: EC 16:25
DX: U07.1 COVID-19 (principal); C34.90 Malignant neoplasm of unspecified part of unspecified bronchus or lung; Z88.1 Allergy status to other antibiotic agents; Z91.040 Latex allergy status; Z88.8 Allergy status to other drugs, medicaments and biological substances; Z91.012 Allergy to eggs; Z87.891 Personal history of nicotine dependence
CPT/HCPCS: 36415; 80053; 85025; 87636; 71046; 99285; 96372; J1100

== ENCOUNTER → 2024-08-02 | Outpatient (CLI) | payer MEDICARE, BC ==
[2024-08-02 11:01] LABS: African American GFR (CKD) >90 (>60 ml/min/1.73 sqM); Blood Urea Nitrogen 16 mg/dL (7-17); Non-African American GFR(CKD) >90 (>60 ml/min/1.73 sqM)
--- NOTE | 2024-08-02 13:41 | CT ---
EXAMINATION TYPE: CT chest w con CT DLP: 469.80 mGycm, Automated exposure control for dose reduction was used. DATE OF EXAM: 08/02/2024 11:48 AM COMPARISON: CT chest 05/23/2024, 01/07/2024, 08/12/2023, 03/10/2023, PET/CT 10/09/2021, CTA chest 09/17/2023 CLINICAL INDICATION:Female, 68 years old with history of C34.12 LUNG CANCER; [facility], TECHNIQUE: Multiple axial images were obtained through the chest following the administration of 100 cc of Isovue 300. . Coronal and sagittal reformats reviewed. FINDINGS: LUNGS/ PLEURA: Elevation of the right hemidiaphragm. No pneumothorax. Similar trace left pleural eff usion. Similar irregular opacity extending from the right suprahilar region into the right upper lobe measuring up to 3.1 cm. Irregular spiculated 2.4 cm nodule is mildly increased in size, previously 2 .1 cm. Few additional scattered nodules redemonstrated which are similar in size to prior exam when m easured with similar technique. Volume loss and consolidation throughout the medial left upper lobe r edemonstrated and measuring again up to 2.1 is in thickness. This is unchanged from prior exam. Mild to moderate emphysematous changes. AIRWAY: Patent and unremarkable.. HEART: Size within normal limits.Increasing moderate sized pericardial effusion measuring up to 2.2 c m in thickness, previously 1.5 cm. Mild coronary artery calcifications present. MEDIASTINUM: Stable mildly enlarged subcarinal lymph node measuring 1.2 cm short axis. Stable borderl ine enlarged right upper paratracheal lymph node measuring 1 and short axis. No new adenopathy. VASCULATURE: No aortic aneurysm. Right anterior chest wall IJ Mediport catheter distal tip terminati ng in the mid SVC. Atherosclerotic calcification of the aorta and its branches. MUSCULOSKELETAL: No acute osseous abnormalities. Partial visualization of anterior cervical fusion ngo rdware. No aggressive osseous lesion. Mild multilevel degenerative disc disease. SOFT TISSUES/LYMPH NODES: Unremarkable. LOWER NECK: No significant findings. UPPER ABDOMEN: No significant findings. IMPRESSION: 1. Scattered pulmonary nodules throughout the right lung redemonstrated with increase in size of the right midlung 2.4 mm nodule, previously 2.1 cm. Additional other smaller nodules are relatively stabl e in size from prior exam. Raises concern for progression of disease. Consider further evaluation wit h PET/CT as clinically indicated. 2. Similar volume loss and consolidation of the medial left upper lobe from prior exam possibly repre senting treated disease. Ongoing surveillance is recommended. 3. Similar focal right suprahilar opacity possibly representing site of treated disease. 4. Increasing moderate sized pericardial effusion. 5. Stable few mildly prominent mediastinal lymph nodes. [facility], , 08/02/2024 1:39 PM
--- NOTE | 2024-08-02 15:38 | NM ---
INDICATION: Patient age:Female; 68 years old; Reason for study: C34.12 LUNG CANCER; [facility]. COMPARISON: PET/CT 10/09/2022, nuclear medicine bone scan 08/08/2018. TECHNIQUE: Intravenous administration of 24.2 mCi of Technetium 99m-Medronate followed by multiple s cintigraphic images of the appendicular and axial skeleton. Additionally, small field of view planar anterior and posterior images of the lumbosacral spine and pelvis. Lastly, small [id number] anteri or, posterior and lateral views of the chest were submitted for review. FINDINGS: No abnormal uptake is identified within the appendicular or axial skeleton to suggest metastatic dise ase. No other photopenic areas or areas of increased activity are identified. Physiologic radiotracer activity is demonstrated in the kidneys and bladder. IMPRESSION: Nothing to suggest metastatic disease. [facility], , 08/02/2024 3:36 PM
== END | disposition home or self-care (01) ==
LOC: RADNMMAIN 09:52
PROVIDERS: ATTEND Internal Medicine Hematology & Oncology
DX: Z03.89 Encounter for observation for other suspected diseases and conditions ruled out (principal); C34.12 Malignant neoplasm of upper lobe, left bronchus or lung; R91.8 Other nonspecific abnormal finding of lung field; I31.39 Other pericardial effusion (noninflammatory)
CPT/HCPCS: 82565; 84520; 71260; 36415; 78306; A9503; Q9967